=== PATIENT | male | born 1950 | race Caucasian/White ===

== ENCOUNTER 2023-11-15 07:22 | Outpatient (OUT) | payer MEDICARE, SELFPAY | END 2023-11-15 07:23 | disposition home or self-care (01) | LOC: PST 07:22 | PROVIDERS: Visit Provider Surgery | DX: Z01.818 Encounter for other preprocedural examination (principal) ==

== ENCOUNTER 2023-11-21 07:23 | Day surgery (SDC) | payer MEDICARE, OTHER, SELFPAY ==
--- OUTSIDE RECORDS SUMMARY | 2023-11-21 07:28 | XMS_ITS | CCD ---
Author Organization [facility] Care Team Providers Care Cured Meats Supervisor Name Role Phone Elmer Mendoza Primary Care Provider KJ BACA Referring Unavailable ELMER MENDOZA Primary Care Unavailable Zahra Whelan Unavailable Jair Willams Unavailable Nargis Church Unavailable Ector Berg Unavailable Minna Hand Unavailable JR Elmer Mendoza Primary Care Provider [phone] MD Ector Berg Attending Provider Riley, Awa Unavailable Riley, TECHNICAL FELLOW Awa Attending Provider Riley, TECHNICAL FELLOW Awa Referring Provider DR ELMER MENDOZA Primary Care Unavailable RILEY, AWA Admitting Unavailable RILEY, AWA Attending Unavailable OSVALDO, AWA Consulting Unavailable KELLY, DR FRANKLIN Primary Care Unavailable MISC, DR CALHOUN Admitting Unavailable MISC, DR CALHOUN Attending Unavailable MISC, DR CALHOUN Consulting Unavailable VALONE, DR FRANKLIN Primary Care Unavailable VALONE, DR FRANKLIN Attending Unavailable VALONE, DR FRANKLIN Admitting Unavailable VALONE, DR FRANKLIN Consulting Unavailable ESTRELLAONE, DR FRANKLIN Primary Care Unavailable ECTOR BERG Admitting Unavailable ECTOR BERG Attending Unavailable ECTOR BERG Consulting Unavailable KIRT, DR GIRALDO Admitting Unavailable KELLY, DR FRANKLIN Primary Care Unavailable KIRT, DR GIRALDO Attending Unavailable KIRT, DR GIRALDO Consulting Unavailable AUSTIN, DR NATHAN Santana Consulting Unavailable ESTRELLAONE, DR FRANKLIN Primary Care Unavailable ROM TOBIAS Admitting Unavailable ROM TOBIAS Attending Unavailable RYAN CH Consulting Unavailable PAY, DR TERESA Admitting Unavailable VALONE, DR FRANKLIN Primary Care Unavailable PAY, DR TERESA Attending Unavailable PAY, DR TERESA Consulting Unavailable VALONE, DR FRANKLIN Primary Care Unavailable ELASHI, DR MCARTHUR Admitting Unavailable ELASHI, DR MCARTHUR Attending Unavailable ELASHI, DR MCARTHUR Consulting Unavailable JR Elmer Mendoza Primary Care Provider MD Ector Berg Attending Provider Riley, TECHNICAL FELLOW Awa Attending Provider Riley, TECHNICAL FELLOW Awa Referring Provider JR Elmer Mendoza Attending Provider [phone] DO Conrad Garcia Emergency Provider [phone] JR Elmer Mendoza Primary Care Provider [phone] MD Ector Berg Attending Provider [phone] Estrellaone, Elmer L Admitting Unavailable Valone, Elmer L Attending Unavailable Valone, Elmer L Primary Care Unavailable Tanya, Ector Admitting Unavailable TanyaEctor Attending Unavailable Valone, Elmer L Primary Care Unavailable Valone, Elmer L Admitting Unavailable Valone, Elmer Devries Attending Unavailable Valone, Elmer L Primary Care Unavailable Valone, Elmer L Primary Care Unavailable Riley, Awa Referring Unavailable Riley, Awa Attending Unavailable Riley, Awa Admitting Unavailable Valone, Elmer L Primary Care Unavailable TanyaEctor Attending Unavailable Ector Berg Admitting Unavailable Jair Willams Attending Unavailable Estrellaone, Elmer L Primary Care Unavailable Jair Willams Admitting Unavailable Jair Willams Attending Unavailable Valone, Elmer L Primary Care Unavailable Jair Willams Admitting Unavailable Conrad Garcia Attending Unavailable Conrad Garcia Admitting Unavailable Valone, Elmer L Primary Care Unavailable Conrad Garcia M Attending Unavailable Conrad Garcia M Admitting Unavailable Valone, Elmer L Primary Care Unavailable BuehJair coburn Attending Unavailable Letyrer, Jair Admitting Unavailable Valone, Elmer L Primary Care Unavailable Naldo Castillo Unavailable Dr. Elmer Mendoza Jr Primary Care Enedina debilaadonay Winston, Ms. April Friend Referring Unava ilable Joce, Dr. Brady Duenas Attending Unavaila ble Kelly Chauhan., Elmer HARE Primary Care Provider FELIPE PACHECO Attending Unavailable RAJAB, AMER Referring Unavailable VALONE JR., ELMER Jaycob Primary Care Unavailabl e RAJAB, AMER Attending Unavailable RAJAB, AMER Referring Unavailable RAJAB, AMER Attending Unavailable VALONE JR., ELMER Devries Primary Care Unavailabl e VALONE JR., ELMER Jaycob Primary Care Unavailabl e SELF, SELF Referring Unavailable RAJAB, AMER Referring Unavailable RAJAB, AMER Attending Unavailable VALONE JR., ELMER Devries Primary Care Unavailabl e RAJAB, AMER Attending Unavailable VALONE JR., ELMER Devries Primary Care Unavailabl e RAJAB, AMER Referring Unavailable VALONE JR., ELMER Jaycob Primary Care Unavailabl e RAJAB, AMER Attending Unavailable RAJAB, AMER Referring Unavailable VALONE JR., ELMER Jaycob Primary Care Unavailabl e RAJAB, AMER Attending Unavailable RAJAB, AMER Referring Unavailable VALONE JR., ELMER Jaycob Primary Care Unavailabl e RAJAB, AMER Attending Unavailable SELF, SELF Referring Unavailable VALONE JR., ELMER Jaycob Primary Care Unavailabl e RAJAB, AMER Referring Unavailable RAJAB, AMER Attending Unavailable Allergies Allergy Classification Reported Allergen(s) Allergy Type Date of Onset Reaction(s) Facility (16 sources) Verapamil Drug Allergy 04-20-2020 [place], [place] (1 source) Verapamil Drug Allergy [facility] Repository (1 source) Verapamil Drug Allergy 06-11-2022 [facility] Repository Medications Current Medications Medication Drug Class(es) Dates Sig (Normalized) Sig (Original) [id number] 200 actuat albuterol 0.09 mg/actuat metered dose inhaler (8 sources) beta2-Adrenergic Agonist Start: 12-18-2021 take 2 puff(s) by inhalation every four hours as needed Albuterol Sulfate HFA 108 (90 Base) MCG/ACT 2 puffs as needed Inhalation every 4 hrs Dec, Active Start: 12-18-2021 take 2 puff(s) by in halation every four hours as needed Albuterol Sulfate HFA 108 (90 Base) MCG/ACT 2 puffs as needed Inhalation every 4 hrs Dec, Active Start: 04-30-2021 End: 05-31-2022 Albuterol Sulfate Discontinu ed 2 INH INHALATION Daily April 29, 2021 11:00pm May 31, 2022 3:45am allopurinol 100 mg oral tablet (20 sources) Xanthine Oxidase Inhibitor Start: 04-30-2021 take 200 mg by mouth three times daily Allopurinol Active 200 MG PO Three times daily April 29, 2021 11:00pm Start: 04-30-2021 End: 04-30-2021 Allopurinol Discontinued MG TABLET April 29, 2021 11:00pm April 30, 2021 2:21pm Start: 04-30-2021 take 200 mg by mouth once daily in the morning Allopurinol Active 200 MG PO Every morning April 29, 2021 11:00pm Allopurinol 100 MG tablet 1 (one) time each day at the same time. Active take 2 tablets by mo uth every twenty-four hours Allopurinol 100 MG 2 tablets Oral Once a day for 90 Not-Taking amoxicillin 500 mg / clavulanate 125 mg oral tablet (1 source) Penicillin-class Antibacterial Start: 04-08-2022 take 1 tablet by mouth every twenty-four hours Amoxicillin-Pot Clavulanate 500-125 MG 1 tablet Orally once a day for 7 day(s) Apr, Active B Complex-Vitamin C-Folic Acid (Renal Vitamin) 0.8 mg Tablet (3 sources) Start: 05-31-2022 take 1 tablet by mouth once daily B Complex-Vitamin C-Folic Acid (Renal Vitamin) 0.8 mg Tablet Active 1 TAB PO Daily May 31, 2022 12:00am calcitriol 0.42305 mg oral capsule (19 sources) Vitamin D3 Analog Calcitriol 0.2 5 MCG 1 capsule twice a day Orally bid for 90 day(s) Active calcium acetate 667 mg oral tablet (5 sources) Start: 05-31-2022 Calcium Acetate Active 1334 MG PO 2-3 TIMES DAILY May 31, 2022 12:00am take 2 tablets by mouth every ei ght hours Calcium Acetate 667 MG 2 tablets with meals Orally Three times a day Active carvedilol 6.25 mg oral tablet (20 sources) alpha-Adrenergic Alexis, beta-Adrenergic Alexis Start: 05-31-2022 take 6.25 mg by mouth once daily at mealtime Carvedilol Active 6.25 MG PO Daily May 31, 2022 12:00am must administer with a meal/food Start: 04-30-2021 End: 05-31-2022 take 12.5 mg by mouth twice daily Carvedilol Discontinued 12.5 MG PO Twice daily April 29, 2021 11:00pm May 31, 2022 3:46am take 1.5 tablets by mouth every twelve hours Carvedilol 12.5 MG 1.5 tablet with food Orally Twice a day Active cephalexin 500 mg oral capsule (7 sources) Cephalosporin Antibacterial Start: 06-11-2022 take 500 mg by mouth every six hours Cephalexin Active 500 MG PO Q6H 28 June 11, 2022 12:00am Start: 05-29-2021 End: 08-26-2021 take 500 mg by mouth twice daily Cephalexin Discontinued 500 MG PO Twice daily 14 May 29, 2021 12:00am August 26, 2021 11:12am dexamethasone 1 mg/ml / tobramycin 3 mg/ml ophthalmic suspension (2 sources) Aminoglycoside Antibacterial, Corticosteroid Start: 12-18-2021 take 1 drop(s) into the eye(s) three times daily Tobramycin-Dexamethasone 0.3-0.1 % 1 drop into affected eye Ophthalmic three times a day for 5 day(s) Dec, Active doxycycline monohydrate 100 mg oral capsule (1 source) Tetracycline-class Drug Start: 12-18-2021 take 1 capsule by mouth every twelve hours Doxycycline Monohydrate 100 MG 1 capsule Orally every 12 hrs for 10 days Dec, Active DULoxetine 60 mg delayed release oral capsule (20 sources) Serotonin and Norepinephrine Reuptake Inhibitor Start: 09-22-2022 DULox[address] Particles capsule DR 09/22/2022 Active Start: 04-30-2021 take 60 mg by mouth once daily at bedtime Duloxetine Active 60 MG PO Daily at bedtime April 29, 2021 11:00pm esomeprazole 20 mg delayed release oral capsule (3 sources) Proton Pump Inhibitor Start: 05-31-2022 take 20 mg by mouth once daily Esomeprazole Magnesium Active 20 MG PO Daily May 31, 2022 12:00am FLUoxetine 10 mg oral capsule (9 sources) Serotonin Reuptake Inhibitor Start: 02-14-2023 FLUoxetine 10 MG capsule 02/14/2023 Active levothyroxine sodium 0.2 mg oral tablet (20 sources) l-Thyroxine Start: 04-30-2021 take 200 ug by mouth once daily in the morning Levothyroxine Active 200 MCG PO Every morning April 29, 2021 11:00pm Levothyroxine So dium 200 MCG 1 tablet every morning on an empty stomach Orally Once a day for 90 days Active methylPREDNISolone 4 mg oral tablet (3 sources) Corticosteroid Start: 12-18-2021 methylPREDNISo lone 4 MG as directed Orally Once a day for 6 days Dec, Active Start: 05-04-2020 End: 05-04-2020 methylPREDNISolone acetate ( DEPO-MEDROL) injection 80 mg montelukast 10 mg oral tablet (17 sources) Leukotriene Receptor Antagonist Start: 01-30-2023 Montelukast 10 MG tablet 01/30/2023 Active Start: 04-30-2021 take 10 mg by mouth once daily in the morning Montelukast Active 10 MG PO Every morning April 29, 2021 11:00pm ofloxacin 3 mg/ml ophthalmic solution (1 source) Quinolone Antimicrobial Start: 08-17-2022 take 1 drop(s) into the eye(s) twice daily Ofloxacin 0.3 % 1 drop Ophthalmic twice a day for 7 day(s) Aug, Active phentermine hydrochloride 37.5 mg oral tablet (4 sources) Sympathomimetic Amine Anorectic take 1 tablet by mouth every twenty-four hours predniSONE 20 mg oral tablet (1 source) Start: 04-08-2022 take 1 tablet by mouth every eight hours predniSONE 20 MG 1 tablet Orally Three times a day for 5 days Apr, Active Renal Vitamin 0.8 MG (2 sources) take 1 tablet by mouth once daily Renal Vitamin 0.8 MG 1 tablet Orally Once a day Active rosuvastatin calcium 20 mg oral tablet (20 sources) HMG-CoA Reductase Inhibitor Start: 05-31-2022 take 20 mg by mouth once daily Rosuvastatin Active 20 MG PO Daily May 31, 2022 12:00am Start: 04-30-2021 End: 05-31-2022 take 40 mg by mouth once daily at bedtime Rosuvastatin Discontinued 40 MG PO Daily at bedtime April 29, 2021 11:00pm May 31, 2022 3:46am sevelamer carbonate 800 mg oral tablet (14 sources) Phosphate Binder Start: 05-31-2022 Sevelamer Car bonate Active 1600 MG PO 2-3 TIMES DAILY May 31, 2022 12:00am take 4 tablets by mo [facility] three times daily at mealtime sevelamer 800 MG tablet TAKE 4 TABLETS B Y MOUTH THREE TIMES DAILY WITH MEALS Active take 1 tablet by mouth every eig ht hours Sevelamer HCl 800 MG 1 tablet with meals Orally Three times a day Active sodium bicarbonate 650 mg or al tablet (13 sources) Start: 05-11-2021 Sodium Bicarbo prince 650 MG as directed Orally three times a day for 30 day(s) May, Active Completed/Discontinued Medications Medication Drug Class(es) Dates Sig (Normalized) Sig (Original) azithromycin 250 mg oral tablet (6 sources) Macrolide Antimicrobial Start: 05-29-2021 End: 08-26-2021 Azithromycin Discontinued 250 MG PO Daily 4 4 May 29, 2021 12:00am August 26, 2021 11:12am start on day 2 of therapy baclofen 10 mg oral tablet (6 sources) gamma-Aminobutyric Acid-ergic Agonist Start: 04-30-2021 End: 05-31-2022 take 10 mg by mouth once daily Baclofen Discontinued 10 MG PO Daily April 29, 2021 11:00pm May 31, 2022 3:45am 30 ml bupivacaine hydrochloride 5 mg/ml injection (1 source) Amide Local Anesthetic Start: 05-04-2020 End: 05-04-2020 bupivacaine (PF) (MARCAINE) 0.5 % injection 20 mg Start: 05-04-2020 End: 05-04-2020 bupivacaine (PF) (MARCAINE) 0.5 % injection 20 mg Cholecalciferol (19 sources) Vitamin D Start: 08-19-2020 take 1 tablet by mouth once daily Cholecalciferol 250 MCG (10525 UT) 1 tablet Orally Once a day Aug, Not-Taking Start: 08-19-2020 take 1 tablet by elidia once daily Cholecalciferol 250 MCG (40207 UT) 1 tablet Orally Once a day Aug, Active furosemide 40 mg oral tablet (20 sources) Loop Diuretic Start: 04-30-2021 End: 11-29-2022 take 40 mg by mouth once daily Furosemide Discontinued 40 MG PO Daily April 29, 2021 11:00pm May 31, 2022 3:46am rarely takes iohexol (OMNIPAQUE 240) injection 50 mL (1 source) Start: 05-04-2020 End: 05-04-2020 iohexol (OMNIPAQUE 240) injection 50 mL iohexol (OMNIPAQUE) 350 MG/ML injection 1-171 mL (1 source) Start: 09-19-2023 End: 09-19-2023 1-171 mL, Intravenous, ONCE, 1 dose, On Mon09/19/23 at 1345, Extravasation Risk, CT Procedure 10 ml lidocaine hydrochloride 10 mg/ml injection (1 source) Antiarrhythmic, Amide Local Anesthetic Start: 05-04-2020 End: 05-04-2020 lidocaine PF 1 % injection 4 mL Start: 05-04-2020 End: 05-04-2020 lidocaine PF 1 % injection 4 mL lisinopril 5 mg oral tablet (10 sources) Angiotensin Converting Enzyme Inhibitor Start: 04-30-2021 End: 05-31-2022 take 2.5 mg by mouth once daily in the morning Lisinopril Discontinued 2.5 MG PO Every morning April 29, 2021 11:00pm May 31, 2022 3:46am take 1 tablet by elidia th every twenty-four hours Lisinopril 2.5 MG 1 tablet Orally Once a day Active Perflutren Lipid Microsphere (DEFINITY) 1.5 mL in Normal saline flush 0.9% 8.5 mL (1 source) Start: 10-27-2023 End: 10-27-2023 10 mL, Intravenous, ONCE, 1 dose, On Mon10/27/23 at 1130, FOR ECHO PROCEDURE ONLY Dilute 1.5 mL of Definity with 8.5 mL of 0.9% sodium chloride and draw up in a 10 mL syringe. Administration during procedure as directed by physician. Recorded MAR dose is cumulative amount given during procedure., Echo Procedure regadenoson (LEXISCAN) injection 0.4 mg (1 source) Start: 10-27-2023 End: 10-27-2023 take 0.4 mg intravenously once 0.4 mg, Intravenous, ONCE, 1 dose, On Mon10/27/23 at 1245, Give rapid iv push over 10 seconds, NM Procedure 20 ml sodium chloride 9 mg/ml injection (2 sources) Start: 10-27-2023 End: 10-27-2023 10-50 mL, Intravenous, ONCE NEEDED, 1 dose, Starting on Mon10/27/23 at 1208, Until Mon10/27/23 at 1200, Flush, NM Procedure Start: 09-19-2023 End: 09-19-2023 1-100 mL, Intravenous, ONCE NEEDED, 1 dose, Starting on Mon09/19/23 at 1344, Until Mon09/19/23 at 1354, Flush, CT Procedure Technetium tc 99m sestamibi (SESTAMIBI) 7.2-38.5 millicurie (1 source) Start: 10-27-2023 End: 10-27-2023 7.2-38.5 millicurie, Intravenous, ONCE, 1 dose, On Mon10/27/23 at 1215 Technetium tc 99m sestamibi (SESTAMIBI) 7.2-49.5 millicurie (1 source) Start: 10-27-2023 End: 10-27-2023 7.2-49.5 millicurie, Intravenous, ONCE, 1 dose, On Mon10/27/23 at 1215 Problems Active Problems Problem Classification Problem Date Documented Date Episodic/Chronic Abdominal pain (4 sources) Abdominal pain; Translations: [Unspecified abdominal pain] Onset: 2 05-31-2022 Episodic Acute bronchitis (1 source) Acute bronchitis, unspecified Episodic Chronic kidney disease (20 sources) Chronic kidney disease stage 4; Translations: [Chronic kidney disease, stage 4 (severe)] Onset: 1 Resolved: 2 Chronic Congestive heart failure; nonhypertensive (1 source) Chronic diastolic (congestive) heart failure; Translations: [Chronic diastolic (congestive) heart failure] Onset: 2 Chronic Deficiency and other anemia (15 sources) Anemia in chronic kidney disease; Translations: [Anemia in chronic kidney disease] Chronic Deficiency and other anemia (1 source) Anemia in chronic kidney disease Onset: 1 Resolved: 1 Chronic Diabetes mellitus with complications (20 sources) Disorder of kidney due to diabetes mellitus; Translations: [Type 2 diabetes mellitus with diabetic chronic kidney disease] Onset: 1 Resolved: 1 Chronic Disorders of lipid metabolism (1 source) Hyperlipidemia, unspecified; Translations: [Hyperlipidemia, unspecified] Onset: 2 Chronic Essential hypertension (19 sources) Hypertensive disorder; Translations: [Hypertension, unspecified] Chronic Gout and other crystal arthropathies (4 sources) Gout, unspecified; Translations: [GOUT UNSPECIFIED] Onset: 2 Chronic Hypertension with complications and secondary hypertension (20 sources) Malignant hypertensive chronic kidney disease; Translations: [Hypertensive chronic kidney disease with stage 1 through stage 4 chronic kidney disease, or unspecified chronic kidney disease] Onset: 1 Resolved: 2 Chronic Immunizations and screening for infectious disease (8 sources) Patient encounter status; Translations: [Encounter for screening for infections with a predominantly sexual mode of transmission] Onset: 4 08-31-2023 Episodic Inflammation; infection of eye (except that caused by tuberculosis or sexually transmitteddisease) (2 sources) Unspecified acute conjunctivitis, bilateral Onset: 2 Resolved: 2 Episodic Nephritis; nephrosis; renal sclerosis (20 sources) Focal segmental glomerulosclerosis; 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] Onset: 1 Resolved: 1 Chronic Other aftercare (2 sources) Encounter for therapeutic drug level monitoring; Translations: [Encounter for therapeutic drug level monitoring] Onset: 4 Episodic Other aftercare (2 sources) Encounter for follow-up examination after completed treatment for conditions other than malignant neoplasm; Translations: [Encounter for follow-up examination after completed treatment for conditions other than malignant neoplasm] Onset: 4 Episodic Other diseases of kidney and ureters (19 sources) Hyperparathyroidism due to renal insufficiency; Translations: [Secondary hyperparathyroidism of renal origin] Chronic Other diseases of kidney and ureters (3 sources) Secondary hyperparathyroidism of renal origin Onset: 1 Resolved: 1 Chronic Other non-traumatic joint disorders (1 source) Pain in right hip joint; Translations: [Hip pain, right] Other nutritional; endocrine; and metabolic disorders (19 sources) Body mass index 40+ - severely obese; Translations: [Body mass index (BMI) 45.0-49.9, adult] Chronic Other nutritional; endocrine; and metabolic disorders (1 source) Body mass index (BMI) 45.0-49.9, adult Onset: 1 Resolved: 1 Chronic Other nutritional; endocrine; and metabolic disorders (1 source) Obesity, unspecified; Translations: [OBESITY UNSPECIFIED] Onset: 2 Chronic Other nutritional; endocrine; and metabolic disorders (1 source) Body mass index (BMI) 38.0-38.9, adult; Translations: [BODY MASS INDEX BMI 38.0-38.9 ADULT] Onset: 2 Chronic Other screening for suspected conditions (not mental disorders or infectious disease) (10 sources) Abnormal electrocardiogram [ECG] [EKG]; Translations: [Patient encounter status] Onset: 2 08-31-2023 Episodic Other upper respiratory infections (1 source) Chronic sinusitis, unspecified; Translations: [CHRONIC SINUSITIS UNSPECIFIED] Onset: 2 Chronic Other upper respiratory infections (7 sources) Upper respiratory infection; Translations: [Acute upper respiratory infection, unspecified] 05-29-2021 Episodic Spondylosis; intervertebral disc disorders; other back problems (6 sources) Pain in thoracic spine; Translations: [Dorsalgia, unspecified] Onset: 2 Episodic Thyroid disorders (20 sources) Hypothyroidism; Translations: [Hypothyroidism, unspecified] Onset: 1 Resolved: 1 Chronic Unclassified (1 source) Acute cough; Translations: [Acute cough] Onset: 2 Unclassified (1 source) Contact with and (suspected) exposure to COVID-19; Translations: [Contact with and (suspected) exposure to COVID-19] Onset: 2 Unclassified (1 source) Z49.01 - Encounter for fitting and adjustment of extracorporeal dialysis catheter; Translations: [Z49.01 - Encounter for fitting and adjustment of extracorporeal dialysis catheter] Onset: 2 Unclassified (1 source) T82.898A - Other specified complication of vascular prosthetic devices, implants and grafts, initial encounter; Translations: [T82.898A - Other specified complication of vascular prosthetic devices, implants and grafts, initial encounter] Onset: 2 Unclassified (1 source) Z01.812 - Encounter for preprocedural laboratory examination; Translations: [Z01.812 - Encounter for preprocedural laboratory examination] Onset: 2 Urinary tract infections (6 sources) Urinary tract infectious disease; Translations: [Urinary tract infection, site not specified] 05-29-2021 Episodic Urinary tract infections (1 source) Urinary tract infections; Translations: [Urinary tract infection, site not specified] Onset: 2 Past or Other Problems Problem Classification Problem Date Documented Da te Episodic/Chronic Cardiac dysrhythmias (4 sources) Tachycardia, unspecified; Translations: [Palpitations] Onset: 12-27-2021 Episodic Chronic obstructive pulmonary disease and bronchiectasis (1 source) Bronchitis, not specified as acute or chronic Onset: 12-18-2021 Resolved: 12-18-2021 Episodic Deficiency and other anemia (4 sources) Anemia, unspecified; Translations: [ANEMIA UNSPECIFIED] Onset: 09-10-2021 Episodic E Codes: Natural/environment (1 source) Other and unspecified overexertion or strenuous movements or postures, initial encounter; Translations: [OTH AND UNS OVREXRT/STRN MVMT/POS INT] Onset: 12-13-2021 Episodic Genitourinary symptoms and ill-defined conditions (1 source) Proteinuria, unspecified Onset: 05-11-2021 Resolved: 05-11-2021 Episodic Other aftercare (1 source) Other intermediate (current) drug therapy; Translations: [OTH SURFACE GRINDER TENDER CURRENT DRUG THERAPY] Onset: 12-29-2021 Episodic Other ear and sense organ disorders (1 source) Otalgia, unspecified ear; Translations: [OTALGIA UNSPECIFIED EAR] Onset: 12-29-2021 Episodic Otitis media and related conditions (1 source) Otitis media, unspecified, bilateral Onset: 12-18-2021 Resolved: 12-18-2021 Episodic Residual codes; unclassified (1 source) Edema, unspecified Onset: 05-11-2021 Resolved: 05-11-2021 Episodic Screening and history of mental health and substance abuse codes (1 source) Personal history of nicotine dependence; Translations: [Former smoker Z87.891] Onset: 04-26-2021 Resolved: 04-26-2021 Episodic Sprains and strains (1 source) Strain of muscle and tendon of back wall of thorax, initial encounter; Translations: [STRN MSC TENDON BACK WALL THOR INIT] Onset: 12-13-2021 Episodic Unclassified (1 source) Acute cough R05.1 Results Test Name Value Interpretation Reference Range Facility ARTERIAL BLOOD GASon 024 Base Excess 3.0 mmol/L Normal -3.0-3.0 [facility] [place] Comment on above: Performed By: #### I PB, BILTO, URICB, TP #### U [facility] (DEFAULT) [address] [place] [id number] HCO3 (Bld) [Moles/Vol] 27 mmol/L Normal 22-28 [facility] Comment on above: Performed By: #### I PB, BILTO, URICB, TP #### U [facility] (DEFAULT) [address] [place] [id number] Oxygen saturation in Blood 98 % Normal 94-98 [facility] [place] Comment on above: Performed By: #### I PB, BILTO, URICB, TP #### U [facility] (DEFAULT) [address] [place] [address] [id number] pCO2 40 mm Hg Normal 32-48 [facility] [place] Comment on above: Performed By: #### I PB, BILTO, URICB, TP #### U [facility] (DEFAULT) [address] [place], [place] [id number] pH, Arterial 7.44 Normal 7.35-7.45 [facility] [place] Comment on above: Performed By: #### I PB, BILTO, URICB, TP #### U [facility] (DEFAULT) [address] [place] [id number] pO2 96 mm Hg Normal 83-108 [facility] [place] Comment on above: Performed By: #### I PB, BILTO, URICB, TP #### U [facility] (DEFAULT) [address] [place] [id number] Specimen type Nom (Spec) Arterial Normal [facility] [place] Comment on above: Performed By: #### I PB, BILTO, URICB, TP #### U [facility] (DEFAULT) [address] [place] [address] Base excess Calc (Bld) [Moles/Vol] 3.0 mmol/L -3.0 - 3.0 mmol/L [facility] CO2 (Bld) [Partial pressure] 40 mm[Hg] [facility] HCO3 (Bld) [Moles/Vol] 27 mmol/L 22 - 28 mmol/L [facility] Oxygen (Bld) [Partial pressure] 96 mm[Hg] [facility] Oxygen saturation in Blood 98 % 94 - 98 % [facility] pH (Bld) 7.44 [pH] 7.35 - 7.45 [facility] Specimen source Nom (Unsp spec) [facility] Procedure Ordered By: Krunal Brown on 10-27-2023 Ao ASC index 1.40 cm/m2 [facility] Work Phone: Ao peak ruiz 1.63 m/s [facility] Work Phone: Ao SOV index 1.38 cm/m2 [facility] Work Phone: Ao STJ index 1.28 cm/m2 [facility] Work Phone: Ao VTI 31.[address] [facility] Work Phone: Ascending aorta 3.20 [facility]: AV LVOT peak gradient [address] [facility] Work Phone: AV mean gradient [facility] peak gradient 11 [facility]HG [facility]: AV valve area 2.20 cm2 [facility] Work Phone: AV Velocity Ratio 0.56 [facility] Work Phone: SIXTO (continuity Vmax) 2.[address] [facility] Work Phone: SIXTO (continuity VTI) 2.[address] [facility] Work Phone: SIXTO index (continuity Vmax) 0.94 m/s [facility] Work Phone: SIXTO index (continuity VTI) 0.96 cm2/m2 [facility] Work Phone: Avg e' pk ruiz 0.08 m/s [facility] Work Phone: Avg E/e' ratio 7.51 [facility] Work Phone: Body surface area Derived from formula 2.[address] [facility] Work Phone: BP EF 65 % [facility] Work Phone: DI (Vmax) 0.56 [facility] Work Phone: DI (VTI) 0.58 m/2 [facility] Work Phone: E wave decelartion time 222.[address] [facility] Work Phone: e' lateral pk ruiz 0.0860 m/s [facility] Work Phone: e' lateral pk ruiz 0.09 m/s [facility] Work Phone: e' septal pk ruiz 0.0700 m/s [facility] Work Phone: e' septal pk ruiz 0.07 [facility]: E/A ratio 0.73 [facility] Work Phone: E/e' lateral ratio 6.74 [facility] Work Phone: E/e' septal ratio 8.29 [facility] Work Phone: EF SP 2CH 65 [facility] Work Phone: EF SP 4CH 66 [facility] Work Phone: EST RAP 3.00 mmHg [facility] Work Phone: FS 34 % 28 - 44 % [facility] Work Phone: IVC ostium 1.62 cm [facility] Work Phone: IVS 1.16 cm [facility] Work Phone: LA AREA 2CH 25.[address] [facility] Work Phone: LA area 4CH 22.[address] [facility] Work Phone: LA ESV BP (MOD) 80 mL [facility] Work Phone: LA ESV BP (MOD) index 35 mL/m2 [facility] Work Phone: LA ESV SP 2CH (MOD) 78 mL [facility] Work Phone: LA ESV SP 4CH (MOD) 82 mL [facility] Work Phone: LV EDV BP 149 mL [facility] Work Phone: LV EDV SP 2CH 144 mL [facility] Work Phone: LV EDV SP 4CH 154 mL [facility] Work Phone: LV ESV BP 52 mL [facility] Work Phone: LV ESV SP 2CH [address] [facility] Work Phone: LV ESV SP 4CH [address] [facility] Work Phone: LV mass 168.[address] [facility] Work Phone: LV Mass Index 73.6 g/m2 [facility] Work Phone: LV RWT 0.47 [facility] Work Phone: LV stroke volume BP (ml) [address] [facility] Work Phone: LV stroke volume index BP 42.36 mL/m2 [facility] Work Phone: LVIDD 4.[address] [facility] Work Phone: LVIDS 2.[address] [facility] Work Phone: LVOT area 3.[address] [facility] Work Phone: LVOT diameter 2.[address] [facility] Work Phone: LVOT peak ruiz 0.92 m/s [facility] Work Phone: LVOT peak VTI 18.[address] [facility] Work Phone: LVOT stroke volume 70 cm3 [facility] Work Phone: LVOT stroke volume index 30.63 ml/m2 [facility] Work Phone: MV pk A ruiz 0.80 m/s [facility] Work Phone: MV pk E ruiz 0.58 m/s [facility] Work Phone: OSU AV VTI RATIO PRE STRESS 0.58 [facility] Work Phone: OSU ECHO LV BIPLANE SYSTOLIC VOLUME INDEX 22.71 mL/m2 [facility] Work Phone: OSU ECHO LV BP DIASTOLIC VOLUME INDEX 65.07 mL/m2 [facility] Work Phone: OSU RVOT VTI RATIO 0.92 [facility] Work Phone: PV mean gradient [address] [facility] Work Phone: PV peak gradient [address] [facility] Work Phone: PV PK RUIZ 1.09 m/s [facility] Work Phone: PV VTI 20.[address] [facility] Work Phone: PW 1.[address] [facility] Work Phone: RA vol index 4CH (MOD) 15.72 mL/m2 O [facility] Work Phone: Right atrium volume 4 chamber method of disks [address] [facility] Work Phone: RV S' 16.40 cm/s [facility] Work Phone: RVOT peak gradient 4 mmHg [facility] Work Phone: RVOT peak ruiz 0.94 m/s [facility] Work Phone: RVOT peak VTI 18.[address] [facility] Work Phone: Sinus 3.[address] [facility] Work Phone: STJ 2.[address] [facility] Work Phone: Stroke Volume 70 cm/mL [facility] Work Phone: Stroke volume index 31 [facility] Work [facility]: TAPSE 1.[address] [facility] Work Phone: [facility] Work Phone: Cardiac echo study Procedure on 10-27-2023 - Normal left ventri cular size and function. Ejection fraction 60-65%. - Normal right ventricular size and function. - Mildly dilated left atrium. - Aortic valve is sclerotic. - RVSP could not be estimated. Left Ventricle Chamber size is normal. Normal wall thickness. Normal global systolic function. Regional wall motion is normal. Ejection fraction is normal (60 - 65%). Diastolic function could not be determined. Right Ventricle Chamber size is normal. Systolic function is normal. Left Atrium Chamber size is mildly enlarged. Right Atrium Chamber size is normal. IVC/SVC The inferior vena cava structure has a diameter <21 mm and decreases >50% during inspiration. Mitral Valve Normal appearing leaflets. Leaflet mobility is normal. No regurgitation. No valve stenosis. Tricuspid Valve Normal leaflets. Leaflet mobility is normal. No regurgitation. No stenosis. Pulmonary artery systolic pressure (PASP) is unable to be estimated. Aortic Valve Trileaflet valve. Cusp sclerosis visualized. Leaflet mobility is normal. No regurgitation. No stenosis. Pulmonic Valve Pulmonic valve not well visualized. No regurgitation. No stenosis. Pericardium Appears normal. No pericardial effusion. Septum The atrial septum is normal. Aorta No dilation to extent seen. Study Details A complete echocardiography study (including microbubbles) was performed. Contrast indication: evaluation of left ventricle contiguous segments. Imaging system used: [employer]. Indications Indications for study: pre-op. [facility] Radiology Study observation (narrative) [facility] ECHOCARDIOGRAMon 10-27-2023 Echocardiography - Normal left ventri cular size and function. Ejection fraction 60-65%. - Normal right ventricular size and function. - Mildly dilated left atrium. - Aortic valve is sclerotic. - RVSP could not be estimated. Table formatting from the original result was not included. Images from the original result were not included. Patient Information Patient Name Vj Cárdenas Legal Sex Male Indication for Exam Priority: Routine Dx: Pre-transplant evaluation for kidney transplant [Z01.818 (ICD-10-CM)]; Chronic kidney disease, stage V [N18.5 (ICD-10-CM)] Comments: Pre kidney transplant evaluation Interpretation Summary - Normal left ventricular size and function. Ejection fraction 60-65%. - Normal right ventricular size and function. - Mildly dilated left atrium. - Aortic valve is sclerotic. - RVSP could not be estimated. Findings Left Ventricle Chamber size is normal. Normal wall thickness. Normal global systolic function. Regional wall motion is normal. Ejection fraction is normal (60 - 65%). Diastolic function could not be determined. Right Ventricle Chamber size is normal. Systolic function is normal. Left Atrium Chamber size is mildly enlarged. Right Atrium Chamber size is normal. Septum The atrial septum is normal. Mitral Valve Normal appearing leaflets. Leaflet mobility is normal. No regurgitation. No valve stenosis. Aortic Valve Trileaflet valve. Cusp sclerosis visualized. Leaflet mobility is normal. No regurgitation. No stenosis. Tricuspid Valve Normal leaflets. Leaflet mobility is normal. No regurgitation. No stenosis. Pulmonary artery systolic pressure (PASP) is unable to be estimated. Pulmonic Valve Pulmonic valve not well visualized. No regurgitation. No stenosis. Aorta No dilation to extent seen. Pericardium Appears normal. No pericardial effusion. IVC/SVC The inferior vena cava structure has a diameter <21 mm and decreases >50% during inspiration. Reading Providers Reading Role Read Date Krunal Brown MD Echo [place], Test Land Resource Specialist 10/27/2023 Left Heart Measurements LV - Systole LVIDD 4.41 cm IVS 1.16 cm LVIDS 2.92 cm PW 1.03 cm LV RWT 0.47 LV Mass Index 73.6 g/m2 LV EDV BP 149 mL LV ESV BP 52 mL BP EF 65 % LV stroke volume BP (ml) 97 mL LV stroke volume index BP 42.36 mL/m2 LV - Diastole MV pk E ruiz 0.58 m/s MV pk A ruiz 0.8 m/s E/A ratio 0.73 e' septal pk ruiz 0.07 m/s e' lateral pk ruiz 0.09 m/s Avg e' pk ruiz 0.08 m/s E/e' septal ratio 8.29 E/e' lateral ratio 6.74 Avg E/e' ratio 7.51 LV - HCM AV LVOT peak gradient 3 mmHg Left Atrium LA ESV SP 4CH (MOD) 82 mL LA ESV SP 2CH (MOD) 78 mL LA ESV BP (MOD) index 35 mL/m2 Right Heart Measurements RV - Doppler TAPSE 1.99 cm RV S' 16.4 cm/s Right Atrium RA vol index 4CH (MOD) 15.72 mL/m2 EST RAP 3 mmHg Great Vessels Aortic Root - End Diastolic Sinus 3.17 cm STJ 2.93 cm Ascending aorta 3.2 cm Inferior Vena Cava IVC ostium 1.62 cm Doppler Measurements - Aortic Valve Stenosis LVOT diameter 2.2 cm LVOT area 3.8 cm2 LVOT peak ruiz 0.92 m/s LVOT peak VTI 18.46 cm Stroke Volume 70 cm/mL Stroke volume index 31 Ao peak ruiz 1.63 m/s Ao VTI 31.85 cm AV peak gradient 11 mmHG AV mean gradient 6 mmHg DI (VTI) 0.58 m/2 DI (Vmax) 0.56 ISXTO (continuity Vmax) 2.14 cm2 SIXTO index (continuity Vmax) 0.94 m/s SIXTO (continuity VTI) 2.2 cm2 SIXTO index (continuity VTI) 0.96 cm2/m2 LVOT stroke volume 70 cm3 LVOT stroke volume index 30.63 ml/m2 Doppler Measurements - Mitral Valve Stenosis MV pk E ruiz 0.58 m/s MV pk A ruiz 0.8 m/s E/A ratio 0.73 PISA-MS MV pk E ruiz 0.58 m/s Doppler Measurements - Tricuspid Valve Stenosis IVC ostium 1.62 cm Regurgitation EST RAP 3 mmHg Doppler Measurements - Pulmonic Valve Stenosis PV PK RUIZ 1.09 m/s PV VTI 20.37 cm PV peak gradient 5 mmHg PV mean gradient 3 mmHg RVOT peak ruiz 0.94 m/s RVOT peak VTI 18.84 cm RVOT peak gradient 4 mmHg Vitals Height Weight BSA (Calculated - sq m) BP Pulse 1.727 m (5' 7.99 ) 118.4 kg (261 lb 0.4 oz) 2.29 m2 178/84 Performing Staff Susan Torrez Study Details A complete echocardiography study (including microbubbles) was performed. Contrast indication: evaluation of left ventricle contiguous segments. Imaging system used: [employer]. Indications Indications for study: pre-op. Exam Details Performed Procedure Technologist Supporting Staff Performing Physician ECHOCARDIOGRAM W/O 3D W/CONTRAST Susan Goode RN Appointment Date/Status Modality Department 10/27/2023 Arrived [facility] ECHO 4, [facility] ECHOCARDIOGRAPHY [facility] (more content not included)... Normal [facility] [place] NUC MYOCARD PERF STRESS MIBI PHARMon 10-27-2023 NUC MYOCARD PERF STRESS MIBI PHARM Impression: - Normal pharmacological SPECT stress test without evidence of ischemia. Stress ECG: - Baseline ECG sinus rhythm with T wave flattening. - No ischemic ECG changes with vasodilator stress. Stress Myocardial Perfusion Imaging: - There is no evidence of ischemia. - There is no evidence of infarction. Diaphragmatic artifact is present in the inferior wall that resolves with attenuation correction. - Normal left ventricular systolic function (LVEF >70%) with normal wall motion. Table formatting from the original result was not included. Images from the original result were not included. Patient Information Patient Name Vj Cárdenas Legal Sex Male Indication for Exam Priority: Routine pre kidney transplant eval Dx: Pre-transplant evaluation for kidney transplant [Z01.818 (ICD-10-CM)]; Chronic kidney disease, stage V [N18.5 (ICD-10-CM)]; Encounter for preprocedural cardiovascular examination [Z01.810 (ICD-10-CM)] Comments: Exercise SPECT stress test to rule out ischemia at adequate stress level and obtain LVEF at rest and stress and assess perfusion. MAY CONVERT TO CHEMICAL IF UNABLE TO ADEQUATELY STRESS. Interpretation Summary Impression: - Normal pharmacological SPECT stress test without evidence of ischemia. Stress ECG: - Baseline ECG sinus rhythm with T wave flattening. - No ischemic ECG changes with vasodilator stress. Stress Myocardial Perfusion Imaging: - There is no evidence of ischemia. - There is no evidence of infarction. Diaphragmatic artifact is present in the inferior wall that resolves with attenuation correction. - Normal left ventricular systolic function (LVEF >70%) with normal wall motion. Stress Findings ECG Baseline ECG is normal with normal sinus rhythm. Baseline ECG shows non-specific ST-T wave abnormalities consistent with T wave flattening. QRS duration is normal (80-100ms). Stress ECG is unchanged from baseline. There was no ST segment deviation noted during stress. There were no arrhythmias during stress. Recovery ECG returned to baseline. There were no arrhythmias during recovery. Negative pharm stress test. Stress Findings A pharmacological stress test was performed using regadenoson without low-level exercise. The patient reported no symptoms prior to the stress test. The patient reported shortness of breath during the stress test. The patient reached the end of the protocol. All symptoms resolved prior to end of stress test. Reading Providers Reading Role Read Date Krunal Brown MD ECG [place], SPECT [place], Test Land Resource Specialist 10/27/2023 Stress Measurements Baseline Vitals-Supine Baseline HR 93 bpm Baseline SBP 144 mmHg Baseline DBP 84 mmHg Baseline Vitals-Standing Baseline HR 91 bpm Baseline SBP 152 mmHg Baseline DBP 80 mmHg Peak Stress Vitals Peak HR 94 bpm Peak SBP 150 mmHg Peak DBP 80 mmHg Rate Pressure Product 14,100 Exercise Data APHRMAX 148 bpm % APHRMAX 64 % Exercise duration (min) 4 min Exercise duration (sec) 0 sec chronotropic augmentation 3 Nuclear Stress Findings Isotope Admin The isotope used for nuclear imaging was technetium sestamibi.No radiopharmaceutical dose was extravasated. Nuclear Study Quality Overall image quality is good. There are no artifacts present. Nuclear Stress Gating Stress perfusion cavity size was 53 mL. Resting perfusion cavity size was 51 mL. The stress/rest perfusion ratio is 1.04. Ejection fraction is 72.00%. End diastolic index is 31.00 mL/m2. End systolic index is 9.00 mL/m2. The lung to heart ratio is 0.24. Stage Data 1 2 3 4 5 Stage Rest Rest Stress Stress Stress Stage Details sitting standing 1 2 3 Time in stage (min:sec) 1:00 1:00 1:00 Heart Rate 93 91 90 92 91 Blood Pressure 144/84 152/80 134/80 150/80 O2 Sat % Metabolic Equivalents RPE Franks Dobutamine (mcg/kg/min) Atropine (mg) Grade % Speed Fredi Score Dyspnea Fredi Score Leg Fatigue Comments SOB 6 7 8 9 10 Stage Stress Recovery Recovery Recovery Recovery Stage Details 4 1 2 3 4 Time in stage (min:sec) 1:00 Heart Rate 88 86 87 86 83 Blood Pressure 148/90 142/90 O2 Sat % Metabolic Equivalents RPE Franks Dobutamine (mcg/kg/min) Atropine (mg) Grade % Speed Fredi Score Dyspnea Fredi Score Leg Fatigue Comments Resolved Nuclear Stress Measurements Nuc Stress EF 72 % Nuclear Perfusion Perfusion Scoring Stress Summed Score: 11 Percent Abnormal: 16.18% Severe count reduction in the following segments: basal inferior and basal inferolateral. Moderate count reduction in the following segments: basal inferoseptal. Mild count reduction in the following segments: mid inferoseptal, mid inferior and mid inferolateral. All other segments are normal. Resting Summed Score: 11 Percent Abnormal: 16.18% Severe count reduction in the following se (more content not included)... Normal [facility] [place] SPECT Heart perfusion at res t and W stress and W radionuclide IVOrdered By: Krunal Brown on 10-27-2023 % APHRMAX 64 % [facility] Work Phone: APHRMAX [address] [facility] Work Phone: Baseline DBP [address] [facility] Work Phone: Baseline DBP [address] [facility] Work Phone: Baseline HR [address] [facility] Work Phone: Baseline HR [address] [facility] Work Phone: Baseline SBP [address] [facility] Work Phone: Baseline SBP [address] [facility] Work Phone: Body surface area Derived from formula 2.29 m2 [facility] Work Phone: chronotropic augmentation [address] [facility] Work Phone: Exercise duration (min) [address] [facility] Work Phone: Exercise duration (sec) [address] [facility] Work Phone: NM ED vol idx 31.00 mL/m2 [facility] Work Phone: NM ES vol idx 9.00 mL/m2 [facility] Work Phone: Nuc Stress EF 72.00 % [facility] Work Phone: Peak DBP 80 mmHg [facility] Work Phone: Peak HR 94 bpm [facility] Work Phone: Peak SBP 150 mmHg [facility] Work Phone: Rate Pressure Product [id number] [facility] Work Phone: [facility] Work Phone: SPECT Heart perfusion at res t and W stress and W radionuclide Huong 10-27-2023 Impression: - Normal pharmacological SPECT stress test without evidence of ischemia. Stress ECG: - Baseline ECG sinus rhythm with T wave flattening. - No ischemic ECG changes with vasodilator stress. Stress Myocardial Perfusion Imaging: - There is no evidence of ischemia. - There is no evidence of infarction. Diaphragmatic artifact is present in the inferior wall that resolves with attenuation correction. - Normal left ventricular systolic function (LVEF >70%) with normal wall motion. Study Details Overall study quality was good. Pharmacological nuclear stress test performed using 1-day rest/stress protocol. Regadenoson infusion given over 10 seconds. Resting Single-Photon Emission Computed Tomography (SPECT) three axis myocardial perfusion images of the heart were acquired with an acquisition time of 11:39 EDT. Post-stress Single-Photon Emission Computed Tomography (SPECT) three axis myocardial perfusion images of the heart were acquired with an acquisition time of 13:21 EDT. Gated SPECT images obtained. Frame rate: 8 frames/sec. Stress SPECT CT images were obtained. Imaging system used: [facility]. Stress Findings A pharmacological stress test was performed using regadenoson without low-level exercise. The patient reported no symptoms prior to the stress test. The patient reported shortness of breath during the stress test. The patient reached the end of the protocol. All symptoms resolved prior to end of stress test. ECG Baseline ECG is normal with normal sinus rhythm. Baseline ECG shows non-specific ST-T wave abnormalities consistent with T wave flattening. QRS duration is normal (80-100ms). Stress ECG is unchanged from baseline. There was no ST segment deviation noted during stress. There were no arrhythmias during stress. Recovery ECG returned to baseline. There were no arrhythmias during recovery. Negative pharm stress test. Nuclear Study Quality Overall image quality is good. There are no artifacts present. Isotope Admin The isotope used for nuclear imaging was technetium sestamibi.No radiopharmaceutical dose was extravasated. Nuclear Stress Gating Stress perfusion cavity size was 53 mL. Resting perfusion cavity size was 51 mL. The stress/rest perfusion ratio is 1.04. Ejection fraction is 72.00%. End diastolic index is 31.00 mL/m2. End systolic index is 9.00 mL/m2. The lung to heart ratio is 0.24. Perfusion Scoring Stress Summed Score: 11 Percent Normal: 16.18% Severe count reduction in the following segments: basal inferior and basal inferolateral. Moderate count reduction in the following segments: basal inferoseptal. Mild count reduction in the following segments: mid inferoseptal, mid inferior and mid inferolateral. All other segments are normal. Perfusion Scoring Resting Summed Score: 11 Percent Normal: 16.18% Severe count reduction in the following segments: basal inferior and basal inferolateral. Moderate count reduction in the following segments: basal inferoseptal. Mild count reduction in the following segments: mid inferoseptal, mid inferior and mid inferolateral. All other segments are normal. Perfusion Scoring Attenuation Correction Summed Score: 1 Percent Normal: 1.47% Mild count reduction in the following segments: apex. All other segments are normal. [facility] Radiology Study observation (narrative) [facility] CT ANGIO ABDOMINAL AORTA WIT H RUNOFFon 09-19-2023 CT ANGIO ABDOMINAL AORTA WITH RUNOFF EXAM: CT ANGIO ABDOMINAL AORTA WITH RUNOFF, 09/19/2023 13:43 PM CLINICAL INDICATIONS: pre kidney transplant; , RELEVANT CLINICAL HISTORY: Z01.818:Pre-transplant evaluation for kidney transplant N18.5:Chronic kidney disease, stage V N18.6:ESRD (end stage renal disease) on dialysis Z99.2:ESRD (end stage renal disease) on dialysis Renal transplant protocol; COMPARISON: No prior studies available for comparison. TECHNIQUE: Arterial and venous phase computed tomography was performed from the lung bases to proximal thighs following the intravenous administration of Omnipaque. Multiplanar and three-dimensional, including Maximum Intensity Projection (MIP) reconstructions, were created by the technologist with concurrent physician supervision. Three-dimensional reconstructions were also created and reviewed by the radiologist on a separate workstation. Dose optimization was performed using a combination of automated exposure control, iterative reconstruction, and/or adjustment of KV or mA. CONTRAST: iohexol (OMNIPAQUE) 350 MG/ML injection 1-171 mL; Route of Administration: Intravenous; Dose: 80 mL. FINDINGS: VASCULATURE: Aorta: Scattered atherosclerotic disease throughout the visualized thoracic and abdominal aorta. No evidence of focal dissection or aneurysmal dilatation. Visceral arteries: The celiac trunk and its major branches are patent and normal in course and caliber. The SMA is patent. The CHADWICK is patent. Renal arteries: Single right renal artery. Accessory left renal artery. The renal arteries are patent. Iliac vessels: Scattered atherosclerotic disease throughout the iliac vessels results in multifocal areas of mild stenosis with no calcifications of bilateral external iliac arteries. Femoral vessels: The common, superficial, and profunda femoral arteries are patent and normal in course and caliber. Venous: The portal vein and hepatic veins are patent. The femoral and iliac venous vasculature is patent. LUNG BASES: Bilateral few tree-in-bud nodules and groundglass opacities. Multivessel coronary artery calcifications. Aortic valve leaflet calcifications. ABDOMEN Liver: Liver is smooth in contour and homogeneous in enhancement. Mild heterogeneity along the falciform is likely related to aberrant perfusion versus focal fat. Arterially enhancing ill defined subcentimeter focus at the hepatic dome is not clearly visualized on venous phase imaging, may be transient difference in perfusion. Few subcentimeter hypodensities in the liver are too small accurately characterize. Biliary/Gallbladder: Surgically absent gallbladder. The biliary tree is nondilated. Spleen: The spleen enhances homogeneously. No focal splenic lesion. Pancreas: There is some fatty replacement of the pancreatic head. There is no gross evidence of pancreatic mass or peripancreatic fluid. No ductal dilatation. Kidneys: The kidneys enhance symmetrically and are atrophic with mild perinephric fat stranding. Bilateral low density foci some of which are cysts and some of which are too small to characterize. Largest cyst in the right kidney is in the superior pole and measures up to 4.3 cm and largest cyst in the left kidney is in the inferior pole and measures up to 8.6 cm. No hydronephrosis. There is a subcentimeter exophytic nodule projecting off the superior pole of the left kidney that appears to have possible enhancement, 34 HU mean on arterial phase and 50 HU mean on venous phase (series 5, image 70 and series 10, image 142). Adrenals: The right adrenal gland is normal. Predominately fat-containing left adrenal nodule, consistent with myelolipoma measures 1.8 x 1.5 cm (series 10, image 117), a benign finding. Retroperitoneal: No retroperitoneal adenopathy is identified. Gastrointestinal: The stomach is decompressed, limiting its evaluation. The bowel loops are non-dilated. The appendix is not visualized. Diverticulosis without evidence of diverticulitis. Mesentery/Peritoneum: Mesentery is unremarkable. No peritoneal free air or free fluid. PELVIS Bladder: Mild circumferential urinary bladder wall thickening may in part be related to underdistention. Right posterior bladder diverticulum just lateral to the right ureterovesicular junction. Genital: The prostate and seminal vesicles are unremarkable. Solitary right testicle noted. Pelvic lymph nodes: No evidence of pelvic lymphadenopathy. Bony Structures: Multilevel degenerative changes of the spine. Other: Calcifications scattered throughout the subcutaneous tissue, including the right axillary region, left back, right gluteal region, left hip region, and anterior abdomen, likely from remote trauma. IMPRESSION: 1. Bilateral atrophic kidneys with mild perinephric fat stranding and multiple cysts as detailed above. There is a subcentimeter exophytic nodule projec (more content not included)... Normal [facility] [place] CTA Abdominal Aorta and Bila teral Runoff Vessels W contrast Huong 09-19-2023 IMPRESSION: 1. Bilateral atrophic kidneys with mild perinephric fat stranding and multiple cysts as detailed above. There is a subcentimeter exophytic nodule projecting off the superior pole of the left kidney that appears to have possible enhancement. Recommend further evaluation with MRI renal protocol if there is no prior imaging for comparison. 2. Scattered atherosclerotic disease with no calcifications of bilateral external iliac arteries. No proximal or distal flow limiting stenosis. 3. Mild bilateral tree-in-bud nodules and groundglass opacities within the lower lung bases may represent an infectious/inflammatory process. 4. Diverticulosis without evidence of acute diverticulitis. I personally viewed and interpreted these images and I have reviewed and approved this report. OLOGY EXAM: CT ANGIO ABDOM INAL AORTA WITH RUNOFF, 09/19/2023 13:43 PM CLINICAL INDICATIONS: pre kidney transplant; , RELEVANT CLINICAL HISTORY: Z01.818:Pre-transplant evaluation for kidney transplant N18.5:Chronic kidney disease, stage V N18.6:ESRD (end stage renal disease) on dialysis Z99.2:ESRD (end stage renal disease) on dialysis Renal transplant protocol; COMPARISON: No prior studies available for comparison. TECHNIQUE: Arterial and venous phase computed tomography was performed from the lung bases to proximal thighs following the intravenous administration of Omnipaque. Multiplanar and three-dimensional, including Maximum Intensity Projection (MIP) reconstructions, were created by the technologist with concurrent physician supervision. Three-dimensional reconstructions were also created and reviewed by the radiologist on a separate workstation. Dose optimization was performed using a combination of automated exposure control, iterative reconstruction, and/or adjustment of KV or mA. CONTRAST: iohexol (OMNIPAQUE) 350 MG/ML injection 1-171 mL; Route of Administration: Intravenous; Dose: 80 mL. FINDINGS: VASCULATURE: Aorta: Scattered atherosclerotic disease throughout the visualized thoracic and abdominal aorta. No evidence of focal dissection or aneurysmal dilatation. Visceral arteries: The celiac trunk and its major branches are patent and normal in course and caliber. The SMA is patent. The CHADWICK is patent. Renal arteries: Single right renal artery. Accessory left renal artery. The renal arteries are patent. Iliac vessels: Scattered atherosclerotic disease throughout the iliac vessels results in multifocal areas of mild stenosis with no calcifications of bilateral external iliac arteries. Femoral vessels: The common, superficial, and profunda femoral arteries are patent and normal in course and caliber. Venous: The portal vein and hepatic veins are patent. The femoral and iliac venous vasculature is patent. LUNG BASES: Bilateral few tree-in-bud nodules and groundglass opacities. Multivessel coronary artery calcifications. Aortic valve leaflet calcifications. ABDOMEN Liver: Liver is smooth in contour and homogeneous in enhancement. Mild heterogeneity along the falciform is likely related to aberrant perfusion versus focal fat. Arterially enhancing ill defined subcentimeter focus at the hepatic dome is not clearly visualized on venous phase imaging, may be transient difference in perfusion. Few subcentimeter hypodensities in the liver are too small accurately characterize. Biliary/Gallbladder: Surgically absent gallbladder. The biliary tree is nondilated. Spleen: The spleen enhances homogeneously. No focal splenic lesion. Pancreas: There is some fatty replacement of the pancreatic head. There is no gross evidence of pancreatic mass or peripancreatic fluid. No ductal dilatation. Kidneys: The kidneys enhance symmetrically and are atrophic with mild perinephric fat stranding. Bilateral low density foci some of which are cysts and some of which are too small to characterize. Largest cyst in the right kidney is in the superior pole and measures up to 4.3 cm and largest cyst in the left kidney is in the inferior pole and measures up to 8.6 cm. No hydronephrosis. There is a subcentimeter exophytic nodule projecting off the superior pole of the left kidney that appears to have possible enhancement, 34 HU mean on arterial phase and 50 HU mean on venous phase (series 5, image 70 and series 10, image 142). Adrenals: The right adrenal gland is normal. Predominately fat-containing left adrenal nodule, consistent with myelolipoma measures 1.8 x 1.5 cm (series 10, image 117), a benign finding. Retroperitoneal: No retroperitoneal adenopathy is identified. Gastrointestinal: The stomach is decompressed, limiting its evaluation. The bowel loops are non-dilated. The appendix is not visualized. Diverticulosis without evidence of diverticulitis. Mesentery/Peritoneum: Mesentery is unremarkable. No peritoneal free air or free fluid. PELVIS Bladder: Mild circumferential urinary bladder wall thickening may in part be related to underdistention. Right posterior bladder diverticulum just lateral to the right ureterovesicular junction. Genital: The prostate and seminal vesicles are unremarkable. Solitary right testicle noted. Pelvic lymph nodes: No evidence of pelvic lymphadenopathy. Bony Structures: Multilevel degenerative changes of the spine. Other: Calcifications scattered throughout the subcutaneous tissue, including the right axillary region, left back, right gluteal region, left hip region, and anterior abdomen, likely from remote trauma. RADIOLOGY Philipp Gresham MD - 09/19/2023 EXAM: CT ANGIO ABDOMINAL AORTA WITH RUNOFF, 09/19/2023 13:43 PM CLINICAL INDICATIONS: pre kidney transplant; , RELEVANT CLINICAL HISTORY: Z01.818:Pre-transplant evaluation for kidney transplant N18.5:Chronic kidney disease, stage V N18.6:ESRD (end stage renal disease) on dialysis Z99.2:ESRD (end stage renal disease) on dialysis Renal transplant protocol; COMPARISON: No prior studies available for comparison. TECHNIQUE: Arterial and venous phase computed tomography was performed from the lung bases to proximal thighs following the intravenous administration of Omnipaque. Multiplanar and three-dimensional, including Maximum Intensity Projection (MIP) reconstructions, were created by the technologist with concurrent physician supervision. Three-dimensional reconstructions were also created and reviewed by the radiologist on a separate workstation. Dose optimization was performed using a combination of automated exposure control, iterative reconstruction, and/or adjustment of KV or mA. CONTRAST: iohexol (OMNIPAQUE) 350 MG/ML injection 1-171 mL; Route of Administration: Intravenous; Dose: 80 mL. FINDINGS: VASCULATURE: Aorta: Scattered atherosclerotic disease throughout the visualized thoracic and abdominal aorta. No evidence of focal dissection or aneurysmal dilatation. Visceral arteries: The celiac trunk and its major branches are patent and normal in course and caliber. The SMA is patent. The CHADWICK is patent. Renal arteries: Single right renal artery. Accessory left renal artery. The renal arteries are patent. Iliac vessels: Scattered atherosclerotic disease throughout the iliac vessels results in multifocal areas of mild stenosis with no calcifications of bilateral external iliac arteries. Femoral vessels: The common, superficial, and profunda femoral arteries are patent and normal in course and caliber. Venous: The portal vein and hepatic veins are patent. The femoral and iliac venous vasculature is patent. LUNG BASES: Bilateral few tree-in-bud nodules and groundglass opacities. Multivessel coronary artery calcifications. Aortic valve leaflet calcifications. ABDOMEN Liver: Liver is smooth in contour and homogeneous in enhancement. Mild heterogeneity along the falciform is likely related to aberrant perfusion versus focal fat. Arterially enhancing ill defined subcentimeter focus at the hepatic dome is not clearly visualized on venous phase imaging, may be transient difference in perfusion. Few subcentimeter hypodensities in the liver are too small accurately characterize. Biliary/Gallbladder: Surgically absent gallbladder. The biliary tree is nondilated. Spleen: The spleen enhances homogeneously. No focal splenic lesion. Pancreas: There is some fatty replacement of the pancreatic head. There is no gross evidence of pancreatic mass or peripancreatic fluid. No ductal dilatation. Kidneys: The kidneys enhance symmetrically and are atrophic with mild perinephric fat stranding. Bilateral low density foci some of which are cysts and some of which are too small to characterize. Largest cyst in the right kidney is in the superior pole and measures up to 4.3 cm and largest cyst in the left kidney is in the inferior pole and measures up to 8.6 cm. No hydronephrosis. There is a subcentimeter exophytic nodule projecting off the superior pole of the left kidney that appears to have possible enhancement, 34 HU mean on arterial phase and 50 HU mean on venous phase (series 5, image 70 and series 10, image 142). Adrenals: The right adrenal gland is normal. Predominately fat-containing left adrenal nodule, consistent with myelolipoma measures 1.8 x 1.5 cm (series 10, image 117), a benign finding. Retroperitoneal: No retroperitoneal adenopathy is identified. Gastrointestinal: The stomach is decompressed, limiting its evaluation. The bowel loops are non-dilated. The appendix is not visualized. Diverticulosis without evidence of diverticulitis. Mesentery/Peritoneum: Mesentery is unremarkable. No peritoneal free air or free fluid. PELVIS Bladder: Mild circumferential urinary bladder wall thickening may in part be related to underdistention. Right posterior bladder diverticulum just lateral to the right ureterovesicular junction. Genital: The prostate and seminal vesicles are unremarkable. Solitary right testicle noted. Pelvic lymph nodes: No evidence of pelvic lymphadenopathy. Bony Structures: Multilevel degenerative changes of the spine. Other: Calcifications scattered throughout the subcutaneous tissue, including the right axillary region, left back, right gluteal region, left hip region, and anterior abdomen, likely from remote trauma. IMPRESSION IMPRESSION: 1. Bilateral atrophic kidney (more content not included)... [facility] Radiology Study observation (narrative) [facility] CTA Abdominal Aorta and Bila teral Runoff Vessels W contrast IVOrdered By: Philipp Gresham on 09-19-2023 [facility] Work Phone: ABO/RH(D) TYPINGon 4 ABO/RH(D) TYPE Positive Normal [facility] [place] Comment on above: Performed By: #### A BORJuan #### [facility] (DEFAULT) [address] [place] [address] 33432 ALBUMINon 08-31-2023 Albumin [Mass/Vol] 4.0 g/dL Normal 3.5-5.0 [facility] Comment on above: Performed By: #### I PB, BILTO, URICB, TP #### [facility] (DEFAULT) [address] [place] [address] 74440 Albumin [Mass/Vol] 4.0 g/dL 3.5 - 5.0 g/dL [facility] ALCOHOL (ETHANOL),BLOODon Ethanol Ql (Bld) mg/dL NINF - 10 mg/dL [facility] Interpretation and review of laboratory results Normal [facility] Alcohol, Serum <10 Normal <10 [facility] [place] Comment on above: Performed By: #### A LCOSU #### [facility] (DEFAULT) [address] [place] [address] 81050 ALP ALT Brian 08-31-2023 ALP [Catalytic activity/Vol] 67 U/L Normal 32-126 [facility] [place] Comment on above: Performed By: #### I PB, BILTO, URICB, TP #### [facility] (DEFAULT) [address] [place] [address] 30783 ALT [Catalytic activity/Vol] 19 U/L Normal 10-52 [facility] [place] Comment on above: Performed By: #### I PB, BILTO, URICB, TP #### U [facility] (DEFAULT) [address] [place] [address] 70366 AST [Catalytic activity/Vol] 18 U/L Normal 10-39 [facility] [place] Comment on above: Performed By: #### I PB, BILTO, URICB, TP #### U [facility] (DEFAULT) [address] [place] [address] 45160 ALP [Catalytic activity/Vol] 67 U/L 32 - 126 U/L [facility] ALT [Catalytic activity/Vol] 19 U/L 10 - 52 U/L [facility] AST [Catalytic activity/Vol] 18 U/L 10 - 39 U/L [facility] BILIRUBIN TOTALon 08-31-2023 Bilirubin [Mass/Vol] 0.5 mg/dL Normal <1.5 [facility] [place] Comment on above: Performed By: #### I PB, BILTO, URICB, TP #### [facility] (DEFAULT) [address] [place] [address] 23855 Bilirubin [Mass/Vol] 0.5 mg/dL NINF - 1.5 mg/dL [facility] CALCIUMon 08-31-2023 Calcium [Mass/Vol] 9.4 mg/dL Normal 8.6-10.5 [facility] Comment on above: Performed By: #### I PB, BILTO, URICB, TP #### [facility] (DEFAULT) [address] [place] [address] 30939 Calcium [Mass/Vol] 9.4 mg/dL 8.6 - 10. 5 mg/dL [facility] CBC AND ELECTRONIC DIFFon Basophils (Bld) [#/Vol] 0.05 10*3/uL Normal 0.00-0.09 [facility] [place] Comment on above: Performed By: #### I PB, BILTO, URICB, TP #### [facility] (DEFAULT) [address] [place] [address] 98349 Basophils/100 WBC (Bld) 0.7 % Normal [facility] [place] Comment on above: Performed By: #### I PB, BILTO, URICB, TP #### [facility] (DEFAULT) [address] [place] [address] 56115 DIFF STATUS Electronic Differential Normal [facility] [place] Comment on above: Performed By: #### I PB, BILTO, URICB, TP #### [facility] (DEFAULT) [address] [place] [address] 93671 Eosinophils (Bld) [#/Vol] 0.12 10*3/uL Normal 0.00-0.48 [facility] [place] Comment on above: Performed By: #### I PB, BILTO, URICB, TP #### [facility] (DEFAULT) [address] [place] [address] 35638 Eosinophils/100 WBC (Bld) 1.6 % Normal [facility] [place] Comment on above: Performed By: #### I PB, BILTO, URICB, TP #### [facility] (DEFAULT) [address] [place] [address] 48592 Hematocrit (Bld) [Volume fraction] 31.5 % Low 39.6-48.8 [facility] [place] Comment on above: Performed By: #### I PB, BILTO, URICB, TP #### [facility] (DEFAULT) [address] [place] [address] 38834 Hemoglobin (Bld) [Mass/Vol] 10.4 g/dL Low 13.4-16.8 [facility] [place] Comment on above: Performed By: #### I PB, BILTO, URICB, TP #### [facility] (DEFAULT) [address] [place] [address] 95068 Immature Grans % 0.5 % Normal [facility] Comment on above: Performed By: #### I PB, BILTO, URICB, TP #### U [facility] (DEFAULT) [address] [place] [address] 65954 Immature Grans Absolute 0.04 K/uL Normal <=0.07 [facility] [place] Comment on above: Performed By: #### I PB, BILTO, URICB, TP #### [facility] (DEFAULT) [address] [place] [address] 17003 Lymphocytes (Bld) [#/Vol] 0.52 10*3/uL Low 0.83-3.57 [facility] [place] Comment on above: Performed By: #### I PB, BILTO, URICB, TP #### U [facility] (DEFAULT) [address] [place] [address] 41522 Lymphocytes/100 WBC (Bld) 7.1 % Normal [facility] [place] Comment on above: Performed By: #### I PB, BILTO, URICB, TP #### [facility] (DEFAULT) [address] [place] [address] 86578 MCV (RBC) [Entitic vol] 97.8 fL High 79.0-94.5 [facility] [place] Comment on above: Performed By: #### I PB, BILTO, URICB, TP #### [facility] (DEFAULT) [address] [place] [address] 78931 Mean Cell Hgb 32.3 pg Normal 26.1-33.3 [facility] [place] Comment on above: Performed By: #### I PB, BILTO, URICB, TP #### [facility] (DEFAULT) [address] [place] [address] 96447 Mean Cell Hgb Conc 33.0 g/dL Normal 31.9-36.5 [facility] Comment on above: Performed By: #### I PB, BILTO, URICB, TP #### U [facility] (DEFAULT) [address] [place] [address] 65559 Mean Platelet Volume Normal [facility] [place] Comment on above: Result Comment: Not measured Performed By: #### I PB, BILTO, URICB, TP #### [facility] (DEFAULT) [address] [place] [address] 42639 Monocytes (Bld) [#/Vol] 0.71 10*3/uL Normal 0.24-0.93 [facility] [place] Comment on above: Performed By: #### I PB, BILTO, URICB, TP #### [facility] (DEFAULT) [address] [place] [address] 37719 Monocytes/100 WBC (Bld) 9.6 % Normal [facility] [place] Comment on above: Performed By: #### I PB, BILTO, URICB, TP #### [facility] (DEFAULT) [address] [place] [address] 92735 Nucleated RBC 0.0 /100 WBC Normal <=0.2 [facility] Comment on above: Performed By: #### I PB, BILTO, URICB, TP #### [facility] (DEFAULT) [address] [place] [address] 72733 Platelets (Bld) [#/Vol] 86 10*3/uL Low 146-337 [facility] [place] Comment on above: Result Comment: Plat elet clumps noted on smear. Reported instrument value is acceptable This is an appended report. These results have been appended to a previously preliminary verified report. Performed By: #### I PB, BILTO, URICB, TP #### [facility] (DEFAULT) [address] [place] [address] 82184 RBC (Bld) [#/Vol] 3.22 10*6/uL Low 4.38-5.83 [facility] [place] Comment on above: Performed By: #### I PB, BILTO, URICB, TP #### [facility] (DEFAULT) [address] [place] [address] 50968 RBC Distribution 14.4 % High 10.9-14.3 [facility] Comment on above: Performed By: #### I PB, BILTO, URICB, TP #### [facility] (DEFAULT) [address] [place] [address] 75832 Segs + Bands Auto 80.5 % Normal [facility] Comment on above: Performed By: #### I PB, BILTO, URICB, TP #### [facility] (DEFAULT) [address] [place] [address] Segs + Bands,Absolute Auto 5.93 K/uL Normal 1.57-6.19 [facility] [place] Comment on above: Performed By: #### I PB, BILTO, URICB, TP #### [facility] (DEFAULT) [address] [place] [address] WBC (Bld) [#/Vol] 7.37 10*3/uL Normal 3.73-10.10 [facility] [place] Comment on above: Performed By: #### I PB, BILTO, URICB, TP #### [facility] (DEFAULT) [address] [place] [address] Basophils (Bld) [#/Vol] 0.05 10*3/uL 0.00 - 0.09 K/uL [facility] Basophils/100 WBC (Bld) 0.7 % [facility] Differential cell count method Nom (Bld) Electronic Differential [facility] Eosinophils (Bld) [#/Vol] 0.12 10*3/uL 0.00 - 0.48 K/uL [facility] Eosinophils/100 WBC (Bld) 1.6 % [facility] Erythrocyte distribution width (RBC) [Ratio] 14.4 % High 10.9 - 14.3 % [facility] Hematocrit (Bld) [Volume fraction] 31.5 % Low 39.6 - 48.8 % [facility] Hemoglobin (Bld) [Mass/Vol] 10.4 g/dL Low 13.4 - 16.8 g/dL [facility] Immature granulocytes (Bld) [#/Vol] 0.04 10*3/uL NINF - 0.07 K/uL [facility] Immature granulocytes/100 WBC (Bld) 0.5 % [facility] Interpretation and review of laboratory results Abnormal [facility] Lymphocytes (Bld) [#/Vol] 0.52 10*3/uL Low 0.83 - 3.57 K/uL [facility] Lymphocytes/100 WBC (Bld) 7.1 % [facility] MCH (RBC) [Entitic mass] 32.3 pg 26.1 - 33.[address] [facility] MCHC (RBC) [Mass/Vol] 33.0 g/dL 31.9 - 36.5 g/dL [facility] MCV (RBC) [Entitic vol] 97.8 fL High 79.0 - 94.[address] [facility] Monocytes (Bld) [#/Vol] 0.71 10*3/uL 0.24 - 0.93 K/uL [facility] Monocytes/100 WBC (Bld) 9.6 % [facility] Neutrophils (Bld) [#/Vol] 5.93 10*3/uL 1.57 - 6.19 K/uL [facility] Nucleated RBC/100 WBC (Bld) [Ratio] 0.0 % [facility] Platelet mean volume (Bld) [Entitic vol] [facility] Comment on above: Not measured Platelets (Bld) [#/Vol] 86 10*3/uL Low 146 - 337 K/uL [facility] Comment on above: Platelet clumps note d on smear. Reported instrument value is acceptable This is an appended report. These results have been appended to a previously preliminary verified report. RBC (Bld) [#/Vol] 3.22 10*6/uL Low [facility] Segmented neutrophils/100 WBC (Bld) 80.5 % [facility] WBC (Bld) [#/Vol] 7.37 10*3/uL 3.73 - 10.10 K/uL [facility] CHEM 7 (LYTES,BUN,CREA,GLUC) on 08-31-2023 Anion gap [Moles/Vol] 17 mmol/L Normal 7-17 [facility] Comment on above: Performed By: #### I PB, BILTO, URICB, TP #### [facility] (DEFAULT) [address] [place] [address] Chloride [Moles/Vol] 97 mmol/L Low 98-108 [facility] [place] Comment on above: Performed By: #### I PB BILTO, URICB, TP #### [facility] (DEFAULT) [address] [place] [address] 35651 CO2 [Moles/Vol] 30 mmol/L Normal 21-31 [facility] Comment on above: Performed By: #### I PB, BILTO, URICB, TP #### [facility] (DEFAULT) [address] [place] [address] 7[address]36 Creatinine [Mass/Vol] 6.89 mg/dL High 0.70-1.30 [facility] Comment on above: Performed By: #### I PB, BILTO, URICB, TP #### [facility] (DEFAULT) [address] [place] [address] 28320 GFR/1.73 sq M.predicted among non-blacks MDRD (S/P/Bld) [Vol rate/Area] 8 mL/min/{1.73_m2} Low >=60 [facility] Comment on above: Result Comment: Repo rted eGFR is based on the CKD-EPI 2020 equation using creatinine, age, and sex. Performed By: #### I PB, BILTO, URICB, TP #### [facility] (DEFAULT) [address] [place] [address] 47547 Glucose [Mass/Vol] 101 mg/dL High 70-99 [facility] Comment on above: Performed By: #### I PB, BILTO, URICB, TP #### [facility] (DEFAULT) [address] [place] [address] 15191 Osmolality [Osmolality] 299 mosm/kg Normal 278-305 [facility] [place] Comment on above: Performed By: #### I PB, BILTO, URICB, TP #### [facility] (DEFAULT) [address] [place] [address] 63049 Potassium [Moles/Vol] 4.1 mmol/L Normal 3.5-5.0 [facility] Comment on above: Performed By: #### I PB, BILTO, URICB, TP #### [facility] (DEFAULT) [address] [place] [address] Sodium [Moles/Vol] 140 mmol/L Normal 135-145 [facility] Comment on above: Performed By: #### I PB, BILTO, URICB, TP #### [facility] (DEFAULT) [address] [place] [address] 30298 Urea nitrogen [Mass/Vol] 29 mg/dL High 7-25 [facility] [place] Comment on above: Performed By: #### I PB, BILTO, URICB, TP #### [facility] (DEFAULT) [address] [place] [address] 32418 Urea nitrogen/Creatinine [Mass ratio] 4 mg/mg Normal [facility] Comment on above: Performed By: #### I PB, BILTO, URICB, TP #### [facility] (DEFAULT) [address] [place] [address] 67354 Anion gap [Moles/Vol] 17 mmol/L 7 - 17 mmol/L [facility] Chloride [Moles/Vol] 97 mmol/L Low 98 - 10 8 mmol/L [facility] CO2 [Moles/Vol] 30 mmol/L 21 - 31 mmol/L [facility] Creatinine [Mass/Vol] 6.89 mg/dL High 0.70 - 1.30 mg/dL [facility] eGFR, CKD-EPI, Male 8 Low - PINF [facility] Comment on above: Reported eGFR is bas ed on the CKD-EPI 2020 equation using creatinine, age, and sex. Glucose [Mass/Vol] 101 mg/dL High 70 - 99 mg/dL [facility] Interpretation and review of laboratory results Abnormal [facility] Osmolality Calc [Osmolality] 299 [facility] Potassium [Moles/Vol] 4.1 mmol/L 3.5 - 5.0 mmol/L [facility] Sodium [Moles/Vol] 140 mmol/L 135 - 145 mmol/L [facility] Urea nitrogen [Mass/Vol] 29 mg/dL High 7 - 25 mg/dL [facility] Urea nitrogen/Creatinine [Mass ratio] 4 mg/mg [facility] CMV IGG ABon 08-31-2023 CMV IgG Antibody Positive Abnormal Negative [facility] Comment on above: Performed By: #### I PB, BILTO, URICB, TP #### [facility] (DEFAULT) [address] [place] [address] 11404 EBV VCA IGG [facility] 08-31-2023 EBV capsid IgG Ql (S) Positive Abnormal Negative [facility] Interpretation and review of laboratory results Abnormal [facility] EBV VCA IgG Antibody Positive Abnormal Negative [facility] [place] Comment on above: Performed By: #### I PB, BILTO, URICB, TP #### [facility] (DEFAULT) [address] [place] [address] 57066 ETHANOL (ALCOHOL), URINEon 0 08-31-2023 Ethanol Ql (U) mg/dL NINF - 10 mg/dL [facility] Ethanol Ql (U) Not detected [facility] Alcohol Not detected Normal [facility] Comment on above: Performed By: #### I PB, BILTO, URICB, TP #### [facility] (DEFAULT) [address] [place] [address] 88425 Alcohol, Urine <10 Normal <10 [facility] [place] Comment on above: Performed By: #### I PB, BILTO, URICB, TP #### [facility] (DEFAULT) [address] [place] [address] 15026 GGTon 08-31-2023 Gamma glutamyl transferase [Catalytic activity/Vol] 12 U/L Normal 8-64 [facility] [place] Comment on above: Performed By: #### I PB, BILTO, URICB, TP #### [facility] (DEFAULT) [address] [place] [address] 27677 Gamma glutamyl transferase [Catalytic activity/Vol] 12 U/L 8 - 64 U/L [facility] HEMOGLOBIN A1Con 08-31-2023 Average glucose Estimated from glycated hemoglobin (Bld) [Mass/Vol] 103 mg/dL [facility] HbA1c (Bld) [Mass fraction] 5.2 % 4.7 - 5.6 % [facility] Glucose [Mass/Vol] 103 mg/dL Normal [facility] Comment on above: Performed By: #### I PB, BILTO URICB, TP #### [facility] (DEFAULT) [address] [place] [address] 03415 Hemoglobin A1C HPLC 5.2 % Normal 4.7-5.6 [facility] [place] Comment on above: Performed By: #### I PB, BILTO URICB, TP #### [facility] (DEFAULT) [address] [place] [address] 87000 HEP B CORE AB,TOTAL(IGG+IGM) on 08-31-2023 HBV core IgG+IgM Ql (S) Negative Negative [facility] Hep B Core Ab,Total (IgG+IgM) Negative Normal Negative [facility] Comment on above: Performed By: #### I PB, BILTO URICB, TP #### [facility] (DEFAULT) [address] [place] [address] 28265 HEPATITIS A IGM ABon 024 HAV IgM IA Ql Negative Negative [facility] Hepatitis A IgM Ab Negative Normal Negative [facility] Comment on above: Performed By: #### I PB, BILTO, URICB, TP #### [facility] (DEFAULT) [address] [place] [address] 84394 HEPATITIS B SURFACE ANTIBODY on 08-31-2023 HBV surface Ab IA Ql (S) Negative Negative [facility] Interpretation and review of laboratory results Normal [facility] Hep B Surface Ab Negative Normal Negative [facility] Comment on above: Performed By: #### H BSAB, HSVM, HBSAG #### [facility] (DEFAULT) [address] [place] [address] 39607 HEPATITIS B SURFACE ANTIGENo n 08-31-2023 HBV surface Ag Ql (S) Negative Negative [facility] Hepatitis B Surface Ag Negative Normal Negative [facility] Comment on above: Performed By: #### H BSAB, HSVM, HBSAG #### [facility] (DEFAULT) [address] [place] [address] 20664 HEPATITIS C ANTIBODYon HCV Ab Ql (S) Negative Negative [facility] Interpretation and review of laboratory results Normal [facility] Hepatitis C Antibody Negative Normal Negative [facility] Comment on above: Performed By: #### I PB, BILTO, URICB, TP #### [facility] (DEFAULT) [address] [place] [address] 08520 HIV 1 AND 2 ANTIBODIES/P24 A NTIGENon 08-31-2023 HIV 1+2 Ab+HIV1 p24 Ag IA Ql Non-Reactive Non Reactive [facility] Interpretation and review of laboratory results Normal [facility] HIV-1/HIV-2 Ab With p24 Antigen Non-Reactive Normal Non Reactive [facility] Comment on above: Performed By: #### L [id number] #### [facility] (DEFAULT) [address] [place] [address] 93494 HLA TYPING (SOLID ORGAN)on 0 08-31-2023 A 1,- Normal [facility] Comment on above: Performed By: #### I PB, BILTO, URICB, TP #### [facility] (DEFAULT) [address] [place] [address] 59578 B 8,-- Normal [facility] Comment on above: Performed By: #### I PB, BILTO, URICB, TP #### [facility] (DEFAULT) [address] [place] [address] 10565 BW 6, Normal [facility] Comment on above: Performed By: #### I PB, BILTO, URICB, TP #### [facility] (DEFAULT) [address] [place] [address] 72139 C 7,- Normal [facility] Comment on above: Performed By: #### I PB, BILTO, URICB, TP #### [facility] (DEFAULT) [address] [place] [address] 79432 DPA1* 01:03 [facility] Comment on above: Performed By: #### I PB, BILTO, URICB, TP #### [facility] (DEFAULT) [address] [place] [address] 72203 DPA11 - Normal [facility] Comment on above: Performed By: #### I PB, BILTO, URICB, TP #### [facility] (DEFAULT) [address] [place] [address] 67436 DPB1* DPB11 - [facility] Comment on above: Performed By: #### I PB, BILTO, URICB, TP #### [facility] (DEFAULT) [address] [place] [address] 44586 DPB1*DPB1A 04:01 [facility] Comment on above: Performed By: #### I PB, BILTO, URICB, TP #### [facility] (DEFAULT) [address] [place] [address] 29665 DQA1* 05:01 [facility] Comment on above: Performed By: #### I PB, BILTO, URICB, TP #### [facility] (DEFAULT) [address] [place] [address] 22894 DQA1*DQA11 - [facility] Comment on above: Performed By: #### I PB, BILTO, URICB, TP #### [facility] (DEFAULT) [address] [place] [address] 12054 DQB1 2,- Normal [facility] Comment on above: Performed By: #### I PB, BILTO, URICB, TP #### [facility] (DEFAULT) [address] [place] [address] 85307 DQB1* 02:01 [facility] Comment on above: Performed By: #### I PB, BILTO, URICB, TP #### [facility] (DEFAULT) [address] [place] [address] 22368 DQB1* - DQB11 - [facility] Comment on above: Performed By: #### I PB, BILTO, URICB, TP #### [facility] (DEFAULT) [address] [place] [address],- [facility] Comment on above: Performed By: #### I PB, BILTO, URICB, TP #### [facility] (DEFAULT) [address] [place] [address] 89688 DR51,52,53 52 [facility] Comment on above: Performed By: #### I PB, BILTO, URICB, TP #### [facility] (DEFAULT) [address] [place] [address] 32029 DRB1* 03:01 [facility] Comment on above: Performed By: #### I PB, BILTO, URICB, TP #### [facility] (DEFAULT) [address] [place] [address] 81337 DRB1* - DRB11 - [facility] Comment on above: Performed By: #### I PB, BILTO, URICB, TP #### [facility] (DEFAULT) [address] [place] [address] 01130 DRB3* 01:01 [facility] Comment on above: Performed By: #### I PB, BILTO, URICB, TP #### [facility] (DEFAULT) [address] [place] [address] 90799 HLA A* 01:01 [facility] Comment on above: Performed By: #### I PB, BILTO, URICB, TP #### [facility] (DEFAULT) [address] [address] HLA A* - HLAAA - Normal [facility] Comment on above: Performed By: #### I PB, BILTO, URICB, TP #### [facility] (DEFAULT) [address] [address] HLA B* 08:01 Normal [facility] Comment on above: Performed By: #### I PB, BILTO, URICB, TP #### [facility] (DEFAULT) [address] [address] HLA B* - HLABBB - Normal [facility] Comment on above: Performed By: #### I PB, BILTO, URICB, TP #### [facility] (DEFAULT) [address] [address] HLA C* 07:01 Normal [facility] Comment on above: Performed By: #### I PB, BILTO, URICB, TP #### [facility] (DEFAULT) [address] [address] HLA C* - HLACC - Normal [facility] Comment on above: Performed By: #### I PB, BILTO, URICB, TP #### [facility] (DEFAULT) [address] [address] HLA INTERPRETATION Normal [facility] Comment on above: Result Comment: LIST ED AMBIGUITIES ARE NOT EXCLUDED: DPB1*1321:07/1321:07/1435:07/1443:01Q Testing performed by NGS (next-generation sequencing) and/or SSOP (sequence-specific oligonucleotide probe methodology). Additional testing may be performed by real-time PCR (qPCR).Some of the reagents used for testing in the Clinical Histocompatibility Laboratory have yet to be approved by the FDA. Our certification by CLIA to perform high complexity tests allows us to use these reagents in the context of a stringent QC program, and obviates the need for FDA approval.Testing performed by the [facility] Clinical Histocompatibility Laboratory. [facility] number: [id number]. CLIA number: [id number], Director: Aki Roberson, PhD, F([facility]). Performed By: #### I PB BILTO URICB, TP #### [facility] (DEFAULT) [address] [place] [address] 92454 HSV 1 AND 2 IGG ANTIBODYon 0 08-31-2023 HSV 1 IgG IA Qn (S) Positive Abnormal Negative [facility] HSV 2 IgG IA Qn (S) Negative Negative [facility] Interpretation and review of laboratory results Abnormal [facility] HSV 1 IgG Antibody Positive Abnormal Negative [facility] Comment on above: Performed By: #### I PB BILTO URICB, TP #### [facility] (DEFAULT) [address] [place] [address] 08396 HSV 2 IgG Antibody Negative Normal Negative [facility] Comment on above: Performed By: #### I PB BILTO URICB, TP #### [facility] (DEFAULT) [address] [place] [address] 22055 HSV IGM ANTIBODYon HSV I/II IgM Antibody Negative Normal Negative [facility] Comment on above: Performed By: #### H BSAB, HSVM, HBSAG #### [facility] (DEFAULT) [address] [place] [address] 56918 MAGNESIUMon 08-31-2023 Magnesium [Mass/Vol] 2.0 mg/dL Normal 1.6-2.6 [facility] Comment on above: Performed By: #### I PB, BILTO, URICB, TP #### [facility] (DEFAULT) [address] [place] [address] 49415 Magnesium [Mass/Vol] 2.0 mg/dL 1.6 - 2 .6 mg/dL [facility] No Panel Informationon Interpretation and review of laboratory results Normal [facility] ABO/RH(D) TYPE Positive [facility] Interpretation and review of laboratory results Abnormal [facility] Interpretation and review of laboratory results Normal [facility] Interpretation and review of laboratory results Normal [facility] No Panel InformationOrdered By: Lidia Mckenzie on 08-31-2023 Interpretation and review of laboratory results Normal [facility] OPIOIDS, URINE, CONFIRMATION on 08-31-2023 6-Monoacetylmorphine Confirmation < Normal <5.0 [facility] Comment on above: Order Comment: This Liquid Chromatography/Mass Spectrometry (LC/MS/MS) test was developed and its performance characteristics determined by the Toxicology Laboratory at [facility]. It has not been cleared or approved by the FDA. The laboratory is regulated under CLIA as qualified to perform high complexity testing. This test is used for clinical purposes and should not be regarded as investigational or for research. Performed By: #### I KYREE ALAMO URICB, TP #### [facility] (DEFAULT) [address] [address] Codeine Confirmation 578 ng/mL High <25 [facility] Comment on above: Order Comment: This Liquid Chromatography/Mass Spectrometry (LC/MS/MS) test was developed and its performance characteristics determined by the Toxicology Laboratory at [facility] [place]. It has not been cleared or approved by the FDA. The laboratory is regulated under CLIA as qualified to perform high complexity testing. This test is used for clinical purposes and should not be regarded as investigational or for research. Performed By: #### I KYREE ALAMO URICB, TP #### [facility] (DEFAULT) [address] [address] Hydrocodone Confirmation < Normal <25 [facility] Comment on above: Order Comment: This Liquid Chromatography/Mass Spectrometry (LC/MS/MS) test was developed and its performance characteristics determined by the Toxicology Laboratory at [facility] [place]. It has not been cleared or approved by the FDA. The laboratory is regulated under CLIA as qualified to perform high complexity testing. This test is used for clinical purposes and should not be regarded as investigational or for research. Performed By: #### I PB, BILTO, URICB, TP #### [facility] (DEFAULT) [address] [place] [address] 97976 Hydromorphone Confirmation < Normal <25 [facility] Comment on above: Order Comment: This Liquid Chromatography/Mass Spectrometry (LC/MS/MS) test was developed and its performance characteristics determined by the Toxicology Laboratory at [facility] [place]. It has not been cleared or approved by the FDA. The laboratory is regulated under CLIA as qualified to perform high complexity testing. This test is used for clinical purposes and should not be regarded as investigational or for research. Performed By: #### I PB BILFRANCISCO JAVIER URICB, TP #### [facility] (DEFAULT) [address] [place] [address] 58556 Morphine Confirmation 49 ng/mL High <25 [facility] Comment on above: Order Comment: This Liquid Chromatography/Mass Spectrometry (LC/MS/MS) test was developed and its performance characteristics determined by the Toxicology Laboratory at [facility] [place]. It has not been cleared or approved by the FDA. The laboratory is regulated under CLIA as qualified to perform high complexity testing. This test is used for clinical purposes and should not be regarded as investigational or for research. Performed By: #### I PB, BILTO, URICB, TP #### [facility] (DEFAULT) [address] [place] [address] 32594 Opioids Interpretation Positive Abnormal None Detected [facility] Comment on above: Order Comment: This Liquid Chromatography/Mass Spectrometry (LC/MS/MS) test was developed and its performance characteristics determined by the Toxicology Laboratory at [facility] [place]. It has not been cleared or approved by the FDA. The laboratory is regulated under CLIA as qualified to perform high complexity testing. This test is used for clinical purposes and should not be regarded as investigational or for research. Performed By: #### I PB, BILTO, URICB, TP #### [facility] (DEFAULT) [address] [place] [address] 03508 OSMOLALITYon 08-31-2023 Osmolality, Serum 287 mOsm/kg Normal 278-305 [facility] Comment on above: Performed By: #### A LCOSU #### [facility] (DEFAULT) [address] [place] [address] 56672 Interpretation and review of laboratory results Normal [facility] Osmolality [Osmolality] 287 mosm/kg [facility] PHOSPHATE, INORGANICon Phosphorous 3.4 mg/dL Normal 2.2-4.6 [facility] Comment on above: Performed By: #### I PB, BILTO, URICB, TP #### [facility] (DEFAULT) [address] [place] [address] 80651 Phosphate [Mass/Vol] 3.4 mg/dL 2.2 - 4 .6 mg/dL [facility] PRA CLASS (PRE-TRANSPLANT)on 08-31-2023 AB SPECIFICITY CLASS COMMENT Antibody Specificity testing performed by [employer]. cPRA calculation based on identification of HLA antibody specificities at MFI >2000 and/or presence of CREG antibodies. Normal [facility] [place] Comment on above: Result Comment: Some of the reagents used for testing in the Clinical Histocompatibility Laboratory have yet to be approved by the FDA. Our certification by CLIA to perform high complexity tests allows us to use these reagents in the context of a stringent QC program, and obviates the need for FDA approval.Testing performed by the [facility] Clinical Histocompatibility Laboratory. [facility] number: [id number]. CLIA number: [id number], Director: Aki Roberson, PhD, F([facility]). Performed By: #### I PB, BILTO, URICB, TP #### [facility] (DEFAULT) [address] [place] [address] [id number] ANTIBODY SPECIFICITY INTERPRETATION DQ6/DQA1*01:03 Normal [facility] [place] Comment on above: Performed By: #### I PB, BILTO, URICB, TP #### [facility] (DEFAULT) [address] [place] [address] [id number] CLASS I SPECIFICITIES Not detected Normal [facility] Comment on above: Performed By: #### I PB, BILTO, URICB, TP #### [facility] (DEFAULT) [address] [place] [address] 95675 CLASS II SPECIFICITIES DQ:06:03 Normal [facility] Comment on above: Performed By: #### I PB, BILTO, URICB, TP #### [facility] (DEFAULT) [address] [place] [address] 92323 cPRA 10 % High 0 [facility] [place] Comment on above: Performed By: #### I PB, BILTO, URICB, TP #### [facility] (DEFAULT) [address] [place] [address] 04867 PROTEIN TOTALon 08-31-2023 Protein [Mass/Vol] 6.0 g/dL Low 6.4-8.3 [facility] Comment on above: Performed By: #### I PB, BILTO, URICB, TP #### [facility] (DEFAULT) [address] [place] [address] [phone] Protein [Mass/Vol] 6.0 g/dL Low 6.4 - 8.3 g/dL [facility] PSA, SCREENINGon 08-31-2023 Interpretation and review of laboratory results Normal [facility] Prostate specific Ag [Mass/Vol] 0.98 ng/mL NINF - 4.00 ng/mL [facility] Comment on above: This test was perfor med on the [employer] Immunoassay platform which is a 2-step sandwich chemiluminescent immunoassay. It is important to note that assays using different manufacturers and/or methods may not be comparable. [facility] PT,INR,PTTon 08-31-2023 aPTT Coag (Bld) [Time] 36.1 s High 24.0-34.3 [facility] Comment on above: Performed By: #### I PB, BILTO, URICB, TP #### [facility] (DEFAULT) [address] [place] [address] [phone] INR Coag (PPP) [Relative time] 1.0 {INR} Normal 0.9-1.1 [facility] [place] Comment on above: Performed By: #### I KYREE ALAMO URICB, TP #### [facility] (DEFAULT) [address] [place] [address] [phone] PT Coag (PPP) [Time] 13.1 s Normal 11.9-14.2 [facility] [place] Comment on above: Performed By: #### I KYREE ALAMO URICB, TP #### [facility] (DEFAULT) [address] [place] [address] [phone] aPTT Coag (PPP) [Time] 36.1 s High [facility] INR Coag (Bld) [Relative time] 1.0 {INR} 0.9 - 1.1 [facility] Interpretation and review of laboratory results Abnormal [facility] PT Coag (PPP) [Time] 13.1 s [facility] PTH INTACTon 08-31-2023 Interpretation and review of laboratory results Abnormal [facility] Parathyrin.intact [Mass/Vol] 273.9 pg/mL High 14.0 - 72.0 pg/mL [facility] Intact PTH 273.9 pg/mL High 14.0-72.0 [facility] [place] Comment on above: Performed By: #### I KYREE ALAMO URICB, TP #### [facility] (DEFAULT) [address] [place] [address] 08735 SYPHILIS AB W/REFLEX RPRon 0 08-31-2023 Syphilis IgG/IGM Total Non-Reactive Normal Non Reactive [facility] [place] Comment on above: Performed By: #### I KYREE ALAMO URICB, TP #### [facility] (DEFAULT) [address] [place] [address] 46119 T. pallidum Ab Ql (S)Ordered By: Lidia Mckenzie on 08-31-2023 T. pallidum IgG Ql (S) Non-Reactive Non Reactive [facility] TT SAMPLEon 08-31-2023 TISSUE TYPING SAMPLE Specimen Received [facility] TYPE AND SCREENon 08-31-2023 ABO/RH(D) TYPE Positive Normal [facility] [place] Comment on above: Performed By: #### I PB, BILTO, URICB, TP #### [facility] (DEFAULT) [address] [place] [address] 46465 URIC ACIDon 08-31-2023 Urate [Mass/Vol] 3.2 mg/dL Low 3.5-7.0 [facility] Comment on above: Performed By: #### I PB, BILTO, URICB, TP #### [facility] (DEFAULT) [address] [place] [address] 52652 Urate [Mass/Vol] 3.2 mg/dL Low 3.5 - 7.0 mg/dL [facility] URINE DRUG SCREEN 10 WITH CO NFIRMATIONon 08-31-2023 Amphetamine+Methamphet amine Screen (U) [Mass/Vol] Not detected Cutoff: 500 ng/mL [facility] Barbiturates Ql (U) Not detected Cutoff: 200 ng/mL [facility] Benzodiazepines Ql (U) Not detected Cutof f: 200 ng/mL [facility] Buprenorphine Ql (U) Not detected Cutoff: 5 ng/mL [facility] Cannabinoids Screen Ql (U) Not detected Cutoff: 50 ng/mL [facility] Cocaine Ql (U) Not detected Cutoff: 150 ng/mL [facility] Creatinine (U) [Mass/Vol] 119.3 mg/dL 20.0 - PINF mg/dL [facility] fentaNYL Ql (U) Not detected Cutoff: 1 ng/mL [facility] Interpretation and review of laboratory results Abnormal [facility] Methadone Ql (U) Not detected Cutoff: 300 ng/mL [facility] Opiates Ql (U) Positive Abnormal Cutoff: 300 ng/mL [facility] oxyCODONE Ql (U) Not detected Cutoff: 100 ng/mL [facility] Amphetamine/Methamphet amine Not detected Normal Cutoff: 500 ng/mL [facility] [place] Comment on above: Performed By: #### I PB, BILTO, URICB, TP #### [facility] (DEFAULT) [address] [place] [address] 51340 Barbiturates Not detected Normal Cutoff: 200 ng/mL [facility] [place] Comment on above: Performed By: #### I PB, BILTO, URICB, TP #### [facility] (DEFAULT) [address] [place] [address] 89073 Benzodiazepines Not detected Normal Cutoff: 200 ng/mL [facility] [place] Comment on above: Performed By: #### I PB, BILTO, URICB, TP #### [facility] (DEFAULT) [address] [place] [address] 83766 Buprenorphine Not detected Normal Cutoff: 5 ng/mL [facility] [place] Comment on above: Performed By: #### I PB, BILTO, URICB, TP #### [facility] (DEFAULT) [address] [place] [address] 11784 Cannabinoids Screen Ql (U) Not detected Normal Cutoff: 50 ng/mL [facility] [place] Comment on above: Performed By: #### I PB, BILTO, URICB, TP #### [facility] (DEFAULT) [address] [place] [address] 65635 Cocaine Not detected Normal Cutoff: 150 ng/mL [facility] [place] Comment on above: Performed By: #### I PB, BILTO, URICB, TP #### [facility] (DEFAULT) [address] [place] [address] 65921 Creatinine,Urine 119.3 mg/dL Normal >=20.0 [facility] Comment on above: Performed By: #### I PB, BILTO, URICB, TP #### [facility] (DEFAULT) [address] [place] [address] 15484 Fentanyl Not detected Normal Cutoff: 1 ng/mL [facility] [place] Comment on above: Performed By: #### I PB, BILTO, URICB, TP #### [facility] (DEFAULT) [address] [place] [address] 81368 Methadone Not detected Normal Cutoff: 300 ng/mL [facility] [place] Comment on above: Performed By: #### I PB, BILTO, URICB, TP #### [facility] (DEFAULT) [address] [place] [address] 85094 Opiates Positive Abnormal Cutoff: 300 ng/mL [facility] [place] Comment on above: Performed By: #### I PB, BILTO, URICB, TP #### [facility] (DEFAULT) [address] [place] [address] 90168 Oxycodone Not detected Normal Cutoff: 100 ng/mL [facility] [place] Comment on above: Performed By: #### I PB, BILTO, URICB, TP #### [facility] (DEFAULT) [address] [place] [address] 48543 VARICELLA IGG AB (IMM STATUS )on 08-31-2023 VZV IgG Ql (S) Positive Positive [facility] Comment on above: Prior exposure to th e varicella zoster virus may cause measurable varicella zoster IgG antibody. A positive result indicates immunity through past immunization or prior infection. VZV IgG Qn (S) 5.9 [facility] Comment on above: THIS IS A QUALITATIV E ASSAY. The numeric value is not necessarily indicative of the amount of anti-Measles, Mumps, Rubella, or VZV IgG antibody present. Results should be interpreted in conjunction with clinical and epidemological data. [facility] Varicella Immune Status IgG Antibody Positive Normal Positive [facility] [place] Comment on above: Result Comment: Prio r exposure to the varicella zoster virus may cause measurable varicella zoster IgG antibody. A positive result indicates immunity through past immunization or prior infection. Performed By: #### I PB, BILTO, URICB, TP #### [facility] (DEFAULT) [address] [place] [address] 69337 Varicella Immune Status IgG Index 5.9 Normal [facility] [place] Comment on above: Result Comment: THIS IS A QUALITATIVE ASSAY. The numeric value is not necessarily indicative of the amount of anti-Measles, Mumps, Rubella, or VZV IgG antibody present. Results should be interpreted in conjunction with clinical and epidemological data. Performed By: #### I KYREE ALAMO URICB, TP #### [facility] (DEFAULT) [address] [place] [address] XR CHEST PA AND LATERAL 2 EWSon 08-31-2023 XR CHEST PA AND LATERAL 2 VIEWS EXAM: XR CHEST PA AND LATERAL 2 VIEWS, 08/31/2023 10:22 AM COMPARISON: No prior studies available for comparison. CLINICAL INDICATIONS: pre transplant evaluation RELEVANT CLINICAL HISTORY: Z01.818:Pre-transplant evaluation for kidney transplant FINDINGS: (Adequate technique) Implanted Devices: None Lungs: Clear, without mass, interstitial disease, or consolidation. Pleural Spaces: No pleural effusion. No pneumothorax. Mediastinum and Queenie: Normal Cardiac silhouette and great vessels: Normal heart size. Unremarkable aorta. Chest Wall: Normal IMPRESSION: No acute cardiopulmonary disease Normal [facility] [place] XR Chest PA and Lateralon IMPRESSION: No acute cardiopulmonary disease OLOGY EXAM: XR CHEST PA AN D LATERAL 2 VIEWS, 08/31/2023 10:22 AM COMPARISON: No prior studies available for comparison. CLINICAL INDICATIONS: pre transplant evaluation RELEVANT CLINICAL HISTORY: Z01.818:Pre-transplant evaluation for kidney transplant FINDINGS: (Adequate technique) Implanted Devices: None Lungs: Clear, without mass, interstitial disease, or consolidation. Pleural Spaces: No pleural effusion. No pneumothorax. Mediastinum and Queenie: Normal Cardiac silhouette and great vessels: Normal heart size. Unremarkable aorta. Chest Wall: Normal RADIOLOGY Jeff Gonzalez MD - 08/31/2023 EXAM: XR CHEST PA AND LATERAL 2 VIEWS, 08/31/2023 10:22 AM COMPARISON: No prior studies available for comparison. CLINICAL INDICATIONS: pre transplant evaluation RELEVANT CLINICAL HISTORY: Z01.818:Pre-transplant evaluation for kidney transplant FINDINGS: (Adequate technique) Implanted Devices: None Lungs: Clear, without mass, interstitial disease, or consolidation. Pleural Spaces: No pleural effusion. No pneumothorax. Mediastinum and Queenie: Normal Cardiac silhouette and great vessels: Normal heart size. Unremarkable aorta. Chest Wall: Normal IMPRESSION IMPRESSION: No acute cardiopulmonary disease [facility] Radiology Study observation (narrative) [facility] XR Chest PA and LateralOrder ed By: Jeff Gonzalez on 08-31-2023 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 It appears he may be having some mild eustachian tube dysfunction so we will start him on Flonase nasal spray?2 puffs each nostril daily for the next 6 weeks. 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 We will follow this closely and I would like to see him back in the office over the next 6 months and we will repeat an audiogram. This electronic medical record note was created with the use of voice recognition software. Despite proofreading, typographical or grammatical errors may be present that could affect meaning of content Chief Complaint Patient here for hearing loss. History of Present IllnessThis is a pleasant 72-year-old male who presents to the office today complaining of hearing loss, worse in the left ear. He states that over the last several weeks he has noticed that the left ear has changed. He denies any sudden loss or any vertigo or any other neurologic complaints. He does have a history of a sensorineural loss in both ears and he used to wear hearing aids however he is not wearing them now. Now he feels like he has some pressure in that left ear. I did review his most recent audiogram. Review of Systems A detailed 12 system review of systems is noted on the intake form has been reviewed with the patient with details noted in the HPI and scanned into the patient's medical record Allergies No Known Drug Allergies Recorded By: Lizzeth Bertrand; 03/01/2023 11:49:04 AM Current Meds Medication NameInstruction Allopurinol 100 MG Oral Tablet Calcium Acetate 667 MG Oral Tablet Carvedilol 6.25 MG Oral Tablet DULoxetine HCl - 60 MG Oral Capsule Delayed Release Particles Famotidine 20 MG Oral Tablet FLUoxetine HCl - 10 MG Oral Capsule Levothyroxine Sodium 200 MCG Oral Capsule Montelukast Sodium 10 MG Oral Tablet Rosuvastatin Calcium 20 MG Oral Tablet Sevelamer Carbonate 800 MG Oral Tablet Vitals Vital Signs Recorded: [id number] 11:43AM Wiatcdegllr03.6 F [id number] Tynesgpov40 Height5 ft 9 in Kvoime508 lb 6 oz BMI Qdyudjjpvj96.08 kg/m2 BSA Calculated2.35 Tobacco Useb) No Falls Screening (Age 18+)b) One or more falls in the last year Pain Scale0 Physical Exam Right ear?external canal is patent. TM intact with good mobility. No effusion. Mastoid nontender. 512 Hz tuning fork shows air conduction greater than bone conduction Left ear?external canal is patent. TM intact with mild retraction. It has fair mobility with my pneumatic otoscope. No effusion. Mastoid nontender. 512 Hz tuning fork shows air conduction is only slightly greater than bone conduction. He could have a early otosclerosis on this left side. Nose?clear no rhinorrhea, mucosa somewhat dry. No pus polyps or lesions. Oral cavity?clear, no lesions, no postnasal drip. Results/Data I reviewed his recent audiogram and the patient does have a bilateral high-frequency sensorineural loss and on top of that he has a conductive loss in that left ear. Right TM has good mobility on tympanometry and the left 1 was decreased. Word recognition scores 92% in each ear and his speech etl lead threshold is 60 dB in the right ear and 80 dB in the left ear. 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 Hobson. * Retest as medically indicated, or sooner if a change in hearing sensitivity or tinnitus is noticed. * Wear hearing protection while in the presence of loud sounds. * Use tinnitus coping strategies as needed, such as sound apps on a smart phone, utilizing calming noise in the room, running a fan at night, etc. * Use effective communication strategies such as asking the speaker to gain attention prior to speaking, speaking in the same room, repeating words that were heard, etc. * Consider returning to current hearing aid provider for hearing aid adjustments. Chief Complaint Hearing loss Adult Risk ScreeningThere are no spiritual/cultural practices/values/needs that are important to know Initial Fall Risk Screening: VJ has fallen in the last 6 months. He has fallen due to accident tripped. His fall did not result in injury. VJ does not have a fear of falling. He does not need assistance with sitting, standing or walking. Does not need assistance walking in his home. He does not need assistance in an unfamiliar setting. The patient is not using an assistive device. Fall Risk Screening: patient is not considered a fall risk. Care Plan: Low Risk: Environmental for all patients and low risk patients: Offer assistance as needed or requested, keep environment free of obstacles, keep floor clean and dry, keep room lighting, wheelchair brakes on, bed/ stretcher locked and in low position if applicable, non-slip footwear if applicable, walker/cane available if needed, side rails up if applicable and pre-emptive toileting. Moderate: fall in last 6 months or fear of falling. Pain Scale: On a scale of 0 to 10, the patient rates the pain at 0. Domestic Violence Screen: Does not feel threatened or abused physically, emotionally or sexually. Do you feel UNSAFE? The patient feels safe in the home. Depression/Suicide Screening: During the past 2 weeks, the patient has not felt down, depressed or hopeless. During the past 2 weeks, the patient has not felt little interest or pleasure in doing things. He does not have a risk of suicide. He has not had thoughts of harming others. Reference Documentation See scanned note Procedure Note: Audiogram. History of Present Illness Mr. VJ CÁRDENAS, was seen for an audiologic evaluation as part of his visit with Dr. Hobson. The patient reported a history of hearing loss and currently wears hearing aids purchased from [employer] in [place]. Mentioned he has noticed a decrease in hearing in the left ear that began approximately one month ago. Feels the left ear has an earache sensation, ear pressure, and he has noticed some crackling sensations inside the left ear. He has a history of imbalance problems, however, denied any true dizziness or vertigo. Reported he has been on dialysis and that also appears to effect his balance and create dizziness. He has a long standing history of bilateral tinnitus, which may also be pulsatile at times. Significant history of noise exposure for the past forty years. Denied any current otalgia, ear drainage, or sudden hearing loss. Patient's preferred language: Italian Preferred language of the parent, legal guardian or surrogate decision-maker of this minor or incapacitated patient: Italian No overt signs of domestic violence/neglect/abuse. Pain not interfering with optimal level of function or ability to assess and/or treat. Pain Scale rank: 0/10 Pain Scale used: Numeric No referral made to primary care provider (PCP). Factors/Barriers influencing patient's ability to complete assessment or learn: none. Person taught: patient. Readiness to learn: no barriers. Results of Teaching/Counseling: verbalize recall / understanding and teaching complete. Current Meds Medication NameInstruction Allopurinol 100 MG Oral Tablet Calcium Acetate 667 MG Oral Tablet Carvedilol 6.25 MG Oral Tablet DULoxetine HCl - 60 MG Oral Capsule Delayed Release Particles Famotidine 20 MG Oral Tablet FLUoxetine HCl - 10 MG Oral Capsule Fluticasone Propionate 50 MCG/ACT Nasal SuspensionPlace 2 puffs in each nostril daily Levothyroxine Sodium 200 MCG Oral Capsule Montelukast Sodium 10 MG Oral Tablet Rosuvastatin Calcium 20 MG Oral Tablet Sevelamer Carbonate 800 MG Oral Tablet Procedure Procedure: Audiological Assessment. Indication: hearing loss, chronic ear infection, tinnitus and ears feel full. History: exposure to a high level of environmental noise. Otoscopy: Right: clear and Left: clear. Tympanometry: Right: normal and Left: flat. Volume: Right Volume: normal. Left Volume: normal. Acoustic Reflex: Right: equivocal, Left: absent and Left: equivocal. Otoacoustic Em (more content not included)... Normal [facility] Automated erythrocytes count in urine sediment (number/area)Ordered By: Elmer Mendoza on 06-30-2022 RBC Auto (Urine sed) [#/Area] 3-4 [HPF] 0-4 [facility] Automated leukocytes count i n urine sediment (number/area)Ordered By: Elmer Mendoza on 06-30-2022 WBC Auto (Urine sed) [#/Area] Innumerable [HPF] 0-4 [facility] Bilirubin Test strip Ql (U)O rdered By: Elmer Mendoza on 06-30-2022 Bilirubin Ql (U) Negative Negative [facility] Color Auto (U)Ordered By: Juan Alberto Mendoza on 06-30-2022 Color (U) Yellow Yellow [facility] Dipstick and Microscopicon 1 Appearance (U) Turbid Critically abnormal Clear [facility] Comment on above: Order Comment: Name Collection Type:: Clean-Voided Midstream Performed By: #### C UU, ADDONUAPLUS ####[place] [id number] [address] Bacteria,Urine None Seen Normal None Seen [facility] Comment on above: Order Comment: Name Collection Type:: Clean-Voided Midstream Performed By: #### C UU, ADDONUAPLUS ####[place] [address] [place] [id number] [facility] Bilirubin,Urine Negative Normal Negative [facility] Comment on above: Order Comment: Name Collection Type:: Clean-Voided Midstream Performed By: #### C UU, ADDONUAPLUS ####[address] Color (U) Yellow Normal Yellow [facility] Comment on above: Order Comment: Name Collection Type:: Clean-Voided Midstream Performed By: #### C UU, ADDONUAPLUS ####[facility] [address] [address] [facility] Glucose Ql (U) 100 mg/dL High Normal [facility] Comment on above: Order Comment: Name Collection Type:: Clean-Voided Midstream Performed By: #### C UU, ADDONUAPLUS ####[address] [address] [facility] Hyaline Casts,Urine 0-8 Normal 0-8 [facility] Comment on above: Order Comment: Name Collection Type:: Clean-Voided Midstream Performed By: #### C UU, ADDONUAPLUS ####[address] [address] [facility] Ketones Ql (U) Negative Normal Negative [facility] Comment on above: Order Comment: Name Collection Type:: Clean-Voided Midstream Performed By: #### C UU, ADDONUAPLUS ####[place] [id number] [facility] Leukocyte esterase Test strip Ql (U) 4+ High Negative [facility] Comment on above: Order Comment: Name Collection Type:: Clean-Voided Midstream Performed By: #### C UU, ADDONUAPLUS ####[place] [id number] [facility] Nitrite,Urine Negative Normal Negative [facility] Comment on above: Order Comment: Name Collection Type:: Clean-Voided Midstream Performed By: #### C UU, ADDONUAPLUS ####[place] [id number] [facility] Occult Blood,Urine 1+ High Negative [facility] Comment on above: Order Comment: Name Collection Type:: Clean-Voided Midstream Result Comment: PERF ORMED BY: [facility] [address] [place] [address] PATHOLOGIST SPEECH LANGUAGE PATHOLOGY ASSISTANT EARNEST SCHUSTER M.D. Performed By: #### C UU, ADDONUAPLUS ####[place] [id number] [facility] pH (U) 7.5 [pH] Normal 5.0-9.0 [facility] Comment on above: Order Comment: Name Collection Type:: Clean-Voided Midstream Performed By: #### C UU, ADDONUAPLUS ####[address] [address] [facility] Protein (U) [Mass/Vol] 300 mg/dL High Negative [facility] Comment on above: Order Comment: Name Collection Type:: Clean-Voided Midstream Performed By: #### C UU, ADDONUAPLUS ####[place] [id number] [facility] RBC,Urine 3-4 Normal 0-4 [facility] Comment on above: Order Comment: Name Collection Type:: Clean-Voided Midstream Performed By: #### C UU, ADDONUAPLUS ####[address] Specificy [place],Urine 1.014 Normal 1.001-1.03 0 [facility] Comment on above: Order Comment: Name Collection Type:: Clean-Voided Midstream Performed By: #### C UU, ADDONUAPLUS ####[place] [id number] [facility] Squamous Epithelial Cell,Urine 1-2 Normal 0-2 [facility] Comment on above: Order Comment: Name Collection Type:: Clean-Voided Midstream Performed By: #### C UU, ADDONUAPLUS ####[place] [id number] [facility] Urobilinogen,Urine Normal Normal Normal [facility] Comment on above: Order Comment: Name Collection Type:: Clean-Voided Midstream Performed By: #### C UU, ADDONUAPLUS ####[address] [address] [facility] WBC,Urine Innumerable High 0-4 [facility] Comment on above: Order Comment: Name Collection Type:: Clean-Voided Midstream Performed By: #### C UU, ADDONUAPLUS ####[place] [id number] [facility] Yeast,Urine None Seen Normal None Seen [facility] Comment on above: Order Comment: Name Collection Type:: Clean-Voided Midstream Result Comment: PERF ORMED BY: [facility] [address] [place] [address] PATHOLOGIST SPEECH LANGUAGE PATHOLOGY ASSISTANT EARNEST SCHUSTER M.D. Performed By: #### C UU, ADDONUAPLUS ####[facility] [place] [address] [facility] Ketones Auto test strip (U) [Mass/Vol]Ordered By: Elmer Mendoza on 06-30-2022 Ketones (U) [Mass/Vol] Negative Negative [facility] Laboratory - UrinalysisOrder ed By: Elmer Mendoza on 06-30-2022 Hyaline casts LM Ql (Urine sed) 0-8 [LPF] 0-8 [facility] Nitrite Test strip Ql (U)Ord ered By: Elmer Mendoza on 06-30-2022 Nitrite Ql (U) Negative Negative [facility] Protein Auto test strip (U) [Mass/Vol]Ordered By: Elmer Mendoza on 06-30-2022 Protein (U) [Mass/Vol] 300 mg/dL Negative [facility] Specific gravity Auto test s trip (U) [Rel density]Ordered By: Elmer Mendoza on 06-30-2022 Specific gravity (U) [Rel density] 1.014 1.001-1.03 0 [facility] Squamous epithelial cells de tection in urine sediment by light microscopyOrdered By: Elmer Mendoza on 06-30-2022 Epithelial cells.squamous LM Ql (Urine sed) 1-2 [HPF] 0-2 [facility] Urine Cultureon 06-30-2022 Bacteria identified Cx Nom (U) 75,000 colonies/ml mixed bacterial skin contaminants 2 Days PERFORMED BY: [facility] [address] [place] [address] PATHOLOGIST SPEECH LANGUAGE PATHOLOGY ASSISTANT EARNEST SCHUSTER M.D. Normal [facility] Comment on above: Performed By: #### C UU, ADDONUAPLUS ####[place] [address] [place] [address] [facility] Urine bacteria detection by automated methodOrdered By: Elmer Mendoza on 06-30-2022 Bacteria Auto Ql (U) None seen None Seen [facility] Urine clarity by refractomet ry automatedOrdered By: Elmer Mendoza on 06-30-2022 Clarity Refractometry automated (U) Turbid Clear [facility] Urine glucose measurement by automated test strip (mass/volume)Ordered By: Elmer Mendoza on 06-30-2022 Glucose Auto test strip (U) [Mass/Vol] 100 mg/dL Normal [facility] Urine hemoglobin detection b y automated test stripOrdered By: Elmer Mendoza on 06-30-2022 Hemoglobin Auto test strip Ql (U) 1+ Negative [facility] Urine leukocyte esterase det ection by automated test stripOrdered By: Elmer Mendoza on 06-30-2022 Leukocyte esterase Auto test strip Ql (U) 4+ Negative [facility] Urobilinogen Auto test strip (U) [Mass/Vol]Ordered By: Elmer Mendoza on 06-30-2022 Urobilinogen (U) [Mass/Vol] Normal mg/dL Normal [facility] Yeast detection in urine sed iment by light microscopyOrdered By: Elmer Mendoza on 06-30-2022 Yeast LM Ql (Urine sed) None seen [HPF] None Seen [facility] pH Auto test strip (U)Ordere d By: Elmer Mendoza on 06-30-2022 pH (U) 7.5 [pH] 5.0-9.0 [facility] Activated partial thrombopla stin time (aPTT) in platelet poor plasma by coagulation aOrdered By: Conrad Garcia on 06-11-2022 aPTT Coag (PPP) [Time] 29.9 s 25.1-36.5 [facility] B-Type Natriuretic Peptideon 06-11-2022 Natriuretic peptide B (Bld) [Mass/Vol] 36.0 pg/mL Normal 5-100 [facility] Comment on above: Result Comment: PERF ORMED BY: [place] [address] PATHOLOGIST SPEECH LANGUAGE PATHOLOGY ASSISTANT EARNEST SCHUSTER M.D. Performed By: #### C OVID 19 [facility] #### [address] Bacterial blood cultureOrder ed By: Conrad Garcia on 06-11-2022 Bacteria identified Cx Nom (Bld) NO GROWTH 5 DAYS [facility] Basophils Auto (Bld) [#/Vol] Ordered By: Conrad Garcia on 06-11-2022 Basophils (Bld) [#/Vol] 0.1 10*3/uL 0.0-0.2 [facility] Basophils/100 WBC Auto (Bld) Ordered By: Conrad Garcia on 06-11-2022 Basophils/100 WBC (Bld) 0.9 % . [facility] BioFire Not Detectedon 06-11 BioFire Not Detected Not detected Normal Not Detecte [facility] Comment on above: Result Comment: This is a duplicate RP2.1 COVID (PCR) result to be used for statistical tracking purpose only. PERFORMED BY: [place] [address] PATHOLOGIST SPEECH LANGUAGE PATHOLOGY ASSISTANT EARNEST SCHUSTER M.D. Performed By: #### C OVID 19 [facility] #### [facility] [address] [place] [address] Blood Cultureon 06-11-2022 Bacteria identified Cx Nom (Bld) NO GROWTH 5 DAYS PERFORMED BY: [place] [address] PATHOLOGIST SPEECH LANGUAGE PATHOLOGY ASSISTANT EARNEST SCHUSTER M.D. Normal [facility] Comment on above: Performed By: #### C OVID 19 [facility] #### [facility] [address] [place] [address] Body fluid albumin measureme nt (mass/volume)Ordered By: Conrad Garcia on 06-11-2022 Albumin (Body fld) [Mass/Vol] 3.8 g/dL 3.2-5.5 [facility] COVID-19 Detected/Not Detect edOrdered By: Conrad Garcia on 06-11-2022 SARS-CoV-2 (COVID-19) RNA MARK+non-probe Ql (Nph) Not detected Not Detecte [facility] Comment on above: This is a duplicate RP2.1 COVID (PCR) result to be used for statistical tracking purpose only. CT cervical spine wo conon 1 08-12-2021 CT cervical spine wo con [facility] [place] [address] [place] [address] CT Scan Report Signed Patient: Vj Cárdenas MR#: [id number] : 1950 Acct:[id number] Age/Sex: 71 / M ADM Date: 06/11/22 Loc: ER Room: Type: [facility] ER Attending Dr: Copies to: Conrad Garcia DO Ordering Provider: Conrad Garcia DO Date of Service: 06/11/22 CT/CT head/brain wo con: headache ([id number]) CT/CT cervical spine wo con: neck pain CT BRAIN WITHOUT CONTRAST: CLINICAL HISTORY: Headache, neck pain. COMPARISON: None TECHNIQUE: Contiguous axial unenhanced images were obtained through the brain. This CT exam was performed using one or more following dose reduction techniques: Automated exposure control, adjustment of the mA and/or kV according to patient size, or use of iterative reconstruction technique. FINDINGS: There is no evidence of midline shift, intra or extra-axial fluid collection, hemorrhage or CT evidence of stroke. Posterior fossa appears unremarkable. Visualized intraorbital contents appear unremarkable. Visualized paranasal sinuses are clear. The surrounding soft tissues are normal. CT/CT head/brain wo con IMPRESSION: NO ACUTE INTRACRANIAL ABNORMALITY. CT CERVICAL SPINE WITHOUT CONTRAST WITH 3D RECONSTRUCTIONS: CLINICAL HISTORY: Neck pain status post dialysis. COMPARISON: None TECHNIQUE: Spiral axial unenhanced images were obtained through the cervical spine. Sagittal, coronal and 3D volume-rendered reconstructions were also reviewed. This CT exam was performed using one or more following dose reduction techniques: Automated exposure control, adjustment of the mA and/or kV according to patient size, or use of iterative reconstruction technique. FINDINGS: No acute bony process. Vertebral body heights appear maintained. Mild disc space narrowing C4-5. Minimal facet joint degenerative change. No prevertebral soft tissue swelling. Visualized lung apices demonstrate no acute findings. IMPRESSION: NO CERVICAL SPINE FRACTURE Impression dictated by: Kane Pendleton Jr., D.OCelestino06/11/2022 4:53 PM Dictation Location: [place] [address] Transcribed By: [facility] 06/11/22 1652 Dictated By: Kane Pendleton Jr, DO 06/11/221650 Signed By: 06/11/221652 Normal [facility] Complete Blood Count Auto Di ffon 06-11-2022 Basophils (Bld) [#/Vol] 0.1 10*3/uL Normal 0.0-0.2 [facility] Comment on above: Result Comment: PERF ORMED BY: [facility] [address] [place] [address] PATHOLOGIST SPEECH LANGUAGE PATHOLOGY ASSISTANT EARNEST SCHUSTER M.D. Performed By: #### C BC, PT, PTT, HS TROP, BNP, CMP, CUBLD ####[address] Basophils/100 WBC (Bld) 0.9 % Normal . [facility] Comment on above: Performed By: #### C BC, PT, PTT, HS TROP, BNP, CMP, CUBLD ####[address] Eosinophils (Bld) [#/Vol] 0.1 10*3/uL Normal 0.0-0.45 [facility] Comment on above: Performed By: #### C BC, PT, PTT, HS TROP, BNP, CMP, CUBLD ####[address] Eosinophils/100 WBC (Bld) 1.0 % Normal . [facility] Comment on above: Performed By: #### C BC, PT, PTT, HS TROP, BNP, CMP, CUBLD ####[place] [id number] [facility] Erythrocyte distribution width (RBC) [Ratio] 14.8 % Normal 12.0-14.8 [facility] Comment on above: Performed By: #### C BC, PT, PTT, HS TROP, BNP, CMP, CUBLD ####[place] [id number] [facility] Hematocrit (Bld) [Volume fraction] 34.5 % Low 38.8-50.0 [facility] Comment on above: Performed By: #### C BC, PT, PTT, HS TROP, BNP, CMP, CUBLD ####[address] Hemoglobin (Bld) [Mass/Vol] 11.7 g/dL Low 13.0-17.0 [facility] Comment on above: Performed By: #### C BC, PT, PTT, HS TROP, BNP, CMP, CUBLD ####[address] Lymphocytes (Bld) [#/Vol] 0.6 10*3/uL Low 1.00-4.8 [facility] Comment on above: Performed By: #### C BC, PT, PTT, HS TROP, BNP, CMP, CUBLD ####[address] Lymphocytes/100 WBC (Bld) 5.9 % Normal . [facility] Comment on above: Performed By: #### C BC, PT, PTT, HS TROP, BNP, CMP, CUBLD ####[address] MCH (RBC) [Entitic mass] 33.0 pg Normal 27.5-35.2 [facility] Comment on above: Performed By: #### C BC, PT, PTT, HS TROP, BNP, CMP, CUBLD ####[address] MCV (RBC) [Entitic vol] 97.5 fL Normal 83.5-101 [facility] Comment on above: Performed By: #### C BC, PT, PTT, HS TROP, BNP, CMP, CUBLD ####[address] Mean Corpuscular HGB Conc 33.8 g/dL Normal 32.5-35.6 [facility] Comment on above: Performed By: #### C BC, PT, PTT, HS TROP, BNP, CMP, CUBLD ####[address] Monocytes (Bld) [#/Vol] 0.7 10*3/uL Normal 0.0-0.8 [facility] Comment on above: Performed By: #### C BC, PT, PTT, HS TROP, BNP, CMP, CUBLD ####[address] Monocytes/100 WBC (Bld) 20.89 % High 0.00-20.00 [facility] Comment on above: Result Comment: For adults in ED, MDW > 20.0 may be associated with a higher risk of sepsis during the first 12 hrs of hospital admission Performed By: #### C BC, PT, PTT, HS TROP, BNP, CMP, CUBLD ####[address] Monocytes/100 WBC (Bld) 6.9 % Normal . [facility] Comment on above: Performed By: #### C BC, PT, PTT, HS TROP, BNP, CMP, CUBLD ####[address] Neutrophils (Bld) [#/Vol] 9.0 10*3/uL High 1.8-7.7 [facility] Comment on above: Performed By: #### C BC, PT, PTT, HS TROP, BNP, CMP, CUBLD ####[address] Neutrophils/100 WBC (Bld) 85.3 % Normal . [facility] Comment on above: Performed By: #### C BC, PT, PTT, HS TROP, BNP, CMP, CUBLD ####[address] NRBC% 0.0 /100{WBC} Normal 0-0.5 [facility] Comment on above: Performed By: #### C BC, PT, PTT, HS TROP, BNP, CMP, CUBLD ####[address] Platelet mean volume (Bld) [Entitic vol] 10.1 fL Normal 6.6-10.1 [facility] Comment on above: Performed By: #### C BC, PT, PTT, HS TROP, BNP, CMP, CUBLD ####[facility] [place] [address] [facility] Platelets (Bld) [#/Vol] 138 10*3/uL Low 150-450 [facility] Comment on above: Performed By: #### C BC, PT, PTT, HS TROP, BNP, CMP, CUBLD ####[facility] [place] [id number] [facility] RBC (Bld) [#/Vol] 3.54 10*6/uL Low 3.90-5.60 [facility] Comment on above: Performed By: #### C BC, PT, PTT, HS TROP, BNP, CMP, CUBLD ####[facility] [place] [id number] [facility] WBC (Bld) [#/Vol] 10.5 10*3/uL Normal 4.1-10.5 [facility] Comment on above: Performed By: #### C BC, PT, PTT, HS TROP, BNP, CMP, CUBLD ####[facility] [place] [id number] [facility] Comprehensive Metabolic Pane piotr 06-11-2022 Albumin [Mass/Vol] 3.8 g/dL Normal 3.2-5.5 [facility] Comment on above: Performed By: #### C OVID 19 [facility] #### [facility] [address] Albumin/Globulin [Mass ratio] 1.4 {ratio} Normal [facility] Comment on above: Performed By: #### C OVID 19 [facility] #### [facility] [address] [place] [id number] [place] ALP [Catalytic activity/Vol] 66 U/L Normal 32-92 [facility] Comment on above: Performed By: #### C OVID 19 [facility] #### [facility] [address] [place] [id number] [facility] ALT [Catalytic activity/Vol] 20 U/L Normal 10-60 [facility] Comment on above: Performed By: #### C OVID 19 [facility] #### [facility] [address] [place] [id number] [place] Anion gap [Moles/Vol] 16.9 mmol/L High 6.0-15.0 [facility] Comment on above: Performed By: #### C [address] #### [facility] [address] [place] [phone] [facility] AST [Catalytic activity/Vol] 21 U/L Normal 10-42 [facility] Comment on above: Performed By: #### C [address] #### [facility] [address] [place] [phone] [place] Bilirubin [Mass/Vol] 0.6 mg/dL Normal 0.3-1.2 [facility] Comment on above: Performed By: #### C [address] #### [facility] [address] Calcium [Mass/Vol] 9.7 mg/dL Normal 8.2-10.2 [facility] Comment on above: Performed By: #### C [address] #### [facility] [address] [place] [address] [place] Chloride [Moles/Vol] 91 mmol/L Low 95-114 [facility] Comment on above: Performed By: #### C [address] #### [facility] [address] [place] [phone] [place] CO2 [Moles/Vol] 30.0 mmol/L Normal 22.0-30.0 [facility] Comment on above: Performed By: #### C [address] #### [facility] [address] [place] [phone] [place] Creatinine [Mass/Vol] 5.10 mg/dL High 0.64-1.27 [facility] Comment on above: Performed By: #### C [address] #### [facility] [address] [place] [phone] [place] Creatinine Clr Calc Pharmacy 17.65 Normal [facility] Comment on above: Result Comment: PERF ORMED BY: [facility] [address] [place] [address] PATHOLOGIST SPEECH LANGUAGE PATHOLOGY ASSISTANT EARNEST SCHUSTER M.D. Performed By: #### C [address] 19 [facility] #### [facility] [address] Estimated GFR ( Jenny 14 [facility] Comment on above: Result Comment: GFR estimated reference range: According to KDOQI guidelines, <60 ml/min/1.73m2 is sufficient to diagnose a patient with chronic kidney disease. Performed By: #### C [address] 19 [facility] #### [facility] [address] Estimated GFR (Non- Am 11 [facility] Comment on above: Performed By: #### C [address] 19 [facility] #### [facility] [address] Globulin (S) [Mass/Vol] 2.7 g/dL [facility] Comment on above: Performed By: #### C [address] 19 [facility] #### [address] Glucose [Mass/Vol] 111 mg/dL High 70-100 [facility] Comment on above: Result Comment: [place] Glucose Reference Range is dependent on time and content of last meal. Glucose of more than 200 mg/dL in a nonstressed, ambulatory subject supports the diagnosis of Diabetes Mellitus. ADA recommended reference range Performed By: #### C BAL[place] 19 [facility] #### [address] Potassium [Moles/Vol] 3.9 mmol/L Normal 3.5-5.1 [facility] Comment on above: Performed By: #### C OVID 19 [facility] #### [address] Protein [Mass/Vol] 6.5 g/dL Normal 6.1-7.9 [facility] Comment on above: Performed By: #### C [address] 19 [facility] #### [address] Sodium [Moles/Vol] 134 mmol/L Low 136-146 [facility] Comment on above: Performed By: #### C [place] 19 [facility] #### [facility] [address] [place] [address] [place] Urea nitrogen [Mass/Vol] 14 mg/dL Normal 03-25 [facility] Comment on above: Performed By: #### C OVID 19 [facility] #### [facility] [address] [place] [address] [place] Creatinine and Glomerular fi ltration rate.predicted panel (S/P/Bld)Ordered By: Conrad Garcia on 06-11-2022 Creatinine [Mass/Vol] 5.10 mg/dL 0.64-1.27 [facility] ECG 12 lead ECGon 06-11-2022 ECG 12 lead ECG [facility] [place] [address] [place] [address] Electrocardiograph Report Signed Patient: Vj Cárdenas MR#: [id number] : 1950 Acct:[id number] Age/Sex: 71 / M ADM Date: 06/11/22 Loc: ER Room: Type: [facility] ER Attending Dr: Ordering Provider: Conrad Garcia DO Date of Service: 06/11/2204/23/1405 ECG/ECG 12 lead ECG: Neck Pain/Injury Copies to: Test Reason : Blood Pressure : 117/064 mmHG Vent. Rate : 084 BPM Atrial Rate : 084 BPM P-R Int : 160 ms QRS Dur : 090 ms QT Int : 384 ms P-R-T Axes : 070 020 134 degrees QTc Int : 453 ms Normal sinus rhythm Low voltage QRS T wave abnormality, consider anterolateral ischemia Abnormal ECG When compared with ECG of 29-MAY-2021 19:19, premature supraventricular complexes are no longer present T wave inversion more evident in Anterolateral leads Confirmed by Conrad Garcia DO ([id number]) on 06/11/2022 6:35:34 PM Referred By: Electronically Signed By:Conrad Garcia DO Transcribed By: MUS Signed By Conrad Garcia DO 2 1835 Normal [facility] Eosinophils Auto (Bld) [#/Vo l]Ordered By: Conrad Garcia on 06-11-2022 Eosinophils (Bld) [#/Vol] 0.1 10*3/uL 0.0-0.45 [facility] Eosinophils/100 WBC Auto (Bl d)Ordered By: Conrad Garcia on 06-11-2022 Eosinophils/100 WBC (Bld) 1.0 % . [facility] Erythrocyte distribution wid th Auto (RBC) [Ratio]Ordered By: Conrad Garcia on 06-11-2022 Erythrocyte distribution width (RBC) [Ratio] 14.8 % 12.0-14.8 [facility] Estimated glomerular filtrat ion rate (GFR) non- AmericanOrdered By: Conrad Garcia on 06-11-2022 GFR/1.73 sq M.predicted among non-blacks MDRD (S/P/Bld) [Vol rate/Area] 11 mL/Min [facility] Globulin Calc (S) [Mass/Vol] Ordered By: Conrad Garcia on 06-11-2022 Globulin (S) [Mass/Vol] 2.7 g/dL [facility] Hematocrit Auto (Bld) [Volum e fraction]Ordered By: Conrad Garcia on 06-11-2022 Hematocrit (Bld) [Volume fraction] 34.5 % 38.8-50.0 [facility] Hemoglobin [Mass/volume] in BloodOrdered By: Conrad Garcia on 06-11-2022 Hemoglobin (Bld) [Mass/Vol] 11.7 g/dL 13.0-17.0 [facility] Laboratory - Chemistry and C hemistry - challengeOrdered By: Conrad Garcia on 06-11-2022 Natriuretic peptide B (Bld) [Mass/Vol] 36.0 pg/mL 5-100 [facility] Laboratory - CoagulationOrde red By: Conrad Garcia on 06-11-2022 PT Coag (PPP) [Time] 13.0 s 9.0-12.9 [facility] Leukocytes [#/volume] correc maria teresa for nucleated erythrocytes in Blood by Automated counOrdered By: Conrad Garcia on 06-11-2022 WBC corrected for nucl RBC Auto (Bld) [#/Vol] 10.5 10*3/uL 4.1-10.5 [facility] Lymphocytes Auto (Bld) [#/Vo l]Ordered By: Conrad Garcia on 06-11-2022 Lymphocytes (Bld) [#/Vol] 0.6 10*3/uL 1.00-4.8 [facility] Lymphocytes/100 WBC Auto (Bl d)Ordered By: Conrad Garcia on 06-11-2022 Lymphocytes/100 WBC (Bld) 5.9 % . [facility] MCH Auto (RBC) [Entitic mass ]Ordered By: Conrad Garcia on 06-11-2022 MCH (RBC) [Entitic mass] 33.0 pg 27.5-35.2 [facility] MCHC Auto (RBC) [Mass/Vol]Or dered By: Conrad Garcia on 06-11-2022 MCHC (RBC) [Mass/Vol] 33.8 g/dL 32.5-35.6 [facility] MCV Auto (RBC) [Entitic vol] Ordered By: Conrad Garcia on 06-11-2022 MCV (RBC) [Entitic vol] 97.5 fL 83.5-101 [facility] Monocyte distribution width [Entitic volume] in Blood by AutomatedOrdered By: Conrad Garcia on 06-11-2022 Monocyte distribution width Auto (Bld) [Entitic vol] 20.89 % 0.00-20.00 [facility] Comment on above: For adults in ED, MD W > 20.0 may be associated with a higher risk of sepsis during the first 12 hrs of hospital admission Monocytes Auto (Bld) [#/Vol] Ordered By: Conrad Garcia on 06-11-2022 Monocytes (Bld) [#/Vol] 0.7 10*3/uL 0.0-0.8 [facility] Monocytes/100 WBC Auto (Bld) Ordered By: Conrad Garcia on 06-11-2022 Monocytes/100 WBC (Bld) 6.9 % . [facility] Neutrophils Auto (Bld) [#/Vo l]Ordered By: Conrad Garcia on 06-11-2022 Neutrophils (Bld) [#/Vol] 9.0 10*3/uL 1.8-7.7 [facility] Neutrophils/100 WBC Auto (Bl d)Ordered By: Conrad Garcia on 06-11-2022 Neutrophils/100 WBC (Bld) 85.3 % . [facility] No Panel InformationOrdered By: Conrad Garcia on 06-11-2022 Estimated GFR () 14 mL/Min [facility] Comment on above: GFR estimated refere nce range: According to KDOQI guidelines, <60 ml/min/1.73m2 is sufficient to diagnose a patient with chronic kidney disease. Pharmacy Creatinine Clearance (Chem 17.65 [facility] Nucleated erythrocytes [Pres ence] in Blood by Automated countOrdered By: Conrad Garcia on 06-11-2022 Nucleated RBC Auto Ql (Bld) 0.0 /100{WBC} 0-0.5 [facility] Partial Thromboplastin Timeo n 06-11-2022 aPTT Coag (Bld) [Time] 29.9 s Normal 25.1-36.5 [facility] Comment on above: Result Comment: PERF ORMED BY: [place] [address] PATHOLOGIST SPEECH LANGUAGE PATHOLOGY ASSISTANT EARNEST SCHUSTER M.D. Performed By: #### C OVID 19 [facility] #### [address] Platelet mean volume Auto (B ld) [Entitic vol]Ordered By: Conrad Garcia on 06-11-2022 Platelet mean volume (Bld) [Entitic vol] 10.1 fL 6.6-10.1 [facility] Platelet poor plasma interna tional normalized ratio (INR) by coagulation assay (relatOrdered By: Conrad Garcia on 06-11-2022 INR Coag (PPP) [Relative time] 1.2 {INR} [facility] Comment on above: INR Therapeutic Rang e A) Pre- and Peroperative OAT started two weeks before surgery. NOT HIP SURGERY: 1.5 - 2.5 HIP SURGERY: 2 - 3B) Primary and secondary prevention of venous THROMBOSIS: 2 - 3C) Active venous thrombosis, pulmonary embolismand prevention of recurrent venous thrombosis: 2 - 3D) Prevention of arterial thromboembolismincluding patients with mechanical heart valves: 3 - 4.5 Platelets Auto (Bld) [#/Vol] Ordered By: Conrad Garcia on 06-11-2022 Platelets (Bld) [#/Vol] 138 10*3/uL 150-450 [facility] Protein [Mass/volume] in Ser um or PlasmaOrdered By: Conrad Garcia on 06-11-2022 Protein [Mass/Vol] 6.5 g/dL 6.1-7.9 [facility] Prothrombin Time INRon 06-11 INR Coag (PPP) [Relative time] 1.2 {INR} Normal [facility] Comment on above: Result Comment: INR Therapeutic Range A) Pre- and Peroperative OAT started two weeks before surgery. NOT HIP SURGERY: 1.5 - 2.5 HIP SURGERY: 2 - 3 B) Primary and secondary prevention of venous THROMBOSIS: 2 - 3 C) Active venous thrombosis, pulmonary embolism and prevention of recurrent venous thrombosis: 2 - 3 D) Prevention of arterial thromboembolism including patients with mechanical heart valves: 3 - 4.5 Performed By: #### C BC, PT, PTT, HS TROP, BNP, CMP, CUBLD ####[facility] [id number] PT Coag (PPP) [Time] 13.0 s High 9.0-12.9 [facility] Comment on above: Performed By: #### C BC, PT, PTT, HS TROP, BNP, CMP, CUBLD ####[facility] [id number] RBC Auto (Bld) [#/Vol]Ordere d By: Conrad Garcia on 06-11-2022 RBC (Bld) [#/Vol] 3.54 10*6/uL 3.90-5.60 [facility] Respiratory (Upper) Panel, P CRon 06-11-2022 Respiratory (Upper) Panel, PCR Adenovirus Not detected Bordetella parapertussis Not detected Chlamydia pneumoniae Not detected Coronavirus 229E Not detected Coronavirus HKU1 Not detected Coronavirus NL63 Not detected Coronavirus OC43 Not detected Influenza A Not detected Influenza B Not detected Human Metapneumovirus Not detected Mycoplasma pneumoniae Not detected Parainfluenza Virus 1 Not detected Parainfluenza Virus 2 Not detected Parainfluenza Virus 3 Not detected Parainfluenza Virus 4 Not detected Bordetella pertussis-ptxP Not detected Human Rhino/Enterovirus Not detected Resp. Syncytial Virus Not detected COVID-19 Detected/Not Detected Not detected PERFORMED BY: [facility] [address] [place] [address] PATHOLOGIST SPEECH LANGUAGE PATHOLOGY ASSISTANT EARNEST SCHUSTER M.D. Normal [facility] Comment on above: Performed By: #### C OVID 19 [facility] #### [facility] [address] Respiratory pathogens DNA an d RNA panel - Nasopharynx by MARK with non-probe detectionOrdered By: Conrad Garcia on 06-11-2022 Respiratory pathogens DNA and RNA panel MRAK+non-probe (Nph) [facility] Serum or plasma alanine waldrop otransferase measurement without P-5'-P (enzymatic activiOrdered By: Conrad Garcia on 06-11-2022 ALT No additional P-5'-P [Catalytic activity/Vol] 20 U/L 10-60 [facility] Serum or plasma albumin/glob ulin mass ratioOrdered By: Conrad Garcia on 06-11-2022 Albumin/Globulin [Mass ratio] 1.4 {ratio} [facility] Serum or plasma alkaline elizabeth sphatase measurement (enzymatic activity/volume)Ordered By: Conrad Garcia on 06-11-2022 ALP [Catalytic activity/Vol] 66 U/L 32-92 [facility] Serum or plasma anion gap de terminationOrdered By: Conrad Garcia on 06-11-2022 Anion gap [Moles/Vol] 16.9 mmol/L 6.0-15.0 [facility] Serum or plasma aspartate am inotransferase measurement (enzymatic activity/volume)Ordered By: Conrad Garcia on 06-11-2022 AST [Catalytic activity/Vol] 21 U/L 10-42 [facility] Serum or plasma calcium tato urement (mass/volume)Ordered By: Conrad Garcia on 06-11-2022 Calcium [Mass/Vol] 9.7 mg/dL 8.2-10.2 [facility] Serum or plasma chloride michael surement (moles/volume)Ordered By: Conrad Garcia on 06-11-2022 Chloride [Moles/Vol] 91 mmol/L 95-114 [facility] Serum or plasma glucose tato urement (mass/volume)Ordered By: Conrad Garcia on 06-11-2022 Glucose [Mass/Vol] 111 mg/dL 70-100 [facility] Comment on above: ADA recommended refe rence rangeRandom Glucose Reference Range is dependent on time and content of last meal. Glucose of more than 200 mg/dL in a nonstressed, ambulatory subject supports the diagnosis of Diabetes Mellitus. Serum or plasma potassium me asurement (moles/volume)Ordered By: Conrad Garcia on 06-11-2022 Potassium [Moles/Vol] 3.9 mmol/L 3.5-5.1 [facility] Serum or plasma sodium measu rement (moles/volume)Ordered By: Conrad Garcia on 06-11-2022 Sodium [Moles/Vol] 134 mmol/L 136-146 [facility] Serum or plasma total biliru bin measurement (mass/volume)Ordered By: Conrad Garcia on 06-11-2022 Bilirubin [Mass/Vol] 0.6 mg/dL 0.3-1.2 [facility] Serum or plasma total carbon dioxide measurement (moles/volume)Ordered By: Conrad Garcia on 06-11-2022 CO2 [Moles/Vol] 30.0 mmol/L 22.0-30.0 [facility] Serum or plasma urea nitroge n measurement (mass/volume)Ordered By: Conrad Garcia on 06-11-2022 Urea nitrogen [Mass/Vol] 14 mg/dL 9-23 [facility] Troponin I High Sensitivityo n 06-11-2022 Troponin I High Sensitivity 8 pg/mL Normal 0-20 [facility] Comment on above: Result Comment: PERF ORMED BY: [place] [address] PATHOLOGIST SPEECH LANGUAGE PATHOLOGY ASSISTANT EARNEST SCHUSTER M.D. Performed By: #### C OVID 19 [facility] #### [address] Troponin I.cardiac [Mass/vol ume] in Serum or Plasma by High sensitivity methodOrdered By: Conrad Garcia on 06-11-2022 Troponin I.cardiac High sensitivity method [Mass/Vol] 8 pg/mL 0-20 [facility] WBC Auto (Bld) [#/Vol]Ordere d By: Conrad Garcia on 06-11-2022 WBC (Bld) [#/Vol] 10.5 10*3/uL 4.1-10.5 [facility] XR chest 1V portableon 06-11 XR chest 1V portable [facility] [place] [address] XRay Report Signed Patient: Vj Cárdenas MR#: [id number] : 1950 Acct:[id number] Age/Sex: 71 / M ADM Date: 06/11/22 Loc: ER Room: Type: [facility] ER Attending Dr: Copies to: Conrad Garcia DO Ordering Provider: Conrad Garcia DO Date of Service: 06/11/22 XR/XR chest 1V portable: Neck Pain/Injury SINGLE VIEW CHEST CLINICAL HISTORY: Neck pain and right ear pain for one hour. COMPARISON: Chest 04/08/2022 FINDINGS: Heart appears normal in size. Lungs are clear. No free air. XR/XR chest 1V portable IMPRESSION: NO ACUTE FINDINGS Impression dictated by: Kane Pendleton Jr., D.OCelestino06/11/2022 2:54 PM Dictation Location: [place] [address] Transcribed By: [facility] 06/11/22 1454 Dictated By: Kane Pendleton Jr, DO 06/11/22 1454 Signed By: 06/11/22 1454 Normal [facility] Automated erythrocytes count in urine sediment (number/area)Ordered By: Ector Berg on 06-09-2022 RBC Auto (Urine sed) [#/Area] 10-19 [HPF] 0-4 [facility] Automated leukocytes count i n urine sediment (number/area)Ordered By: Ector Berg on 06-09-2022 WBC Auto (Urine sed) [#/Area] Innumerable [HPF] 0-4 [facility] Automated urine hyaline cast s count (number/volume)Ordered By: Ector Berg on 06-09-2022 Hyaline casts Auto (U) [#/Vol] None seen [LPF] 0-1 [facility] Bilirubin Test strip Ql (U)O rdered By: Ector Berg on 06-09-2022 Bilirubin Ql (U) Negative Negative [facility] Casts typing in urine sedime nt by light microscopyOrdered By: Ector Berg on 06-09-2022 Casts LM Nom (Urine sed) None seen [LPF] None Seen [facility] Color Auto (U)Ordered By: Ab germaine Berg on 06-09-2022 Color (U) [place] Yellow [facility] Dipstick and Microscopicon 1 08-10-2021 Appearance (U) Turbid Critically abnormal Clear [facility] Comment on above: Order Comment: Name Collection Type:: Clean-Voided Midstream Performed By: #### A DDONUAPLUS, CUU #### [facility] [address] [place] [address] [place] Bacteria,Urine 3+ High None Seen [facility] Comment on above: Order Comment: Name Collection Type:: Clean-Voided Midstream Performed By: #### A DDONUAPLUS, CUU #### [facility] [address] [place] [id number] [place] Bilirubin,Urine Negative Normal Negative [facility] Comment on above: Order Comment: Name Collection Type:: Clean-Voided Midstream Performed By: #### A DDONUAPLUS, CUU #### [facility] [address] [place] [address] [place] Color (U) [place] Critically abnormal Yellow [facility] Comment on above: Order Comment: Name Collection Type:: Clean-Voided Midstream Performed By: #### A DDONUAPLUS, CUU #### [facility] [address] [place] [id number] [place] Glucose Ql (U) Normal Normal Normal [facility] Comment on above: Order Comment: Name Collection Type:: Clean-Voided Midstream Performed By: #### A DDONUAPLUS, CUU #### [facility] [address] [place] [id number] [place] Hyaline Casts,Urine None Seen Normal 0-1 [facility] Comment on above: Order Comment: Name Collection Type:: Clean-Voided Midstream Performed By: #### A DDONUAPLUS, CUU #### [facility] [address] [place] [address] [place] Ketones Ql (U) Trace High Negative [facility] Comment on above: Order Comment: Name Collection Type:: Clean-Voided Midstream Performed By: #### A DDONUAPLUS, CUU #### [place] [address] [place] Leukocyte esterase Test strip Ql (U) 4+ High Negative [facility] Comment on above: Order Comment: Name Collection Type:: Clean-Voided Midstream Performed By: #### A DDONUAPLUS, CUU #### [place] [address] [place] Nitrite,Urine Negative Normal Negative [facility] Comment on above: Order Comment: Name Collection Type:: Clean-Voided Midstream Performed By: #### A DDONUAPLUS, CUU #### [place] [address] [place] Occult Blood,Urine 3+ High Negative [facility] Comment on above: Order Comment: Name Collection Type:: Clean-Voided Midstream Result Comment: PERF ORMED BY: [place] [address] PATHOLOGIST SPEECH LANGUAGE PATHOLOGY ASSISTANT EARNEST SCHUSTER M.D. Performed By: #### A DDONUAPLUS, CUU #### [place] [address] [place] Other Casts,Urine None Seen Normal None Seen [facility] Comment on above: Order Comment: Name Collection Type:: Clean-Voided Midstream Performed By: #### A DDONUAPLUS, CUU #### [place] [address] [place] pH (U) 7.5 [pH] Normal 5.0-9.0 [facility] Comment on above: Order Comment: Name Collection Type:: Clean-Voided Midstream Performed By: #### A DDONUAPLUS, CUU #### [place] [address] [place] Protein,Urine >=1000 High Negative [facility] Comment on above: Order Comment: Name Collection Type:: Clean-Voided Midstream Performed By: #### A DDONUAPLUS, CUU #### [address] RBC,Urine 10-19 High 0-4 [facility] Comment on above: Order Comment: Name Collection Type:: Clean-Voided Midstream Performed By: #### A DDONUAPLUS, CUU #### [address] Specificy [place],Urine 1.015 Normal 1.001-1.03 0 [facility] Comment on above: Order Comment: Name Collection Type:: Clean-Voided Midstream Performed By: #### A DDONUAPLUS, CUU #### [address] Squamous Epithelial Cell,Urine 1-2 Normal 0-2 [facility] Comment on above: Order Comment: Name Collection Type:: Clean-Voided Midstream Performed By: #### A DDONUAPLUS, CUU #### [address] Urobilinogen,Urine Normal Normal Normal [facility] Comment on above: Order Comment: Name Collection Type:: Clean-Voided Midstream Performed By: #### A DDONUAPLUS, CUU #### [address] WBC,Urine Innumerable High 0-4 [facility] Comment on above: Order Comment: Name Collection Type:: Clean-Voided Midstream Performed By: #### A DDONUAPLUS, CUU #### [address] Yeast,Urine None Seen Normal None Seen [facility] Comment on above: Order Comment: Name Collection Type:: Clean-Voided Midstream Result Comment: PERF ORMED BY: [place] [address] PATHOLOGIST SPEECH LANGUAGE PATHOLOGY ASSISTANT EARNEST SCHUSTER M.D. Performed By: #### A AMARILIS PECK #### [facility] [address] [place] [address] Ketones Auto test strip (U) [Mass/Vol]Ordered By: Ector Tanya on 06-09-2022 Ketones (U) [Mass/Vol] Trace Negative [facility] Nitrite Test strip Ql (U)Ord ered By: Ector Tanya on 06-09-2022 Nitrite Ql (U) Negative Negative [facility] Protein Auto test strip (U) [Mass/Vol]Ordered By: Ector Tanya on 06-09-2022 Protein (U) [Mass/Vol] mg/dL Negative [facility] Specific gravity Auto test s trip (U) [Rel density]Ordered By: Ector Tanya on 06-09-2022 Specific gravity (U) [Rel density] 1.015 1.001-1.03 0 [facility] Squamous epithelial cells de tection in urine sediment by light microscopyOrdered By: Ector Berg on 06-09-2022 Epithelial cells.squamous LM Ql (Urine sed) 1-2 [HPF] 0-2 [facility] Urine Cultureon 06-09-2022 Bacteria identified Cx Nom (U) 50,000 colonies/ml mixed bacterial skin contaminants 2 Days PERFORMED BY: [place] [address] PATHOLOGIST SPEECH LANGUAGE PATHOLOGY ASSISTANT EARNEST SCHUSTER M.D. Normal [facility] Comment on above: Performed By: #### A AMARILIS PECK #### [facility] [address] [place] [address] Urine bacteria detection by automated methodOrdered By: Ector Berg on 06-09-2022 Bacteria Auto Ql (U) 3+ None Seen [facility] Urine clarity by refractomet ry automatedOrdered By: Ector Berg on 06-09-2022 Clarity Refractometry automated (U) Turbid Clear [facility] Urine culture routineOrdered By: Ector Berg on 06-09-2022 Bacteria identified Cx Nom (U) 2 Days [facility] Urine glucose measurement by automated test strip (mass/volume)Ordered By: Ector Berg on 06-09-2022 Glucose Auto test strip (U) [Mass/Vol] Normal mg/dL Normal [facility] Urine hemoglobin detection b y automated test stripOrdered By: Ector Berg on 06-09-2022 Hemoglobin Auto test strip Ql (U) 3+ Negative [facility] Urine leukocyte esterase det ection by automated test stripOrdered By: Ector Berg on 06-09-2022 Leukocyte esterase Auto test strip Ql (U) 4+ Negative [facility] Urobilinogen Auto test strip (U) [Mass/Vol]Ordered By: Ector Berg on 06-09-2022 Urobilinogen (U) [Mass/Vol] Normal mg/dL Normal [facility] Yeast detection in urine sed iment by light microscopyOrdered By: Ector Berg on 06-09-2022 Yeast LM Ql (Urine sed) None seen [HPF] None Seen [facility] pH Auto test strip (U)Ordere d By: Ector Berg on 06-09-2022 pH (U) 7.5 [pH] 5.0-9.0 [facility] Basophils Auto (Bld) [#/Vol] Ordered By: Conrad Garcia on 05-31-2022 Basophils (Bld) [#/Vol] 0.1 10*3/uL 0.0-0.2 [facility] Basophils/100 WBC Auto (Bld) Ordered By: Conrad Garcia on 05-31-2022 Basophils/100 WBC (Bld) 1.1 % . [facility] Body fluid albumin measureme nt (mass/volume)Ordered By: Conrad Garcia on 05-31-2022 Albumin (Body fld) [Mass/Vol] 3.6 g/dL 3.2-5.5 [facility] [address] abdomen pelvis wo conon 1 07-31-2021 CT abdomen pelvis wo con [facility] Main [address] [address] [address] Scan Report Signed Patient: Vj Cárdenas MR#: [id number] : 1950 Acct:[id number] Age/Sex: 71 / M ADM Date: 05/31/22 Loc: ER Room: Type: [facility] ER Attending Dr: Copies to: Conrad Garcia DO Ordering Provider: Conrad Garcia DO Date of Service: 05/31/22 CT/CT abdomen pelvis wo con: abd cramping CT ABDOMEN AND PELVIS WITHOUT INTRAVENOUS CONTRAST: CLINICAL HISTORY: Right-sided abdominal pain and cramping. COMPARISON: CT abdomen and pelvis 10/27/2017 TECHNIQUE: Spiral images were obtained through the abdomen and pelvis without intravenous contrast. This CT exam was performed using one or more following dose reduction techniques: Automated exposure control, adjustment of the mA and/or kV according to patient size, or use of iterative reconstruction technique. FINDINGS: Lung Bases: [Minimal atelectasis.] Organs:Suboptimal evaluation due to lack of IV contrast. Gallbladder appears to been removed. 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 No stone or hydronephrosis. Mild fat stranding is seen along the right renal pelvis and proximal right ureter. Abdominal aorta appears normal in caliber. GI: Stomach is grossly unremarkable. Small bowel appears nondilated. Colonic diverticulosis.[ Pelvis:[Urinary bladder diverticulum. Prostate gland is normal in size.] Peritoneum/Retroperitoneu m:No free air, free fluid or lymphadenopathy.[ Abd wall/Bones:Abdominal wall demonstrates no acute findings. Osseous structures demonstrate degenerative change.[ CT/CT abdomen pelvis wo con IMPRESSION: Mild fat stranding is seen involving the right pelvis and right proximal ureter without obstructing stone or mass. Finding likely relates to a recently passed stone. Impression dictated by: Kane Pendleton Jr., D.O.05/31/2022 9:40 AM Dictation Location: [place] [address] Transcribed By: [facility] 05/31/22939 Dictated By: Kane Pendleton Jr, DO 05/31/2235 Signed By: 05/31/22939 [facility] Complete Blood Count Auto Di ffon 05-31-2022 Basophils (Bld) [#/Vol] 0.1 10*3/uL Normal 0.0-0.2 [facility] Comment on above: Result Comment: PERF ORMED BY: [facility] [address] [place] [address] PATHOLOGIST SPEECH LANGUAGE PATHOLOGY ASSISTANT EARNEST SCHUSTER M.D. Performed By: #### C BC, CMP, LIPASE ####[place] [address] [address] Basophils/100 WBC (Bld) 1.1 % Normal . [facility] Comment on above: Performed By: #### C BC, CMP, LIPASE ####[address] Eosinophils (Bld) [#/Vol] 0.3 10*3/uL Normal 0.0-0.45 [facility] Comment on above: Performed By: #### C BC, CMP, LIPASE ####[address] Eosinophils/100 WBC (Bld) 3.5 % Normal . [facility] Comment on above: Performed By: #### C BC, CMP, LIPASE ####[address] Erythrocyte distribution width (RBC) [Ratio] 15.7 % High 12.0-14.8 [facility] Comment on above: Performed By: #### C BC, CMP, LIPASE ####[address] Hematocrit (Bld) [Volume fraction] 33.4 % Low 38.8-50.0 [facility] Comment on above: Performed By: #### C BC, CMP, LIPASE ####[address] Hemoglobin (Bld) [Mass/Vol] 11.3 g/dL Low 13.0-17.0 [facility] Comment on above: Performed By: #### C BC, CMP, LIPASE ####[address] Lymphocytes (Bld) [#/Vol] 0.8 10*3/uL Low 1.00-4.8 [facility] Comment on above: Performed By: #### C BC, CMP, LIPASE ####[address] Lymphocytes/100 WBC (Bld) 9.8 % Normal . [facility] Comment on above: Performed By: #### C BC, CMP, LIPASE ####[address] MCH (RBC) [Entitic mass] 33.3 pg Normal 27.5-35.2 [facility] Comment on above: Performed By: #### C BC, CMP, LIPASE ####[address] MCV (RBC) [Entitic vol] 98.8 fL Normal 83.5-101 [facility] Comment on above: Performed By: #### C BC, CMP, LIPASE ####[address] Mean Corpuscular HGB Conc 33.8 g/dL Normal 32.5-35.6 [facility] Comment on above: Performed By: #### C BC, CMP, LIPASE ####[address] Monocytes (Bld) [#/Vol] 0.6 10*3/uL Normal 0.0-0.8 [facility] Comment on above: Performed By: #### C BC, CMP, LIPASE ####[address] Monocytes/100 WBC (Bld) 7.3 % Normal . [facility] Comment on above: Performed By: #### C BC, CMP, LIPASE ####[address] Neutrophils (Bld) [#/Vol] 6.7 10*3/uL Normal 1.8-7.7 [facility] Comment on above: Performed By: #### C BC, CMP, LIPASE ####[place] [id number] [place] Neutrophils/100 WBC (Bld) 78.3 % Normal . [facility] Comment on above: Performed By: #### C BC, CMP, LIPASE ####[place] [id number] [facility] Nucleated RBC/100 WBC (Bld) [Ratio] 0.1 % Normal 0-0.5 [facility] Comment on above: Performed By: #### C BC, CMP, LIPASE ####[place] [id number] [facility] Platelet mean volume (Bld) [Entitic vol] 9.9 fL Normal 6.6-10.1 [facility] Comment on above: Performed By: #### C BC, CMP, LIPASE ####[place] [id number] [facility] Platelets (Bld) [#/Vol] 138 10*3/uL Low 150-450 [facility] Comment on above: Performed By: #### C BC, CMP, LIPASE ####[address] RBC (Bld) [#/Vol] 3.38 10*6/uL Low 3.90-5.60 [facility] Comment on above: Performed By: #### C BC, CMP, LIPASE ####[place] [id number] [facility] WBC (Bld) [#/Vol] 8.5 10*3/uL Normal 4.5-11.0 [facility] Comment on above: Performed By: #### C BC, CMP, LIPASE ####[place] [id number] [facility] Comprehensive Metabolic Pane piotr 05-31-2022 Albumin [Mass/Vol] 3.6 g/dL Normal 3.2-5.5 [facility] [facility] Comment on above: Performed By: #### C BC, CMP, LIPASE ####[place] [id number] [facility] Albumin/Globulin [Mass ratio] 1.7 {ratio} Normal [facility] Comment on above: Performed By: #### C BC, CMP, LIPASE ####[facility] [place] [address] [facility] ALP [Catalytic activity/Vol] 50 U/L Normal 32-92 [facility] Comment on above: Performed By: #### C BC, CMP, LIPASE ####[facility] [place] [address] [facility] ALT [Catalytic activity/Vol] 17 U/L Normal 10-60 [facility] Comment on above: Performed By: #### C BC, CMP, LIPASE ####[place] [address] [place] [address] [facility] Anion gap [Moles/Vol] 22.2 mmol/L High 6.0-15.0 [facility] Comment on above: Performed By: #### C BC, CMP, LIPASE ####[place] [address] [place] [address] [facility] AST [Catalytic activity/Vol] 14 U/L Normal 10-42 [facility] Comment on above: Performed By: #### C BC, CMP, LIPASE ####[place] [address] [place] [address] [facility] Bilirubin [Mass/Vol] 0.6 mg/dL Normal 0.3-1.2 [facility] Comment on above: Performed By: #### C BC, CMP, LIPASE ####[place] [address] [place] [address] [facility] Calcium [Mass/Vol] 9.4 mg/dL Normal 8.2-10.2 [facility] Comment on above: Performed By: #### C BC, CMP, LIPASE ####[place] [address] [place] [address] [facility] Chloride [Moles/Vol] 94 mmol/L Low 95-114 [facility] Comment on above: Performed By: #### C BC, CMP, LIPASE ####[facility] [place] [address] [facility] CO2 [Moles/Vol] 27.9 mmol/L Normal 22.0-30.0 [facility] Comment on above: Performed By: #### C BC, CMP, LIPASE ####[place] [address] Creatinine [Mass/Vol] 12.43 mg/dL High 0.64-1.27 [facility] Comment on above: Performed By: #### C BC, CMP, LIPASE ####[place] [id number] [facility] Creatinine Clr Calc Pharmacy 7.34 [facility] Comment on above: Performed By: #### C BC, CMP, LIPASE ####[place] [address] Estimated GFR ( Jenny 5 [facility] Comment on above: Result Comment: GFR estimated reference range: According to KDOQI guidelines, <60 ml/min/1.73m2 is sufficient to diagnose a patient with chronic kidney disease. Performed By: #### C BC, CMP, LIPASE ####[address] Estimated GFR (Non- Am 4 [facility] Comment on above: Performed By: #### C BC, CMP, LIPASE ####[address] Globulin (S) [Mass/Vol] 2.1 g/dL [facility] Comment on above: Performed By: #### C BC, CMP, LIPASE ####[address] Glucose [Mass/Vol] 132 mg/dL High 70-100 [facility] Comment on above: Result Comment: [place] om Glucose Reference Range is dependent on time and content of last meal. Glucose of more than 200 mg/dL in a nonstressed, ambulatory subject supports the diagnosis of Diabetes Mellitus. ADA recommended reference range Performed By: #### C BC, CMP, LIPASE ####[place] [id number] [facility] Potassium [Moles/Vol] 4.1 mmol/L Normal 3.5-5.1 [facility] Comment on above: Performed By: #### C BC, CMP, LIPASE ####[facility] [id number] [place] [address] [place] Protein [Mass/Vol] 5.7 g/dL Low 6.1-7.9 [facility] Comment on above: Performed By: #### C BC, CMP, LIPASE ####[facility] [id number] [place] [address] [facility] Sodium [Moles/Vol] 140 mmol/L Normal 136-146 [facility] Comment on above: Performed By: #### C BC, CMP, LIPASE ####[facility] [id number] [place] [address] [facility] Urea nitrogen [Mass/Vol] 78 mg/dL High 9-23 [facility] Comment on above: Performed By: #### C BC, CMP, LIPASE ####[facility] [id number] [place] [address] [facility] Creatinine and Glomerular fi ltration rate.predicted panel (S/P/Bld)Ordered By: Conrad Garcia on 05-31-2022 Creatinine [Mass/Vol] 12.43 mg/dL 0.64-1.27 [facility] Eosinophils Auto (Bld) [#/Vo l]Ordered By: Conrad Garcia on 05-31-2022 Eosinophils (Bld) [#/Vol] 0.3 10*3/uL 0.0-0.45 [facility] Eosinophils/100 WBC Auto (Bl d)Ordered By: Conrad Garcia on 05-31-2022 Eosinophils/100 WBC (Bld) 3.5 % . [facility] Erythrocyte distribution wid th Auto (RBC) [Ratio]Ordered By: Conrad Garcia on 05-31-2022 Erythrocyte distribution width (RBC) [Ratio] 15.7 % 12.0-14.8 [facility] Estimated glomerular filtrat ion rate (GFR) non- AmericanOrdered By: Conrad Garcia on 05-31-2022 GFR/1.73 sq M.predicted among non-blacks MDRD (S/P/Bld) [Vol rate/Area] 4 mL/Min [facility] Globulin Calc (S) [Mass/Vol] Ordered By: Conrad Garcia on 05-31-2022 Globulin (S) [Mass/Vol] 2.1 g/dL [facility] Hematocrit Auto (Bld) [Volum e fraction]Ordered By: Conrad Garcia on 05-31-2022 Hematocrit (Bld) [Volume fraction] 33.4 % 38.8-50.0 [facility] Hemoglobin [Mass/volume] in BloodOrdered By: Conrad Garcai on 05-31-2022 Hemoglobin (Bld) [Mass/Vol] 11.3 g/dL 13.0-17.0 [facility] Laboratory - Chemistry and C hemistry - challengeOrdered By: Conrad Garcia on 05-31-2022 Lipase [Catalytic activity/Vol] 44.0 U/L [facility] Laboratory - Hematology and Cell countsOrdered By: Conrad Garcia on 05-31-2022 Nucleated RBC/100 WBC (Bld) [Ratio] 0.1 % 0-0.5 [facility] Leukocytes [#/volume] in Blo od by Automated countOrdered By: Conrad Garcia on 05-31-2022 WBC (Bld) [#/Vol] 8.5 10*3/uL 4.5-11.0 [facility] Lipaseon 05-31-2022 Lipase [Catalytic activity/Vol] 44.0 U/L Normal [facility] Comment on above: Result Comment: PERF ORMED BY: [facility] [address] [place] [id number] PATHOLOGIST SPEECH LANGUAGE PATHOLOGY ASSISTANT EARNEST SCHUSTER M.D. Performed By: #### C BC, CMP, LIPASE ####[facility] [id number] [place] [id number] [facility] Lymphocytes Auto (Bld) [#/Vo l]Ordered By: Conrad Garcia on 05-31-2022 Lymphocytes (Bld) [#/Vol] 0.8 10*3/uL 1.00-4.8 [facility] Lymphocytes/100 WBC Auto (Bl d)Ordered By: Conrad Garcia on 05-31-2022 Lymphocytes/100 WBC (Bld) 9.8 % . [facility] MCH Auto (RBC) [Entitic mass ]Ordered By: Conrad Garcia on 05-31-2022 MCH (RBC) [Entitic mass] 33.3 pg 27.5-35.2 [facility] MCHC Auto (RBC) [Mass/Vol]Or dered By: Conrad Garcia on 05-31-2022 MCHC (RBC) [Mass/Vol] 33.8 g/dL 32.5-35.6 [facility] MCV Auto (RBC) [Entitic vol] Ordered By: Conrad Garcia on 05-31-2022 MCV (RBC) [Entitic vol] 98.8 fL 83.5-101 [facility] Monocytes Auto (Bld) [#/Vol] Ordered By: Conrad Garcia on 05-31-2022 Monocytes (Bld) [#/Vol] 0.6 10*3/uL 0.0-0.8 [facility] Monocytes/100 WBC Auto (Bld) Ordered By: Conrad Garcia on 05-31-2022 Monocytes/100 WBC (Bld) 7.3 % . [facility] Neutrophils Auto (Bld) [#/Vo l]Ordered By: Conrad Garcia on 05-31-2022 Neutrophils (Bld) [#/Vol] 6.7 10*3/uL 1.8-7.7 [facility] Neutrophils/100 WBC Auto (Bl d)Ordered By: Conrad Garcia on 05-31-2022 Neutrophils/100 WBC (Bld) 78.3 % . [facility] No Panel InformationOrdered By: Conrad Garcia on 05-31-2022 Estimated GFR () 5 mL/Min [facility] Comment on above: GFR estimated refere nce range: According to KDOQI guidelines, <60 ml/min/1.73m2 is sufficient to diagnose a patient with chronic kidney disease. Pharmacy Creatinine Clearance (Chem 7.34 [facility] Platelet mean volume Auto (B ld) [Entitic vol]Ordered By: Conrad Garcia on 05-31-2022 Platelet mean volume (Bld) [Entitic vol] 9.9 fL 6.6-10.1 [facility] Platelets Auto (Bld) [#/Vol] Ordered By: Conrad Garcia on 05-31-2022 Platelets (Bld) [#/Vol] 138 10*3/uL 150-450 [facility] Protein [Mass/volume] in Ser um or PlasmaOrdered By: Conrad Garcia on 05-31-2022 Protein [Mass/Vol] 5.7 g/dL 6.1-7.9 [facility] RBC Auto (Bld) [#/Vol]Ordere d By: Conrad Garcia on 05-31-2022 RBC (Bld) [#/Vol] 3.38 10*6/uL 3.90-5.60 [facility] Serum or plasma alanine waldrop otransferase measurement without P-5'-P (enzymatic activiOrdered By: Conrad Garcia on 05-31-2022 ALT No additional P-5'-P [Catalytic activity/Vol] 17 U/L 1060 [facility] Serum or plasma albumin/glob ulin mass ratioOrdered By: Conrad Garcia on 05-31-2022 Albumin/Globulin [Mass ratio] 1.7 {ratio} [facility] Serum or plasma alkaline elizabeth sphatase measurement (enzymatic activity/volume)Ordered By: Conrad Garcia on 05-31-2022 ALP [Catalytic activity/Vol] 50 U/L 32-92 [facility] Serum or plasma anion gap de terminationOrdered By: Conrad Garcia on 05-31-2022 Anion gap [Moles/Vol] 22.2 mmol/L 6.0-15.0 [facility] Serum or plasma aspartate am inotransferase measurement (enzymatic activity/volume)Ordered By: Conrad Garcia on 05-31-2022 AST [Catalytic activity/Vol] 14 U/L 10-42 [facility] Serum or plasma calcium tato urement (mass/volume)Ordered By: Conrad Garcia on 05-31-2022 Calcium [Mass/Vol] 9.4 mg/dL 8.2-10.2 [facility] Serum or plasma chloride michael surement (moles/volume)Ordered By: Conrad Garcia on 05-31-2022 Chloride [Moles/Vol] 94 mmol/L 95-114 [facility] Serum or plasma glucose tato urement (mass/volume)Ordered By: Conrad Garcia on 05-31-2022 Glucose [Mass/Vol] 132 mg/dL 70-100 [facility] Comment on above: ADA recommended refe rence rangeRandom Glucose Reference Range is dependent on time and content of last meal. Glucose of more than 200 mg/dL in a nonstressed, ambulatory subject supports the diagnosis of Diabetes Mellitus. Serum or plasma potassium me asurement (moles/volume)Ordered By: Conrad Garcia on 05-31-2022 Potassium [Moles/Vol] 4.1 mmol/L 3.5-5.1 [facility] Serum or plasma sodium measu rement (moles/volume)Ordered By: Conrad Garcia on 05-31-2022 Sodium [Moles/Vol] 140 mmol/L 136-146 [facility] Serum or plasma total biliru bin measurement (mass/volume)Ordered By: Conrad Garcia on 05-31-2022 Bilirubin [Mass/Vol] 0.6 mg/dL 0.3-1.2 [facility] Serum or plasma total carbon dioxide measurement (moles/volume)Ordered By: Conrad Garcia on 05-31-2022 CO2 [Moles/Vol] 27.9 mmol/L 22.0-30.0 [facility] Serum or plasma urea nitroge n measurement (mass/volume)Ordered By: Conrad Garcia on 05-31-2022 Urea nitrogen [Mass/Vol] 78 mg/dL - [facility] A1C with Estimated Average G luon 05-14-2022 Glucose [Mass/Vol] 108 mg/dL Normal [facility] Comment on above: Order Comment: FASTI NG Result Comment: PERF ORMED BY: [place] [address] PATHOLOGIST SPEECH LANGUAGE PATHOLOGY ASSISTANT EARNEST SCHUSTER M.D. Performed By: #### T SH3, A1C WTH eA, BNP, LIPID #### [address] HbA1c (Bld) [Mass fraction] 5.4 % Normal 4.3-5.6 [facility] Comment on above: Order Comment: FASTI NG Result Comment: Incr eased risk for diabetes: 5.7 - 6.4 diabetes: >6.4 glycemic control for adults with diabetes: <7.0 Performed By: #### T SH3, A1C WTH eA, BNP, LIPID #### [facility] [address] [place] [id number] [facility] B-Type Natriuretic Peptideon 05-14-2022 Natriuretic peptide B (Bld) [Mass/Vol] 33.0 pg/mL Normal 5-100 [facility] Comment on above: Order Comment: FASTI NG Result Comment: PERF ORMED BY: [facility] [address] [place] [address] PATHOLOGIST SPEECH LANGUAGE PATHOLOGY ASSISTANT EARNEST SCHUSTER M.D. Performed By: #### T SH3, A1C WTH eA, BNP, LIPID #### [facility] [address] [place] [id number] [facility] Cholesterol [Mass/volume] in Serum or PlasmaOrdered By: Elmer Mendoza on 05-14-2022 Cholesterol [Mass/Vol] 164 mg/dL 140-200 [facility] Comment on above: Chol less than 200 m g/dl low riskChol 201-239 mg/dl borderline riskChol 240 mg/dl and greater high risk Cholesterol in LDL Calc [Mas s/Vol]Ordered By: Elmer Mendoza on 05-14-2022 Cholesterol in LDL [Mass/Vol] 68 mg/dL 0-100 [facility] Comment on above: LDL ATP III CLASSIFI CATIONLDL less than 100 mg/dL OptimalLDL 100-129 mg/dL Near or above optimalLDL 130-159 mg/dL Borderline highLDL 160-189 mg/dL HighLDL greater than 189 mg/dL Very high Cholesterol in VLDL Calc [Ma ss/Vol]Ordered By: Elmer Mendoza on 05-14-2022 Cholesterol in VLDL [Mass/Vol] 61 mg/dL [facility] Glucose mean value [Mass/vol ume] in Blood Estimated from glycated hemoglobinOrdered By: Elmer Mendoza on 05-14-2022 Average glucose Estimated from glycated hemoglobin (Bld) [Mass/Vol] 108 mg/dL [facility] Hemoglobin A1c percentageOrd ered By: Elmer Mendoza on 05-14-2022 HbA1c (Bld) [Mass fraction] 5.4 % 4.3-5.6 [facility] Comment on above: Increased risk for d iabetes: 5.7 - 6.4diabetes: >6.4glycemic control for adults with diabetes: <7.0 Laboratory - Chemistry and C hemistry - challengeOrdered By: Elmer Mendoza on 05-14-2022 Natriuretic peptide B (Bld) [Mass/Vol] 33.0 pg/mL 5-100 [facility] Lipid Panelon 05-14-2022 Cholesterol [Mass/Vol] 164 mg/dL Normal 140-200 [facility] Comment on above: Order Comment: FASTI NG Result Comment: Chol less than 200 mg/dl low risk Chol 201-239 mg/dl borderline risk Chol 240 mg/dl and greater high risk Performed By: #### T SH3, A1C WTH eA, BNP, LIPID #### [facility] [address] Cholesterol in HDL [Mass/Vol] 35 mg/dL Normal 29-71 [facility] Comment on above: Order Comment: FASTI NG Result Comment: HDL CHOL ATP-III CLASSIFICATION Cardiovascular Risk HDL > or equal to 60 mg/dL LOW HDL < 40 mg/dL HIGH Performed By: #### T SH3, A1C WTH eA, BNP, LIPID #### [facility] [address] [place] [phone] [place] Cholesterol.total/Chol esterol in HDL [Mass ratio] 4.7 {ratio} Normal <5.0 [facility] Comment on above: Order Comment: FASTI NG Performed By: #### T SH3, A1C WTH eA, BNP, LIPID #### [facility] [address] [place] [address] [place] LDL Cholesterol,Calculated 68 mg/dL Normal 0-100 [facility] Comment on above: Order Comment: FASTI NG Result Comment: LDL ATP III CLASSIFICATION LDL less than 100 mg/dL Optimal LDL 100-129 mg/dL Near or above optimal LDL 130-159 mg/dL Borderline high LDL 160-189 mg/dL High LDL greater than 189 mg/dL Very high Performed By: #### T SH3, A1C WTH eA, BNP, LIPID #### [facility] [address] [place] [id number] [facility] Triglyceride w/Reflex 306 mg/dL High 35-149 [facility] Comment on above: Order Comment: FASTI NG Result Comment: TRIG ATP III CLASSIFICATION TRIG less than 150 mg/dL Normal TRIG 150-199 mg/dL Borderline high TRIG 200-500 mg/dL High TRIG greater than 500 mg/dL Very high Standard traceable to the Center for Disease Conrtrol and Prevention (CDC) test method. Performed By: #### T SH3, A1C WTH eA, BNP, LIPID #### [facility] [address] VLDL CHOLESTEROL 61 mg/dL Normal [facility] Comment on above: Order Comment: FASTI NG Performed By: #### T SH3, A1C WTH eA, BNP, LIPID #### [facility] [address] Serum or plasma high density lipoprotein (HDL) cholesterol measurementOrdered By: Elmer Mendoza on 05-14-2022 Cholesterol in HDL [Mass/Vol] 35 mg/dL 29-71 [facility] Comment on above: HDL CHOL ATP-III CLA SSIFICATION Cardiovascular RiskHDL > or equal to 60 mg/dL LOWHDL < 40 mg/dL HIGH Serum or plasma total choles terol/high density lipoprotein (HDL) cholesterol mass ratOrdered By: Elmer Mendoza on 05-14-2022 Cholesterol.total/Chol esterol in HDL [Mass ratio] 4.7 {ratio} <5.0 [facility] TSH DL <= 0.005 mIU/L QnOrde red By: Elmer Mendoza on 05-14-2022 TSH Qn 152.95 m[IU]/L 0.45-5.33 [facility] Thyroid Stimulating Hormoneo n 05-14-2022 TSH Qn 152.95 m[IU]/L High 0.45-5.33 [facility] Comment on above: Order Comment: FASTI NG Result Comment: PERF ORMED BY: [place] [address] PATHOLOGIST SPEECH LANGUAGE PATHOLOGY ASSISTANT EARNEST SCHUSTER M.D. Performed By: #### T SH3, A1C WTH eA, BNP, LIPID #### [facility] [address] [place] [address] [facility] Triglyceride [Mass/volume] i n Serum or PlasmaOrdered By: Elmer Mendoza on 05-14-2022 Triglyceride [Mass/Vol] 306 mg/dL 35-149 [facility] Comment on above: TRIG ATP III CLASSIF ICATIONTRIG less than 150 mg/dL NormalTRIG 150-199 mg/dL Borderline highTRIG 200-500 mg/dL High TRIG greater than 500 mg/dL Very highStandard traceable to the Center for Disease Conrtrol and Prevention (CDC) test method. XR chest 2V*on 04-08-2022 XR chest 2V* [place] [id number] XRay Report Signed Patient: Vj Cárdenas MR#: [id number] : 1950 Acct:[id number] Age/Sex: 71 / M ADM Date: 04/08/22 Loc: [id number] Room: Type: [facility] Attending Dr: Awa Riley TECHNICAL FELLOW Copies to: Awa Riley NP Ordering Provider: Awa Riley NP Date of Service: 04/08/22 XR/XR chest 2V*: Acute cough XR chest 2V* 04/08/2022 2:26 PM SIGNS AND SYMPTOMS: Shortness of breath, productive cough PROTOCOL: Frontal and lateral radiographs of the chest COMPARISON: 06/18/2021 FINDINGS: The trachea is midline. Atherosclerotic changes are noted in the thoracic aorta. The heart and mediastinal structures are within normal limits. The lung parenchyma is clear. The bony thorax is intact. Degenerative changes are noted in the thoracic spine. XR/XR chest 2V* IMPRESSION: No acute cardiopulmonary pathology. Impression dictated by: Jeff Rivera M.D.04/08/2022 2:43 PM Dictation Location: [place] [address] Transcribed By: [facility] 04/08/221442 Dictated By: Jeff Rivera II, MD 04/08/221440 Signed By: 04/08/221442 Normal [facility] XR chest 2V* [facility] [employer] Other XR chest 2V* [facility] [employer] Other XR chest 2V* [address] [facility] [employer] Other XR chest 2V* [place] [address] [place] [employer] Other XR chest 2V* XRay Report [employer] Other XR chest 2V* Signed [employer] Other XR chest 2V* Patient: Gisela Cárdenas MR#: [id number] [employer] Other XR chest 2V* 3061 [employer] Other XR chest 2V* : 1950 Acct:[id number] [employer] Other XR chest 2V* Age/Sex: 71 / M ADM Date: 04/08/22 [employer] Other XR chest 2V* Loc: [id number] Room: pe: [facility] [employer] Other XR chest 2V* Attending Dr: Awa Riley NP [employer] Other XR chest 2V* Copies to: Awa Riley NP [employer] Other XR chest 2V* Ordering Provider: Awa Bloom NP [employer] Other XR chest 2V* Date of Service: 04/08/22 [employer] Other XR chest 2V* XR/XR chest 2V*: Acute cough [employer] Other XR chest 2V* XR chest 2V* 04/08/20 22 2:26 PM [employer] Other XR chest 2V* SIGNS AND SYMPTOMS: Shortness of breath, productive cough [employer] Other XR chest 2V* PROTOCOL: Frontal an d lateral radiographs of the chest [employer] Other XR chest 2V* COMPARISON: 06/18/2021 [employer] Other XR chest 2V* FINDINGS: [employer] Other XR chest 2V* The trachea is midli ne. Atherosclerotic changes are noted in the thoracic aorta. The heart and [employer] Other XR chest 2V* mediastinal structur es are within normal limits. The lung parenchyma is clear. The bony thorax is [employer] Other XR chest 2V* intact. Degenerative changes are noted in the thoracic spine. [employer] Other XR chest 2V* X R/XR chest 2V* [employer] Other XR chest 2V* IMPRESSION: [employer] Other XR chest 2V* No acute cardiopulmo nary pathology. [employer] Other XR chest 2V* Impression dictated by: Jeff Rivera M.D.04/08/2022 2:43 PM [employer] Other XR chest 2V* Dictation Location: [place] [address] [employer] Other XR chest 2V* Transcribed By: WILL 04/08/22 [facility] [employer] Other XR chest 2V* Dictated By: Jeff Rivera II, MD 04/08/22 [facility] [employer] Other XR chest 2V* Signed By: [employer] Other XR chest 2V* 04/08/22 [facility] [email or web address] [facility] [employer] Other [facility]19 [facility] SARS-CoV-2 (COVID-19) RNA MARK+probe Ql (Unsp spec) Negative Normal Negative [facility] Comment on above: Order Comment: Healt hcare Worker?: N Result Comment: Testing for SARS-CoV-2 by RT-PCR This test was developed and its performance characteristics determined by [employer] (BD) and validated at the [facility]. This test has not been FDA cleared or approved. This test has been authorized by FDA under an Emergency Use Authorization (EUA). This test has been validated in accordance with the FDA's Guidance Document (Policy for Diagnostics Testing in Laboratories Certified to Perform High Complexity Testing under CLIA prior to Emergency Use Authorization for Coronavirus Disease-2019 during the Public Health Emergency) issued on October 03, 2019. This test is only authorized for the duration of time the declaration that circumstances exist justifying the authorization of the emergency use of in vitro diagnostic tests for detection of SARS-CoV-2 virus and/or diagnosis of COVID-19 infection under section 564(b)(1) of the Act, 21 U.S.C. 360bbb-3(b)(1), unless the authorization is terminated or revoked sooner. PERFORMED BY: [place] [address] PATHOLOGIST SPEECH LANGUAGE PATHOLOGY ASSISTANT EARNEST SCHUSTER M.D. Performed By: #### C OVID 19 [facility] #### [address] COVID-19 Positive/NegativeOr dered By: Ector Berg on 04-02-2022 SARS-CoV-2 (COVID-19) N gene MARK+probe Ql (Resp) Negative Negative [facility] Comment on above: Testing for SARS-CoV -2 by RT-PCRThis test was developed and its performance characteristics determined by [employer] (BD) and validated at the [facility]. This test has not been FDA cleared or approved. This test has been authorized by FDA under an Emergency Use Authorization (EUA). This test has been validated in accordance with the FDA's Guidance Document (Policy for Diagnostics Testing in Laboratories Certified to Perform High Complexity Testing under CLIA prior to Emergency Use Authorization for Coronavirus Disease-2019 during the Public Health Emergency) issued on October 03, 2019. This test is only authorized for the duration of time the declaration that circumstances exist justifying the authorization of the emergency use of in vitro diagnostic tests for detection of SARS-CoV-2 virus and/or diagnosis of COVID-19 infection under section 564(b)(1) of the Act, 21 U.S.C. 360bbb-3(b)(1), unless the authorization is terminated or revoked sooner. XR RIBS RT PA [place] 2 XR RIBS RT PA CH EXAMINATION: XR RIBS RT PA CH HISTORY: Thoracic back pain COMPARISON: 04/09/2021 FINDINGS: LUNGS: No significant pulmonary parenchymal abnormalities. PLEURA: No pneumothorax, effusion, or pleural thickening. MEDIASTINUM: No visible mass or adenopathy. CARDIAC: No cardiomegaly or cardiac silhouette abnormality. RIBS: No acute rib fracture OTHER: moderate degenerative changes of the spine. IMPRESSION: No acute rib fracture Electronically authenticated by: NATHAN AVILA Date: 2021-12-10 14:33 Normal [facility] HEMOGLOBINon 09-10-2021 Hemoglobin (Bld) [Mass/Vol] 11.1 g/dL Critically low 14.0-18.0 [facility] Comment on above: Performed By: #### H GB #### [facility] [address] [address] [address] Amanda Patrick Basic Metabolic Panelon 08-04 Calcium [Mass/Vol] 9.3 mg/dL Normal 8.2-10.2 [facility] Comment on above: Performed By: #### C BC, BMP ####[facility] [place] [address] [facility] Chloride [Moles/Vol] 96 mmol/L Normal 95-114 [facility] Comment on above: Performed By: #### C BC, BMP ####[facility] [place] [address] [facility] CO2 [Moles/Vol] 23.6 mmol/L Normal 22.0-30.0 [facility] Comment on above: Performed By: #### C BC, BMP ####[facility] [place] [address] [facility] Creatinine [Mass/Vol] 5.69 mg/dL High 0.64-1.27 [facility] Comment on above: Performed By: #### C BC, BMP ####[address] [place] [address] [facility] Creatinine Clr Calc Pharmacy 15.69 [facility] Comment on above: Result Comment: PERF ORMED BY: [facility] [address] [place] [id number] PATHOLOGIST SPEECH LANGUAGE PATHOLOGY ASSISTANT EARNEST SCHUSTER M.D. Performed By: #### C BC, BMP ####[address] [place] [address] [facility] Estimated GFR ( Jenny 12 [facility] Comment on above: Result Comment: GFR estimated reference range: According to KDOQI guidelines, <60 ml/min/1.73m2 is sufficient to diagnose a patient with chronic kidney disease. Performed By: #### C BC, BMP ####[address] [address] [facility] Estimated GFR (Non- Am 10 [facility] Comment on above: Performed By: #### C BC, BMP ####[address] [address] [facility] Glucose [Mass/Vol] 95 mg/dL Normal 70-100 [facility] Comment on above: Result Comment: [place] Glucose Reference Range is dependent on time and content of last meal. Glucose of more than 200 mg/dL in a nonstressed, ambulatory subject supports the diagnosis of Diabetes Mellitus. ADA recommended reference range Performed By: #### C BC, BMP ####[id number] [facility] Potassium Normal 3.5-5.1 [facility] Comment on above: Result Comment: Spec imen hemolyzed, redraw requested Performed By: #### C BC, BMP ####[address] [place] [address] [facility] Sodium [Moles/Vol] 133 mmol/L Low 136-146 [facility] Comment on above: Performed By: #### C BC, BMP ####[address] [place] [address] [place] Urea nitrogen [Mass/Vol] 37 mg/dL High 9- [facility] Comment on above: Performed By: #### C JUDITH, BMP ####[address] Complete Blood Count Auto Di ffon 08-26-2021 Basophils (Bld) [#/Vol] 0.1 10*3/uL Normal 0.0-0.2 [facility] Comment on above: Result Comment: PERF ORMED BY: [facility] [address] [place] [address] PATHOLOGIST SPEECH LANGUAGE PATHOLOGY ASSISTANT EARNEST SCHUSTER M.D. Performed By: #### C JUDITH, BMP ####[address] Basophils/100 WBC (Bld) 0.9 % Normal . [facility] Comment on above: Performed By: #### C JUDITH, BMP ####[address] Eosinophils (Bld) [#/Vol] 0.1 10*3/uL Normal 0.0-0.45 [facility] Comment on above: Performed By: #### C JUDITH, BMP ####[address] Eosinophils/100 WBC (Bld) 1.5 % Normal . [facility] Comment on above: Performed By: #### C JUDITH, BMP ####[address] Erythrocyte distribution width (RBC) [Ratio] 15.8 % High 12.0-14.8 [facility] Comment on above: Performed By: #### C JUDITH, BMP ####[address] Hematocrit (Bld) [Volume fraction] 37.9 % Low 38.8-50.0 [facility] Comment on above: Performed By: #### C JUDITH, BMP ####[address] Hemoglobin (Bld) [Mass/Vol] 12.6 g/dL Low 13.0-17.0 [facility] Comment on above: Performed By: #### C JUDITH, BMP ####[address] Lymphocytes (Bld) [#/Vol] 0.7 10*3/uL Low 1.00-4.8 [facility] Comment on above: Performed By: #### C JUDITH, BMP ####[address] Lymphocytes/100 WBC (Bld) 11.5 % Normal . [facility] Comment on above: Performed By: #### C JUDITH, BMP ####[address] MCH (RBC) [Entitic mass] 30.5 pg Normal 27.5-35.2 [facility] Comment on above: Performed By: #### Lesly WONG, BMP ####[address] MCV (RBC) [Entitic vol] 91.7 fL Normal 83.5-101 [facility] Comment on above: Performed By: #### C JDUITH, BMP ####[address] Mean Corpuscular HGB Conc 33.2 g/dL Normal 32.5-35.6 [facility] Comment on above: Performed By: #### C JUDITH, BMP ####[address] Monocytes (Bld) [#/Vol] 0.5 10*3/uL Normal 0.0-0.8 [facility] Comment on above: Performed By: #### C JUDITH, BMP ####[address] Monocytes/100 WBC (Bld) 7.7 % Normal . [facility] Comment on above: Performed By: #### C JUDITH, BMP ####[address] Neutrophils (Bld) [#/Vol] 4.6 10*3/uL Normal 1.8-7.7 [facility] Comment on above: Performed By: #### C JUDITH, BMP ####[address] Neutrophils/100 WBC (Bld) 78.4 % Normal . [facility] Comment on above: Performed By: #### C JUDITH, BMP ####[address] Nucleated RBC/100 WBC (Bld) [Ratio] 0.1 % Normal 0-0.5 [facility] Comment on above: Performed By: #### C JUDITH, BMP ####[address] Platelet mean volume (Bld) [Entitic vol] 10.6 fL High 6.6-10.1 [facility] Comment on above: Performed By: #### C JUDITH, BMP ####[address] Platelets (Bld) [#/Vol] 106 10*3/uL Low 150-450 [facility] Comment on above: Performed By: #### C JUDITH, BMP ####[address] RBC (Bld) [#/Vol] 4.14 10*6/uL Normal 3.90-5.60 [facility] Comment on above: Performed By: #### C JUDITH, BMP ####[address] WBC (Bld) [#/Vol] 5.9 10*3/uL Normal 4.5-11.0 [facility] Comment on above: Performed By: #### Lesly WONG, BMP ####[address] Redraw Potassiumon 2 Potassium [Moles/Vol] 4.5 mmol/L Normal 3.5-5.1 [facility] Comment on above: Order Comment: SPECI MEN HEMOLYZED, PLEASE RECOLLECT Result Comment: PERF ORMED BY: [facility] [address] [id number] PATHOLOGIST SPEECH LANGUAGE PATHOLOGY ASSISTANT EARNEST CSHUSTER M.D. Performed By: #### R ADEEL K #### [facility] [address] [place] [address] [facility] COVID-19 FRMCon 08-24-2021 SARS-CoV-2 (COVID-19) RNA MARK+probe Ql (Unsp spec) Negative Normal Negative [facility] Comment on above: Order Comment: Healt hcare Worker?: N Result Comment: Testing for SARS-CoV-2 by RT-PCR This test was developed and its performance characteristics determined by [employer] ([employer]) and validated at the [facility]. This test has not been FDA cleared or approved. This test has been authorized by FDA under an Emergency Use Authorization (EUA). This test has been validated in accordance with the FDA's Guidance Document (Policy for Diagnostics Testing in Laboratories Certified to Perform High Complexity Testing under CLIA prior to Emergency Use Authorization for Coronavirus Disease-2019 during the Public Health Emergency) issued on October 03, 2019. This test is only authorized for the duration of time the declaration that circumstances exist justifying the authorization of the emergency use of in vitro diagnostic tests for detection of SARS-CoV-2 virus and/or diagnosis of COVID-19 infection under section 564(b)(1) of the Act, 21 U.S.C. 360bbb-3(b)(1), unless the authorization is terminated or revoked sooner. PERFORMED BY: [facility] [address] [id number] PATHOLOGIST SPEECH LANGUAGE PATHOLOGY ASSISTANT EARNEST SCHUSTER M.D. Performed By: #### C OVID 19 [facility] ####[facility] [id number] [place] [address] [facility] URIC ACID SERUMon 08-20-2021 Urate [Mass/Vol] 4.3 mg/dL Normal 3.5-8.5 [facility] Comment on above: Performed By: #### U ANIKET #### [facility] [address] [place] [address] Dr. Amanda Patrick Reminderson 08-12-2021 Reminders - From: Mya Lao To: EU - Recalls Rice; Sent: 01/21/2021 15:16:32 EDT Show up: 07/03/2021 15:16:00 EST Subject: 6m cysto/ud Reminder/Recall Test: cysto/ud Diagnosis: micro hematuria, urethral stricture Due: 6 months see message Normal [facility] OCC BLD IMMUNO SCREENon 07-03 OCCULT BLOOD Negative Normal NEGATIVE [facility] Comment on above: Performed By: #### O BSCRN #### [facility] [address] [place] [address] Dr. Amanda Patrick HEMOGLOBINon 07-01-2021 Hemoglobin (Bld) [Mass/Vol] 8.2 g/dL Critically low 14.0-18.0 [facility] Comment on above: Performed By: #### H GB #### [facility] [address] [place] [address] Dr. Amanda Patrick PTH INTACTon 06-17-2021 PTH, Intact 332 pg/mL Critically high 15-65 [facility] Comment on above: Performed By: #### P THINT #### [facility] [address] [place] [address] Dr. Amanda Patrick HEMOGRAM AND PLATELon 2020 Hematocrit (Bld) [Volume fraction] 24.5 % Critically low 42.0-54.0 [facility] Comment on above: Performed By: #### H H #### [facility] [address] [place] [address] Dr. Amanda Patrick Hemoglobin (Bld) [Mass/Vol] 7.7 g/dL Critically low 14.0-18.0 [facility] Comment on above: Performed By: #### H H #### [facility] [address] [place] [address] Dr. Amanda Patrick MCH (RBC) [Entitic mass] 29.3 pg Normal 25.9-34.0 [facility] Comment on above: Performed By: #### H H #### [facility] [address] [address] [address] Amanda Patrick MCHC (RBC) [Mass/Vol] 31.4 g/dL Normal 29.9-35.2 [facility] Comment on above: Performed By: #### H H #### [facility] [address] [address] [address] Amanda Patrick MCV (RBC) [Entitic vol] 93.2 fL Normal 80.0-94.0 [facility] Comment on above: Performed By: #### H H #### [facility] [address] [address] [address] Amanda Patrick PLT 113 103/ul Critically low 150-450 [facility] Comment on above: Performed By: #### H H #### [facility] [address] [place] [address] Dr. Amanda Patrick RBC 2.63 106/ul Critically low 4.70-6.10 [facility] Comment on above: Performed By: #### H H #### [facility] [address] [place] [address] Dr. Amanda Patrick WBC 7.7 103/ul Normal 4.0-11.0 [facility] Comment on above: Performed By: #### H H #### [facility] [address] [place] [address] Dr. Amanda Patrick PHOSPHORUSon 06-16-2021 Phosphate [Mass/Vol] 9.8 mg/dL Critically high 2.5-4.5 [facility] Comment on above: Result Comment: TEST REPEATED CRITICAL VALUE VERIFIED Performed By: #### P HOS, CMP #### [facility] [address] [address] [address] Amanda Patrick PROF 14(COMP METB)on 021 Albumin [Mass/Vol] 2.6 g/dL Critically low 3.5-5.0 [facility] Comment on above: Performed By: #### P HOS, CMP #### [facility] [address] [place] [address] Dr. Amanda Patrick Albumin/Globulin [Mass ratio] 0.9 {ratio} Normal [facility] Comment on above: Performed By: #### P HOS, CMP #### [facility] [address] [place] [address] Dr. Amanda Patrick ALP [Catalytic activity/Vol] 64 U/L Normal 38-126 [facility] Comment on above: Performed By: #### P HOS, CMP #### [facility] [address] [address] [address] Amanda Patrick ALT [Catalytic activity/Vol] 17 U/L Critically low 21-72 [facility] Comment on above: Performed By: #### P HOS, CMP #### [facility] [address] [place] [address] Dr. Amanda Patrick Anion gap [Moles/Vol] 17.6 mmol/L Normal [facility] Comment on above: Performed By: #### P HOS, CMP #### [facility] [address] [place] [address] Dr. Amanda Patrick AST [Catalytic activity/Vol] 10 U/L Critically low 17-59 [facility] Comment on above: Performed By: #### P HOS, CMP #### [facility] [address] [place] [address] Dr. Amanda Patrick Bilirubin [Mass/Vol] 0.5 mg/dL Normal 0.2-1.3 [facility] Comment on above: Performed By: #### P HOS, CMP #### [facility] [address] [place] [address] Dr. Amanda Patrick Calcium [Mass/Vol] 8.6 mg/dL Normal 8.4-10.[address] [facility] Comment on above: Performed By: #### P HOS, CMP #### [facility] [address] [place] [address] Dr. Amanda Patrick Chloride [Moles/Vol] 109 mmol/L Critically high 98-107 [facility] Comment on above: Performed By: #### P HOS, CMP #### [facility] [address] [place] [address] Dr. Amanda Patrick CO2 [Moles/Vol] 23.8 mmol/L Normal 22.0-30.0 [facility] Comment on above: Performed By: #### P HOS, CMP #### [facility] [address] [place] [address] Dr. Amanda Patrick Creatinine [Mass/Vol] 8.22 mg/dL Critically high 0.66-1.25 [facility] Comment on above: Result Comment: TEST REPEATED CRITICAL VALUE REPEATED Performed By: #### P HOS, CMP #### [facility] [address] [place] [address] Dr. Amanda Patrick EGFR-AF J[place] 8 mL/min/1.73m2 Critically low >=60 [facility] Comment on above: Performed By: #### P HOS, CMP #### [facility] [address] [place] [address] Dr. Amanda Patrick EGFR-NON AF [place] 7 mL/min/1.73m2 Critically low >=60 [facility] Comment on above: Performed By: #### P HOS, CMP #### [facility] [address] [place] [address] Dr. Amanda Patrick Globulin (S) [Mass/Vol] 2.9 g/dL Normal [facility] Comment on above: Performed By: #### P HOS, CMP #### [facility] [address] [place] [address] Dr. Amanda Patrick Glucose [Mass/Vol] 99 mg/dL Normal 74-[address] [facility] Comment on above: Performed By: #### P HOS, CMP #### [facility] [address] [place] [address] Dr. Amanda Patrick Potassium [Moles/Vol] 4.4 mmol/L Normal 3.4-5.0 [facility] Comment on above: Performed By: #### P HOS, CMP #### [facility] [address] [place] [address] Dr. Amanda Patrick Protein [Mass/Vol] 5.5 g/dL Critically low 6.1-8.2 [facility] Comment on above: Performed By: #### P HOS, CMP #### [facility] [address] [address] [address] Amanda Patrick Sodium [Moles/Vol] 146 mmol/L Critically high 137-145 [facility] Comment on above: Performed By: #### P HOS, CMP #### [facility] [address] [address] [address] Amanda Patrick Urea nitrogen [Mass/Vol] 96.0 mg/dL Critically high 9.0-20.0 [facility] Comment on above: Result Comment: TEST REPEATED CRITICAL VALUE REPEATED Performed By: #### P HOS, CMP #### [facility] [address] [address] [address] Amanda Patrick Urea nitrogen/Creatinine [Mass ratio] 11.7 mg/mg Normal [facility] Comment on above: Performed By: #### P HOS, CMP #### [facility] [address] [address] [address] Amanda Patrick Consent for Procedure/Surger yon 01-22-2021 Consent for Procedure/Surgery [id number] Normal [facility] Ambulatory Clinical Summaryo n 01-21-2021 Ambulatory Clinical Summary {[id number] Normal [facility] Patient Educationon 01-22-20 21 Patient Education Nutrition Calorie Counting for Weight Loss Calories are units of energy. Your body needs a certain amount of calories from food to keep you going throughout the day. When you eat more calories than your body needs, your body stores the extra calories as fat. When you eat fewer calories than your body needs, your body mitchell fat to get the energy it needs. Calorie counting means keeping track of how many calories you eat and drink each day. Calorie counting can be helpful if you need to lose weight. If you make sure to eat fewer calories than your body needs, you should lose weight. Ask your health care provider what a healthy weight is for you. For calorie counting to work, you will need to eat the right number of calories in a day in order to lose a healthy amount of weight per week. A dietitian can help you determine how many calories you need in a day and will give you suggestions on how to reach your calorie goal. ? A healthy amount of weight to lose per week is usually 1?2 lb (0.5?0.9 kg). This usually means that your daily calorie intake should be reduced by 500?750 calories. ? Eating 1,200 ? 1,500 calories per day can help most women lose weight. ? Eating 1,500 ? 1,800 calories per day can help most men lose weight. What is my plan? My goal is to have calories per day. If I have this many calories per day, I should lose around pounds per week. What do I need to know about calorie counting? In order to meet your daily calorie goal, you will need to: ? Find out how many calories are in each food you would like to eat. Try to do this before you eat. ? Decide how much of the food you plan to eat. ? Write down what you ate and how many calories it had. Doing this is called keeping a food log. To successfully lose weight, it is important to balance calorie counting with a healthy lifestyle that includes regular activity. Aim for 150 minutes of moderate exercise (such as walking) or 75 minutes of vigorous exercise (such as running) each week. Where do I find calorie information? The number of calories in a food can be found on a Nutrition Facts label. If a food does not have a Nutrition Facts label, try to look up the calories online or ask your dietitian for help. Remember that calories are listed per serving. If you choose to have more than one serving of a food, you will have to multiply the calories per serving by the amount of servings you plan to eat. For example, the label on a package of bread might say that a serving size is 1 slice and that there are 90 calories in a serving. If you eat 1 slice, you will have eaten 90 calories. If you eat 2 slices, you will have eaten 180 calories. How do I keep a food log? Immediately after each meal, record the following information in your food log: ? What you ate. Don't forget to include toppings, sauces, and other extras on the food. ? How much you ate. This can be measured in cups, ounces, or number of items. ? How many calories each food and drink had. ? The total number of calories in the meal. Keep your food log near you, such as in a small notebook in your pocket, or use a mobile veelio or website. Some programs will calculate calories for you and show you how many calories you have left for the day to meet your goal. What are some calorie counting tips? ? Use your calories on foods and drinks that will fill you up and not leave you hungry: ? Some examples of foods that fill you up are nuts and nut butters, vegetables, lean proteins, and high-fiber foods like whole grains. High-fiber foods are foods with more than 5 g fiber per serving. ? Drinks such as sodas, specialty coffee drinks, alcohol, and juices have a lot of calories, yet do not fill you up. ? Eat nutritious foods and avoid empty calories. Empty calories are calories you get from foods or beverages that do not have many vitamins or protein, such as candy, sweets, and soda. It is better to have a nutritious high-calorie food (such as an avocado) than a food with few nutrients (such as a bag of chips). ? Know how many calories are in the foods you eat most often. This will help you calculate calorie counts faster. ? Pay attention to calories in drinks. Low-calorie drinks include water and unsweetened drinks. ? Pay attention to nutrition labels for low fat or fat free foods. These foods sometimes have the same amount of calories or more calories than the full fat versions. They also often have added sugar, starch, or salt, to make up for flavor that was removed with the fat. ? Find a way of tracking calories that works for you. Get creative. Try different apps or programs if writing down calories does not work for you. What are some portion control tips? ? Know how many calories are in a serving. This will help you know how many servings of a certain food you can have. ? Use a measuring cup to measure serving sizes. You could (more content not included)... Normal [facility] Urology Office/Clinic Noteon 01-21-2021 Urology Office/Clinic Note HPI Staff Cystoscopy w/ UD Scope #5 ABX taken History of Present Illness I have reviewed the previous health record information and history for this patient from Dr. Guadalupe I have reviewed and verified the staff HPI to be accurate for this encounter. There have been no associated fever, chills, flank pain, or blood in the urine. Denies any urinary infections since last encounter. Review of Systems ROS - Provider Constitutional: denies weight loss, denies hot flashes. Eyes: denies eye problems. Gastrointestinal: denies nausea, denies vomiting. Cardiovascular: denies chest pain or angina. Integumentary: no dryness Musculoskeletal: denies musculoskeletal symptoms. ENMT: denies otolaryngeal symptoms. Respiratory: no shortness of breath. Heme/Lymph: denies easy bleeding tendency, denies easy bruising tendency. Psychiatric: no confusion, no anxiety. Genitourinary: denies dysuria, denies hematuria, denies discharge, denies urinary frequency, denies urinary hesitancy, denies nocturia, denies incontinence, denies genital sores, denies decreased libido, and denies erectile dysfunction. Physical Exam Vitals & Measurements BP: 136/84 HT: 174 cm HT: 174.0 cm WT: 178 kg WT: 178.0 kg BMI: 58.79 Procedure Operative Information Anesthesia Type: Local Procedure: Local Cystoscopy with Urethral Dilation Complications: None Surgical risks, benefits, details of the procedure have been explained to the patient. Full informed consent has been obtained. Intraoperative Information Prepped: Patient is brought back to the endoscopy suite. Patient is placed in supine position. Patient prepped in the usual fashion with Betadine solution. 2% Xylocaine Jelly is placed per Urethra. After waiting several minutes, the Cystoscope is introduced. The Urethra is: Tight The Prostatic Urethra is: Unobstructed The Bladder: no tumors,no stones Trabeculated: Mild (1) The Ureteral orifices: Show efflux of clear urine The Urethra was dilated to: 26_ Brazilian with sounds. Specimens Removed: None Removal: Cystoscope is removed. The patient tolerated it well. Postoperative Information Patient is discharged home with antibiotic coverage. Follow up arranged. Assessment/Plan 1. Unspecified anterior urethral stricture, male (N35.914: Unspecified anterior urethral stricture, male) 2. Asymptomatic microscopic hematuria (R31.21: Asymptomatic microscopic hematuria) Fish/cytology from Jul. 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 Small membranous urethral stricture. So I laid the patient in the supine position prepped with a Betadine soap draped appropriately. 5 cc lidocaine gel per urethra. After waiting a few minutes a flexible scope introduced the membranous urethral stricture was not that significant I passed it with a 20 scope. Prostate of a previously resected bladder neck was somewhat contracted as well. No residual urine. Bladder filled well and easily orifices x2 normal position clear flux in both 30 and 70 degree lens issues with the flexible scope unremarkable no tumors no calculi grade 1 trabeculations only. Patient apparently going to get dialysis so I am ensuring that he does have all the outflow that he can get he is not obstructed. So I did the cystoscopy I did the dilatation from 16 Mcmullen to 26 Brazilian. I will repeat the process in 6 months or as needed we will see how the dialysis proceeds Follow-up With When Contact Information ANAYELI GALLO, DIPTI Stevens In 6 months 07/24/2021 [place] [id number]- [phone] Additional Instructions: cysto/UD Patient Education Calorie Counting for Weight Loss Urethral Stricture Mya Hardy personally scribed for Dr. Guadalupe on 01/21/2021 14:03:25. . Documentation recorded by the scribeMya, accurately reflects the services(s) I performed and decisions made by me. Authenticated by Dr. Guadalupe on 01/21/2021 14:06:08. Problem List/Past Medical History Ongoing Arthritis Asthma Asymptomatic microscopic hematuria BMI 50.0-59.9, adult BPH with urinary obstruction Chronic kidney disease stage 4 Chronic kidney disease, stage 3 Depression Dysuria Frequent urination Gout Headache Heart attack Heart disease Hyperlipidemia Hypertension Hypothyroid Impotence Morbid obesity Morbid obesity with body mass index (BMI) of 45.0 to 49.9 in adult Nocturia Prostatitis Proteinuria Recurrent UTI Type 2 diabetes mellitus Unspecified anterior urethral stricture, male Urge incontinence Urgency of urination Urinary urgency Weak urinary stream Historical No qualifying data Procedure/Surgical History Cystoscopy (01/21/2021), Cystourethroscopy with dilation of urethral stricture (07/30/2020), Colonoscopy (01/17/2020), Cystourethroscopy (11/07/2019), Cystoscopy (more content not included)... Normal [facility] Comment on above: Result Comment: Elec tronically Signed By: Cipriano GUADALUPE MD\.br\Date and Time Signed: 01/21/21 14:06 EDT\.br\Electronically Co-Signed By: Mya Garcia MA\.br\Date and Time Co-Signed: 01/21/21 14:03 EDT IR ARTHR/ASP/INJ MAJOR JT/BU RSA RIGHT WO USon 05-04-2020 IR ARTHR/ASP/INJ MAJOR JT/BURSA RIGHT WO US EXAMINATION: FLUOROSCOPIC GUIDED INJECTION OF THE right hip 05/04/2020 1:06 pm HISTORY: ORDERING SYSTEM PROVIDED HISTORY: Hip pain, right Osteoarthritis of the right hip. FLUOROSCOPY DOSE AND TYPE OR TIME AND EXPOSURES: Fluoro time: 54 seconds DAP: 130 cGycm2 Dose: 17 mGy PROCEDURE: HEAD CORRECTION OFFICER: Krunla Douglass Informed consent was obtained and universal protocol was observed. A time-out was performed to confirm the correct patient and procedure. The patient was prepped and draped in usual sterile fashion. 1% lidocaine was used for local anesthesia. A skin entry site was selected with fluoroscopy. A 20 gauge spinal needle was inserted into the right hip joint under fluoroscopic guidance. Approximately 1-2 ml of iodinated contrast was injected into the joint to confirm location. Subsequently, 9 ml of a mixture of 80 mg of Kenalog, 4 mL 1% xylocaine and 4 mL 0.5% Marcaine was injected into the joint. The needle was removed and a sterile bandage was placed. Patient tolerated the procedure well. No immediate complication. Estimated blood loss: Less than 1 mL IMPRESSION: Successful fluoroscopic-guided right hip steroid injection. Interpreted by: Krunal Douglass Signed by: Krunal Douglass 05/04/20 Final result Normal [facility] Successful fluoroscopic-guided right hip steroid injection. [facility], [place] EXAMINATION: FLUOROS COPIC GUIDED INJECTION OF THE right hip 05/04/2020 1:06 pm HISTORY: ORDERING SYSTEM PROVIDED HISTORY: Hip pain, right Osteoarthritis of the right hip. FLUOROSCOPY DOSE AND TYPE OR TIME AND EXPOSURES: Fluoro time: 54 seconds DAP: 130 cGycm2 Dose: 17 mGy PROCEDURE: HEAD CORRECTION OFFICER: Krunal Douglass Informed consent was obtained and universal protocol was observed. A time-out was performed to confirm the correct patient and procedure. The patient was prepped and draped in usual sterile fashion. 1% lidocaine was used for local anesthesia. A skin entry site was selected with fluoroscopy. A 20 gauge spinal needle was inserted into the right hip joint under fluoroscopic guidance. Approximately 1-2 ml of iodinated contrast was injected into the joint to confirm location. Subsequently, 9 ml of a mixture of 80 mg of Kenalog, 4 mL 1% xylocaine and 4 mL 0.5% Marcaine was injected into the joint. The needle was removed and a sterile bandage was placed. Patient tolerated the procedure well. No immediate complication. Estimated blood loss: Less than 1 mL [place], [place] Rajinder, [employer] Incoming Radiant Results From [employer] - 05/04/2020 1:56 PM EST EXAMINATION: FLUOROSCOPIC GUIDED INJECTION OF THE right hip 05/04/2020 1:06 pm HISTORY: ORDERING SYSTEM PROVIDED HISTORY: Hip pain, right Osteoarthritis of the right hip. FLUOROSCOPY DOSE AND TYPE OR TIME AND EXPOSURES: Fluoro time: 54 seconds DAP: 130 cGycm2 Dose: 17 mGy PROCEDURE: HEAD CORRECTION OFFICER: Krunal Douglass Informed consent was obtained and universal protocol was observed. A time-out was performed to confirm the correct patient and procedure. The patient was prepped and draped in usual sterile fashion. 1% lidocaine was used for local anesthesia. A skin entry site was selected with fluoroscopy. A 20 gauge spinal needle was inserted into the right hip joint under fluoroscopic guidance. Approximately 1-2 ml of iodinated contrast was injected into the joint to confirm location. Subsequently, 9 ml of a mixture of 80 mg of Kenalog, 4 mL 1% xylocaine and 4 mL 0.5% Marcaine was injected into the joint. The needle was removed and a sterile bandage was placed. Patient tolerated the procedure well. No immediate complication. Estimated blood loss: Less than 1 mL IMPRESSION: Successful fluoroscopic-guided right hip steroid injection. [facility] [place] Vital Signs Date Time Vital Sign Value Performing Clinician Facility 10-27-2023 10:58-0400 Body height 172.7 cm Belen Mackey MD, PhD Work Phone: [facility] 10-27-2023 10:58-0400 Body mass index (BMI) [Ratio] 39.7 kg/m2 Belen Mackey MD, PhD Work Phone: [facility] 10-27-2023 10:58-0400 Body weight 118.4 kg Belen Mackey MD, PhD Work Phone: 5(435)214-858432 [place] [address] 10-27-2023 10:58-0400 Diastolic blood pressure 84 mm[Hg] Belen Mackey MD, PhD Work Phone: 5(580)103-982132 [place] [address] 10-27-2023 10:58-0400 Systolic blood pressure 178 mm[Hg] Belen Mackey MD, PhD Work Phone: 5(831)718-913432 [place] [address] 10-27-2023 10:21-0400 Body height 172.7 cm Belen Mackey MD, PhD Work Phone: 6(886)116-470332 [place] [address] 10-27-2023 10:21-0400 Body mass index (BMI) [Ratio] 39.68 kg/m2 Belen Mackey MD, PhD Work Phone: 3(475)662-500032 [place] [address] 10-27-2023 10:21-0400 Body weight 118.39 kg Belen Mackey MD, PhD Work Phone: 2(237)272-063032 [place] [address] 10-27-2023 10:21-0400 Diastolic blood pressure 84 mm[Hg] Belen Mackey MD, PhD Work Phone: 2(961)005-499932 [place] [address] 10-27-2023 10:21-0400 Heart rate 93 /min Belen Mackey MD, PhD Work Phone: 4(482)501-341232 [place] [address] 10-27-2023 10:21-0400 Systolic blood pressure 144 mm[Hg] Belen Mackey MD, PhD Work Phone: 2(131)425-055532 [place] [address] 09-19-2023 13:22-0400 Body height 172.7 cm Belen Mackey MD, PhD Work Phone: 5(131)737-650732 [place] [address] 09-19-2023 13:22-0400 Body mass index (BMI) [Ratio] 39.68 kg/m2 Belen Mackey MD, PhD Work Phone: 0(927)979-493632 [place] [address] 09-19-2023 13:22-0400 Body weight 118.39 kg Belen Mackey MD, PhD Work Phone: 6(853)587-282932 [place] [address] 09-19-2023 13:22-0400 Diastolic blood pressure 84 mm[Hg] Belen Mackey MD, PhD Work Phone: 8(431)220-660932 [place] [address] 09-19-2023 13:22-0400 Systolic blood pressure 178 mm[Hg] Belen Mackey MD, PhD Work Phone: 0(037)808-371232 [place] [address] 08-31-2023 08:43-0500 Body height 172.7 cm Belen Mackey MD, PhD Work Phone: 6(961)358-223732 [place] [address] 08-31-2023 08:43-0500 Body mass index (BMI) [Ratio] 39.76 kg/m2 Belen Mackey MD, PhD Work Phone: 0(139)582-416932 [place] [address] 08-31-2023 08:43-0500 Body temperature 97.59 [degF] Belen Mackey MD, PhD Work Phone: 2(005)166-815132 [place] [address] 08-31-2023 08:43-0500 Body weight 118.62 kg Belen Mackey MD, PhD Work Phone: 6(169)473-516532 [place] [address] 08-31-2023 08:43-0500 Diastolic blood pressure 72 mm[Hg] Belen Mackey MD, PhD Work Phone: 0(040)957-452432 [place] [address] 08-31-2023 08:43-0500 Heart rate 100 /min Belen Mackey MD, PhD Work Phone: 7(522)029-880732 [place] [address] 08-31-2023 08:43-0500 Systolic blood pressure 128 mm[Hg] Belen Mackey MD, PhD Work Phone: [facility] 08-17-2022 12:40-0500 Body height 172.72 cm Naldo Castillo Other [employer] Other 08-17-2022 12:40-0500 Body mass index (BMI) [Ratio] 41.81 kg/m2 Naldo Castillo Other [employer] Other 08-17-2022 12:40-0500 Body temperature 97.6 [degF] Naldo Castillo Other [employer] Other 08-17-2022 12:40-0500 Body weight 124.74 kg Naldo Castillo Other [employer] Other 08-17-2022 12:40-0500 Diastolic blood pressure 83 mm[Hg] Naldo Castillo Other [employer] Other 08-17-2022 12:40-0500 SaO2% (BldA) [Mass fraction] 97 % Naldo Castillo Other [employer] Other 08-17-2022 12:40-0500 Systolic blood pressure 131 mm[Hg] Naldo Castillo Other [employer] Other 06-11-2022 18:00-0500 Diastolic blood pressure 60 mm[Hg] JR Elmer Mendoza Work Phone: [facility] 06-11-2022 18:00-0500 Heart rate 82 /min JR Elmer Mendoza Work Phone: [facility] 06-11-2022 18:00-0500 Respiratory rate 18 /min JR Elmer Mendoza Work Phone: [facility] 06-11-2022 18:00-0500 SaO2% (BldA) [Mass fraction] 95 % JR Elmer Valone Work Phone: [facility] 06-11-2022 18:00-0500 Systolic blood pressure 122 mm[Hg] JR Elmer Valone Work Phone: [facility] 06-11-2022 13:26-0500 Body height 172.72 cm JR Elmer Valone Work Phone: [facility] 06-11-2022 13:26-0500 Body weight 128.9 kg JR Elmer Valone Work Phone: [facility] 06-11-2022 13:25-0500 Body temperature 98 [degF] JR Elmer Valone Work Phone: [facility] 05-31-2022 04:30-0500 Diastolic blood pressure 78 mm[Hg] JR Elmer Valone Work Phone: [facility] 05-31-2022 04:30-0500 Heart rate 83 /min JR Elmer Valone Work Phone: [facility] 05-31-2022 04:30-0500 Respiratory rate 20 /min JR Elmer Valone Work Phone: [facility] 05-31-2022 04:30-0500 SaO2% (BldA) [Mass fraction] 95 % JR Elmer Valone Work Phone: [facility] 05-31-2022 04:30-0500 Systolic blood pressure 152 mm[Hg] JR Elmer Valone Work Phone: [facility] 05-31-2022 03:03-0500 Body height 172.72 cm JR Elmer Valone Work Phone: [facility] 05-31-2022 03:03-0500 Body temperature 98.4 [degF] JR Elmer Valone Work Phone: [facility] 05-31-2022 03:03-0500 Body weight 132 kg JR Elmer Valone Work Phone: [facility] 04-08-2022 13:30-0400 Body height 172.72 cm Awa Riley Other [employer] Other 04-08-2022 13:30-0400 Body mass index (BMI) [Ratio] 42.57 kg/m2 Awa Riley Other [employer] Other 04-08-2022 13:30-0400 Body temperature 98.4 [degF] Awa Riley Other [employer] Other 04-08-2022 13:30-0400 Body weight 127.01 kg Awa Riley Other [employer] Other 04-08-2022 13:30-0400 Diastolic blood pressure 75 mm[Hg] Awa Riley Other [employer] Other 04-08-2022 13:30-0400 SaO2% (BldA) [Mass fraction] 97 % Awa Riley Other [employer] Other 04-08-2022 13:30-0400 Systolic blood pressure 111 mm[Hg] Awa Riley Other [employer] Other 12-18-2021 13:00-0400 Body height 172.72 cm Zahra Cleopatra Other [employer] Other 12-18-2021 13:00-0400 Body mass index (BMI) [Ratio] 42.57 kg/m2 Zahra Whelan Other [employer] Other 12-18-2021 13:00-0400 Body temperature 98.1 [degF] Zahra Whelan Other [employer] Other 12-18-2021 13:00-0400 Body weight 127.01 kg Zahra Whelan Other [employer] Other 12-18-2021 13:00-0400 SaO2% (BldA) [Mass fraction] 99 % Zahra Whelan Other [employer] Other 10-26-2021 13:30-0400 Body height 172.72 cm Jair Willams Other [employer] Other 10-26-2021 13:30-0400 Body mass index (BMI) [Ratio] 42.57 kg/m2 Jair Davidsonreleilani Other [employer] Other 10-26-2021 13:30-0400 Body weight 127.01 kg Jair Willams Other [employer] Other 10-26-2021 13:30-0400 Diastolic blood pressure 64 mm[Hg] Jair Davidsonrer Other [employer] Other 10-26-2021 13:30-0400 SaO2% (BldA) [Mass fraction] 99 % Jair Davidsonreleilani Other [employer] Other 10-26-2021 13:30-0400 Systolic blood pressure 112 mm[Hg] Jair Davidsonrer Other [employer] Other 10-12-2021 13:45-0400 Body height 172.72 cm Jair Davidsonreleilani Other [employer] Other 10-12-2021 13:45-0400 Body mass index (BMI) [Ratio] 42.57 kg/m2 Jair Davidsonrer Other [employer] Other 10-12-2021 13:45-0400 Body temperature 97.1 [degF] Jair Davidsonrer Other [employer] Other 10-12-2021 13:45-0400 Body weight 127.01 kg Jair Davidsonrer Other [employer] Other 10-12-2021 13:45-0400 Diastolic blood pressure 58 mm[Hg] Jair Davidsonrer Other [employer] Other 10-12-2021 13:45-0400 Systolic blood pressure 94 mm[Hg] Jair Davidsonrer Other [employer] Other 09-21-2021 11:30-0400 Body height 172.72 cm Minna Kraftivano Other [employer] Other 09-21-2021 11:30-0400 Body mass index (BMI) [Ratio] 42.57 kg/m2 Minna Kraftivano Other [employer] Other 09-21-2021 11:30-0400 Body temperature 96.3 [degF] Minna Krafttino Other [employer] Other 09-21-2021 11:30-0400 Body weight 127.01 kg Minna Krafttino Other [employer] Other 09-21-2021 11:30-0400 Diastolic blood pressure 60 mm[Hg] Minna Krafttino Other [employer] Other 09-21-2021 11:30-0400 SaO2% (BldA) [Mass fraction] 99 % Minna Hand Other [employer] Other 09-21-2021 11:30-0400 Systolic blood pressure 94 mm[Hg] Minna Hand Other [employer] Other 08-02-2021 11:30-0500 Body height 172.72 cm Jair Willams Other [employer] Other 08-02-2021 11:30-0500 Body mass index (BMI) [Ratio] 42.57 kg/m2 Jair Davidsonreleilani Other [employer] Other 08-02-2021 11:30-0500 Body temperature 97.5 [degF] Jair Willams Other [employer] Other 08-02-2021 11:30-0500 Body weight 127.01 kg Jair Willams Other [employer] Other 08-02-2021 11:30-0500 Diastolic blood pressure 80 mm[Hg] Jair Davidsonreleilani Other [employer] Other 08-02-2021 11:30-0500 SaO2% (BldA) [Mass fraction] 92 % Jair Davidsonrer Other [employer] Other 08-02-2021 11:30-0500 Systolic blood pressure 102 mm[Hg] Jair Buehrer Other [employer] Other 07-12-2021 11:45-0500 Body height 172.72 cm Jair Buehrer Other [employer] Other 07-12-2021 11:45-0500 Body mass index (BMI) [Ratio] 45.61 kg/m2 Jair Buehrer Other [employer] Other 07-12-2021 11:45-0500 Body temperature 96.3 [degF] Jair Buehrer Other [employer] Other 07-12-2021 11:45-0500 Body weight 136.08 kg Jair Buehrer Other [employer] Other 07-12-2021 11:45-0500 Diastolic blood pressure 60 mm[Hg] Jair Buehrer Other [employer] Other 07-12-2021 11:45-0500 Systolic blood pressure 110 mm[Hg] Jair Buehrer Other [employer] Other 05-18-2021 13:45-0500 Body height 172.72 cm Jair Buehrer Other [employer] Other 05-18-2021 13:45-0500 Body mass index (BMI) [Ratio] 45.61 kg/m2 Jair Buehrer Other [employer] Other 05-18-2021 13:45-0500 Body temperature 97.4 [degF] Jair Buehrer Other [employer] Other 05-18-2021 13:45-0500 Body weight 136.08 kg Jair Buehrer Other [employer] Other 05-18-2021 13:45-0500 Diastolic blood pressure 78 mm[Hg] Jair Willams Other [employer] Other 05-18-2021 13:45-0500 SaO2% (BldA) [Mass fraction] 98 % Jair Willams Other [employer] Other 05-18-2021 13:45-0500 Systolic blood pressure 130 mm[Hg] Jair Willams Other [employer] Other 05-11-2021 14:00-0500 Body height 172.72 cm Tonidixon Thomasvance Other [employer] Other 05-11-2021 14:00-0500 Body mass index (BMI) [Ratio] 45.93 kg/m2 Nargis Church Other [employer] Other 05-11-2021 14:00-0500 Body temperature 96.8 [degF] Tonidixon Lynnette Other [employer] Other 05-11-2021 14:00-0500 Body weight 137.03 kg Nargis Church Other [employer] Other 05-11-2021 14:00-0500 Diastolic blood pressure 70 mm[Hg] Nargis Church Other [employer] Other 05-11-2021 14:00-0500 Respiratory rate 18 /min Nargis Church Other [employer] Other 05-11-2021 14:00-0500 SaO2% (BldA) [Mass fraction] 98 % Nargis Church Other [employer] Other 05-11-2021 14:00-0500 Systolic blood pressure 124 mm[Hg] Nargis Church Other [employer] Other 04-26-2021 12:30-0400 Body height 172.72 cm Jair Davidsonrer Other [employer] Other 04-26-2021 12:30-0400 Body mass index (BMI) [Ratio] 46.22 kg/m2 Jair Buehrer Other [employer] Other 04-26-2021 12:30-0400 Body temperature 98 [degF] Jair Davidsonrer Other [employer] Other 04-26-2021 12:30-0400 Body weight 137.89 kg Jair Daivdsonrer Other [employer] Other 04-26-2021 12:30-0400 Diastolic blood pressure 82 mm[Hg] Jair Davidsonrer Other [employer] Other 04-26-2021 12:30-0400 SaO2% (BldA) [Mass fraction] 96 % Jair Chapmanehrer Other [employer] Other 04-26-2021 12:30-0400 Systolic blood pressure 120 mm[Hg] Jair Buehrer Other [employer] Other Encounters Encounter Date Encounter Type Care Provider Facility Start: 11-08-2023 End: 11-08-2023 ambulatory FELIPE PACHECO Not Available Start: 10-27-2023 Encounter for other preprocedural examination AMKIRA MACKEY Facility:[facility] Start: 10-27-2023 Anes nerve muscle td n fascia&bursa forearm wrist BELEN MACKEY Facility:[facility] Start: 10-27-2023 Encounter for preprocedural cardiovascular examination BELEN MACKEY [facility] [place] Start: 10-27-2023 ambulatory ELMER PAUL JR. Facility:[facility] Start: 10-27-2023 End: 10-27-2023 Patient encounter status Belen Mackey MD, PhD Work Phone: [facility] Work Phone: Start: 10-27-2023 End: 10-27-2023 Subsequent hospital visit by physician Belen Mackey MD, PhD Work Phone: [facility] [place] Comment on above: Arrived Start: 10-26-2023 ambulatory ELMER PAUL JR. Facility:[facility] Start: 10-26-2023 End: 10-26-2023 Clinical Support Encounter [facility] Pre-Transplant Social Work [facility] Comment on above: Pre-transplant evalu ation for kidney transplant (Primary Dx) Start: 10-26-2023 End: 10-26-2023 Patient encounter status [facility] Pre-Transplant [facility] Work [facility] Start: 09-19-2023 ambulatory BELEN MACKEY Facility:[facility] Start: 09-19-2023 End: 09-19-2023 Patient encounter status Belen Mackey MD, PhD Work Phone: [facility] Work Phone: Start: 09-19-2023 End: 09-19-2023 Subsequent hospital visit by physician Belen Mackey MD, PhD Work Phone: [facility] [place] Comment on above: Arrived Start: 08-31-2023 ambulatory ELMER PAUL JR. Facility:[facility] Start: 08-31-2023 ambulatory ELMER PAUL JR. Facility:[facility] Start: 08-31-2023 End: 08-31-2023 Office outpatient new 60 minutes Belen Mackey MD, PhD Work Phone: [facility] Comment on above: Chronic kidney disea se, stage V (Primary Dx); Pre-transplant evaluation for kidney transplant; Encounter for screening for malignant neoplasm of prostate; Encounter for therapeutic drug level monitoring; Abnormal finding of blood chemistry, unspecified; Encounter for screening for infections with a predominantly sexual mode of transmission; Abnormal coagulation profile; Encounter for screening for other viral diseases; Encounter for follow-up examination after completed treatment for conditions other than malignant neoplasm; ESRD (end stage renal disease) on dialysis Start: 08-31-2023 End: 08-31-2023 Patient encounter status Belen Mackey MD, PhD Work Phone: [facility] Start: 08-31-2023 End: 08-31-2023 Subsequent hospital visit by physician Belen Mackey MD, PhD Work Phone: [facility] [place] Comment on above: Arrived Start: 03-01-[address] Elmer Urbina Jr Facility:[id number] Start: 08-17-2022 End: 08-17-2022 ambulatory Naldo Castillo Other [employer] Other Start: 08-17-2022 Office outpatient vi sit 15 minutes Naldo Castillo [facility] Start: 06-30-2022 End: 06-30-2022 ambulatory Elmer Mendoza Facility:[facility] Start: 06-30-2022 End: 06-30-2022 ambulatory JR Elmer Mendoza Work Phone: [facility] Work Phone: Start: 06-30-2022 End: 06-30-2022 Patient encounter procedure JR Elmer Mendoza Work Phone: [facility] [place] Work Phone: Start: 06-11-2022 End: 06-11-2022 Emergency department patient visit Conrad Garcia Facility:[facility] Start: 06-11-2022 End: 06-11-2022 Emergency department patient visit JR Elmer Mendoza Work Phone: [facility] Work Phone: Start: 06-09-2022 End: 06-09-2022 ambulatory Ector Berg Facility:[facility] Start: 06-09-2022 End: 06-09-2022 ambulatory JR Elmer Mendoza Work Phone: [facility] Work Phone: Start: 06-09-2022 End: 06-09-2022 Patient encounter procedure JR Elmer Mendoza Work Phone: [facility] [place] Start: 05-31-2022 End: 05-31-2022 Emergency department patient visit Conrad Alvino Garcia Facility:[facility] Start: 05-31-2022 End: 05-31-2022 Emergency department patient visit JR Elmer Mendoza Work Phone: [facility] Start: 05-14-2022 End: 05-14-2022 ambulatory Elmer Mendoza Facility:[facility] Start: 05-14-2022 End: 05-14-2022 ambulatory JR Elmer Mendoza Work Phone: [facility] Work Phone: Start: 05-14-2022 End: 05-14-2022 Patient encounter procedure JR Elmer Mendoza Work Phone: [facility] [place] Start: 05-11-2022 End: 05-12-[address] KRISTAL MORALEZ Facility: Start: 04-08-2022 Office outpatient vi sit 25 minutes Awa Riley [facility] Start: 04-08-2022 End: 04-08-2022 ambulatory JR Elemr Mendoza Work Phone: [employer] Other Start: 04-08-2022 End: 04-08-2022 Patient encounter procedure JR Elmer Mendoza Work Phone: [facility] [address] Start: 04-02-2022 End: 04-02-2022 ambulatory Elmer Mendoza Facility:[facility] Start: 04-02-2022 End: 04-02-2022 ambulatory JR Elmer Mendoza Work Phone: [facility] Work Phone: Start: 04-02-2022 End: 04-02-2022 Patient encounter procedure JR Elmer Mendoza Work Phone: [facility] Start: 12-27-2021 End: 12-27-[address] JAIR HUFF Facility:[facility] Start: 12-18-2021 End: 12-18-2021 ambulatory Zahra Whelan Other [employer] Other Start: 12-18-2021 Office outpatient vi sit 15 minutes Zahra Whelan [facility] Start: 12-10-2021 End: 12-10-[address] NATHAN AVILA Facility:[facility] Start: 11-04-2021 End: 11-04-2021 ambulatory Jair Willams Facility:[facility] Start: 10-26-2021 End: 10-26-2021 ambulatory Jair Willams Other [employer] Other Start: 10-26-2021 Office outpatient vi sit 15 minutes Jair Willams [facility] Start: 10-12-2021 End: 10-12-2021 ambulatory Jair Willams Other [facility] Other Start: 10-12-2021 Postop follow up vis it related to original px Jair Willams [facility] Start: 09-21-2021 End: 09-21-2021 ambulatory Minna Hand Other [employer] Other Start: 09-21-2021 Office outpatient vi sit 15 minutes Minna Hand [facility] Start: 09-10-2021 End: 09-10-[address] ELMER MENDOZA Facility: Start: 08-26-2021 End: 08-26-2021 ambulatory Jair Willams Facility:[facility] Start: 08-24-2021 End: 08-24-2021 ambulatory Jair Willams Facility:[facility] Start: 08-20-2021 End: 08-21-[address] ELMER MENDOZA Facility:[facility] Start: 08-04-2021 End: 08-04-2021 ambulatory Jair Willams Other [facility] Other Start: 08-04-2021 Telephone encounter Jair Willams [facility] Start: 08-02-2021 End: 08-02-2021 ambulatory Jair Willams Other [employer] Other Start: 08-02-2021 Office outpatient vi sit 25 minutes Jair Willams [facility] Start: 07-12-2021 End: 07-12-[address] ELMER MENDOZA [facility] Other Start: 07-12-2021 Office outpatient vi sit 15 minutes Jair Willams [facility] Start: 07-01-2021 End: 07-01-[address] ELEMR MENDOZA Facility:[facility] Start: 06-17-2021 End: 06-17-2021 ambulatory Nargis Lynnette Other [employer] Other Start: 06-17-2021 Telephone encounter Tonidixon Lynnette [facility] Start: 06-16-2021 Telephone encounter Nargis Church [facility] Start: 06-16-2021 End: 06-17-[address] ELMER MENDOZA [facility] Other Start: 05-18-2021 End: 05-18-2021 ambulatory Ector Berg Other [employer] Other Start: 05-18-2021 Postop follow up vis it related to original px Jair Willams [facility] Start: 05-18-2021 Telephone encounter Ector Berg [facility] Start: 05-13-2021 End: 05-13-2021 ambulatory Nargis Church Other [facility] Other Start: 05-13-2021 Telephone encounter Nargis Church [facility] Start: 05-11-2021 End: 05-11-2021 ambulatory Nargis Church Other [facility] Other Start: 05-11-2021 Office outpatient vi sit 25 minutes Nargis Church [facility] [place] Start: 05-04-2021 End: 05-04-2021 ambulatory Zahra Mortensenault Other [employer] Other Start: 05-04-2021 Telephone encounter Zahra helm [facility] Vascular Surgery Start: 05-03-2021 End: 05-03-2021 ambulatory Jair Willams Other [employer] Other Start: 05-03-2021 Telephone encounter Jair Willams [facility] Activities Specialist Start: 04-29-2021 Telephone encounter Zahra helm [facility] Vascular Surgery Start: 04-26-2021 [facility] visit new patient Jair Chapmanmorena er [facility] Vascular Surgery Start: 05-04-2020 End: 05-07-2020 Patient encounter procedure KJ BACA [facility] Start: 05-04-2020 End: 05-06-2020 Subsequent hospital visit by physician [facility] Ir Nurse 1 [facility] Special Procedures Comment on above: Hip pain, right Procedures Date Procedure Procedure Detail Performing Clinician Start: 10-27-2023 Myocardial spect mul tiple studies Belen Mackey MD, PhD Work Phone: Start: 10-27-2023 Echo tthrc r-t 2d w/ wom-mode compl spec&colr d Belen Mackey MD, PhD Work Phone: Start: 10-27-2023 Blood gases any comb ination ph pco2 po2 co2 hco3 Belen Mackey MD, PhD Work Phone: Start: 10-27-2023 Arterial puncture wi thdrawal blood dx Belen Mackey MD, PhD Work Phone: Start: 10-27-2023 End: 10-27-2023 Spmtry w/vc expiratory jay w/wo mxml vol vntj Belen Mackey MD, PhD Work Phone: Start: 09-19-2023 Cta abdl aorta&bi il iofem w/contrast&postp Belen Mackey MD, PhD Work Phone: Start: 08-31-2023 End: 08-31-2023 Antibody screen Belen Mackey MD, PhD Work Phone: Comment on above: Performed By: #### I KYREE ALAMO URICB, TP #### [facility] (DEFAULT) [address] [place] [address] Start: 08-31-2023 PSA screening BELEN Kelly Comment on above: Result Comment: This test was performed on the Social Median IM Immunoassay platform which is a 2-step sandwich chemiluminescent immunoassay. It is important to note that assays using different manufacturers and/or methods may not be comparable. Performed By: #### I KYREE ALAMO URICB, TP #### [facility] (DEFAULT) [address] [place] [address] Start: 08-31-2023 Radiologic exam ches t 2 views Belen Mackey MD, PhD Work Phone: Start: 08-31-2023 Albumin serum plasma /whole blood Belen Mackey MD, PhD Work Phone: Start: 08-31-2023 Assay of ethanol Belen myrick MD, PhD Work Phone: Start: 08-31-2023 CBC AND ELECTRONIC DIFF Belen Mackey MD, PhD Work Phone: Start: 08-31-2023 Complete blood count with white cell differential, automated Belen Mackey MD, PhD Work Phone: Start: 08-31-2023 End: 08-31-2023 Hepatitis b surf antibody hbsab Belen Mackey MD, PhD Work Phone: Start: 08-31-2023 Iaad ia hepatitis b surface antigen Belen Mackey MD, PhD Work Phone: Start: 08-31-2023 TT SAMPLE Other [facility] Start: 06-11-2022 CT cervical spine wi thout contrast JR Elmer Mendoza Work Phone: Start: 06-11-2022 CT of head without contrast JR Elmer Mendoza Work Phone: Start: 06-11-2022 Plain chest X-ray JR Juna Alberto Mendoza Work Phone: Start: 06-11-2022 Blood culture for ba cteria, including anaerobic screen JR Elmer Mendoza Work Phone: Start: 06-11-2022 Respiratory Panel (PCR) JR Elmer Mendoza Work Phone: Start: 06-09-2022 Urine culture JR Richard Mendoza Work Phone: Start: 05-31-2022 CT of abdomen and pe lvis without contrast JR Elmer Mendoza Work Phone: Start: 04-08-2022 Plain chest X-ray JR Juan Alberto Mendoza Work Phone: Start: 05-04-2020 DISCHARGE PATIENT CIARA MAKAYLA BACA Start: 05-04-2020 Arthrocentesis aspir &/inj major jt/bursa w/o us KJ BACA Start: 05-04-2020 Arthrocentesis aspir &/inj major jt/bursa w/o us Kj Baca Work Phone: Urine culture JR Elmer dupree Work Phone: Plan of Treatment Date Care Activity Detail Author Start: 08-30-2024 Prostate specific antigen measurement PROSTATE CANCER SCREENING DISCUSSION [facility] Start: 03-03-2024 Influenza vaccination INFLUENZ A VACCINE (Season Ended) [facility] Start: 08-31-2023 End: 08-30-2024 CTA Abdominal Aorta and Bilateral Runoff Vessels W contrast IV CT ANGIO ABDOMINAL AORTA WITH RUNOFF Imaging Routine Pre-transplant evaluation for kidney transplant Chronic kidney disease, stage V ESRD (end stage renal disease) on dialysis Expected: 08/31/2023, Expires: 08/30/2024 [facility] Comment on above: Expected: 08/31/2023 , Expires: 08/30/2024 Start: 03-03-2023 COVID-19 VACCINE ( season) COVID-19 VACCINE ( season) [facility] Start: 03-03-2023 Influenza vaccination INFLUENZA VACC INE (#1) [facility] Start: 06-30-2022 Bacteria identified in Urine by Culture Urine Culture [facility] Start: 05-31-2022 CT of abdomen and pelvis without contrast CT abdomen pelvis wo con [facility] Start: 05-14-2022 [facility] Start: 09-13-2020 Pneumococcal vaccination PNEUMOCOCCAL VACCINE SERIES (3 of 3 - PPSV23 or PCV20) [facility] Start: 07-22-2020 End: 07-22-2020 Office Visit 07/22/2020 Office Visit Orthopedic Surgery Kj Baca MD [address] [facility] [address] [facility] [address] [place] [address] [phone] [facility] Start: 04-03-2020 Annual Wellness Visi t (AWV) Annual Wellness Visit (AWV) [place], [place] Start: 03-03-2020 Influenza vaccination Flu vaccine (# 1) [place], [place] Start: 2016 Abdominal aortic aneurysm screening ABDOMINAL AORTIC ANEURYSM HIGH RISK SCREEN [facility] Start: 2016 Pneumococcal 65+ yea rs Vaccine (1 of 1 - PPSV23) Pneumococcal 65+ years Vaccine (1 of 1 - PPSV23) [place], [place] Start: 12-13-2013 Zoster vaccine hzv l zaheer for subcutaneous use ZOSTER (SHINGLES) VACCINE (2 of 3) [facility] Start: 2001 Screening for malign ant neoplasm of colon Colon cancer screen colonoscopy [place], [place] Start: 2001 Shingles Vaccine (1 of 2) Shingles Vaccine (1 of 2) [place] Start: 1996 Screening for malign ant neoplasm of colon COLORECTAL CANCER SCREENING DISCUSSION [facility] Start: [address] [facility] Start: 1970 DTaP/Tdap/Td vaccine (1 - Tdap) DTaP/Tdap/Td vaccine (1 - Tdap) [place], [place] Start: 1970 Third diphtheria, tetanus and acellular pertussis (DTaP) vaccination TDAP (ADULT) [facility] Start: 1950 Hepatitis C screening Hepatitis C sc reen [place], [place] Start: [address] [facility] Start: 1951 Thyroid stimulating hormone measurement TSH [facility] 6-minute walk test EXERCISE-6 [place] N. WALK PFT Routine Pre-transplant evaluation for kidney transplant Chronic kidney disease, stage V 10/27/2023 9:[address] [facility] Work Phone: ARTERIAL BLOOD GAS, PULMONARY LAB OBTAINED ARTERIAL BLOOD GAS, PULMONARY LAB OBTAINED PFT Routine Pre-transplant evaluation for kidney transplant Chronic kidney disease, stage V 10/27/2023 9:[address] [facility] Work Phone: Bacteria identified in Urine by Culture [facility] Work Phone: CMV IGG AB CMV IGG AB Lab R outine Pre-transplant evaluation for kidney transplant 08/31/2023 10:[address] [facility] Glucose measurement estimated from glycated hemoglobin [facility] Work Phone: Hemoglobin A1c/Hemoglobin.total in Blood [facility] Work Phone: HLA TYPING (SOLID ORGAN) HLA TYPING (SOLID ORGAN) Lab Routine Pre-transplant evaluation for kidney transplant 08/31/2023 10:04 AM [facility] HSV IGM ANTIBODY HSV IGM ANTIBOD Y Lab Routine Pre-transplant evaluation for kidney transplant 08/31/2023 10:04 AM [facility] Measurement of respiratory function PFT STANDARD PFT Routine Pre-transplant evaluation for kidney transplant Chronic kidney disease, stage V 10/27/2023 9:[address] [facility] Work Phone: OPIOIDS, URINE, CONFIRMATION OPIOIDS, URINE, CONFIRMATION Lab Routine Pre-transplant evaluation for kidney transplant Encounter for therapeutic drug level monitoring 08/31/2023 10:04 AM [facility] Patient Education [facility] Work Phone: Patient referral [facility] Work Phone: PRA CLASS (PRE-TRANSPLANT) PRA CLASS (PRE-TRANSPLANT) Lab Routine Pre-transplant evaluation for kidney transplant 08/31/2023 10:04 AM [facility] Immunizations Immunization Date Immunization Notes Care Provider Fa ting 09-25-2020 COVID-19 mRNA, Comirnaty (Pfizer) JR Elmer Mendoza Work Phone: [facility] 09-04-2020 COVID-19 mRNA, Comirnaty (Pfizer) JR Elmer Mendoza Work Phone: [facility] 04-22-2019 influenza virus vaccine, unspecified formulation Belen Mackey MD, PhD Work Phone: [facility] 10-18-2013 zoster vaccine, unspecified formulation Belen Mackey MD, PhD Work Phone: [facility] Payers Date Payer Category Payer Medicare MEDICARE MEDICAR E A AND B [id number] 2023-Present [address] [place] [address] [id number] 2023 Unknown [id number]. 1.13.172.2.7.3. [id number] 2023 Unknown [id number] 1959 Medicare [id number] [id number].3. [id number] 1959 Self-pay [id number] 1959 Unknown [id number] 1.2.840.541125.1.13.239.2.7.3. [id number] 1951 Unknown [id number] 2.16.840.1.888229.3.579.2.176 1951 Unknown [id number] 2.16.840.1.728357.3.579.2.593 1951 Unknown [id number] 2.16.840.1.961062.3.579.2.593 1951 Unknown [id number] 2.16.840.1.398487.3.579.2.593 1951 Unknown [id number] 2.16.840.1.704764.3.579.2.593 1951 Unknown [id number] 2.16.840.1.846062.3.579.2.593 1951 Unknown [id number] 2.16.840.1.595025.3.579.2.593 1951 Unknown [id number] 2.16.840.1.393003.3.579.2.593 1951 Unknown [id number] 2.16.840.1.905517.3.579.2.356 1951 Unknown [id number] 2.16.840.1.761321.3.579.2.1259 1951 Unknown [id number] 2.16.840.1.204791.3.579.2.594 1951 Unknown [id number] 2.16.840.1.961696.3.579.2.594 1951 Unknown [id number] 2.16.840.1.095822.3.579.2.594 1951 Unknown [id number] 2.840.1.736323.3.579.2.594 1951 Unknown [id number] 2.840.1.623583.3.579.2.594 1951 Unknown [id number] 2.840.1.170537.3.579.2.594 1951 Unknown [id number] 2.840.1.775346.3.579.2.594 1951 Unknown [id number] .840.1.687585.3.579.2.594 1951 Unknown [id number] .0.1.231185.3.579.2.594 Medicare Medicare Nonpatient [id number] Unknown Regular Insurance [id number] Unknown [employer] [id number] Unknown [id number] .840.1.918289.3.579.2.593 Unknown [id number] 840.1.752683.3.579.2.531 Unknown [id number] 840.1.108746.3.579.2.531 Unknown [id number] 840.1.313200.3.579.2.531 Unknown [id number] .840.1.151871.3.579.2.531 Unknown [id number] .840.1.888692.3.579.2.531 Unknown [id number] .840.1.440147.3.579.2.531 Unknown [id number] 840.1.650864.3.579.2.531 Unknown [id number] 2.16.840.1.601491.3.579.2.531 Unknown [id number] 2.16.840.1.950417.3.579.2.531 Unknown [id number] 2.16.840.1.490637.3.579.2.531 Social History Date Type Detail Facility Tobacco smoking stat us [facility] [place] [place] Start: 1950 Sex Assigned At Not on file [place], [place] Exposure to SARS-CoV -2 (event) Not sure [place] Start: 08-31-2023 End: 10-27-2023 Sex Assigned At [facility] Other Start: 11-04-2021 End: 06-11-2022 Tobacco smoking status NHIS Ex-smoker (finding) [facility] Start: 1950 Sex Assigned At Male [facility] Start: 05-31-2022 End: 08-31-2023 Tobacco smoking status ARIS Never smoked tobacco (finding) [facility] Start: 08-31-2023 Tobacco use and exposure Smokeless tobacco non-user [facility] Start: 08-31-2023 End: 10-27-2023 Alcoholic beverage intake Current drinker of alcohol (finding) [facility] Start: 08-31-2023 End: 10-27-[address] [facility] Start: 07-25-2023 Gender identity Identifies as male gender (finding) [facility] Start: 07-25-2023 Sexual orientation Heterosexual (finding) [facility] Medical Equipment Procedure Code Equipment Code Equipment Origin al Text Equipment Identifier Dates Fluoroscopic guidance for insertion of tunnelled dialysis catheter Double-lumen haemodialysis catheter, implantable [id number] [facility] Start: 06-18-2021 Clinical Notes 04-26-2021 to 10-27-2023 Jeff Goode RN - 10/27/2023 1:00 PM Erlin Kelley RN - 10/27/2023 12:30 PM EDTPatient InstructionsKALIN Vance - 10/26/2023 3:00 PM Ba Mackey MD, PhD - 08/31/2023 8:45 AM EST Note Date & Type Note Facility 10-27-2023 History of Presen t illness Narrative Explained Definity use to patient including potential side effects with emphasis on patient informing the RN/technologist if they develop any symptoms after administration. status: no Medication list reviewed. The patient does NOT have an allergy to Definity or known sensitivity to Perflutren or Polyethylene Glycol (PEG-containing products such as bowel preparations or laxatives): no Definity dose: 1.5 ml diluted with 8.5 ml saline (start with 1-2 ml, additional doses as needed) Total dose given: 2ml After administration of Definity contrast, the patient experienced no side effects and was without complaints. PIV remained intact for further testing. documented in this encounter [facility] 10-27-2023 History of Presen t illness Narrative Caffeine free for 24 hours. status no status no Pharmacologic nuclear stress procedure explained to patient. Risk/benefits of the procedure were reviewed and patient verbalized understanding. Medical transfer engineer offered to patient prior to sensitive procedure and patient declined. Patient was administered a Lexiscan injection during the procedure, per the Physician's order. Patient was instructed prior to the test of the possible side effects of the medication. After the injection was administered, the patient did experience shortness of breath. In recovery the patient's symptoms subsided and vital signs returned to baseline. Patient tolerated procedure well. Patient was instructed to call 911 if they experience any chest pain, shortness of breath or other anginal equivalent more intense and/or frequent than before today's testing. Patient was ambulatory upon discharge from the clinic. documented in this encounter [facility] 10-27-2023 Hospital Discharg e instructions Jose Raul Kelley RN - 10/27/2023 12:30 PM EDT After the completion of your nuclear test at the [facility], you should be aware of the following information: Other than mild fatigue and muscle soreness, there are no residual symptoms or physiological effects associated with this nuclear study. If you should feel different than normal after the test, please contact the physician who scheduled the exam. If you think this is an emergency, either dial 911 or go to the nearest emergency room. Your testing was supervised by Dr. Kevin tan. A qualified and licensed [facility] engine lathe tender will interpret your study and a final report of the results will be forwarded to your physician within 24 hours. You will get the results of your test directly from the ordering physician or a physician on your care team. The technologist performing your exam will not give you final results. You have been administered a low dose of radioactive material that will be in your system for about three days.? This amount is approximately 5% of the limit that would require modification to your daily activities.? Because of this minimal activity, there are no restrictions with regards to exposure to other individuals, traveling, personal hygiene, or any other routine activity. If you are or , however, there are restrictions.? Please notify the technologist if this is the case. (Reference: [id number], Volume 9, Revision 2, Appendix U). If you have any questions or concerns regarding your exam, please call the [place] office at [phone], Monday through Monday, between the hours of 8:00 AM and 5:00 PM. For medical emergencies, please call 911 or go to your nearest emergency room. ? To Whom It May Concern: Our patient, Vj Cárdenas, was seen at The [facility] on 10/27/23 for a nuclear test of the heart. During the course of this myocardial perfusion imaging study, our patient received a radioactive isotope, technetium (Tc-99m). Tc-99m emits gamma radiation with an energy of 140 Jemal and has a six hour half life. For this study, our patient received approximately 40 mCi of Tc-99m Cardiolite. The administered radioactivity will be below background levels within three days from the conclusion of the test. In the meantime, our patient may be detected as radioactive due to this study. If you have any further questions please contact our staff at [phone] Monday through Monday, between the hours of 8:00 AM and 5:00 PM. Trace Cabrera, [facility] Machine Helper and RSO [facility] @ Outpatient Care [place] [id number] documented in this encounter [facility] 10-26-2023 History of Presen t illness Narrative Transplant Recipient Psychosocial Evaluation Demographics: Patient is a 73 y.o., , , male, who presented for a kidney transplant evaluation. Patient was AOx4. Transplant Security Guard Supervisor role/function was explained and reviewed. The patient was informed that the results of this assessment will be shared with the referring provider and the transplant team. The patient verbalized understanding of this information. The [facility] psychosocial assessment consent form has been explained to patient and has been signed. Patient is completing this evaluation with spouse (Ronna) in the Outpatient setting. Security Guard Supervisor educated patient on the benefits of completing/filing advanced directives and resources were offered and questions regarding same were answered by this health care social worker. Patient identifies with JEWISH yarsanism. Patient confirms being a [place] Citizen. Patient's primary language is Italian. Patient denies potential donors. Donor cards and resources provided to include discussion regarding living donation, checklist to prepare for transplant and financial assistance available. Education: Patient s highest level of education is some college. He denies a history of developmental delay or learning disabilities. Patient is literate. Patient confirms the ability to read, write, and understand verbal instructions. Patient demonstrates moderate health literacy. Functional Status: Patient denies having a home health provider. Patient uses cane (only sometimes) as DME. Patient reports using no oxygen. Patient was encouraged to prepare to utilize vitals equipment post-transplant. Patient reports that he has has own vehicle, has valid license, independent/drives. He reports availability of his spouse for additional assistance with driving. He reports vision, hearing (has hearing aides but doesn't wear them). Patient reports current or history of no conditions which may impact his cognitive state. Patient denies recent changes to memory, concentration, or attention. Understanding of Illness and Transplant Process: Patient reports that his organ failure is related to high blood pressure. Patient is on hemodialysis (critical access hospital). Patient was diagnosed with organ related disease more than ten years. Patient reports learning that he may need a transplant in the last couple of years. His transplant history includes referred. Patient completed transplant education through the provided educational video prior to this assessment. Patient and their support demonstrated good understanding of transplant. He identified Benefits/Risks of transplant, Length/course of hospitalization, Immunosuppression therapy, Rehab/recovery, Selection process, Rejection, Vitals, Waitlist status, Post-transplant follow up, Expectation of Labs related to transplant. Patient and support demonstrated good understanding of patient s current medical regimen and health history. Patient and social work discussed the importance of patient follow up at the transplant center for ongoing care and discussed benefits of having access to resources available including medication assistance and financial counseling. Patient and support received transplant education material. Social work encouraged patient to review all medical information and medical questions with transplant nurse coordinator or physician throughout the process. Willingness/Desire for Transplantation: Patient reports that Dialysis Center suggested transplant to patient. Patient reports that his reaction after transplant suggestion included I want to do it. He appears motivated towards transplant. Patient reports that he is motivated for transplant because to be able to travel, be free from dialysis. Care Home plans were to get a camper. Patient concerns regarding transplant. Medical Adherence: Patient denies having difficulty following medical recommendations. There is no evidence of patient having difficulty following medical recommendations per chart review. He denies missing/stopping dialysis early or arriving late. Patient organizes his medical appointments with the assistance of calendar, a family member, telephone reminders. Patient educated on benefits of utilizing [facility] and given information on how to obtain an access code and how to operate the program to assist in managing their care. Patient organizes his medications by using a pillbox, a family member organizing. Patient is aware of medication regimen. Patient confirms (some trouble swallowing phos binders) past or current difficulties with taking medications. Patient s care is assisted some by others. Patient educated on the importance of demonstrating ongoing adherence and ability to continue follow treatment recommendations. Support/Caregiver: Patient lives with with spouse (two cats) in a condo (own it) they rent/pay mortgage on/own. Patient reports that he has 2 children. Patient plans on discharging to home for post-transplant care. Patient s primary support team will include his spouse, Ronna. Ronna was an RN for 40 years. Patient's support confirms that they will be available to take the necessary time off from their lives and/or employment in order to fulfill the commitment of providing support. She denies the presence of any medical and/or mental health issues which might interfere with their ability to assist the recipient during the transplant process. Patient's spouse appears motivated in making the commitment to provide help. Additional support includes the patient's daughter (Ayana (45) lives nearby, pharmacist, has pto daycare and nanny). He confirms being comfortable asking for help. 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 Patient s support appears actively engaged, to attend appointments with recipient, understanding of the caregiver role, to be strong/stable support, to have history of long-term relationship, to be able to provide transportation. There will be to relocate post-transplant. Patient was encouraged to discuss needs with family and friends to ensure that he has appropriate care post-surgery. Patient educated on the importance of having support person available for emotional and physical care needs. Financial: Patient is Retired. He has access to [employer] pension, SSI payment in regards to financial means pre/post-transplant. Patient confirms being able to meet daily needs. He reports access to Medicare. Patient denies history service. Social work encouraged patient to identify a post-transplant financial plan and encouraged patient to keep in contact with transplant team of any financial changes or benefit needs. Patient was given educational packet with additional resources for fund raising, lodging, and benefit information. Mental Health: Patient confirms being previously diagnosed with a mental health diagnosis, Unspecified Depressive Disorder. Patient denies current symptoms and/or daily functioning concerns, including None. Patient denies current or history of outpatient mental health counseling. Patient confirms current or history of psychotropic medication use. He denies a history of psychiatric hospitalizations. Patient denies current SI, plan and intent along with HI, plan and intent. Patient denies a history of suicide attempts or self-injurious behaviors. Patient denies a history of abuse. Patient confirms feeling safe in his current environment and relationships. Patient reports watching television, using a smartphone, watching movies as ways to cope with the stressors related to transplantation and relax during surgery recovery period. Patient and patient's support were educated about the mental health symptoms that some patients have reported experiencing post-transplant including depression and anxiety. Patient was informed of the availability of mental health resources and access to the Transplant Clinical Health Psychologist. Mental Status Exam: Patient's mood was noted as euthymic Patient's appearance was noted as appropriately dressed and groomed Patient affect was noted as appropriately groomed with normal affect His behavior was noted as calm, cooperative and appropriate Eye contact was maintained and appropriate Insight was good Memory was noted as intact, no impairments noted Patient's attention was sustained. Patient's judgment was noted to be good Patient's speech was of adequate volume and rate Patient's thought content was noted as logical and coherent Psychomotor functioning was within normal limits Visual/auditory/olfactory hallucinations were not noted. Delusions were not noted as present Alcohol and Substance Use: Tobacco: confirms sporadic historical use Date of Last Use: 22 years old Frequency: weekly (if the other guys were doing it i would do it) Alcohol: confirms Frequency: (1 beer once a week (splits it with spouse) Amount: (casual/social drinking) Patient denies history of problematic alcohol consumption Patient denies all other substance use and support person(s) present, outside documentation, and patient's medical records appear to confirm same. Based on evaluation, patient meets criteria for No Alcohol or Substance Use Disorder diagnosis, Psychosocial impression: Given the above information, patient has a SIPAT score of 16 with 1 point(s) due to tobacco use. The current identified psychosocial risk factors include none. [facility] signed the [facility] expectation list and [facility] recommendation list. Patient s spouse has signed the support person agreement. Based on patient s presentation, it appears that patient has been forthcoming with evaluation information. Psychosocial evaluation information shared with the multidisciplinary team for continuity of care. Remediation: Given the information obtained and risk factors identified, the following remediation plan was developed and discussed with the patient: none at this time KELLI Vance, JAMES Outpatient Transplant Security Guard Supervisor [facility] [place] [address] [place] [address] [email or web address] The above assessment was conducted by means of corroborating information from patient's chart review, support person(s) report, multiple evidence based clinical tools and a modified version of the [facility] Integrated Psychosocial Assessment for Transplant (SIPAT) and the SIPAT-General TXP Long Form Bee, 2008; Bee, Psychosomatics 2012. documented in this encounter [facility] 08-31-2023 History of Presen t illness Narrative Pre-Tx Evaluation Kidney 08/31/2023 Vj Cárdenas [id number] Chief Complaint: Chief Complaint Patient presents with Kidney Recipient Evaluation HPI: I saw Vj Cárdenas in our transplant office for a pre-kidney transplant visit. He has ESRD secondary to HTN and been on dialysis for approximately 4 years. He is weak limited activity. He had [place] 1981. He is morbidly obese BMI 40 Past Medical History: Diagnosis Date Anemia Depression ESRD on dialysis HTN (hypertension) Past Surgical History: Procedure Laterality Date ANKLE SURGERY Left APPENDECTOMY N/A CHOLECYSTECTOMY N/A HERNIA REPAIR Bilateral MASTECTOMY Bilateral SMALL BOWEL RESECTION N/A Social History Social History Socioeconomic History Marital status: Spouse name: Not on file Number of children: Not on file Years of education: Not on file Highest education level: Not on file Occupational History Not on file Tobacco Use Smoking status: Never Smokeless tobacco: Never Substance and Sexual Activity Alcohol use: Yes Alcohol/week: 1.0 standard drink of alcohol Types: 1 Cans of beer per week Drug use: Never Sexual activity: Not on file Other Topics Concern Not on file Social History Narrative Not on file Social Determinants of Health Financial Resource Strain: Not on file Food Insecurity: Not on file Transportation Needs: Not on file Physical Activity: Not on file Stress: Not on file Social Connections: Not on file Intimate Partner Violence: Unknown (08/24/2023) [facility] from [facility] Safety & Environment Fear of Current or Ex-Partner: Not on file Emotionally Abused: Not on file Physically Abused: Not on file Sexually Abused: Not on file Physically or Sexually Abused: Not on file Housing Stability: Not on file Family History Problem Relation Age of Onset Heart Disease - Other Mother Breast Cancer Father Diabetes Father Neurologic Disease Sister Breast Cancer Sister Medications: Current Outpatient Medications Medication Sig Dispense Refill DULoxetine [address] Particles capsule DR FLUoxetine 10 MG capsule Montelukast 10 MG tablet Allopurinol 100 MG tablet 1 (one) time each day at the same time. carveDILOL 6.25 MG tablet Levothyroxine 200 MCG tablet Take 1 tablet by mouth daily. sevelamer 800 MG tablet TAKE 4 TABLETS BY MOUTH THREE TIMES DAILY WITH MEALS No current facility-administered medications for this visit. Allergies: Verapamil Review of Systems: No notes on file Physical Exam Vital Signs: BP 128/72 (BP Location: Left arm, BP Position: Sitting) Pulse 100 Temp 97.6 F (36.4 C) (Temporal) Ht 1.727 m (5' 8 ) Wt 118.6 kg (261 lb 8 oz) BMI 39.76 kg/m Smoking Status Never Body mass index is 39.76 kg/m . General: Well-developed, well-nourished. No acute distress HEENT: Atraumatic, normocephalic, extra ocular muscles intact. No scleral icterus. Oropharynx is clear without mucosal lesions (ulcers), No scalp or ear lesions. Neck: without masses Heart: regular rate and rhythm Lungs: Clear Abdomen: Soft, non-tender, non-distended, positive bowel sounds. No pain Genitalia: Deferred Skin: no lesions Lymph: no adenopathy Neuro: Alert and oriented to person, place and time; Motor and sensory grossly intact, Ambulation normal Extremities: Femoral pulses are doppler only. Caortid ulses left stronger than right. Upper and Lower extremities non-tender, no peripheral edema Assessment Vj Cárdenas is a 73 y.o. male who presents to the [facility] pre[facility]transplant [facility] for evaluation. He has: 1) ESRD secondary to HTN 2) very low activity 3) Morbid obesity 4) HD for 4 years 5) PVD I believe he is very high risk for transplantation. I conveyed my message to him and his . He would like to proceed with work up. I will start with CT angiogram to evaluate his PVD and if ok we can proceed with Stress test, cardiac echo and PFT Plan: Problem list: I have spent over 60 minutes including at least 30 minutes face to face with patient and family, I reviewed and/or edited the documented review of systems, past medical history, family and social histories, medications, & allergies taken by our offensive coordinator noted for today s visit and had a detailed discussion with the patient. All questions were answered. Pre Transplant Clinic Appointment Patient arrived to clinic with spouse and was evaluated by Dr. Mackey and this coordinator. Watch education video? yes Demographics: Highest level of education: high school Working for income? no [place] citizen? yes Listed else where? no Donors no History: Review past medical history? yes Heart attack? Yes 40 years ago Stroke? no Blood clots? no Cancer (including skin) no Seizures? no Diabetes? no Accept Blood Products yes Review past surgical history? no Review of Systems Pulmonary: Shortness of Breath, coughing, wheezing: positive Cardiac: Chest pain, Tightness, Palpitations: positive Neuro: Numbness, Tingling, dizziness, lightheadedness: negative HENT: Congestion, sinus pain/pressure, sore throat, trouble swallowing, dental problems: negative GI: Nausea, vomiting, unintended weight loss/gain, abdominal pain/ distension, diarrhea, blood in stool: negative : Hesitancy, pain, pressure, hematuria, frequency: negative Skin: Active wounds, bruising: negative Muscular: Pain/cramps in legs, weakness, any assistive devices?: negative Psychosocial: Behavior problems, sleep problems, suicidal ideation: negative Colonoscopy up to date? no Consents completed? yes Hepatitis B vaccine eligibility reviewed with regard to most recent labwork. No results found for: HEPATITISB , HEPBSURABQ , HEPBCRABIGGM No results found for: HEPBSURFAB Patient has / has not received the Hep B vaccine series because patient does not recall being offered this vaccine in the past, but plans to follow up with provider. Pulled in outside vaccine records. Patient and support person provided with link to review education video prior to evaluation appointment. Patient and support person both asked to review the harding points of the education video and given the opportunity to ask questions. No barriers to learning for patient or support person. Patient asked to fill out all electronic and paper forms to completion. Educational video covering: *Indications and contraindications for kidney transplant *Alternative treatments *Risks and benefits of transplant *Kidney allocation system *What to do while on the waitlist *Being called in for transplant *Surgical process and post-transplant follow up *Facts about living donation and donor exchange *Immunosuppression and post clinic and lab schedule *One year survival data from Scientific Registry for Transplant Specific *Donor disease transmission risk factors *Living donor risks and complications Patient verbalized understanding of transplant process. Patient stated understanding that all testing is needed as part of transplant evaluation and may be discussed with the transplant team. documented in this encounter [facility] 08-31-2023 Instructions Donald Porras RN - 08/31/2023 8:45 AM EST Items Required for Completion Prior to Patient Selection Committee: TODAY Lab Work: In-clinic labs before you leave today. Chest x-ray: Please take the elevator to the second floor, turn right down the hallway, and go through the double doors. Radiology will be on the left side. Once that is complete today's appointment is finished. AFTER CLINIC VISIT Transplant Social Work: Opt 1 Your support person will need to be present for this appointment. Before you leave the clinic, please stop at the front desk coordinator, and schedule this appointment. The following orders have been placed. To schedule, please call [phone]. Ct angio Please work with your Primary Care Provider (PCP) or casket upholsterer to schedule these tests when appropriate and contact your Powder Operator upon completion. Cancer Screenings: Colonoscopy (Age 50>) Financial Assessment: If you have not completed a financial assessment, one will be sent to you in [employer] or emailed to you. Please call your financial sales advisor to complete your financial assessment or with any questions. Ute Pinzon [phone] (I, J, K, L, W, X, Y, Z). Today in clinic you were seen by Dr. Belen Mackey MD, PhD and your Pre Powder Operator Donald Porras. It is the expectation of the [facility] that you will complete the following items: Schedule all of your tests, including your health and wellness visits and financial assessment within 14 business days from this visit; and Complete your scheduled tests within 90 days from this visit. It is your responsibility to provide us with your testing schedule and location if you chose to have procedures done outside of [facility]. Failure to complete required scheduling and testing in a timely manner will result in early closure of your candidacy. If your evaluation is closed due to these requirements not being met, you will be unable to be referred again for 6 months. Once you have completed all your required diagnostic testing, please let me know so I can present your case to our Patient Selection Committee. A final determination of candidacy will be made by the committee, and you will be notified of the decision on that date. Please note, you are NOT on the transplant list until you are notified by a member of the transplant team after the patient selection committee decision. Please consider obtaining the Hepatitis B vaccine series if you have not already received it. We offer the vaccine at the [facility] on the ground floor, or you can contact a local health department. You may also speak to your Primary Care Provider (PCP) or Drop Machine Operator to get vaccinated. documented in this encounter [facility] 08-31-2023 Miscellaneous Notes Addended by: DONALD PORRAS on: 08/31/2023 11:36 AM Modules accepted: Orders documented in this encounter [facility] 08-31-2023 Note Addended by: DONALD QUIÑONES on: 08/31/2023 11:36 AM Modules accepted: Orders [facility] 08-17-2022 Evaluation note Encounter Date Diagnosis Assessment Notes Aug, Acute bacterial conjunctivitis of both eyes (ICD-10 - H10.33) Conjunctivitis home care material was printed No evidence of periorbital cellulitis, globe perforation, orbital cellulitis, dacryocystiti s, or retrobulbar abscess as there has been no recent trauma or recent abrasions/scr atches around the eye. I also considered glaucoma, corneal abrasion, optic neuritis, however, given that the fluorescein stain exam is unremarkable, that there is no induration or TTP of the eyes when closed, and that the patient is sitting comfortably in the exam room, these other pathologies are unlikely as well. Exam consistent with bilateral bacterial conjunctiviti s. Will treat with ofloxacin. Pt given strict return precautions. Advised to follow up with eye doctor in 48 hours if symptoms worsen or do not improve. [facility] Other 10-07-2022 Evaluation note* Encounter Date Diagnosis Assessment Notes Treatment Notes Treatment Clinical Notes Apr, Acute cough (ICD-10 - R05.1) Apr, Acute pansinusitis, recurrence not specified (ICD-10 - J01.40) atb dose adjustment d/t HD 3x/weekly. continue symptomatic tx c otc meds prn. recommended hot steam baths and/or cool mist humidifier. push rest/fluids. reinforced universal infection control protocols and good hand hygiene for infection control. immediate eval if warning s/s of intractable fevers, respir distress unrelieved by rescued inhaler or other emergent symptoms. otherwise f/u with PCP if febrile or new/worsening s/s despite treatment. Apr, Acute bronchitis, unspecified organism (ICD-10 - J20.9) reviewed cxr with pt while in clinic, no cardiopulmonary abnormalities. steroid rx sent, take as directed. continue supportive treatment as needed for comfort. push rest/fluids. encouraged DB and pulmonary hygiene techniques. reinforced good hand and cough hygiene for infection control. immediate eval if warning s/s of intractable fevers or respir distress unrelieved by rescue inhaler. otherwise f/u with PCP if new onset fever, difficulty breathing, symptoms last > 3-4 weeks, or bloody sputum. [facility] Other 06-18-2022 Evaluation note* Encounter Date Diagnosis Assessment Notes Treatment Notes Treatment Clinical Notes Dec, Acute bacterial conjunctivitis of both eyes (ICD-10 - H10.33) Use medication as directed. Recommend discarding makeup if applicable. Need to wash linens on bed. Dec, Bilateral acute otitis media (ICD-10 - H66.93) Ear infections are often a secondary infection caused from an URI, the flu or allergies. Take medication as directed. Complete all doses, even if you feel better. Tylenol or ibuprofen can help with pain. Warm pack to area for comfort helps as well. Follow up with primary care provider if no improvement of symptoms. Dec, Bronchitis (ICD-10 - J40) Take medications as directed. Rest and increase fluid intake. Take meds with food to prevent stomach upset. Use inhaler as needed for coughing spells and SOB. It is better to use inhaler a few times a day over the next 2-3 days. Follow up with primary care provider if symptoms do not improve with treatment plan, although it may take a few weeks for the cough to go away Dec, Hypertensive chronic kidney disease w stg 1-4/unsp chr kdny (ICD-10 - I12.9) Treatment guidelines and medications chosen based on patient history of renal insuffiency [facility] Other 04-26-2022 Evaluation note* Encounter Date Diagnosis Assessment Notes Treatment Notes Treatment Clinical Notes Oct, End stage renal disease (ICD-10 - N18.6) Oct, Dependence on renal dialysis (ICD-10 - Z99.2) Oct, Other End-stage renal disease This patient's catheter can be removed since his fistula is now successfully matured. This will be done in the operating room due to the location of the cuff of the catheter. He understands and agrees with that plan. [facility] Other 04-12-2022 Evaluation note* Encounter Date Diagnosis Assessment Notes Treatment Notes Treatment Clinical Notes Oct, End stage renal disease (ICD-10 - N18.6) Oct, Dependence on renal dialysis (ICD-10 - Z99.2) Oct, Other End-stage renal disease Given that the AV fistula has only been used 3 times and there has been 1 infiltration I will hold off on catheter removal today. I will see him back in 2 weeks at which time if it is going well we will remove his catheter. He understands and agrees with that plan. [facility] Other 03-22-2022 Evaluation note* Encounter Date Diagnosis Assessment Notes Treatment Notes Treatment Clinical Notes Aug, End stage renal disease (ICD-10 - N18.6) This patient's newly transposed right arm AV fistula is developing nicely. He is currently receiving hemodialysis through right tunneled IJ catheter which is functioning well for him. Dr. Willams in room to further assess fistula. We will continue to use his catheter and begin using the AV fistula on 10/04. Note sent to outpatient dialysis. We will see him a few weeks after that for removal of the tunneled IJ catheter. He verbalizes understanding, agrees with this plan, denies any questions. Aug, Dependence on renal dialysis (ICD-10 - Z99.2) [facility] Other 02-02-2022 Evaluation note* Encounter Date Diagnosis Assessment Notes Treatment Notes Treatment Clinical Notes Aug, Hypertensive chronic kidney disease w stg 1-4/unsp chr kdny (ICD-10 - I12.9) [facility] Other 01-31-2022 Evaluation note* Encounter Date Diagnosis Assessment Notes Treatment Notes Treatment Clinical Notes Jul, End stage renal disease (ICD-10 - N18.6) Jul, Dependence on renal dialysis (ICD-10 - Z99.2) Jul, Other End-stage renal disease Given the difficulty with his access I will put him on the schedule for transposition of his right forearm cephalic vein. Given that the schedule is several weeks out he will get at least 1 more week of attempts at accessing his fistula. If it goes well he knows he can call and cancel his intervention. If there is continued difficulty I had like him to rest the fistula for a week before his surgical transposition. He and his family understand and agree with that plan. [facility] Other 01-10-2022 Evaluation note* Encounter Date Diagnosis Assessment Notes Treatment Notes Treatment Clinical Notes Jul, End stage renal disease (ICD-10 - N18.6) Jul, Dependence on renal dialysis (ICD-10 - Z99.2) Jul, Other End-stage renal disease We will begin to mature the Odette fistula and I will see him back in 3 weeks to assess his progress. Hopefully we can remove his catheter at that time. [facility] Other 12-16-2021 Evaluation note* Encounter Date Diagnosis Assessment Notes Treatment Notes Treatment Clinical Notes Jun, CKD (chronic kidney disease) stage 4, GFR 15-29 ml/min (ICD-10 - N18.4) [facility] Other 11-16-2021 Evaluation note* Encounter Date Diagnosis Assessment Notes Treatment Notes Treatment Clinical Notes May, Hyperparathyroidism , secondary renal (ICD-10 - N25.81) [facility] Other 11-16-2021 Evaluation note* Encounter Date Diagnosis Assessment Notes Treatment Notes Treatment Clinical Notes May, CKD (chronic kidney disease) stage 4, GFR 15-29 ml/min (ICD-10 - N18.4) May, Other End-stage renal disease status post creation of right Odette fistula I am very pleased with the thrill in this fistula at this time. I do not believe he needs antibiotics and his wound should go on to heal primarily. His fistula is somewhat deep and may require transposition. I will plan to see him back in a month's time and will ultrasound him to confirm that finding as well as the size and total flow in the fistula. If he needs dialysis prior to its maturation he will undergo placement of a tunneled catheter. He and his are aware of this plan and agree to proceed. [facility] Other 11-11-2021 Evaluation note* Encounter Date Diagnosis Assessment Notes Treatment Notes Treatment Clinical Notes May, Hyperparathyroidism , secondary renal (ICD-10 - N25.81) [facility] Other 11-09-2021 Evaluation note* Encounter Date Diagnosis Assessment Notes Treatment Notes Treatment Clinical Notes May, CKD (chronic kidney disease) stage 4, GFR 15-29 ml/min (ICD-10 - N18.4) He has currently stage IV a progressive declineIn renal function approaching ESRD requiring dialysis. Patient has significant proteinuria possibly related to FSGS. Serum protein electrophoresis and immunofixation showed no M band.Patient was referred to vascular surgery for AV fistula that was done last Monday and still maturing.Considering the advanced CKD, will stop lisinopril hoping that we are able to wait 4 to 6 weeks before need for dialysis till AV fistula matured.We will add sodium bicarbonate 650 mg 3 times daily for acidosis.We will repeat renal panel in 4 weeks. Patient was informed that should dialysis needed, hemodialysis catheter will be inserted. May, Anemia in chronic kidney disease (ICD-10 - D63.1) He has anemia in the setting of advanced CKD, hemoglobin more than 9 g/dL with no erythropoietin. We will check iron stores and replete them and start erythropoietin if indicated once he start on dialysis. Erythropoietin is less likely to work with such advanced CKD. 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 Work-up for proteinuria was negative. Continue Lisinopril 2.5 mg daily that was decreased because of drop of blood pressure. He was advised to lose weight as it is the major factor contributing to progression of CKD May, Edema (ICD-10 - R60.9) Patient has minimal edema that seems to be stable on Lasix 40 mg daily. He takes metolazone as needed only and he stated that he did not take him for the last few months. May, Type 2 diabetes mellitus with diabetic chronic kidney disease (ICD-10 - E11.22) Diabetes is well controlled on diet only. May, Proteinuria (ICD-10 - R80.9) He has significant proteinuria 3 to 4 g/g of creatinine that recently cannot be calculated. Kidney biopsy showed evidence of focal segmental glomerulosclerosis most likely related to overweight. Serum immunofixation showed M band however K/L was normal. Continue lisinopril. Of note, patient has normal hemoglobin and calcium. May, Hypertensive chronic kidney disease w stg 1-4/unsp chr kdny (ICD-10 - I12.9) Well controlled on current medications. May, Hyperparathyroidism, secondary renal (ICD-10 - N25.81) Intact PTH is elevated In the setting of advanced chronic kidney disease. Continue calcitriol for now and the patient will start on IV paricalcitol once he start dialysis in 4 to 6 weeks. May, BMI 45.0-49.9, adult (ICD-10 - Z68.42) Importance of weight loss has been addressed. He is not able to lose weight. May, Hypothyroidism, unspecified (ICD-10 - E03.9) Synthroid is being adjusted by Dr. Mendoza. [facility] Other 10-28-2021 Evaluation note* Encounter Date Diagnosis Assessment Notes Treatment Notes Treatment Clinical Notes Apr, CKD (chronic kidney disease) stage 4, GFR 15-29 ml/min (ICD-10 - N18.4) [employer] Other 10-25-2021 Evaluation note* Encounter Date Diagnosis Assessment Notes Treatment Notes Treatment Clinical Notes Apr, Hypertensive chronic kidney disease w stg 1-4/unsp chr kdny (ICD-10 - I12.9) Apr, CKD (chronic kidney disease) stage 4, GFR 15-29 ml/min (ICD-10 - N18.4) Mr. Cárdenas has imminent need for hemodialysis. Based on his ultrasound and physical examination, he does not have good forearm vein for creation of access. Given this and the good quality of his antecubital level of vein bilaterally, we will go ahead with a forearm graft for him. This allows him earlier dialysis access with hopefully a minimal number of interventions. Because of the axillary node dissection we will place it on the right side even though he is right-handed. He and I had a long discussion about this and I showed him a dialysis catheter, dialysis graft, and talked about fistula construction. They understand the nature of all of these procedures and agree to proceed Apr, Former smoker (ICD-10 - Z87.891) [facility] Other Evaluation noteNo InformationNort [employer] Other Evaluation noteNo assessment information available [facility] Work Phone: Evaluation note* Diagnosis Chronic kidney disease, stage V- Primary Chronic kidney disease, Stage V Pre-transplant evaluation for kidney transplant Encounter for screening for malignant neoplasm of prostate Special screening for malignant neoplasm of prostate Encounter for therapeutic drug level monitoring Encounter for therapeutic drug monitoring Abnormal finding of blood chemistry, unspecified Encounter for screening for infections with a predominantly sexual mode of transmission Abnormal coagulation profile Encounter for screening for other viral diseases Encounter for follow-up examination after completed treatment for conditions other than malignant neoplasm ESRD (end stage renal disease) on dialysis End stage renal disease [facility]plant evaluation for kidney [facility] Diagnosis Pre-transplant evaluation for kidney transplant Chronic kidney disease, stage V Chronic kidney disease, Stage V ESRD (end stage renal disease) on dialysis End stage renal disease [facility] Diagnosis Pre-transplant evaluation for kidney transplant Chronic kidney disease, stage V Chronic kidney disease, Stage V [facility] Diagnosis Pre-transplant evaluation for kidney transplant Chronic kidney disease, stage V Chronic kidney disease, Stage V [facility] Diagnosis Pre-transplant evaluation for kidney transplant Chronic kidney disease, stage V Chronic kidney disease, Stage V Encounter for preprocedural cardiovascular examination Pre-operative cardiovascular examination [facility] Diagnosis Pre-transplant evaluation for kidney transplant- Primary [facility] - Reported* Type Description Date Medical History hypercholesterolemia Medical History hypertension Medical History morbid obesity Medical History Hypothyroidism Medical History MRSA Medical History sciatica Medical History renal failure stage 3 Surgical History appendectomy Surgical History cholecystectomy Surgical History bilateral mastectomy Surgical History bowel surgery Surgical History hernia repair Surgical History testicle removal Surgical History prostate scope 02/05/19 Surgical History colonoscopy 01/17/2020 Surgical History INJECTION IN THE RIGHT HIP 07/04 021 Hospitalization History See above [facility] Other Hisbsqb general Narrative - Reported* Type Description Date Medical History hypercholesterolemia Medical History hypertension Medical History morbid obesity Medical History Hypothyroidism Medical History MRSA Medical History sciatica Medical History renal failure stage 3 Medical History RENAL STAGE 5 Surgical History appendectomy Surgical History cholecystectomy Surgical History bilateral mastectomy Surgical History bowel surgery Surgical History hernia repair Surgical History testicle removal Surgical History prostate scope 02/05/19 Surgical History colonoscopy 01/17/2020 Surgical History INJECTION IN THE RIGHT HIP 07/04 021 Surgical History LEFT FISTULA PLACEMENT 1 Hospitalization History See above [facility] Other [employer] general Narrative - Reported* Type Description Date Medical History hypercholesterolemia Medical History hypertension Medical History morbid obesity Medical History Hypothyroidism Medical History MRSA Medical History sciatica Medical History renal failure stage 3 Medical History RENAL STAGE 5 Surgical History appendectomy Surgical History cholecystectomy Surgical History bilateral mastectomy Surgical History bowel surgery Surgical History hernia repair Surgical History testicle removal Surgical History prostate scope 02/05/19 Surgical History colonoscopy 01/17/2020 Surgical History INJECTION IN THE RIGHT HIP 07/04 021 Surgical History LEFT FISTULA PLACEMENT 1 Surgical History RIGHT FOREARM AVG 05/06/2021 Hospitalization History See above [facility] Other Hisvodj general Narrative - Reported* Type Description Date Medical History hypercholesterolemia Medical History hypertension Medical History morbid obesity Medical History Hypothyroidism Medical History MRSA Medical History sciatica Medical History renal failure stage 3 Medical History RENAL STAGE 5 Surgical History appendectomy Surgical History cholecystectomy Surgical History bilateral mastectomy Surgical History bowel surgery Surgical History hernia repair Surgical History testicle removal Surgical History prostate scope 02/05/19 Surgical History colonoscopy 01/17/2020 Surgical History INJECTION IN THE RIGHT HIP 07/04 021 Surgical History LEFT FISTULA PLACEMENT 1 Surgical History RIGHT FOREARM AVG 05/06/2021 Surgical History HD CATHETER INSERT 06/18/2021 Hospitalization History See above [facility] Other Hisclby general Narrative - Reported* Type Description Date Medical History hypercholesterolemia Medical History hypertension Medical History morbid obesity Medical History Hypothyroidism Medical History MRSA Medical History sciatica Medical History renal failure stage 3 Medical History RENAL STAGE 5 Surgical History appendectomy Surgical History cholecystectomy Surgical History bilateral mastectomy Surgical History bowel surgery Surgical History hernia repair Surgical History testicle removal Surgical History prostate scope 02/05/19 Surgical History colonoscopy 01/17/2020 Surgical History INJECTION IN THE RIGHT HIP 07/04 021 Surgical History LEFT FISTULA PLACEMENT 1 Surgical History RIGHT FOREARM AVG 05/06/2021 Surgical History HD CATHETER INSERT 06/18/2021 Surgical History AVG RIGHT FORARM REVISION 08/22 21 Hospitalization History See above [facility] Other Hospital Discharge instructions Additional Instructions Follow-up with your primary care doctor Return to the ED if develop worsening symptoms or concerns Make sure to go to your [facility] Work Phone: Reason for Referral Status Reason Specialty Diagnoses / Procedures Referre d By Contact Referred To Contact Closed Radiology Diagnoses Hip pain, right Procedures IR ARTHR/ASP/INJ MAJOR JT/BURSA RIGHT WO US Kj Baca MD [address] [facility] [address] [place] [address] Specialty Diagnoses / Procedures Referred By Contac t Referred To Contact Diagnoses Pre-transplant evaluation for kidney transplant Chronic kidney disease, stage V ESRD (end stage renal disease) on dialysis Procedures CT ANGIO ABDOMINAL AORTA WITH RUNOFF OK CT ANGIO AORTOBIFEMORAL, COMBO Belen Mackey MD, PhD [address] [place] [phone] Referral ID Status Reason Start Date Expiration Date V isits Requested Visits Authorized [id number] New Request 08/31/2023 09/24/2024 1 1 Specialty Diagnoses / Procedures Referred By Contac t Referred To Contact Diagnoses Pre-transplant evaluation for kidney transplant Chronic kidney disease, stage V Procedures ECHOCARDIOGRAM OK ECHO HEART XTHORACIC,COMPLETE W DOPPLER Belen Mackey MD, PhD [address] [place] [phone] Referral ID Status Reason Start Date Expiration Date V isits Requested Visits Authorized [id number] New Request 09/22/2023 10/16/2024 1 1 Specialty Diagnoses / Procedures Referred By Contac t Referred To Contact Diagnoses Pre-transplant evaluation for kidney transplant Chronic kidney disease, stage V Procedures PFT STANDARD Belen Mackey MD, PhD [address] [place] [phone] Referral ID Status Reason Start Date Expiration Date V isits Requested Visits Authorized [id number] New Request 09/22/2023 10/16/2024 1 1 Specialty Diagnoses / Procedures Referred By Contac t Referred To Contact Diagnoses Pre-transplant evaluation for kidney transplant Chronic kidney disease, stage V Procedures EXERCISE-6 MIN. WALK Belen Mackey MD, PhD [address] [place] [phone] Referral ID Status Reason Start Date Expiration Date V isits Requested Visits Authorized [id number] New Request 09/22/2023 10/16/2024 1 1 Specialty Diagnoses / Procedures Referred By Contac t Referred To Contact Diagnoses Pre-transplant evaluation for kidney transplant Chronic kidney disease, stage V Procedures ARTERIAL BLOOD GAS, PULMONARY LAB OBTAINED Belen Mackey MD, PhD [address] [place] [address] Referral ID Status Reason Start Date Expiration Date V isits Requested Visits Authorized [id number] New Request 09/22/2023 10/16/2024 1 1 Discharge Instructions * Instructions* Dasha Kelley RN - 05/04/2020 After your JOINT INJECTION: You should be able to return to a normal routine the next day. Please refrain from strenuous athletic activity for 24-48 hours. Most of the contrast medium will be absorbed by the first 24 hours and any gas should be absorbed by 48 hours. Slight swelling and discomfort may occur after the exam which can be relieved with ice compresses. If you develop signs of infection (redness, swelling, drainage, fever > 101 degrees) call your physician immediately. If the joint becomes red, hot and painfully swollen or itchy, please contact your physician immediately. Please call your physician's office for follow-up treatment. If you have questions, you can contact our department at [phone] for further information IF YOU CANNOT REACH THE DOCTOR, GO TO THE NEAREST EMERGENCY FACILITY. documented in this encounter History of Present Illness * Dasha Kelley RN - 05/04/2020 1:43 PM EST THERAPEUTIC RIGHT HIP INJECTION COMPLETE. SITE CLEANSED OFF AND BAND AID APPLIED. PT TOLERATED PROCEDURE WELL AND DISCHARGED AMBULATORY. documented in this encounter Assessments Diagnosis Hip pain, right Pain in joint, pelvic region and thigh Summary Purpose Family History No Family History Records Found Relationship Condition Age at Onset Recorded Date/T naty Not Specified Myocardial infarction Unknown father Myocardial infarction Unknown Malignant neoplasm of breast Unknown Renal failure Unknown Congestive heart failure Unknown sister Malignant neoplasm of breast Unknown Advance Directives No Advanced Directives Records Found Advance Directive Response Recorded Date/ Time Advance Directives No October 25 11:18am Advance Directive Response Recorded Date/ Time Advance Directives No October 25 10:18am Chief Complaint and Reason for Visit Chief Complaint U07.1 Cough Chief Complaint U07.1 R05.9 E11.22;I50.32;E78.5 Chief Complaint U07.1 R05.9 E11.22;I50.32;E78.5 R side pain Chief Complaint U07.1 R05.9 E11.22;I50.32;E78.5 R side pain N39.0 Chief Complaint R05.9 E11.22;I50.32;E78.5 R side pain N39.0 ill N39.0 Additional Source Comments Reason for Visit (unrecogniz ed section and content) Status Reason Specialty Diagnoses / Procedures Referre d By Contact Referred To Contact Closed Radiology Diagnoses Hip pain, right Procedures IR ARTHR/ASP/INJ MAJOR JT/BURSA RIGHT WO US Kj Baca MD [address] [facility] [address] [place] [address] Reason Comments Kidney Recipient Evaluation Specialty Diagnoses / Procedures Referred By Jolie helm Referred To Contact Transplant / Transplant Surgery Procedures PRE NEW PATIENT Self, Self Belen Mackey MD, PhD [address], [place] [address] Referral ID Status Reason Start Date Expiration Date V isits Requested Visits Authorized [id number] New Request 08/31/2023 09/24/2024 1 1 Specialty Diagnoses / Procedures Referred By Jolie helm Referred To Contact Diagnoses Pre-transplant evaluation for kidney transplant Chronic kidney disease, stage V ESRD (end stage renal disease) on dialysis Procedures CT ANGIO ABDOMINAL AORTA WITH RUNOFF OK CT ANGIO AORTOBIFEMORAL, COMBO Belen Mackey MD, PhD [address], [place] [address] Referral ID Status Reason Start Date Expiration Date V isits Requested Visits Authorized [id number] New Request 08/31/2023 09/24/2024 1 1 Specialty Diagnoses / Procedures Referred By Jolie helm Referred To Contact Diagnoses Pre-transplant evaluation for kidney transplant Chronic kidney disease, stage V Procedures ECHOCARDIOGRAM OK ECHO HEART XTHORACIC,COMPLETE W DOPPLER Belen Mackey MD, PhD [address] [place] [address] Referral ID Status Reason Start Date Expiration Date V isits Requested Visits Authorized [id number] New Request 09/22/2023 10/16/2024 1 1 Specialty Diagnoses / Procedures Referred By Contac t Referred To Contact Diagnoses Pre-transplant evaluation for kidney transplant Chronic kidney disease, stage V Procedures PFT STANDARD Belen Mackey MD, PhD [address] [place] [phone] Referral ID Status Reason Start Date Expiration Date V isits Requested Visits Authorized [id number] New Request 09/22/2023 10/16/2024 1 1 Specialty Diagnoses / Procedures Referred By Contac t Referred To Contact Diagnoses Pre-transplant evaluation for kidney transplant Chronic kidney disease, stage V Procedures EXERCISE-6 MIN. WALK Belen Mackey MD, PhD [address] [place] [phone] Referral ID Status Reason Start Date Expiration Date V isits Requested Visits Authorized [id number] New Request 09/22/2023 10/16/2024 1 1 Specialty Diagnoses / Procedures Referred By Contac t Referred To Contact Diagnoses Pre-transplant evaluation for kidney transplant Chronic kidney disease, stage V Procedures ARTERIAL BLOOD GAS, PULMONARY LAB OBTAINED Belen Mackey MD, PhD [address] [place] [phone] Referral ID Status Reason Start Date Expiration Date V isits Requested Visits Authorized [id number] New Request 09/22/2023 10/16/2024 1 1 Specialty Diagnoses / Procedures Referred By Contac t Referred To Contact Diagnoses Pre-transplant evaluation for kidney transplant Chronic kidney disease, stage V Encounter for preprocedural cardiovascular examination Procedures NUC MYOCARD PERF STRESS MIBI PHARM NUC MYOCARD PERF STRESS MIBI EXERCISE OK CHG MYOCARDIAL SPECT MULTIPLE STUDIES OK CARDIAC STRESS TST,TRACING ONLY CHG MYOCARDIAL SPECT MULTIPLE STUDIES-T OK CARDIAC STRESS TST,INTERP/REPT ONLY OK CV STRS TST XERS&/OR RX CONT ECG W/O I&R Belen Mackey MD, PhD [address] [place] [phone] Referral ID Status Reason Start Date Expiration Date V isits Requested Visits Authorized [id number] New Request 09/22/2023 10/16/2024 1 1 Reason Comments Social Work Consult (unrecognized sect ion and content) No Status Records FoundNo Status Records FoundNo Status Records FoundNo Status Records FoundNo Status Records FoundNo Status Records FoundNo Status Records Found INFORMATION SOURCE (unrecogn ized section and content) DATE CREATED AUTHOR 05/07/2020 [facility] DATE CREATED AUTHOR AUTHOR'S ORGANIZ ATION 08/13/2021 Leo Shahzad [facility] DATE CREATED AUTHOR AUTHOR'S ORGANIZ ATION 05/12/2022 [facility] DATE CREATED AUTHOR AUTHOR'S ORGANIZ ATION 08/06/2022 [facility] DATE CREATED AUTHOR AUTHOR'S ORGANIZ ATION 03/02/2023 [facility] DATE CREATED AUTHOR AUTHOR'S ORGANIZ ATION 03/02/2023 [employer] DATE CREATED AUTHOR AUTHOR'S ORGANIZ ATION 11/10/[address] [facility] EPIC DATE CREATED AUTHOR AUTHOR'S ORGANIZ ATION 11/18/2023 [facility] Care Teams (unrecognized sec tion and content) Team Status: Inactive Member Role Status Dates Elmer Mendoza JR DO Primary Care Provider Active Ector Berg MD Attending Provider Active Team Status: Active Member Role Status Dates Elmer Mendoza JR DO Primary Care Provider Active Team Status: Inactive Member Role Status Dates Elmer Mendoza JR DO Primary Care Provider Active Awa Riley NP Attending Provider, Referring Provider Active Team Status: Inactive Member Role Status Dates Elmer Mendoza JR DO Primary Care Provider, Attend ing Provider Active Team Status: Inactive Member Role Status Dates Elmer Mendoza JR DO Primary Care Provider Active Conrad Garcia DO Emergency Provider Active [employer] Supervisor Relationship Specialty Start Date End Date Elmer Mendoza Jr., DO [address] [place] [address] PCP - General Internal Medicine 08/31/23 [employer] Supervisor Relationship Specialty Start Date End Date Elmer Mendoza Jr., DO [address] [place] [phone] PCP - General Internal Medicine 08/31/23 [employer] Supervisor Relationship Specialty Start Date End Date EstrellaElmer dupree Jr., DO [address] [place] [phone] PCP - General Internal Medicine 08/31/23 [employer] Supervisor Relationship Specialty Start Date End Date Elmer Mendoza Jr., DO [address] [place] [address], [place] [address] PCP - General Internal Medicine 08/31/23 [employer] Supervisor Relationship Specialty Start Date End Date Elmer Mendoza Jr., DO [address] [place] [phone] PCP - General Internal Medicine 08/31/23 [employer] Supervisor Relationship Specialty Start Date End Date Elmer Mendoza Jr., DO [address] [place] [phone] PCP - General Internal Medicine 08/31/23 [employer] Supervisor Relationship Specialty Start Date End Date Elmer Mendoza Jr., DO [address] [place] [phone] PCP - General Internal Medicine 08/31/23 Goals (unrecognized section and content) Goals may be documented in a n alternate section FOR RECORDS PERTAINING TO PATIENTS WHO ARE OR HAVE BEEN ENROLLED IN A CHEMICAL DEPENDENCY/SUBSTANCEABUSE PROGRAM, SOME INFORMATION MAY BE OMITTED. This clinical summary was aggregated from multiple sources. Caution should be exercised in using it in the provision of clinical care. This summary normalizes information from multiple sources, and as a consequence, information in this document may materially change the coding, format and clinical context of patient data. In addition, data may be omitted in some cases. CLINICAL DECISIONS SHOULD BE BASED ON THE PRIMARY CLINICAL RECORDS. [employer] provides no warranty or guarantee of the accuracy or completeness of information in this document.
[2023-11-21 07:50] VITALS: BP 199/92; PULSE 101; TEMP 36.6; O2SAT 99; BMI 40.2
[2023-11-21 08:00] LABS: Anion Gap 15.7; BUN Creatinine Ratio 6.1; Calcium 9.9 mg/dL (8.5-10.1); Carbon Dioxide 28.4 mmol/L (21.0-32.0); Chloride 93 mmol/L (98-107); Estimated GFR (African America 10 (>=60); Estimated GFR (Non-African Ame 8 (>=60); Glucose 105 mg/dL (74-106); Potassium 4.1 mmol/L (3.5-5.1); Sodium 133 mmol/L (136-145)
[2023-11-21] MEDS: 0.9 % SODIUM CHLORIDE 1,000 ML 50 ML IV (08:00)
--- NOTE | 2023-11-21 08:04 | W.PM.PROCNOT ---
Date of procedure: 11/21/23 Pre-op diagnosis: screening colonoscopy Post-op diagnosis: other (diverticulosis ) Procedure: Previous colonoscopy: 2019 procedure: screening colonoscopy, pre-renal transplant scope The patient was given IV conscious sedation.? The patient's SPO2 remained above 90% throughout the procedure. The colonoscope was inserted per rectum and advanced under direct vision to the cecum with some difficulty.? The prep was poor.? Findings: Cecum/Ascending colon: normal Transverse colon: diverticulosis Descending/Sigmoid colon: diverticulosis Rectum/Anus: examined in normal and retroflexed positions and was normal Withdrawal Time was (minutes): 10 The colon was decompressed and the scope was removed.? The patient tolerated the procedure well. Recommendations/Plan: 1.? Lifestyle and dietary modifications as discussed 2.? F/U in 5 years for repeat c-scope 3.? Discussed with the family Anesthesia: MAC Surgeon: Alexis Sexton Estimated blood loss (mL): 0 Pathology: none sent Condition: stable Disposition: PACU
[2023-11-21 08:56] VITALS: BP 138/65; PULSE 85; TEMP 36.2; O2SAT 97
[2023-11-21 09:26] VITALS: BP 158/95; PULSE 87; O2SAT 100
== END 2023-11-21 09:26 | disposition home or self-care (01) ==
PROVIDERS: Anesthesiology; PCP Internal Medicine; Visit Provider Surgery
PROC: (CPT G0121; principal; 2023-11-21 08:30)
DX: Z12.11 Encounter for screening for malignant neoplasm of colon (principal); K57.30 Diverticulosis of large intestine without perforation or abscess without bleeding; Z90.49 Acquired absence of other specified parts of digestive tract
CPT/HCPCS: G0121; 36415; 80048; J2704

== ENCOUNTER 2025-02-17 15:42 | Emergency (ER) | payer MEDICARE, OTHER, SELFPAY ==
[2025-02-17 16:21] VITALS: BP 164/86; PULSE 99; TEMP 36.5; O2SAT 97; BMI 39.5
--- NOTE | 2025-02-17 16:34 | ED_ITS ---
<Statement entered by Charisse Gonzalez DO - 02/17/25 19:28> I personally performed a bedside emergency department ultrasound on this patient. I use a linear probe for small parts. And then I looked at the tissue in his right cheek area. There was no evidence of abscess formation. Therefore there is no indication to cut this gentlemen's face at all. His redness and swelling are all due to cellulitis which we could see as cobblestoning on this ultrasound. I did ask the physician pediatric physician assistant to please contact the patient's daughter who is a pharmacist who wanted to be intimately involved in his antibiotic selection secondary to his renal failure. I suggested clindamycin. This documentation has been reviewed and approved. 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 He states that he noted a pimple on his right cheek that slowly started to develop redness, induration, and pain progressively after he picked at it. He states that it is not from shaving. He is not diabetic. He denies any fever at home. He denies any pain with eating. He denies any visual changes. He did present to urgent care and was told to report to the ER after evaluated for IV antibiotics and possible I&D. They had gone to [facility] in [place] but the wait was too long. Related Data Home Medications ?Medication ?Instructions ?Recorded ?Confirmed allopurinol 100 mg tablet 100 mg PO DAILY 11/14/23 calcium acetate 667 mg tablet 667 mg PO TID 11/14/23 0 11/21/23 carvedilol 6.25 mg tablet 6.25 mg PO QPM 11/14/2311/01 duloxetine 60 mg capsule,delayed 60 mg PO QPM 11/14/23 11/21/23 release (Cymbalta) famotidine 20 mg tablet 20 mg PO DAILY 11/14/2311/01 fluoxetine 10 mg capsule 10 mg PO QPM 11/14/23 levothyroxine 200 mcg tablet 200 mcg PO DAILY 11/14/23 11/21/23 (Synthroid) montelukast 10 mg tablet 10 mg PO DAILY 11/14/23 05/07/26 (Singulair) rosuvastatin 20 mg sprinkle capsule 20 mg PO DAILY 11/21/23 Previous Rx's ?Medication ?Instructions ?Recorded clindamycin HCl 300 mg capsule 300 mg PO Q8H 10 days # 30 caps 02/17/25 Allergies Allergy/AdvReac Type Severity Reaction Status Date / Time verapamil Allergy Rash Verified 02/17/25 16:20 Opioid HPI Opioid Management Most Recent Opioid Data: Last Pain Scale 3 Today, 16:21 Review of Systems ROS Status of ROS 10 or more systems reviewed and unremark able except as noted in history and below [facility] Medical History (Updated 02/17/25 @ 17:52 by RYAN Jean) 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D64.9 - Anemia, unspecified (ICD-10) Panic attacks ?F41.0 - Panic disorder [episodic paroxysmal anxiety] (ICD-10) Depression ?F32.A - Depression, unspecified (ICD-10) Anxiety ?F41.9 - Anxiety disorder, unspecified (ICD-10) Sleep apnea ?G47.30 - Sleep apnea, unspecified (ICD-10) Migraine ?G43.909 - Migraine, unspecified, not intractable, without status migrainosus (ICD-10) Chronic renal failure ?N18.9 - Chronic kidney disease, unspecified (ICD-10) ESRD (end stage renal disease) ?N18.6 - End stage renal disease (ICD-10) Chronic kidney disease ?N18.9 - Chronic kidney disease, unspecified (ICD-10) Chronic kidney disease ?N18.9 - Chronic kidney disease, unspecified (ICD-10) Heartburn ?R12 - Heartburn (ICD-10) GERD (gastroesophageal reflux disease) ?K21.9 - Gastro-esophageal reflux disease without esophagitis (ICD-10) High cholesterol ?E78.00 - Pure hypercholesterolemia, unspecified (ICD-10) Hypertension ?I10 - Essential (primary) hypertension (ICD-10) Hypothyroidism ?E03.9 - Hypothyroidism, unspecified (ICD-10) Surgical History (Updated 11/14/23 @ 15:03 by Ciarra Diallo NP) H/O colonoscopy ?Z98.890 - Other specified postprocedural states (ICD-10) History of prostate surgery ?Z98.890 - Other specified postprocedural states (ICD-10) History of intestinal surgery ?Z98.890 - Other specified postprocedural states (ICD-10) H/O knee surgery ?Z98.890 - Other specified postprocedural states (ICD-10) H/O unilateral orchiectomy ?Z90.79 - Acquired absence of other genital organ(s) (ICD-10) H/O bilateral mastectomy ?Z90.13 - Acquired absence of bilateral breasts and nipples (ICD-10) History of hernia repair ?Z98.890 - Other specified postprocedural states (ICD-10) ?Z87.19 - Personal history of other diseases of the digestive system (ICD-10) History of cholecystectomy ?Z90.49 - Acquired absence of other specified parts of digestive tract (ICD- 10) History of appendectomy ?Z90.49 - Acquired absence of other specified parts of digestive tract (ICD- 10) Status post ORIF of fracture of ankle ?Z98.890 - Other specified postprocedural states (ICD-10) ?Z87.81 - Personal history of (healed) traumatic fracture (ICD-10) Family History (Updated 11/14/23 @ 14:45 by Ciarra Diallo NP) Other Family history of breast cancer Family history of diabetes mellitus Family history of heart disease Family history of hypertension Family history of myocardial infarction Family history of pulmonary embolism Social History (Updated 11/14/23 @ 14:36 by iCarra Diallo NP) Within the past year, how often did you have a drink containing alcohol: 2-3 times a week Smoking status: Never smoker Non-prescribed substance use: denies use Highest level of school completed/degree received: high school graduate Little interest or pleasure in doing things: not at all Feeling down, depressed, or hopeless: not at all Exam Narrative Exam Narrative: General: No distress, age-appropriate Skin: Warm, dry, no pallor. No rash. Right cheek 5 x 5 cm indurated area with surrounding erythema, tenderness with palpation of the superior portion close to the periorbital rim Head: Normocephalic, atraumatic. Neck: Supple, non-tender. Eye: Pupils are equal, round and EOMI. No scleral icterus. Ears, Nose, Mouth, and Throat: No nasal mucosal hypertrophy. Oral mucosa is moist, no posterior oropharynx erythema, uvula is mid-line Cardiovascular: Regular Rate and Rhythm without murmur, gallop or rub. Respiratory: No accessory muscle use or respiratory distress. Lungs are clear to auscultation, no wheezing, rales or rhonchi Chest Wall: no tenderness Back: No midline thoracic or lumbar vertebral tenderness. Musculoskeletal: Full ROM of all extremities, no calf or popliteal tenderness GI: Abdomen is soft, non-distended, non tender to palpation. No masses appreciated. No rebound, guarding, or rigidity noted. Neurological: A&O x4. No cranial nerve dysfunction observed. No truncal ataxia. Moves all extremities. Sensation intact. Psychiatric: Cooperative and interactive. Normal mood and affect. Constitutional Vital Signs, click to edit/add: Last Vital Signs Temp 97.7 F 02/17/25 16:21 Pulse 78 02/17/25 18:11 Resp 18 02/17/25 18:11 BP 159/88 H 02/17/25 18:11 Pulse Ox 97 02/17/25 18:11 O2 Del Method Room Air 02/17/25 18:11 Course Vital Signs Vital signs: Vital Signs Temperature 97.7 F 02/17/25 16:21 Pulse Rate 99 H 02/17/25 16:21 Respiratory Rate 18 02/17/25 16:21 Blood Pressure 164/86 H 02/17/25 16:21 Pulse Oximetry 97 02/17/25 16:21 Oxygen Delivery Method Room Air 02/17/25 16:21 Temperature 97.7 F 02/17/25 16:21 Pulse Rate 78 02/17/25 18:11 Respiratory Rate 18 02/17/25 18:11 Blood Pressure 159/88 H 02/17/25 18:11 Pulse Oximetry 97 02/17/25 18:11 Oxygen Delivery Method Room Air 02/17/25 18:11 Medical Decision Making [facility] Narrative Medical decision making narrative: 74-year-old male presents to the emergency department with complaints of 4 days of right cheek pain and increasing redness and swelling. Patient afebrile on arrival and in no distress. Vitals are stable. Patient denies any systemic symptoms. On exam the area is not fluctuant and he would not benefit from I&D. 1 dose of clindamycin 600 mg given in the emergency department. I am going to prescribe patient clindamycin 300 mg 3 times daily and discharge him to home. Patient will follow up with his PCP or back here in 3-5 days for recheck, sooner if he experiences new or worsening symptoms. Patient agrees with plan and was discharged from the ED in good condition. Differential Diagnosis Differential Diagnosis: Abscess, cellulitis Discharge Plan Discharge Chief Complaint: Skin/Abscess/Foreign Body Clinical Impression: Cellulitis Patient Disposition: Home, Self-Care Time of Disposition Decision: 17:52 Condition: Good Mode of Transportation: Private Vehicle Prescriptions / Home Meds: New clindamycin HCl 300 mg capsule 300 mg PO Q8H 10 Days Qty: 30 0RF No Action allopurinol 100 mg tablet 100 mg PO DAILY duloxetine [Cymbalta] 60 mg capsule,delayed release(DR/EC) 60 mg PO QPM fluoxetine 10 mg capsule 10 mg PO QPM levothyroxine [Synthroid] 200 mcg tablet 200 mcg PO DAILY montelukast [Singulair] 10 mg tablet 10 mg PO DAILY calcium acetate 667 mg tablet 667 mg PO TID famotidine 20 mg tablet 20 mg PO DAILY rosuvastatin 20 mg capsule, sprinkle 20 mg PO DAILY carvedilol 6.25 mg tablet 6.25 mg PO QPM Rx Instructions: must administer with a meal/food Print Language: Hebrew Instructions: Cellulitis (ED), Warm Compress or Soak (ED) Additional Instructions: Take the antibiotics prescribed to completion even if redness, swelling, and pain improve or resolved. Follow-up with your primary care provider. Return to the emergency department for any new or worsening symptoms. Referrals: NOEMI MENDOZA DO [Primary Care Provider, [facility]] - 1 week Discharge Date/Time: 02/17/25 18:12
[2025-02-17] MEDS: CLINDAMYCIN PHOSPHATE/D5W 600 MG/50 ML PREMIX 100 MG IV (17:24)
--- OUTSIDE RECORDS SUMMARY | 2025-02-17 17:38 | XMS_ITS | CCD ---
Author Organization [facility] [place] [facility] Care Team Providers Care Correctional Case Records Supervisor Name Role Phone Elmer Mendoza Primary Care Provider [phone] KJ BACA Referring Unavailable ELMER MENDOZA Primary Care Unavailable Zahra Whelan Unavailable Jair Willams Unavailable Nargis Church Unavailable Ector Berg Unavailable Minna Hand Unavailable JR Elmer Mendoza Primary Care Provider MD Ector Berg Attending Provider Riley, Awa Unavailable Nikita, SELMA Awa Attending Provider [phone] Nikita APPRAISER TIMBER Awa Referring Provider [phone] ELMER MENDOZA Primary Care Unavailable RILEY, AWA Admitting Unavailable RILEY, AWA Attending Unavailable RILEY, AWA Consulting Unavailable KELLY, DR PAYNE Primary Care Unavailable MISC, DR CALHOUN Admitting Unavailable MISC, DR CALHOUN Attending Unavailable MISC, DR CALHOUN Consulting Unavailable ESTRELLAONE, DR PAYNE Primary Care Unavailable VALONE, DR PAYNE Attending Unavailable VALONE, DR PAYNE Admitting Unavailable VALONE, DR PAYNE Consulting Unavailable ESTRELLAONE, DR PAYNE Primary Care Unavailable ECTOR BERG Admitting Unavailable ECTOR BERG Attending Unavailable ECTOR BERG Consulting Unavailable KIRT, DR GIRALDO Admitting Unavailable KELLY, DR PAYNE Primary Care Unavailable KIRT, DR GIRALDO Attending Unavailable KIRT, DR GIRALDO Consulting Unavailable AUSTIN, DR NATHAN Santana Consulting Unavailable KELLY, DR PAYNE Primary Care Unavailable ROM TOBIAS Admitting Unavailable ROM TOBIAS Attending Unavailable RYAN CH Consulting Unavailable PAY, DR TERESA Admitting Unavailable VALONE, DR PAYNE Primary Care Unavailable PAY, DR TERESA Attending Unavailable PAY, DR TERESA Consulting Unavailable VALONE, DR PAYNE Primary Care Unavailable ELASHI, DR MCARTHUR Admitting Unavailable ELASHI, DR MCARTHUR Attending Unavailable ELASHI, DR MCARTHUR Consulting Unavailable JR Elmer Mendoza Primary Care Provider MD Ector Berg Attending Provider [phone] Riley, APPRAISER TIMBER Awa Attending Provider Riley, APPRAISER TIMBER Awa Referring Provider JR Elmer Mendoza Attending Provider DO Conrad Garcia Emergency Provider [phone] JR Elmer Mendoza Primary Care Provider [phone] MD Ector Berg Attending Provider Naldo Castillo Unavailable Dr. Elmer Mendoza Jr Primary Care Enedina vailable Catrachito, Ms. April Friend Referring Unava ilable Joce, Dr. Brady Duenas Attending Unavaila ble Kelly Gibson DO, Charles L Primary Care Provider JR Elmer Mendoza Primary Care Provider MD Ector Berg Attending Provider FELIPE PACHECO Attending Unavailable NARESH PETERS Attending Unavailable Elmer Mendoza MD Primary Care Provider [phone] Elmer Mendoza JR Primary Care Provider [phone] Diane Murry DO Emergency Provider [place], Ehab A Attending Provider [phone] Diane Murry Admitting Unavailable Diane Murry Attending Unavailable Elmer Mendoza Primary Care Unavailable [place], Ehab A Admitting Unavailable [place], Ehab A Attending Unavailable Elmer Mendoza Primary Care Unavailable Ector Berg Admitting Unavailable Ector Berg Attending Unavailable Elmer Mendoza Primary Care Unavailable Tupa, Diane M Attending Unavailable Tupa, Diane M Admitting Unavailable Valone, Elmer Devries Primary Care Unavailable ELTAHAWY, EHAB Admitting Unavailable ELTAHAWY, EHAB Attending Unavailable ELTAHAWY, EHAB Referring Unavailable ELTAHAWY, EHAB Referring Unavailable ELTAHAWY, EHAB Attending Unavailable ELTAHAWY, EHAB Attending Unavailable YEARTY, MIRANDA Referring Unavailable YEARTY, MIRANDA Referring Unavailable RAJAB, AMER Attending Unavailable VALONE JR., ELMER Devries Primary Care Unavailabl e RAJAB, AMER Referring Unavailable VALONE JR., ELMER Primary Care Unavailabl e RAJAB, AMER Referring Unavailable VALONE JR., ELMER Devries Primary Care Unavailabl e RAJAB, AMER Referring Unavailable VALONE JR., ELMER Devries Primary Care Unavailabl e RAJAB, AMER Referring Unavailable RAJAB, AMER Attending Unavailable VALONE JR., ELMER Devries Primary Care Unavailabl e RAJAB, AMER Referring Unavailable RAJAB, AMER Attending Unavailable VALONE JR., ELMER Devries Primary Care Unavailabl e RAJAB, AMER Referring Unavailable RAJAB, AMER Attending Unavailable RAJAB, AMER Referring Unavailable VALONE JR., ELMER Primary Care Unavailabl e RAJAB, AMER Attending Unavailable VALONE JR., ELMER Devries Primary Care Unavailabl e RAJAB, AMER Referring Unavailable RAJAB, AMER Attending Unavailable VALONE JR., ELMER Primary Care Unavailabl e CLARA GEORGE M Attending Unavailable SELF, SELF Referring Unavailable VALONE JR., ELMER Devries Primary Care Unavailabl e GEORGEEDUINSA M Attending Unavailable SELF, SELF Referring Unavailable RAJAB, AMER Attending Unavailable VALONE JR., ELMER Devries Primary Care Unavailabl e RAJAB, AMER Referring Unavailable RAJAB, AMER Attending Unavailable VALONE JR., ELMER Primary Care Unavailabl e RAJAB, AMER Referring Unavailable RAJAB, AMER Attending Unavailable VALONE JR., ELMER Primary Care Unavailabl e RAJAB, AMER Referring Unavailable Allergies Allergy Classification Reported Allergen(s) Allergy Type Date of Onset Reaction(s) Facility (20 sources) Verapamil; Translations: [VERAPAMIL] Drug Allergy 04-20-2020 [facility] [place] (1 source) Verapamil Drug Allergy [facility] Repository (1 source) Verapamil Drug Allergy 10-23-2024 [facility] Repository Medications Current Medications Medication Drug Class(es) Dates Sig (Normalized) Sig (Original) [id number] 200 actuat albuterol 0.09 mg/actuat metered dose inhaler (12 sources) beta2-Adrenergic Agonist Start: 12-18-2021 take 2 [...] Active Start: 04-30-2021 End: 05-31-2022 Albuterol Sulfate 90 mcg/act uation HFA aerosol inhaler Discontinued 2 INH INHALATION Daily as needed for sob April 30, 2021 12:00am May 31, 2022 4:45am allopurinol 100 mg oral tablet (20 sources) Xanthine Oxidase Inhibitor Start: 04-30-2021 take 2 tablets by mouth three times daily Allopurinol 100 mg tablet Active 200 MG PO Three times daily April 30, 2021 12:00am Start: 04-30-2021 End: 04-30-2021 Allopurinol 100 mg tablet Discontinued MG TABLET April 30, 2021 12:00am April 30, 2021 3:21pm Start: 04-30-2021 take 200 mg by mouth three times daily Allopurinol Active 200 MG PO Three times daily April 30, 2021 12:00am Start: 04-30-2021 End: 04-30-2021 Allopurinol Discontinued MG TABLET April 30, 2021 12:00am April 30, 2021 3:21pm Start: 04-30-2021 take 200 mg by mouth once daily in the morning Allopurinol Active 200 MG PO Every morning April 29, 2021 11:00pm allopurinol (Zyl oprim) 100 MG tablet 1 (one) time each day at the same time. Active take 2 tablets by mo [facility] every twenty-four hours Allopurinol 100 MG 2 tablets Oral Once a day for 90 Not-Taking amLODIPine 2.5 mg oral tablet (3 sources) Dihydropyridine Calcium Channel Alexis take 1 tablet by mouth once daily amLODIPine (Norvasc) 2.5 MG tablet take 1 tablet by oral route every day Oral Active amoxicillin 500 mg / clavulanate 125 mg oral tablet (1 source) Penicillin-class Antibacterial Start: 04-08-20 22 take 1 tablet by mouth every twenty-four hours Amoxicillin-Pot Clavulanate 500-125 MG 1 tablet Orally once a day for 7 day(s) Apr, Active ascorbic acid 60 mg / calcium pantothenate 10 mg / d-biotin 0.3 mg / folic acid 0.8 mg / niacinamide 20 mg / pyridoxine 10 mg / riboflavin 1.7 mg / thiamine 1.5 mg / vitamin b12 0.006 mg oral tablet (2 sources) Vitamin B12, Vitamin C take 1 tablet by mouth once daily B Hjfigjb-Z-Grfjr Acid (Renal Vitamin) 0.8 MG tablet Take 1 tablet by mouth daily. Active aspirin 81 mg oral tablet (1 source) Platelet Aggregation Inhibitor, Nonsteroidal Anti-inflammatory Drug Start: 10-24-19 25 take 1 capsule by mouth once daily Aspirin 81 mg capsule Active 81 MG PO Daily October 23, 2024 12:00am azelastine hydrochloride 0.137 mg/actuat metered dose nasal spray (3 sources) Histamine-1 Receptor Antagonist Start: 09-05-19 24 take 2 spray(s) nasal route twice daily azelastine (Astelin) 0.1 % nasal spray instill 2 (TWO) sprays nasally TWICE DAILY DIRECTED 09/05/2023 Active B Cduptqb-U-Aqowj Acid (Renal Vitamin) 0.8 MG tablet (3 sources) Start: 08-06-19 24 take 1 tablet by mouth once daily B Uucpauc-W-Lmcne Acid (Renal Vitamin) 0.8 MG tablet Take 1 tablet by mouth Daily 08/06/2023 Active B Complex-Vitamin C-Folic Acid (Renal Vitamin) 0.8 mg Tablet (7 sources) Start: 05-31-20 22 take 1 tablet by mouth once daily B Complex-Vitamin C-Folic Acid (Renal Vitamin) 0.8 mg Tablet Active 1 TAB PO Daily May 31, 2022 1:00am Start: 05-31-2022 take 1 tablet by elidia th once daily B Complex-Vitamin C-Folic Acid (Renal Vitamin) 0.8 mg Tablet Active 1 TAB PO Daily May 31, 2022 12:00am calcitriol 0.50446 mg oral capsule (20 sources) Vitamin D3 Analog take 1 capsule by mouth once daily calcitriol (Rocaltrol) 0.25 MCG capsule take 1 capsule by oral route every day Oral Active Calcitriol 0.25 MCG 1 capsule twice a day Orally bid for 90 day(s) Active calcium acetate 667 mg oral capsule (14 sources) Start: 08-06-2023 take 2 capsules by mouth three times daily at mealtime calcium acetate - Phos Binder 667 MG capsule Take 2 capsules by mouth 3 times daily with meals. 08/06/2023 Active Start: 05-31-2022 End: 10-23-2024 Calcium Acetate 667 mg Table t Discontinued 1334 MG PO 2-3 TIMES DAILY May 31, 2022 1:00am October 23, 2024 12:45pm Start: 05-31-2022 Calcium Acetat e Active 1334 MG PO 2-3 TIMES DAILY May 31, 2022 1:00am Calcium Acetate 667 MG tablet Active take 2 tablets by mo uth every eight hours Calcium Acetate 667 MG 2 tablets with meals Orally Three times a day Active clopidogrel 75 mg oral tablet (1 source) [id number] Platelet Inhibitor Start: 10-23-2024 take 1 tablet by mouth once daily Clopidogrel 75 mg tablet Active 75 MG PO Daily October 23, 2024 12:00am dexamethasone 1 mg/ml / tobramycin 3 mg/ml ophthalmic suspension (2 sources) Aminoglycoside Antibacterial, Corticosteroid Start: 12-18-2021 take 1 drop(s) into the eye(s) three times daily Tobramycin-Dexame thasone 0.3-0.1 % 1 drop into affected eye Ophthalmic three times a day for 5 day(s) Dec, Active doxepin hydrochloride 10 mg/ml oral solution (3 sources) Tricyclic Antidepressant Start: 10-23-2024 take 30 mg by mouth twice daily Doxepin 10 mg/mL concentrate Active 30 MG PO Twice daily October 23, 2024 12:00am Start: 02-26-2024 take 3 mL by mouth at bedtime doxepin 10 MG/ML Conc Take 3 mL by mouth at bedtime. 02/26/2024 Active doxycycline monohydrate 100 mg oral capsule (1 source) Tetracycline-class Drug Start: 12-18-2021 take 1 capsule by mouth every twelve hours Doxycycline Monohydrate 100 MG 1 capsule Orally every 12 hrs for 10 days Dec, Active DULoxetine 60 mg delayed release oral capsule (20 sources) Serotonin and Norepinephrine Reuptake Inhibitor Start: 04-30-2021 take 1 capsule by mouth once daily at bedtime Duloxetine 60 mg capsule,delayed release(DR/EC) Active 60 MG PO Daily at bedtime April 30, 2021 12:00am famotidine 20 mg oral tablet (2 sources) Histamine-2 Receptor Antagonist take 1 tablet by mouth twice daily faMOTIdine 20 MG tablet Take 1 tablet by mouth 2 times daily. Active FLUoxetine 10 mg oral capsule (15 sources) Serotonin Reuptake Inhibitor Start: 10-23-2024 take 2 capsules by mouth once daily Fluoxetine 10 mg capsule Active 20 MG PO Daily October 23, 2024 12:00am Start: 02-14-2023 take 1 capsule by mo ut once daily FLUoxetine 10 MG capsule Take 1 capsule by mouth daily. 02/14/2023 Active fluticasone propionate 0.05 mg/actuat metered dose nasal spray (3 sources) Corticosteroid Start: 03-01-2023 take 2 puff(s) nasal route once daily fluticasone (Flonase) 50 MCG/ACT nasal spray INSTILL TWO PUFFS IN EACH NOSTRIL NASALLY EVERY DAY 03/01/2023 Active levothyroxine sodium 0.2 mg oral tablet (20 sources) l-Thyroxine Start: 04-30-2021 take 1 tablet by mouth once daily in the morning Levothyroxine 200 mcg tablet Active 200 MCG PO Every morning April 30, 2021 12:00am Levothyroxine So dium 200 MCG 1 tablet every morning on an empty stomach Orally Once a day for 90 days Active methylPREDNISolone 4 mg oral tablet (3 sources) Corticosteroid Start: 12-18-2021 methylPREDNISo lone 4 MG as directed Orally Once a day for 6 days Dec, Active Start: 05-04-2020 End: 05-04-2020 methylPREDNISolone acetate ( DEPO-MEDROL) injection 80 mg montelukast 10 mg oral tablet (20 sources) Leukotriene Receptor Antagonist Start: 04-30-2021 take 1 tablet by mouth once daily in the morning Montelukast 10 mg tablet Active 10 MG PO Every morning April 30, 2021 12:00am ofloxacin 3 mg/ml ophthalmic solution (4 sources) Quinolone Antimicrobial Start: 08-17-2022 take 1 drop(s) into the eye(s) twice daily ofloxacin (Ocuflox) 0.3 % ophthalmic solution use 1 (ONE) DROP ophthalmic TWICE DAILY FOR 7 DAYS 08/17/2022 Active Start: 08-17-2022 take 1 drop(s) into the eye(s) twice daily Ofloxacin 0.3 % 1 drop Ophthalmic twice a day for 7 day(s) Aug, Active phentermine hydrochloride 37.5 mg oral tablet (4 sources) Sympathomimetic Amine Anorectic take 1 tablet by mouth every twenty-four hours predniSONE 20 mg oral tablet (1 source) Start: take 1 tablet by mouth every eight hours predniSONE 20 MG 1 tablet Orally Three times a day for 5 days Apr, Active Renal Vitamin 0.8 MG (2 sources) take 1 tablet by mouth once daily Renal Vitamin 0.8 MG 1 tablet Orally Once a day Active rosuvastatin calcium 20 mg oral tablet (20 sources) HMG-CoA Reductase Inhibitor Start: take 2 tablets by mouth once daily Rosuvastatin 20 mg Tablet Active 40 MG PO Daily May 31, 2022 1:00am Start: 05-31-2022 [facility] Rosuvastatin 20 mg Tablet Active 20 MG PO Daily May 31, 2022 1:00am Start: 04-30-2021 End: 05-31-2022 take 1 tablet by mouth once daily at bedtime Rosuvastatin 40 mg tablet Discontinued 40 MG PO Daily at bedtime April 30, 2021 12:00am May 31, 2022 4:46am take 1 capsule by mo [facility] once daily Rosuvastatin Calcium 20 MG Cap Sprinkle Take 1 capsule by mouth daily. Active sevelamer carbonate 800 mg oral tablet (20 sources) Phosphate Binder Start: 02-29-2024 take 4 tablets by mouth three times daily at mealtime Sevelamer Carbonate 800 mg tablet Active 0 .ROUTE .COMPLEX 1080 February 29, 2024 5:56pm TAKE 4 TABLETS BY MOUTH THREE TIMES DAILY WITH MEALS Start: 12-21-2022 take 3 tablets by mo [facility] three times daily at mealtime sevelamer carbonate (Renvela) 800 MG tablet TAKE 3 TABLETS BY MOUTH THREE TIMES DAILY WITH MEALS 12/21/2022 Active Start: 05-31-2022 End: 02-29-2024 Sevelamer Carbonate 800 mg t ablet Discontinued 1600 MG PO 2-3 TIMES DAILY May 31, 2022 1:00am February 29, 2024 5:56pm Start: 05-31-2022 Sevelamer Carb kirk Active 1600 MG PO 2-3 TIMES DAILY May 31, 2022 1:00am take 2 tablets by mo ut three times daily at mealtime sevelamer 800 MG tablet Indications: Hyperphosphatemia Take 2 tablets by mouth 3 times daily with meals. Active take 4 tablets by mo ut three times daily at mealtime sevelamer 800 MG tablet TAKE 4 TABLETS BY MOUTH THREE TIMES DAILY WITH MEALS Active take [facility] Sevelamer HCl 800 MG 1 tablet with meals Orally Three times a day Active sodium bicarbonate 650 mg oral tablet (13 sources) Start: 05-11-2021 Sodium Bicarbo prince 650 MG as directed Orally three times a day for 30 day(s) May, Active triamcinolone acetonide 1 mg/ml topical cream (5 sources) Corticosteroid Start: 02-27-2024 triamcinolone (Kenalog) 0.1 % cream Indications: Atopic dermatitis, unspecified type Apply topically 2 (two) times a day as needed for rash 240 g 02/27/2024 Active Start: 02-27-2024 triamcinolone (Kenalog) 0.1 % cream Indications: Atopic dermatitis, unspecified type Apply topically 2 (two) times a day as needed for rash 240 g 02/27/2024 Active triamcinolone (K enalog) 0.1 % cream every 12 (twelve) hours. Active Completed/Discontinued Medications Medication Drug Class(es) Dates Sig (Normalized) Sig (Original) azithromycin 250 mg oral tablet (10 sources) Macrolide Antimicrobial Start: 05-29-2021 End: 08-26-2021 take 2 tablets by mouth once daily Azithromycin 250 mg tablet Discontinued 250 MG PO Daily 4 4 May 29, 2021 1:00am August 26, 2021 12:12pm start on day 2 of therapy baclofen 10 mg oral tablet (10 sources) gamma-Aminobutyric Acid-ergic Agonist Start: 04-30-2021 End: 11-29-2022 take 1 tablet by mouth once daily as needed for pain Baclofen 10 mg tablet Discontinued 10 MG PO Daily as needed for Pain April 30, 2021 12:00am May 31, 2022 4:45am 30 ml bupivacaine hydrochloride 5 mg/ml injection (1 source) Amide Local Anesthetic Start: 05-04-2020 End: 05-04-2020 bupivacaine (PF) (MARCAINE) 0.5 % injection 20 mg Start: 05-04-2020 End: 05-04-2020 bupivacaine (PF) (MARCAINE) 0.5 % injection 20 mg carvedilol 6.25 mg oral tablet (20 sources) alpha-Adrenergic Alexis, beta-Adrenergic Alexis Start: 05-31-2022 End: 10-23-2024 take 1 tablet by mouth once daily at mealtime Carvedilol 6.25 mg Tablet Discontinued 6.25 MG PO Daily May 31, 2022 1:00am October 23, 2024 2:51pm must administer with a meal/food Start: 04-30-2021 End: 05-31-2022 take 1 tablet by mouth twice daily Carvedilol 12.5 mg tablet Discontinued 12.5 MG PO Twice daily April 30, 2021 12:00am May 31, 2022 4:46am take 1.5 tablets by mouth every twelve hours Carvedilol 12.5 MG 1.5 tablet with food Orally Twice a day Active cephalexin 500 mg oral capsule (15 sources) Cephalosporin Antibacterial Start: 06-11-2022 End: 10-23-2024 take 1 capsule by mouth every six hours Cephalexin 500 mg capsule Discontinued 500 MG PO Q6H 28 June 11, 2022 1:00am October 23, 2024 12:45pm Start: 05-29-2021 End: 08-26-2021 take 1 capsule by mouth twice daily Cephalexin 500 mg capsule Discontinued 500 MG PO Twice daily 14 May 29, 2021 1:00am August 26, 2021 12:12pm Cholecalciferol (19 sources) Vitamin D Start: 08-19-2020 take 1 tablet by mouth once daily Cholecalciferol 250 MCG (19952 UT) 1 tablet Orally Once a day Aug, Not-Taking Start: 08-19-2020 take 1 tablet by [facility] once daily Cholecalciferol 250 MCG (63118 UT) 1 tablet Orally Once a day Aug, Active esomeprazole 20 mg delayed release oral capsule (7 sources) Proton Pump Inhibitor Start: 05-31-2022 End: 10-23-2024 take 1 capsule by mouth once daily Esomeprazole Magnesium 20 mg Capsule,Delayed Release(Dr/Ec) Discontinued 20 MG PO Daily May 31, 2022 1:00am October 23, 2024 2:52pm furosemide 40 mg oral tablet (20 sources) Loop Diuretic Start: 04-30-2021 End: 05-31-2022 take 1 tablet by mouth once daily as needed for edema Furosemide 40 mg Tablet Discontinued 40 MG PO Daily as needed for Edema April 30, 2021 12:00am May 31, 2022 4:46am rarely takes guaiFENesin 200 mg oral tablet (3 sources) Start: 09-11-2024 End: 10-23-2024 take 1 tablet by mouth four times daily as needed for cough Guaifenesin 200 mg tablet Discontinued 200 MG PO Four times daily as needed for cough September 11, 2024 12:00am October 23, 2024 12:45pm iohexol (OMNIPAQUE 240) injection 50 mL (1 [...] 4 mL lisinopril 5 mg oral tablet (17 sources) Angiotensin Converting Enzyme Inhibitor Start: 04-30-2021 End: 05-31-2022 take 2.5 mg by mouth once daily in the morning Lisinopril 5 mg tablet Discontinued 2.5 MG PO Every morning April 30, 2021 12:00am May 31, 2022 4:46am Start: 04-30-2021 End: 05-31-2022 take 2.5 mg by mouth once daily in the morning Lisinopril Discontinued 2.5 MG PO Every morning April 30, 2021 12:00am May 31, 2022 4:46am lisinopril 5 MG tablet 1 (one) time each day at the same time. Active take 1 tablet by elidia th every [...] 7.2-49.5 millicurie, Intravenous, ONCE, 1 dose, On 10/27/23 at 1215 Problems Active Problems Problem Classification Problem Date Documented Date Episodic/Chronic Abdominal pain (7 sources) Abdominal pain; Translations: [Unspecified abdominal pain] 05-31-2022 Episodic Acute bronchitis (1 source) Acute bronchitis, unspecified Episodic Allergic reactions (2 sources) Atopic dermatitis; Translations: [Atopic dermatitis, unspecified] 02-27-2024 Chronic Chronic kidney disease (20 sources) Chronic kidney disease stage 4; Translations: [Chronic kidney disease, stage 4 (severe)] Onset: 1 Resolved: 2 Chronic Conditions associated with dizziness or vertigo (1 source) Dizziness and giddiness; Translations: [Dizziness and giddiness] Onset: 5 Episodic Conduction disorders (2 sources) Pre-excitation syndrome; 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 Coronary atherosclerosis and other heart disease (9 sources) Coronary atherosclerosis; Translations: [Atherosclerotic heart disease of [place] coronary artery without angina pectoris] Onset: 4 02-29-2024 Chronic Coronary atherosclerosis and other heart disease (2 sources) Presence of coronary angioplasty implant and graft; Translations: [Presence of coronary angioplasty implant and graft] Onset: 5 Episodic Deficiency and other anemia (15 sources) Anemia [...] Resolved: 1 Chronic Disorders of lipid metabolism (2 sources) Mixed hyperlipidemia; Translations: [Mixed hyperlipidemia] Onset: 5 Chronic Essential hypertension (19 sources) Hypertensive disorder; [...] Chronic Immunizations and screening for infectious disease (4 sources) Patient encounter status; Translations: [Encounter for screening for infections with a predominantly sexual mode of transmission] 08-31-2023 Episodic Inflammation; infection of eye (except that caused by tuberculosis or sexually transmitteddisease) (2 sources) Unspecified acute conjunctivitis, bilateral Onset: 2 Resolved: 2 Episodic Nephritis; nephrosis; renal sclerosis (20 sources) Focal segmental glomerulosclerosis; 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] Onset: 1 Resolved: 1 Chronic Other and ill-defined heart disease (2 sources) Other ill-defined heart diseases; Translations: [Other ill-defined heart diseases] Onset: 5 Chronic Other circulatory disease (1 source) Low blood pressure; Translations: [Hypotension, unspecified] 10-23-2024 Episodic Other diseases of kidney and ureters (19 sources) Hyperparathyroidism due to renal insufficiency; Translations: [Secondary hyperparathyroidism of renal origin] Chronic Other diseases of kidney and ureters (3 sources) Secondary hyperparathyroidism of renal origin Onset: 1 Resolved: 1 Chronic Other lower respiratory disease (3 sources) Shortness of breath; Translations: [Shortness of breath] Onset: 5 Episodic Other non-traumatic joint disorders (1 source) Pain [...] BMI 38.0-38.9 ADULT] Onset: 2 Chronic Other nutritional; endocrine; and metabolic disorders (1 source) Obese class II; Translations: [Obesity, Class II, BMI 35-39.9] Onset: 5 09-19-2024 Chronic Other screening for suspected conditions (not mental disorders or infectious disease) (6 sources) Abnormal electrocardiogram [ECG] [EKG]; Translations: [Patient encounter status] Onset: 2 08-31-2023 Episodic Other upper respiratory infections (1 source) Chronic sinusitis, unspecified; Translations: [CHRONIC SINUSITIS UNSPECIFIED] Onset: 2 Chronic Other upper respiratory infections (11 sources) Upper respiratory infection; Translations: [Acute upper respiratory infection, unspecified] 05-29-2021 Episodic Peripheral and visceral atherosclerosis (3 sources) Arteriosclerotic vascular disease; Translations: [Unspecified atherosclerosis of [place] arteries of extremities, unspecified extremity] Onset: 4 02-29-2024 Chronic Residual codes; unclassified (4 sources) Awaiting organ transplant status; Translations: [Other specified conditions influencing health status] Onset: 5 02-29-2024 Chronic Spondylosis; intervertebral disc disorders; other back problems (9 sources) Pain in thoracic spine; Translations: [Dorsalgia, unspecified] Onset: 2 Episodic Thyroid disorders (20 sources) Hypothyroidism; Translations: [Hypothyroidism, unspecified] Onset: 1 Resolved: 1 Chronic Unclassified (1 source) Cough, unspecified; Translations: [Cough, unspecified] Onset: 5 Past or Other Problems Problem Classification Problem [...] 05-11-2021 Episodic Other aftercare (1 source) Other long-term (current) drug therapy; Translations: [OTH CORRECTION OFFICER PENITENTIARY CURRENT DRUG THERAPY] Onset: 12-29-2021 Episodic Other and unspecified benign neoplasm (2 sources) Skin lesion; Translations: [Hemangioma of skin and subcutaneous tissue] 02-27-2024 Episodic Other ear and sense organ disorders (1 source) Otalgia, unspecified ear; Translations: [OTALGIA UNSPECIFIED EAR] Onset: 12-29-2021 Episodic Other nervous system disorders (2 sources) Notalgia paresthetica; Translations: [Paresthesia of skin] 02-27-2024 Episodic Other skin disorders (2 sources) Seborrheic keratosis; Translations: [Other seborrheic keratosis] 02-27-2024 Episodic Other skin disorders (2 sources) Inflamed seborrheic keratosis; Translations: [Inflamed seborrheic keratosis] 02-27-2024 Episodic Otitis media and related conditions (1 [...] Episodic Unclassified (1 source) Acute cough R05.1 Unclassified (1 source) Onset: 09-19-2024 09-19-2024 Urinary tract infections (11 sources) Urinary tract infectious disease; Translations: [Urinary tract infection, site not specified] Onset: 12-08-2023 05-29-2021 Episodic Results Test Name Value Interpretation Reference Range Facility Outside Recordson 12-13-2024 Outside Records [id number] TIFF [facility] Telephoneon 12-03-2024 Telephone [id number] Gisela Cárdenas L 1950 M Date Provider Department Center 12/03/2024 [place]-DEISI CHRISTIE None Family History Problem Relation Age of Onset Coronary artery disease Mother Heart attack Father Family Status - Relation Status Age at Mother Father Normal [facility] Office Visiton 11-05-2024 Follow-up visit [id number] Gisela Cárdenas L 1950 M Date Provider Department Center 11/05/2024 271-DEXTER BOWERS [facility] Family History Problem Relation Age of Onset Coronary artery disease Mother Heart attack Father Family Status - Relation Status Age at Mother Father Level of Service:34591 [place] OFFICE/OUTPATIENT ESTABLISHED MOD MDM 30 MIN Normal [facility] Alanine aminotransferase [En zymatic activity/volume] in Serum or PlasmaOrdered By: Diane Murry on 10-23-2024 ALT [Catalytic activity/Vol] Alanine aminotransferase [Enzymatic activity/volume] in Serum or Plasma 7-52 [facility] Albumin [Mass/volume] in Ser um or Plasma by Bromocresol green (BCG) dye binding methoOrdered By: Diane Murry on 10-23-2024 Albumin BCG dye [Mass/Vol] Albumin [Mass/volume] in Serum or Plasma by Bromocresol green (BCG) dye binding metho 3.5-5.7 [facility] Alkaline phosphatase [Enzyma tic activity/volume] in Serum or PlasmaOrdered By: Diane Murry on 10-23-2024 ALP [Catalytic activity/Vol] Alkaline phosphatase [Enzymatic activity/volume] in Serum or Plasma 34-104 [facility] Aspartate aminotransferase [ Enzymatic activity/volume] in Serum or PlasmaOrdered By: Diane Murry on 10-23-2024 AST [Catalytic activity/Vol] Aspartate aminotransferase [Enzymatic activity/volume] in Serum or Plasma 13-39 [facility] Basic Metabolic Panelon 10-02 Anion gap [Moles/Vol] 18.6 mmol/L High 6.0-15.0 [facility] Comment on above: Performed By: #### C BC, BMP, LIPASE, HEPATIC ####[address] Calcium [Mass/Vol] 9.7 mg/dL Normal 8.6-10.3 [facility] Comment on above: Performed By: #### C BC, BMP, LIPASE, HEPATIC ####[address] Chloride [Moles/Vol] 92 mmol/L Low 98-107 [facility] Comment on above: Performed By: #### C BC, BMP, LIPASE, HEPATIC ####[address] CO2 [Moles/Vol] 26.9 mmol/L Normal 21.0-31.0 [facility] Comment on above: Performed By: #### C BC, BMP, LIPASE, HEPATIC ####[address] Creatinine [Mass/Vol] 5.06 mg/dL High 0.70-1.30 [facility] Comment on above: Performed By: #### C BC, BMP, LIPASE, HEPATIC ####[address] Creatinine Clr Calc Pharmacy 16.39 Normal [facility] Comment on above: Performed By: #### C BC, BMP, LIPASE, HEPATIC ####[place] [id number] [facility] Estimated GFR 11.356 mL/Min Normal [facility] Comment on above: Performed By: #### C BC, BMP, LIPASE, HEPATIC ####[address] Glucose [Mass/Vol] 207 mg/dL High 70-100 [facility] Comment on above: Result Comment: [place] Glucose Reference Range is dependent on time and content of last meal. Glucose of more than 200 mg/dL in a nonstressed, ambulatory subject supports the diagnosis of Diabetes Mellitus. ADA recommended reference range Performed By: #### C BC, BMP, LIPASE, HEPATIC ####[facility] Potassium [Moles/Vol] 3.5 mmol/L Normal 3.5-5.1 [facility] Comment on above: Performed By: #### C BC, BMP, LIPASE, HEPATIC ####[place] [address] [address] Sodium [Moles/Vol] 134 mmol/L Low 136-145 [facility] Comment on above: Performed By: #### C BC, BMP, LIPASE, HEPATIC ####[place] [address] [address] Urea nitrogen [Mass/Vol] 17 mg/dL Normal 7-25 [facility] Comment on above: Performed By: #### C BC, BMP, LIPASE, HEPATIC ####[place] [address] [address] Basophils Auto (Bld) [#/Vol] Ordered By: Diane Murry on 10-23-2024 Basophils (Bld) [#/Vol] Automated basophil count 0.0-0.2 [facility] Basophils/100 WBC Auto (Bld) Ordered By: Diane Murry on 10-23-2024 Basophils/100 WBC (Bld) Automated basophil % . [facility] Bilirubin.direct [Mass/volum e] in Serum or PlasmaOrdered By: Diane Murry on 10-23-2024 Bilirubin.direct [Mass/Vol] Bilirubin.direct [Mass/volume] in Serum or Plasma 0.03-0.18 [facility] Bilirubin.total [Mass/volume ] in Serum or PlasmaOrdered By: Diane Murry on 10-23-2024 Bilirubin [Mass/Vol] Bilirubin.total [Mass/volume] in Serum or Plasma 0.3-1.0 [facility] Blood Cultureon 10-23-2024 Bacteria identified Cx Nom (Bld) NO GROWTH 5 DAYS PERFORMED BY: [place] [address] PATHOLOGIST CEO [place] JAN ROGERS M.D. Normal [facility] Comment on above: Performed By: #### C BC, CUBLD #### [address] Bacteria identified Cx Nom (Bld) NO GROWTH 5 DAYS PERFORMED BY: [place] [address] PATHOLOGIST CEO [place] JAN ROGERS M.D. Normal [facility] Comment on above: Performed By: #### C BC, CUBLD #### [address] angio chest PE protocolon 10-23-2024 CT angio chest PE protocol [facility] Main [place] [address] [place] [address] CT Scan Report Signed Patient: Vj Cárdenas MR#: [id number] : 1950 Acct:[id number] Age/Sex: 74 / M ADM Date: 10/23/24 Loc: ER Room: Type: [facility] ER Attending Dr: Copies to: Diane Murry DO Ordering Provider: Diane Murry DO Date of Service: 10/23/24 CT/CT angio chest PE protocol: neck pain, hypotensive, dialysis CT ANGIOGRAM OF THE CHEST, PULMONARY EMBOLISM PROTOCOL: CLINICAL INFORMATION: Weakness, fall, rule out pulmonary embolism TECHNIQUE: Following intravenous injection of contrast CT scans of the chest were obtained using pulmonary embolism protocol. Coronal and sagittal reconstructed images, as well as volume rendered CT pulmonary angiographic images were also submitted.The CT exam was performed using one or more of the following dose reduction techniques: Automated exposure control, adjustment of the MA and/or Kv according to patient size, or use of the iterative reconstruction technique. FINDINGS: Pulmonary Vasculature: Contrast bolus is adequate for evaluation of pulmonary embolism. Pulmonary trunk appears nondilated. No filling defects are identified to suggest pulmonary embolism. Mediastinum : Thoracic aorta is normal in caliber. No pericardial effusion. No lymphadenopathy. The esophagus is grossly unremarkable. Lungs: Mild interstitial thickening. No focal consolidation, pneumothorax or pleural effusion. Upper abdomen: No acute findings Soft tissue/bones: Soft tissues surrounding the chest wall demonstrate no acute findings. Osseous structures demonstrate degenerative change. Multilevel ankylosis. CT/CT angio chest PE protocol IMPRESSION: NO CT EVIDENCE OF PULMONARY EMBOLISM. NEGATIVE ACUTE PLEURAL-PARENCHYMAL DISEASE. Impression dictated by: Jan Becker M.D.10/23/2024 2:49 PM Dictation Location: [place] [address] Transcribed By: [facility] 10/23/24 1449 Dictated By: Jan Becker MD 10/23/24 1445 Signed By: 10/23/24 144 Normal [facility] Calcium [Mass/volume] in Ser um or PlasmaOrdered By: Diane Murry on 10-23-2024 Calcium [Mass/Vol] Calcium [Mass/volume ] in Serum or Plasma 8.6-10.3 [facility] Carbon dioxide, total [Moles /volume] in Serum or PlasmaOrdered By: Diane Murry on 10-23-2024 CO2 [Moles/Vol] Carbon dioxide, tota l [Moles/volume] in Serum or Plasma 21.0-31.0 [facility] Chloride [Moles/volume] in S reji or PlasmaOrdered By: Diane Murry on 10-23-2024 Chloride [Moles/Vol] Chloride [Moles/vol ume] in Serum or Plasma Low 98-107 [facility] Complete Blood Count Auto Di ffon 10-23-2024 Basophils (Bld) [#/Vol] 0.1 10*3/uL Normal 0.0-0.2 [facility] Comment on above: Result Comment: PERF ORMED BY: [facility] [address] [place] [address] PATHOLOGIST CEO [place] JAN ROGERS M.D. Performed By: #### C BC, BMP, LIPASE, HEPATIC ####[facility] [id number] [place] [address] [facility] Basophils/100 WBC (Bld) 1.0 % Normal . [facility] Comment on above: Performed By: #### C BC, BMP, LIPASE, HEPATIC ####[address] Eosinophils (Bld) [#/Vol] 0.2 10*3/uL Normal 0.0-0.45 [facility] Comment on above: Performed By: #### C BC, BMP, LIPASE, HEPATIC ####[address] Eosinophils/100 WBC (Bld) 2.2 % Normal . [facility] Comment on above: Performed By: #### C BC, BMP, LIPASE, HEPATIC ####[address] Erythrocyte distribution width (RBC) [Ratio] 15.2 % High 12.0-14.8 [facility] Comment on above: Performed By: #### C BC, BMP, LIPASE, HEPATIC ####[address] Hematocrit (Bld) [Volume fraction] 33.5 % Low 38.8-50.0 [facility] Comment on above: Performed By: #### C BC, BMP, LIPASE, HEPATIC ####[address] Hemoglobin (Bld) [Mass/Vol] 11.3 g/dL Low 13.0-17.0 [facility] Comment on above: Performed By: #### C BC, BMP, LIPASE, HEPATIC ####[address] Lymphocytes (Bld) [#/Vol] 0.7 10*3/uL Low 1.00-4.8 [facility] Comment on above: Performed By: #### C BC, BMP, LIPASE, HEPATIC ####[address] Lymphocytes/100 WBC (Bld) 10.1 % Normal . [facility] Comment on above: Performed By: #### C BC, BMP, LIPASE, HEPATIC ####[address] MCH (RBC) [Entitic mass] 33.5 pg Normal 27.5-35.2 [facility] Comment on above: Performed By: #### C BC, BMP, LIPASE, HEPATIC ####[address] MCV (RBC) [Entitic vol] 99.3 fL Normal 83.5-101 [facility] Comment on above: Performed By: #### C BC, BMP, LIPASE, HEPATIC ####[address] Mean Corpuscular HGB Conc 33.7 g/dL Normal 32.5-35.6 [facility] Comment on above: Performed By: #### C BC, BMP, LIPASE, HEPATIC ####[address] Monocytes (Bld) [#/Vol] 0.2 10*3/uL Normal 0.0-0.8 [facility] Comment on above: Performed By: #### C BC, BMP, LIPASE, HEPATIC ####[address] Monocytes/100 WBC (Bld) 19.76 % Normal 0.00-20.00 [facility] Comment on above: Performed By: #### C BC, BMP, LIPASE, HEPATIC ####[address] Monocytes/100 WBC (Bld) 2.3 % Normal . [facility] Comment on above: Performed By: #### C BC, BMP, LIPASE, HEPATIC ####[address] Neutrophils (Bld) [#/Vol] 5.9 10*3/uL Normal 1.8-7.7 [facility] Comment on above: Performed By: #### C BC, BMP, LIPASE, HEPATIC ####[address] Neutrophils/100 WBC (Bld) 84.4 % Normal . [facility] Comment on above: Performed By: #### C BC, BMP, LIPASE, HEPATIC ####[address] NRBC% 0.1 /100{WBC} Normal 0-0.5 [facility] Comment on above: Performed By: #### C BC, BMP, LIPASE, HEPATIC ####[address] Platelet mean volume (Bld) [Entitic vol] 9.3 fL Normal 6.6-10.1 [facility] Comment on above: Performed By: #### C BC, BMP, LIPASE, HEPATIC ####[address] Platelets (Bld) [#/Vol] 179 10*3/uL Normal 150-450 [facility] Comment on above: Performed By: #### C BC, BMP, LIPASE, HEPATIC ####[address] RBC (Bld) [#/Vol] 3.37 10*6/uL Low 3.90-5.60 [facility] Comment on above: Performed By: #### C BC, BMP, LIPASE, HEPATIC ####[address] WBC (Bld) [#/Vol] 7.0 10*3/uL Normal 4.1-10.5 [facility] Comment on above: Performed By: #### C BC, BMP, LIPASE, HEPATIC ####[place] [id number] [facility] Creatinine [Mass/volume] in Serum or PlasmaOrdered By: Diane Murry on 10-23-2024 Creatinine [Mass/Vol] Creatinine [Mass/v olume] in Serum or Plasma High 0.70-1.30 [facility] ECG 12 lead ECGon 10-23-2024 ECG 12 lead ECG [facility] [address] [place] [address] [place] [address] Electrocardiograph Report Signed Patient: Vj Cárdenas MR#: [id number] 3061 : 1950 Acct:[id number] Age/Sex: 74 / M ADM Date: 10/23/24 Loc: ER Room: Type: [facility] ER Attending Dr: Ordering Provider: Diane Murry DO Date of Service: 10/23/24 ECG/ECG 12 lead ECG: Weakness Copies to: Test Reason : Blood Pressure : 119/67 mmHG Vent. Rate : 91 BPM Atrial Rate : 91 BPM P-R Int : 180 ms QRS Dur : 100 ms QT Int : 398 ms P-R-T Axes : 64 7 159 degrees QTcB Int : 489 ms Sinus rhythm with premature atrial complexes Diffuse nonspecific ST and T wave changes Prolonged QT Abnormal ECG When compared with ECG of 23-Oct-2024 12:16, (Unconfirmed) QT has shortened Confirmed by FRANKI LOPEZ MD, FACC ([id number]) on 10/25/2024 10:56:17 AM Referred By: Electronically Signed By: FRANKI LOPEZ MD FAC Transcribed By: MUS Signed By Franki Lopez MD, FACC 10/25/24 1056 Normal [facility] ECG 12 lead ECG [facility] [place] [address] Electrocardiograph Report Signed Patient: Vj Cárdenas MR#: [id number] : 1950 Acct:[id number] Age/Sex: 74 / M ADM Date: 10/23/24 Loc: ER Room: Type: [facility] ER Attending Dr: Ordering Provider: Diane Murry DO Date of Service: 10/23/24 ECG/ECG 12 lead ECG: Weakness Copies to: Test Reason : Blood Pressure : */* mmHG Vent. Rate : 99 BPM Atrial Rate : 99 BPM P-R Int : 156 ms QRS Dur : 100 ms QT Int : 420 ms P-R-T Axes : 57 22 120 degrees QTcB Int : 539 ms Sinus rhythm with premature atrial complexes Nonspecific intraventricular block Prolonged QT Abnormal ECG When compared with ECG of 11-Sep-2024 20:05, premature ventricular complexes are no longer present premature atrial complexes are now present Confirmed by FRANKI LOPEZ MD, FACC ([id number]) on 10/25/2024 10:54:52 AM Referred By: Electronically Signed By: FRANKI LOPEZ MD [facility] Transcribed By: MUS Signed By Franki Lopez MD, [facility] 10/25/24 1054 Normal [facility] Eosinophils Auto (Bld) [#/Vo l]Ordered By: Diane Murry on 10-23-2024 Eosinophils (Bld) [#/Vol] Automated eosinophil count 0.0-0.45 [facility] Eosinophils/100 WBC Auto (Bl d)Ordered By: Diane Murry on 10-23-2024 Eosinophils/100 WBC (Bld) Automated eosinophil % . [facility] Erythrocyte distribution wid th Auto (RBC) [Ratio]Ordered By: Diane Murry on 10-23-2024 Erythrocyte distribution width (RBC) [Ratio] Erythrocyte distribution width [Ratio] by Automated count High 12.0-14.8 [facility] Globulin Calc (S) [Mass/Vol] Ordered By: Diane Murry on 10-23-2024 Globulin (S) [Mass/Vol] Serum globulin measurement by calculation (mass/volume) [facility] Glucose Glucometer (BldC) [M ass/Vol]Ordered By: Diane Murry on 10-23-2024 Glucose [Mass/Vol] Capillary blood gluc ose measurement by glucometer (mass/volume) [facility] Comment on above: Random Glucose Refer ence Range is dependent on time and content of last meal. Glucose of more than 200 mg/dL in a nonstressed, ambulatory subject supports the diagnosis of Diabetes Mellitus. Glucose Poct Glucometerson 0 10-23-2024 Glucose [Mass/Vol] 201 mg/dL Normal [facility] Comment on above: Result Comment: [place] Glucose Reference Range is dependent on time and content of last meal. Glucose of more than 200 mg/dL in a nonstressed, ambulatory subject supports the diagnosis of Diabetes Mellitus. PERFORMED BY: [facility] [address] [place] [address] PATHOLOGIST CEO [place] JAN ROGERS M.D. Performed By: #### G LULS #### Point of Care testing , Glucose [Mass/volume] in Ser um or PlasmaOrdered By: Diane Murry on 10-23-2024 Glucose [Mass/Vol] Glucose [Mass/volume ] in Serum or Plasma High 70-100 [facility] Comment on above: ADA recommended refe rence rangeRandom Glucose Reference Range is dependent on time and content of last meal. Glucose of more than 200 mg/dL in a nonstressed, ambulatory subject supports the diagnosis of Diabetes Mellitus. Hematocrit Auto (Bld) [Volum e fraction]Ordered By: Diane Murry on 10-23-2024 Hematocrit (Bld) [Volume fraction] Hematocrit [Volume Fraction] of Blood by Automated count Low 38.8-50.0 [facility] Hemoglobin [Mass/volume] in BloodOrdered By: Diane Murry on 10-23-2024 Hemoglobin (Bld) [Mass/Vol] Hemoglobin [Mass/volume] in Blood Low 13.0-17.0 [facility] Hepatic Panelon 10-23-2024 Albumin [Mass/Vol] 4.3 g/dL Normal 3.5-5.7 [facility] Comment on above: Performed By: #### C BC, BMP, LIPASE, HEPATIC ####[place] [address] [place] [id number] [facility] Albumin/Globulin [Mass ratio] 1.6 {ratio} Normal [facility] Comment on above: Performed By: #### C BC, BMP, LIPASE, HEPATIC ####[place] [address] [place] [address] [facility] ALP [Catalytic activity/Vol] 60 U/L Normal 34-104 [facility] Comment on above: Performed By: #### C BC, BMP, LIPASE, HEPATIC ####[place] [address] [place] [address] [facility] ALT [Catalytic activity/Vol] 23 U/L Normal 7-52 [facility] Comment on above: Performed By: #### C BC, BMP, LIPASE, HEPATIC ####[place] [address] [place] [address] [facility] AST [Catalytic activity/Vol] 20 U/L Normal 13-39 [facility] Comment on above: Performed By: #### C BC, BMP, LIPASE, HEPATIC ####[facility] [place] [id number] [facility] Bilirubin [Mass/Vol] 0.5 mg/dL Normal 0.3-1.0 [facility] Comment on above: Performed By: #### C BC, BMP, LIPASE, HEPATIC ####[place] [id number] [facility] Bilirubin,Indirect 0.4 mg/dL Normal [facility] Comment on above: Performed By: #### C BC, BMP, LIPASE, HEPATIC ####[place] [id number] [facility] Bilirubin.indirect [Mass/Vol] 0.10 mg/dL Normal 0.03-0.18 [facility] Comment on above: Performed By: #### C BC, BMP, LIPASE, HEPATIC ####[place] [id number] [facility] Globulin (S) [Mass/Vol] 2.7 g/dL Normal [facility] Comment on above: Performed By: #### C BC, BMP, LIPASE, HEPATIC ####[place] [id number] [facility] Protein [Mass/Vol] 7.0 g/dL Normal 6.4-8.9 [facility] Comment on above: Performed By: #### C BC, BMP, LIPASE, HEPATIC ####[place] [id number] [facility] Lactate [Moles/volume] in Se rum or PlasmaOrdered By: Diane Murry on 10-23-2024 Lactate [Moles/Vol] Lactate [Moles/volum e] in Serum or Plasma 0.5-1.9 [facility] Comment on above: Lactic Acid referenc e range has been updated to 0.5 1.9 mmol/L and the critical range of 2.0 or greater. Lactic Acidon 10-23-2024 Lactate [Moles/Vol] 0.6 mmol/L Normal 0.5-1.9 [facility] Comment on above: Result Comment: Lact ic Acid reference range has been updated to 0.5 ? 1.9 mmol/L and the critical range of 2.0 or greater. PERFORMED BY: [place] [address] PATHOLOGIST CEO [place] JAN ROGERS M.D. Performed By: #### L ACTIC #### [facility] [address] Lactate [Moles/Vol] 1.8 mmol/L Normal 0.5-1.9 [facility] Comment on above: Result Comment: Lact ic Acid reference range has been updated to 0.5 ? 1.9 mmol/L and the critical range of 2.0 or greater. PERFORMED BY: [place] [address] PATHOLOGIST CEO [place] JAN ROGERS M.D. Performed By: #### C BC, CUBLD #### [facility] [address] [place] [address] Leukocytes [#/volume] correc maria teresa for nucleated erythrocytes in Blood by Automated counOrdered By: Diane Murry on 10-23-2024 WBC corrected for nucl RBC Auto (Bld) [#/Vol] Leukocytes [#/volume] corrected for nucleated erythrocytes in Blood by Automated coun 4.1-10.5 [facility] Lipaseon 10-23-2024 Lipase [Catalytic activity/Vol] 30.0 U/L Normal 11.0-82.0 [facility] Comment on above: Result Comment: PERF ORMED BY: [place] [address] PATHOLOGIST CEO [place] JAN ROGERS M.D. Performed By: #### C BC, BMP, LIPASE, HEPATIC ####[facility] [id number] Lipase [Enzymatic activity/v olume] in Serum or PlasmaOrdered By: Diane Murry on 10-23-2024 Lipase [Catalytic activity/Vol] Lipase [Enzymatic activity/volume] in Serum or Plasma 11.0-82.0 [facility] Lymphocytes Auto (Bld) [#/Vo l]Ordered By: Diane Murry on 10-23-2024 Lymphocytes (Bld) [#/Vol] Lymphocytes [#/volume] in Blood by Automated count Low 1.00-4.8 [facility] Lymphocytes/100 WBC Auto (Bl d)Ordered By: Diane Murry on 10-23-2024 Lymphocytes/100 WBC (Bld) Lymphocytes/100 leukocytes in Blood by Automated count . [facility] MCH Auto (RBC) [Entitic mass ]Ordered By: Diane Murry on 10-23-2024 MCH (RBC) [Entitic mass] MCH [Entitic mass] by Automated count 27.5-35.2 [facility] MCHC Auto (RBC) [Mass/Vol]Or dered By: Diane Murry on 10-23-2024 MCHC (RBC) [Mass/Vol] MCHC [Mass/volume] by Automated count 32.5-35.6 [facility] MCV Auto (RBC) [Entitic vol] Ordered By: Diane Murry on 10-23-2024 MCV (RBC) [Entitic vol] MCV [Entitic volume] by Automated count 83.5-101 [facility] Monocyte distribution width [Entitic volume] in Blood by AutomatedOrdered By: Diane Murry on 10-23-2024 Monocyte distribution width Auto (Bld) [Entitic vol] Monocyte distribution width [Entitic volume] in Blood by Automated 0.00-20.00 [facility] Monocytes Auto (Bld) [#/Vol] Ordered By: Diane Murry on 10-23-2024 Monocytes (Bld) [#/Vol] Automated blood monocyte count 0.0-0.8 [facility] Monocytes/100 WBC Auto (Bld) Ordered By: Diane Murry on 10-23-2024 Monocytes/100 WBC (Bld) Automated monocyte % . [facility] Neutrophils Auto (Bld) [#/Vo l]Ordered By: Diane Murry on 10-23-2024 Neutrophils (Bld) [#/Vol] Neutrophils [#/volume] in Blood by Automated count 1.8-7.7 [facility] Neutrophils/100 WBC Auto (Bl d)Ordered By: Diane Murry on 10-23-2024 Neutrophils/100 WBC (Bld) Automated neutrophil % . [facility] No Panel InformationOrdered By: Diane Murry on 10-23-2024 Estimated GFR (CKD-EPI) 11.356 mL/Min [facility] Creatinine Clearance (Chem 16.39 [facility] Nucleated erythrocytes [Pres ence] in Blood by Automated countOrdered By: iDane Murry on 10-23-2024 Nucleated RBC Auto Ql (Bld) Nucleated erythrocytes [Presence] in Blood by Automated count 0-0.5 [facility] Platelet mean volume Auto (B ld) [Entitic vol]Ordered By: Diane Murry on 10-23-2024 Platelet mean volume (Bld) [Entitic vol] Platelet mean volume [Entitic volume] in Blood by Automated count 6.6-10.1 [facility] Platelets Auto (Bld) [#/Vol] Ordered By: Diane Murry on 10-23-2024 Platelets (Bld) [#/Vol] Platelets [#/volume] in Blood by Automated count 150-450 [facility] Potassium [Moles/volume] in Serum or PlasmaOrdered By: Diane Murry 10-23-2024 Potassium [Moles/Vol] Potassium [Moles/v olume] in Serum or Plasma 3.5-5.1 [facility] Protein [Mass/volume] in Ser um or PlasmaOrdered By: Diane Murry 10-23-2024 Protein [Mass/Vol] Protein [Mass/volume ] in Serum or Plasma 6.4-8.9 [facility] RBC Auto (Bld) [#/Vol]Ordere d By: Diane Murry 10-23-2024 RBC (Bld) [#/Vol] Erythrocytes [#/volu me] in Blood by Automated count Low 3.90-5.60 [facility] Serum or plasma albumin/glob ulin mass ratioOrdered By: Diane Murry 10-23-2024 Albumin/Globulin [Mass ratio] Serum or plasma albumin/globulin mass ratio [facility] Serum or plasma anion gap de terminationOrdered By: Diane Murry 10-23-2024 Anion gap [Moles/Vol] Serum or plasma an ion gap determination High 6.0-15.0 [facility] Serum or plasma non-glucuron idated bilirubin measurement (mass/volume)Ordered By: Diane Murry on 10-23-2024 Bilirubin.indirect [Mass/Vol] Serum or plasma non-glucuronidated bilirubin measurement (mass/volume) [facility] Sodium [Moles/volume] in Ser um or PlasmaOrdered By: Diane Murry on 10-23-2024 Sodium [Moles/Vol] Sodium [Moles/volume ] in Serum or Plasma Low 136-145 [facility] Troponin I High Sensitivityo n 10-23-2024 Troponin I High Sensitivity 34 High 0-20 [facility] Comment on above: Result Comment: The Troponin units of report have been changed to meet the Chest Pain Accreditation requirement, element EC5.M1l2. Troponin units are changed from pg/ml to ng/L. Also, the decimal is removed and results are in whole numbers. PERFORMED BY: [place] [address] PATHOLOGIST CEO [place] JAN ROGERS M.D. Performed By: #### C BC, CUBLD #### [address] Troponin I.cardiac [Mass/vol ume] in Serum or Plasma by Detection limit <= 0.01 ng/Ordered By: Diane Murry on 10-23-2024 Troponin I.cardiac DL <= 0.01 ng/mL [Mass/Vol] Troponin I.cardiac [Mass/volume] in Serum or Plasma by Detection limit <= 0.01 ng/ High 0-20 [facility] Comment on above: The Troponin units o f report have been changed to meet the Chest Pain Accreditation requirement, element EC5.M1l2. Troponin units are changed from pg/ml to ng/L. Also, the decimal is removed and results are in whole numbers. Urea nitrogen [Mass/volume] in Serum or PlasmaOrdered By: Diane Murry on 10-23-2024 Urea nitrogen [Mass/Vol] Urea nitrogen [Mass/volume] in Serum or Plasma 7-25 [facility] WBC Auto (Bld) [#/Vol]Ordere d By: Diane Murry on 10-23-2024 WBC (Bld) [#/Vol] Leukocytes [#/volume ] in Blood by Automated count 4.1-10.5 [facility] X-ray reportOrdered By: Jaison Becker on 10-23-2024 Study report [address] [address] XRay Report Signed Patient: Vj Cárdenas MR#: [id number] : 1950 Acct:[id number] Age/Sex: 74 / M ADM Date: 5 Loc: ER Room: Type: PRE ER Attending Dr: Copies to: Diane Murry DO~ Ordering Provider: Diane Murry DO Date of Service: 10/23/24 XR/XR chest 1V portable: Weakness SINGLE VIEW CHEST CLINICAL HISTORY: Weakness, fall, recent dialysis COMPARISON: 09/11/2024 FINDINGS: Unremarkable cardiomediastinal. Lungs clear. No effusion or pneumothorax. XR/XR chest 1V portable IMPRESSION: NO ACUTE FINDINGS Impression dictated by: Jan Becker M.D.10/23/2024 1:34 PM Dictation Location: [place] [address] Transcribed By: [facility] 10/23/24 1334 Dictated By: Jan Becker MD 10/23/24 133 Signed By: 10/23/[address] [place] [address] Work Phone: XR chest 1V portableon 10-23 XR chest 1V portable [facility] Main [address] [address] XRay Report Signed Patient: Vj Cárdenas MR#: [id number] : 1950 Acct:[id number] Age/Sex: 74 / M ADM Date: 10/23/24 Loc: ER Room: Type: PRE ER Attending Dr: Copies to: Diane Murry DO Ordering Provider: Diane Murry DO Date of Service: 10/23/24 XR/XR chest 1V portable: Weakness SINGLE VIEW CHEST CLINICAL HISTORY: Weakness, fall, recent dialysis COMPARISON: 09/11/2024 FINDINGS: Unremarkable cardiomediastinal. Lungs clear. No effusion or pneumothorax. XR/XR chest 1V portable IMPRESSION: NO ACUTE FINDINGS Impression dictated by: Jan Becker M.D.10/23/2024 1:34 PM Dictation Location: [place] [address] Transcribed By: [facility] 10/23/24 1334 Dictated By: Jan Becker MD 10/23/24 1333 Signed By: 10/23/24 1334 Normal [facility] Telephoneon 10-19-2024 Telephone [id number] Gisela Cárdenas Siena 1950 [facility] Provider Department Center 10/19/2024 1603-AMOS DIGGS PR Medical Family History Problem Relation Age of Onset Coronary artery disease Mother Heart attack Father Family Status - Relation Status Age at Mother Father Reason for Visit and Comments: Hospital Follow-up [832] Normal [facility] 30on 10-18-2024 30 The patient is Moder ately Stable - Low risk of patient condition declining or worsening The patient's goals for the shift include dicharge The clinical goals for the shift include echo/event monitor Over the shift, the patient did not make progress toward the following goals. Barriers to progression include . Recommendations to address these barriers include Problem: Pain - Adult Goal: Verbalizes/displays adequate comfort level or baseline comfort level Outcome: Progressing Flowsheets (Taken 10/18/2024 0740) Verbalizes/displays adequate comfort level or baseline comfort level: Encourage patient to monitor pain and request assistance Assess pain using appropriate pain scale Problem: Safety - Adult Goal: Free from fall injury Outcome: Progressing Problem: Discharge Planning Goal: Discharge to home or other facility with appropriate resources Outcome: Progressing Flowsheets (Taken 10/18/2024 0740) Discharge to home or other facility with appropriate resources: Identify barriers to discharge with patient and caregiver Arrange for needed discharge resources and transportation as appropriate Problem: Chronic Conditions and Co-morbidities Goal: Patient's chronic conditions and co-morbidity symptoms are monitored and maintained or improved Outcome: Progressing Flowsheets (Taken 10/18/2024 0740) Care Plan - Patient's Chronic Conditions and Co-Morbidity Symptoms are Monitored and Maintained or Improved: Monitor and assess patient's chronic conditions and comorbid symptoms for stability, deterioration, or improvement Collaborate with multidisciplinary team to address chronic and comorbid conditions and prevent exacerbation or deterioration Problem: Respiratory - Adult Goal: Achieves optimal ventilation and oxygenation Outcome: Progressing Flowsheets (Taken 10/18/2024739) Achieves optimal ventilation and oxygenation: Assess for changes in respiratory status Problem: Cardiovascular - Adult Goal: Maintains optimal cardiac output and hemodynamic stability Outcome: Progressing Flowsheets (Taken 10/18/2024739) Maintains optimal cardiac output and hemodynamic stability: Monitor blood pressure and heart rate Problem: Musculoskeletal - Adult Goal: Return ADL status to a safe level of function Outcome: Progressing Problem: Gastrointestinal - Adult Goal: Maintains adequate nutritional intake Outcome: Progressing Flowsheets (Taken 10/18/2024739) Maintains adequate nutritional intake: Monitor percentage of each meal consumed Problem: Genitourinary - Adult Goal: Absence of urinary retention Outcome: Progressing Flowsheets (Taken 10/18/2024739) Absence of urinary retention: Assess patient???s ability to void and empty bladder Monitor intake/output and perform bladder scan as needed Problem: Metabolic/Fluid and Electrolytes - Adult Goal: Electrolytes maintained within normal limits Outcome: Progressing Flowsheets (Taken 10/18/2024739) Electrolytes maintained within normal limits: Monitor labs and assess patient for signs and symptoms of electrolyte imbalances Goal: Hemodynamic stability and optimal renal function maintained Outcome: Progressing Flowsheets (Taken 10/18/2024739) Hemodynamic stability and optimal renal function maintained: Monitor labs and assess for signs and symptoms of volume excess or deficit Problem: Hematologic - Adult Goal: Maintains hematologic stability Outcome: Progressing Flowsheets (Taken 10/18/2024739) Maintains hematologic stability: Assess for signs and symptoms of bleeding or hemorrhage Problem: Skin/Tissue Integrity - Adult Goal: Incisions, wounds, or drain sites healing without S/S of infection Outcome: Progressing Flowsheets (Taken 10/18/2024739) Incisions, wounds, or drain sites healing without sign and symptoms of infection: TWICE DAILY: Assess and document skin integrity . Normal [facility] 30 The patient is Moder ately Stable - Low risk of patient condition declining or worsening The patient's goals for the shift include Rest; Comfort The clinical goals for the shift include VSS; No Post-Op Complications Problem: Pain - Adult Goal: Verbalizes/displays adequate comfort level or baseline comfort level Outcome: Progressing Problem: Safety - Adult Goal: Free from fall injury Outcome: Progressing Flowsheets (Taken 10/17/20241999) Free from fall injury: Assess patient frequently for physical needs Educate patient/family on patient safety, including physical limitations Instruct patient to call for assistance with activity based on assessment Problem: Discharge Planning Goal: Discharge to home or other facility with appropriate resources Outcome: Progressing Flowsheets (Taken 10/17/20241999) Discharge to home or other facility with appropriate resources: Identify barriers to discharge with patient and caregiver Arrange for needed discharge resources and transportation as appropriate Identify discharge learning needs (meds, wound care, etc) Problem: Chronic Conditions and Co-morbidities Goal: Patient's chronic conditions and co-morbidity symptoms are monitored and maintained or improved Outcome: Progressing Flowsheets (Taken 10/17/20241999) Care Plan - Patient's Chronic Conditions and Co-Morbidity Symptoms are Monitored and Maintained or Improved: Monitor and assess patient's chronic conditions and comorbid symptoms for stability, deterioration, or improvement Collaborate with multidisciplinary team to address chronic and comorbid conditions and prevent exacerbation or deterioration Update acute care plan with appropriate goals if chronic or comorbid symptoms are exacerbated and prevent overall improvement and discharge Problem: Respiratory - Adult Goal: Achieves optimal ventilation and oxygenation Outcome: Progressing Flowsheets (Taken 10/17/20241999) Achieves optimal ventilation and oxygenation: Assess for changes in respiratory status Assess for changes in mentation and behavior Position to facilitate oxygenation and minimize respiratory effort Encourage broncho-pulmonary hygiene including cough, deep breathe, incentive spirometry Assess and instruct to report shortness of breath or any respiratory difficulty Problem: Cardiovascular - Adult Goal: Maintains optimal cardiac output and hemodynamic stability Outcome: Progressing Flowsheets (Taken 10/17/20241999) Maintains optimal cardiac output and hemodynamic stability: Monitor blood pressure and heart rate Monitor urine output and notify Licensed Independent Practitioner for values outside of normal range Assess for signs of decreased cardiac output Problem: Musculoskeletal - Adult Goal: Return ADL status to a safe level of function Outcome: Progressing Flowsheets (Taken 10/17/20241999) Return ADL status to a safe level of function: Assess activities of daily living deficits and provide assistive devices as needed Assist and instruct patient to increase activity and self care as tolerated Problem: Gastrointestinal - Adult Goal: Maintains adequate nutritional intake Outcome: Progressing Flowsheets (Taken 10/17/20241999) Maintains adequate nutritional intake: Monitor percentage of each meal consumed Identify factors contributing to decreased intake, treat as appropriate Monitor intake and output, weight and lab values Problem: Genitourinary - Adult Goal: Absence of urinary retention Outcome: Progressing Flowsheets (Taken 10/17/20241999) Absence of urinary retention: Monitor intake/output and perform bladder scan as needed Assess patient???s ability to void and empty bladder Problem: Metabolic/Fluid and Electrolytes - Adult Goal: Electrolytes maintained within normal limits Outcome: Progressing Flowsheets (Taken 10/17/20241999) Electrolytes maintained within normal limits: Monitor labs and assess patient for signs and symptoms of electrolyte imbalances Administer electrolyte replacement as ordered Monitor response to electrolyte replacements, including repeat lab results as appropriate Goal: Hemodynamic stability and optimal renal function maintained Outcome: Progressing Flowsheets (Taken 10/17/20241999) Hemodynamic stability and optimal renal function maintained: Monitor labs and assess for signs and symptoms of volume excess or deficit Monitor intake, output and patient weight Monitor urine specific gravity, serum osmolarity and serum sodium as indicated or ordered Monitor response to interventions for patient's volume status, including labs, urine output, blood pressure (other measures as available) Problem: Hematologic - Adult Goal: Maintains hematologic stability Outcome: Progressing Flowsheets (Taken 10/17/20241999) Maintains hematologic stability: Assess for signs and symptoms of bleeding or hemorrhage Monitor labs for bleeding or clotting dis (more content not included)... Normal [facility] BASIC METABOLIC PANELon 04- Anion gap [Moles/Vol] 16 mmol/L Normal 7-20 [facility] Comment on above: Performed By: #### L [id number] ####[facility] ([facility])[address] [place] [address] Calcium [Mass/Vol] 8.5 mg/dL Low 8.6-10.3 [facility] Comment on above: Performed By: #### L [id number] ####[facility] ([facility])[address] [place] [address] Chloride [Moles/Vol] 94 mmol/L Low 98-107 [facility] Comment on above: Performed By: #### L [id number] ####[facility] ([facility])[address] [place] [address] CO2 [Moles/Vol] 26 mmol/L Normal 21-31 [facility] Comment on above: Performed By: #### L [id number] ####[facility] ([facility])[address] [place] [address] Creatinine [Mass/Vol] 7.90 mg/dL High 0.70-1.30 [facility] Comment on above: Performed By: #### L [id number] ####[facility] ([facility])[address] [place] [address] GLOMERULAR FILTRATION RATE ML/MIN/1.73 SQ M.PREDICTED 6.7 mL/min/1.73m*2 Low >60.0 [facility] Comment on above: Result Comment: The [facility]???s estimated glomerular filtration rate (eGFR) will no longer include consideration of race in its calculation. The National Kidney Foundation???s eGFR Task Force developed new recommendations for the estimation of the glomerular filtration rate in the [place] They recommend immediate implementation of the new equation refit without the race variable in all laboratories because the calculation does not include race. In addition to not including race in the calculation and reporting, it included diversity in its development, and has acceptable performance characteristics and potential consequences that do not disproportionately affect any one group of individuals. Performed By: #### L [id number] ####[facility] ([facility])[address] [place] [address] Glucose [Mass/Vol] 87 mg/dL Normal 70-100 [facility] Comment on above: Performed By: #### L [id number] ####[facility] ([facility])[address] [place] [address] Potassium [Moles/Vol] 4.5 mmol/L Normal 3.5-5.1 [facility] Comment on above: Performed By: #### L [id number] ####[facility] ([facility])[address] [place] [address] Sodium [Moles/Vol] 131 mmol/L Low 136-145 [facility] Comment on above: Performed By: #### L [id number] ####[facility] ([facility])[address] [place] [address] Urea nitrogen [Mass/Vol] 42 mg/dL High 7-25 [facility] Comment on above: Performed By: #### L [id number] ####[facility] ([facility])[address] [place] [address] UREA NITROGEN/CREATININE (MASS RATIO) IN SER/PLAS 5.3 Normal [facility] Comment on above: Performed By: #### L [id number] ####[facility] ([facility])[address] [place] [address] CBC WITH AUTO DIFFERENTIALon 10-18-2024 Basophils (Bld) [#/Vol] 0.08 10*3/uL Normal 0.00-0.20 [facility] Comment on above: Performed By: #### L [id number] ####[facility] ([facility])[address] [place] [address] Basophils/100 WBC (Bld) 0.9 % Normal 0.0-1.0 [facility] Comment on above: Performed By: #### L [id number] ####[facility] ([facility])[address] [place] [address] Eosinophils (Bld) [#/Vol] 0.37 10*3/uL Normal 0.00-0.50 [facility] Comment on above: Performed By: #### L [id number] ####[facility] ([facility])[address] [place] [address] Eosinophils/100 WBC (Bld) 4.3 % Normal 0.0-6.0 [facility] Comment on above: Performed By: #### L [id number] ####[facility] ([facility])[address] [place] [address] Erythrocyte distribution width (RBC) [Ratio] 14.6 % Normal 11.5-15.0 [facility] Comment on above: Performed By: #### L [id number] ####[facility] ([facility])[address] [place] [address] ERYTHROCYTE MEAN CORPUSCULAR HEMOGLOBIN CONCENTRATION (G/DL) BY AUTOMATED 33.8 g/dL Normal 32.0-35.0 [facility] Comment on above: Performed By: #### L [id number] ####[facility] ([facility])[address] [place] [address] Hematocrit (Bld) [Volume fraction] 27.8 % Low 39.0-50.0 [facility] Comment on above: Performed By: #### L [id number] ####[facility] ([facility])[address] [place] [address] Hemoglobin (Bld) [Mass/Vol] 9.4 g/dL Low 13.0-17.0 [facility] Comment on above: Performed By: #### L [id number] ####[facility] ([facility])[address] [place] [address] Immature granulocytes (Bld) [#/Vol] 0.04 10*3/uL Normal 0.00-0.20 [facility] Comment on above: Performed By: #### L [id number] ####[facility] ([facility])[address] [place] [address] Immature granulocytes/100 WBC (Bld) 0.5 % Normal 0.0-1.0 [facility] Comment on above: Performed By: #### L [id number] ####[facility] ([facility])[address] [place] [address] IMMATURE PLATELET FRACTION % 4.8 % Normal 0.8-6.3 [facility] Comment on above: Performed By: #### L [id number] ####[facility] ([facility])[address] [place] [address] Lymphocytes (Bld) [#/Vol] 0.95 10*3/uL Low 1.20-4.00 [facility] Comment on above: Performed By: #### L [id number] ####[facility] ([facility])[address] [place] [address] Lymphocytes/100 WBC (Bld) 11.0 % Low 20.0-45.0 [facility] Comment on above: Performed By: #### L [id number] ####[facility] ([facility])[address] [place] [address] MCH (RBC) [Entitic mass] 33.2 pg High 27.0-33.0 [facility] Comment on above: Performed By: #### L [id number] ####[facility] ([facility])[address] [place] [address] MCV (RBC) [Entitic vol] 98.2 fL High 82.0-98.0 [facility] Comment on above: Performed By: #### L [id number] ####[facility] ([facility])[address] [place] [address] Monocytes (Bld) [#/Vol] 0.72 10*3/uL Normal 0.10-1.00 [facility] Comment on above: Performed By: #### L [id number] ####[facility] ([facility])[address] [place] [address] Monocytes/100 WBC (Bld) 8.3 % Normal 5.0-12.0 [facility] Comment on above: Performed By: #### L [id number] ####[facility] ([facility])[address] [place] [address] Neutrophils (Bld) [#/Vol] 6.48 10*3/uL Normal 1.60-7.60 [facility] Comment on above: Performed By: #### L [id number] ####[facility] ([facility])[address] [place] [address] Neutrophils/100 WBC (Bld) 75.0 % High 40.0-72.0 [facility] Comment on above: Performed By: #### L [id number] ####[facility] ([facility])[address] [place] [address] NRBC (PER 100 WBCS) BY AUTOMATED COUNT 0.0 % Normal 0 [facility] Comment on above: Performed By: #### L [id number] ####[facility] ([facility])[address] [place] [address] PLATELETS (10*3/UL) IN BLOOD AUTOMATED COUNT 125 10*3/uL Low 150-400 [facility] Comment on above: Performed By: #### L [id number] ####[facility] ([facility])[address] [place] [address] RBC (Bld) [#/Vol] 2.83 10*6/uL Low 4.20-5.70 [facility] Comment on above: Performed By: #### L [id number] ####[facility] ([facility])[address] [place] [address] WBC (Bld) [#/Vol] 8.64 10*3/uL Normal 4.00-10.60 [facility] Comment on above: Performed By: #### L [id number] ####[facility] ([facility])[address] [place] [address] CONSULTon 10-18-2024 CONSULT ----- ----- Attestation signed by Marilee Velásquez MD at 10/18/2024 5:34 PM Patient seen and examined at bedside during nephrology rounds. Agree with the above findings and plan. Any changes to the above plan are written below. Seen during hemodialysis treatment. Post cardiac cath with placement of PCI. Feels well, no complaints, stable blood pressure and heart rate during HD treatment. ----- Nephrology Consult Note Patient : Vj Devries Titomeaghan; 74 y.o. [facility] Attending: Dexter Bowers MD Admit Date: 10/17/2024 Hospital Day: 0 Reason for Consult: ESRD on HD. History of Present Illness: Vj Cárdenas is a 74 y.o. male with PMHx ESRD on HD who is scheduled for coronary angiography as patient has been experiencing chest pain with shortness of breath. Patient is seen and examined receiving hemodialysis. Tolerating well. Denies fever, chills, chest pain, shortness of breath, abdominal pain, nausea, vomiting, constipation, diarrhea. The patient typically gets 3 L fluid removal with HD. Review of Systems: Review of Systems Constitutional: Negative for chills, fatigue and fever. Respiratory: Negative for cough and shortness of breath. Cardiovascular: Negative for chest pain, palpitations and leg swelling. Gastrointestinal: Negative for abdominal distention, abdominal pain, blood in stool, constipation, diarrhea, nausea and vomiting. Endocrine: Negative for polyuria. Genitourinary: Negative for decreased urine volume, dysuria and urgency. Musculoskeletal: Negative for arthralgias and back pain. Neurological: Negative for syncope, weakness and headaches. Input/Output: I/O last 3 completed shifts: In: 611.5 (5.1 mL/kg) [P.O.:480; IV Piggyback:131.5] Out: 10 (0.1 mL/kg) [Blood:10] Weight: 119.3 kg Vital Signs: Temperature: Temp: 36.5 ???C (97.7 ???F) TMax: Temp (24hrs), Av.2 ???C (97.2 ???F), Min:35.9 ???C (96.6 ???F), Max:36.5 ???C (97.7 ???F) Respirations: Resp: 18 Pulse: Heart Rate: 84 BP: BP: 106/77 BP Range: Systolic (24hrs), Av , Min:92 , Max:143 Diastolic (24hrs), Av, Min:49, Max:86 Wt Readings from Last 3 Encounters: 10/18/24 119 kg (263 lb) 10/09/24 118 kg (260 lb) Physical Examination: Physical Exam Constitutional: Appearance: Normal appearance. HENT: Head: Normocephalic and atraumatic. Cardiovascular: Rate and Rhythm: Normal rate and regular rhythm. Pulses: Normal pulses. Heart sounds: Normal heart sounds. Pulmonary: Breath sounds: Normal breath sounds. Abdominal: General: Abdomen is flat. Palpations: Abdomen is soft. Musculoskeletal: Right lower leg: No edema. Left lower leg: No edema. Neurological: Mental Status: He is alert. Labs: Chemistry: Lab Results Component Value Date NA 131 (L) 10/18/2024 K 4.5 10/18/2024 CL 94 (L) 10/18/2024 CO2 26 10/18/2024 ANIONGAP 16 10/18/2024 BUN 42 (H) 10/18/2024 CREATININE 7.90 (H) 10/18/2024 EGFR 6.7 (L) 10/18/2024 CALCIUM 8.5 (L) 10/18/2024 Hematology & Iron studies: Lab Results Component Value Date WBC 8.64 10/18/2024 HGB 9.4 (L) 10/18/2024 HCT 27.8 (L) 10/18/2024 MCV 98.2 (H) 10/18/2024 PLT 125 (L) 10/18/2024 Urine chemistry: No results found for: PROTUR , CREATUR , MICROALBCREA , ALBCREA , ALBUMINUR , NAUR , UREAUR , KURINE , CLUR , MGUR Urinalysis & Microscopy: No results found for: COLORU , CLARITYU , SPECGRAVU , MATHEUS , PROTUR , LEUKOCYTESU , NITRITEU , GLUCOSEU , KETONESU , BILIRUBINUR , UROBILINOGEN , BLOODU , RBCU , WBCU , SQUAMEPIU , MUCUSU , TRIPHOCRYU , CAOXALCRU , CAPHOSCRYU Urine Eosinophils: No components found for: UEOS Serology & Other labs: BNP: No results found for: BNP MAX: No results found for: MAX SPEP:No results found for: PROT UPEP: No components found for: LABPE C3: No results found for: C3 C4: No results found for: C4 MPO ANCA: No components found for: MPO PR3 ANCA: No components found for: PR3 Anti-GBM: No components found for: GBMABIGG Hep BsAg: No results found for: HEPBSAG Hep C AB: No results found for: HEPCAB Outpatient Medications & Allergies: Medication Documentation Review Audit Reviewed by Adrienne Orona RN (Registered Nurse) on 10/17/24 at 0932 Medication Order Taking? Sig Documenting Provider Last Dose Status allopurinol (Zyloprim) 100 mg tablet [id number] Yes Take 100 mg by mouth twice a day. Historical Provider, 10/16/2024 Active aspirin 81 mg EC tablet [id number] Yes Take 81 mg by mouth in the morning. Historical Provider, 10/17/2024 Active calcitriol (Rocaltrol) 0.25 mcg capsule [id number] No Take 0.25 mcg by mouth in the morning. Historical Provider, Unknown Active calcium acetate (Phoslo) 667 mg capsule [id number] No Take 667 mg by mouth. Historical Prov (more content not included)... [facility] DSon 10-18-2024 DS Admission Admitted 10/17/2024 for Angina pectoris, unstable (CMS/HCC) Discharge Diagnosis Unstable angina (CMS/HCC) Discharge Disposition Home or Self Care () Discharge Medications Your medication list ASK your doctor about these medications Instructions Last Dose Given Next Dose Due allopurinol 100 mg tablet Commonly known as: Zyloprim aspirin 81 mg EC tablet calcitriol 0.25 mcg capsule Commonly known as: Rocaltrol calcium acetate 667 mg capsule Commonly known as: Phoslo carvedilol 6.25 mg tablet Commonly known as: Coreg doxepin 10 mg/mL solution Commonly known as: SINEquan doxycycline 100 mg capsule Commonly known as: Monodox DULoxetine [address] capsule Commonly known as: Cymbalta famotidine 20 mg tablet Commonly known as: Pepcid FLUoxetine 10 mg capsule Commonly known as: PROzac levoFLOXacin 250 mg tablet Commonly known as: Levaquin lisinopril 5 mg tablet montelukast 10 mg tablet Commonly known as: Singulair nitrofurantoin (macrocrystal-monohydrate ) 100 mg capsule Commonly known as: Macrobid Renal Vitamin 0.8 mg tablet Generic drug: B complex-vitamin C-folic acid rosuvastatin 20 mg capsule, sprinkle sevelamer carbonate 800 mg tablet Commonly known as: Renvela Synthroid 200 mcg tablet Generic drug: levothyroxine Activity Patient currently has no discharge activity orders Diet Patient currently has no discharge diet orders Allergies Verapamil Hospital Course PMH of 10/09/24 patient seen as new patient eval by Dr. Bowers for SOB, reports MA during surgery 40 years ago, c/o elft side CP with SOB at times. Also reports hx WPW, CAD, ESRD on Dialysis and HTN. Dr. ANTUNEZ recommended LHC, event monitor for hx WPW and echo. 10/17/24 had elective LHC with PCI/GINI to 70-80% Lcx stenosis and 80-90% RCA finding mild-mod LAD disease. Held overnight for dialysis prior to discharge. Also had echocardiogram and discharging with 30 day event monitor. 10/18/24 Today patient evaluated after dialysis. Says he is feeling well, looking forward to discharge. No pain at groin arteriotomy site. Luis Angel BARKLEY, CPOE, positional lightheadedness, palpitations, racing heart beats, syncope or near syncope, orthopnea, PND, lower extremity edema, GI or other bleeding. Labs: reviewed, stable PLAN: I spoke by phone with his earlier today about HC findings, and plan for at least 6 mos of DAPT with ASA & Plavix. Also that would plan echocardiogram and apply event monitor piror to discharge. Has OP FU with [facility] 11/05/24 Later in day, pt had HD, echo and prior to discharge had event monitor applied. Discharged home in stable condition with AVS. Pertinent Physical Exam At Time of Discharge Physical Exam Physical exam: BP 94/59 Pulse 71 Temp 36.5 ???C (97.7 ???F) (Temporal) Resp 14 Ht 1.727 m (5' 8 ) Wt 119 kg (263 lb) SpO2 100% BMI 39.99 kg/m??? General: Alert, appropriate mood / affect. NAD Eyes: anicteric sclera. Non-injected conjunctiva. No xanthelasmas Neck: No elevated JVP. No carotid bruit Pulm: no increased effort of breathing. Breath sounds CTA bilaterally with no wheeze, rhonchi or rales. Cards: HRRR , NL S1, S2. No S3 or S4 gallop. Murmur: none Abd: Soft, Nontender, physiologic bowel sounds are present Extr: Lower extremity edema: none. DP pulses present bilaterally Right groin arteriotomy site intact, c/d/I. Dressing removed, no hematoma or bruising. Bandaid applied Skin: warm, dry, well perfused Neuro: A&Ox3, No gross deficits Psych: appropriate mood, affect. Lab Results Labs Reviewed BASIC METABOLIC PANEL - Abnormal Result Value Sodium 131 (*) Potassium 4.5 Chloride 94 (*) CO2 26 BUN 42 (*) Creatinine 7.90 (*) Glucose 87 Calcium 8.5 (*) Anion Gap 16 eGFR 6.7 (*) BUN/Creatinine Ratio 5.3 CBC WITH AUTO DIFFERENTIAL - Abnormal Auto WBC 8.64 RBC 2.83 (*) Hemoglobin 9.4 (*) Hematocrit 27.8 (*) MCV 98.2 (*) MCH 33.2 (*) MCHC 33.8 RDW 14.6 Neutrophils Relative 75.0 (*) Lymphocytes Relative 11.0 (*) Monocytes Relative 8.3 Eosinophils Relative 4.3 Basophils Relative 0.9 Neutrophils Absolute 6.48 Lymphocytes Absolute 0.95 (*) Monocytes Absolute 0.72 Eosinophils Absolute 0.37 Basophils Absolute 0.08 Platelets 125 (*) nRBC % 0.0 Immature Granulocytes Relative 0.5 Immature Granulocytes Absolute 0.04 Immature Platelet Fraction % 4.8 POCT HBO2% - Abnormal WKLKSF02% 69.5 (*) QC Pass/Fail Passed QC LOT # [id number] QC Expiration Date 113,025 SAMPLESITE not listed Narrative: Network Operations Analyst 9701 POCT ACT - Abnormal POCT ACT 356 (*) QC Pass/Fail Passed QC LOT # 8 QC Expiration Date 73,125 Narrative: Qc lot [id number]; 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 Normal [facility] LIPID PANELon 10-18-2024 CHOL/HDL 3.8 mg/dL Normal [facility] Comment on above: Performed By: #### L AB18 ####[facility] ([facility])[address] [place] [address] Cholesterol [Mass/Vol] 99 mg/dL Low 120-200 [facility] Comment on above: Performed By: #### L AB18 ####[facility] ([facility] [facility] [place] [address] Magnesium [Mass/Vol] 141 mg/dL Normal <150 [facility] Comment on above: Result Comment: TRIG LYCERIDE REFERENCE RANGE: 20 YEARS AND OLDER CARDIOVASCULAR RISK LESS THAN 150 mg/dL LOW RISK 150 TO 199 mg/dL BORDERLINE RISK 200 mg/dL AND GREATER HIGH RISK Performed By: #### L AB18 ####[facility] ([facility])[address] [place] [place] [address] Magnesium [Mass/Vol] 45 mg/dL Normal 0-160 [facility] Comment on above: Performed By: #### L AB18 ####[facility] ([facility])[address] [place] [place] [address] Magnesium [Mass/Vol] 26 mg/dL Normal 23-92 [facility] Comment on above: Performed By: #### L AB18 ####[facility] ([facility])[address] [place] [place] [address] NON HDL CHOL. (LDL+VLDL) 73 [facility] Comment on above: Performed By: #### L AB18 ####[facility] ([facility])[address] [place] [place] [address] TOTAL VLDL-C 28 mg/dL Normal 0-40 [facility] Comment on above: Performed By: #### L AB18 ####[facility] ([facility])[address] [place] [place] [address] 30on 10-17-2024 30 The patient is Moder ately Stable - Low risk of patient condition declining or worsening The patient's goals for the shift include laying flat/no bleeding at cath site The clinical goals for the shift include comfort Over the shift, the patient did not make progress toward the following goals. Barriers to progression include . Recommendations to address these barriers include . Normal [facility] ANESon 10-17-2024 ANES ----- ----- Attestation signed by Dexter Bowers MD at 10/17/2024 10:52 AM Dexter Bowers MD, MPH, FACC, [facility], [facility] Interventional Cardiology Pager Email: u ----- Patient: Vj Cárdenas Procedure Information Date/Time: 10/17/24 1030 Procedures: Coronary angiography Right heart cath Location: [facility] 3 / [facility] (Cath) Providers: Dexter Bowers MD Clinical information reviewed: Allergies Meds Physical Exam Airway Mallampati: III TM distance: <3 FB Cardiovascular Rhythm: regular Rate: normal Dental Pulmonary Abdominal Anesthesia Plan ASA 3 other (Conscious ) Anesthetic plan and risks discussed with patient. Use of blood products discussed with patient who consented to blood products. Plan discussed with attending. Additional Equipment Requests Normal [facility] HPon 10-17-2024 ----- ----- Attestation signed by Dexter Bowers MD at 10/17/2024 10:52 AM Dexter Bowers MD, MPH, FACC, [facility], [facility] Interventional Cardiology Pager Email: u ----- H&P reviewed. The patient was examined and there are no changes to the H&P. Discussed risks, benefits, and alternative therapies with the patient, she understands and willing to proceed with RHC/coronary angiogram and possible PCI. Chayo Martin MD PGY-7 Interventional Plasterer Rough [facility] HP H&P reviewed. The pa zahra was examined and there are no changes to the H&P. Risks, benefits, and alternatives were discussed explained to the patient; he understands and wishes to proceed. Plan is for right heart catheterization and coronary angiography +/- PCI via a right femoral approach. Dexter Bowers MD, MPH, [facility], [facility], [facility] Interventional Cardiology Pager Email: [email or web address] u [facility] NURSNOTEon 10-17-2024 NURSNOTE Report given to Mariela de souza RN from VINOD Deleon RN notified RN of pts procedural intervention site, allergies, IV location/status, and medications given during the procedure. Any diagnostics, abnormal labs, abnormal assessment findings, orders and safety concerns/issues were reviewed. RN encouraged RN receiving handoff to voice any questions or concerns, and answered any questions or concerns if verbalized. RN verbalizes the pt will be coming up to the floor soon. [facility] Basic Metabolic Panelon 10-01 Anion gap [Moles/Vol] 13.9 mmol/L Normal 6.0-15.0 e [facility] Comment on above: Performed By: #### C BC, BMP ####[facility] [address] [place] [address] [facility] Calcium [Mass/Vol] 9.0 mg/dL Normal 8.6-10.3 [facility] Comment on above: Result Comment: PERF ORMED BY: [facility] [address] [place] [id number] PATHOLOGIST CEO [place] JAN ROGERS M.D. Performed By: #### C BC, BMP ####[address] Chloride [Moles/Vol] 92 mmol/L Low 98-107 [facility] Comment on above: Performed By: #### C BC, BMP ####[address] CO2 [Moles/Vol] 32.9 mmol/L High 21.0-31.0 [facility] Comment on above: Performed By: #### C BC, BMP ####[address] Creatinine [Mass/Vol] 5.28 mg/dL High 0.70-1.30 [facility] Comment on above: Performed By: #### C BC, BMP ####[address] Estimated GFR 10.790 mL/Min Normal [facility] Comment on above: Performed By: #### C BC, BMP ####[address] Glucose [Mass/Vol] 112 mg/dL High 70-100 [facility] Comment on above: Result Comment: [place] Glucose Reference Range is dependent on time and content of last meal. Glucose of more than 200 mg/dL in a nonstressed, ambulatory subject supports the diagnosis of Diabetes Mellitus. ADA recommended reference range Performed By: #### C BC, BMP ####[address] Potassium [Moles/Vol] 3.8 mmol/L Normal 3.5-5.1 [facility] Comment on above: Performed By: #### C BC, BMP ####[address] Sodium [Moles/Vol] 135 mmol/L Low 136-145 [facility] Comment on above: Performed By: #### C BC, BMP ####[place] [id number] [place] [id number] [facility] Urea nitrogen [Mass/Vol] 18 mg/dL Normal 7-25 [facility] Comment on above: Performed By: #### C , BMP ####[place] [id number] [place] [id number] [facility] Basophils Auto (Bld) [#/Vol] Ordered By: Ehab Eltahawy on 10-11-2024 Basophils (Bld) [#/Vol] Automated basophil count 0.0-0.2 [facility] Basophils/100 WBC Auto (Bld) Ordered By: Ehab Eltahawy on 10-11-2024 Basophils/100 WBC (Bld) Automated basophil % . [facility] Calcium [Mass/volume] in Ser um or PlasmaOrdered By: ab Eltahawy on 10-11-2024 Calcium [Mass/Vol] Calcium [Mass/volume ] in Serum or Plasma 8.6-10.3 [facility] Carbon dioxide, total [Moles /volume] in Serum or PlasmaOrdered By: ab Eltahawy on 10-11-2024 CO2 [Moles/Vol] Carbon dioxide, tota l [Moles/volume] in Serum or Plasma High 21.0-31.0 [facility] Chloride [Moles/volume] in S reji or PlasmaOrdered By: ab Eltahawy on 10-11-2024 Chloride [Moles/Vol] Chloride [Moles/vol ume] in Serum or Plasma Low 98-107 [facility] Complete Blood Count Auto Di ffon 10-11-2024 Basophils (Bld) [#/Vol] 0.1 10*3/uL Normal 0.0-0.2 [facility] Comment on above: Result Comment: PERF ORMED BY: [facility] [address] [place] [id number] PATHOLOGIST CEO [place] JAN ROGERS M.D. Performed By: #### C , BMP ####[place] [id number] [place] [id number] [facility] Basophils/100 WBC (Bld) 0.9 % Normal . [facility] Comment on above: Performed By: #### C BC, BMP ####[address] Eosinophils (Bld) [#/Vol] 0.3 10*3/uL Normal 0.0-0.45 [facility] Comment on above: Performed By: #### C BC, BMP ####[address] Eosinophils/100 WBC (Bld) 3.7 % Normal . [facility] Comment on above: Performed By: #### C BC, BMP ####[address] Erythrocyte distribution width (RBC) [Ratio] 14.8 % Normal 12.0-14.8 [facility] Comment on above: Performed By: #### C BC, BMP ####[address] Hematocrit (Bld) [Volume fraction] 34.7 % Low 38.8-50.0 [facility] Comment on above: Performed By: #### C BC, BMP ####[address] Hemoglobin (Bld) [Mass/Vol] 11.7 g/dL Low 13.0-17.0 [facility] Comment on above: Performed By: #### C BC, BMP ####[address] Lymphocytes (Bld) [#/Vol] 1.3 10*3/uL Normal 1.00-4.8 [facility] Comment on above: Performed By: #### C BC, BMP ####[address] Lymphocytes/100 WBC (Bld) 14.5 % Normal . [facility] Comment on above: Performed By: #### C BC, BMP ####[address] MCH (RBC) [Entitic mass] 33.0 pg Normal 27.5-35.2 [facility] Comment on above: Performed By: #### C BC, BMP ####[address] MCV (RBC) [Entitic vol] 97.7 fL Normal 83.5-101 [facility] Comment on above: Performed By: #### C BC, BMP ####[address] Mean Corpuscular HGB Conc 33.8 g/dL Normal 32.5-35.6 [facility] Comment on above: Performed By: #### C BC, BMP ####[address] Monocytes (Bld) [#/Vol] 0.9 10*3/uL High 0.0-0.8 [facility] Comment on above: Performed By: #### C BC, BMP ####[address] Monocytes/100 WBC (Bld) 11.0 % Normal . [facility] Comment on above: Performed By: #### C BC, BMP ####[address] Neutrophils (Bld) [#/Vol] 6.1 10*3/uL Normal 1.8-7.7 [facility] Comment on above: Performed By: #### C BC, BMP ####[address] Neutrophils/100 WBC (Bld) 69.9 % Normal . [facility] Comment on above: Performed By: #### C BC, BMP ####[address] NRBC% 0.0 /100{WBC} Normal 0-0.5 [facility] Comment on above: Performed By: #### C BC, BMP ####[address] Platelet mean volume (Bld) [Entitic vol] 10.1 fL Normal 6.6-10.1 [facility] Comment on above: Performed By: #### C BC, BMP ####[place] [id number] [place] [id number] [facility] Platelets (Bld) [#/Vol] 130 10*3/uL Low 150-450 [facility] Comment on above: Performed By: #### C BC, BMP ####[place] [address] [place] [id number] [facility] RBC (Bld) [#/Vol] 3.55 10*6/uL Low 3.90-5.60 [facility] Comment on above: Performed By: #### C BC, BMP ####[place] [address] [place] [id number] [facility] WBC (Bld) [#/Vol] 8.7 10*3/uL Normal 4.1-10.5 [facility] Comment on above: Performed By: #### C BC, BMP ####[place] [id number] [place] [id number] [facility] Creatinine [Mass/volume] in Serum or PlasmaOrdered By: Dexter Bowers on 10-11-2024 Creatinine [Mass/Vol] Creatinine [Mass/v olume] in Serum or Plasma High 0.70-1.30 [facility] Eosinophils Auto (Bld) [#/Vo l]Ordered By: Ehab Eltahawnolvia on 10-11-2024 Eosinophils (Bld) [#/Vol] Automated eosinophil count 0.0-0.45 [facility] Eosinophils/100 WBC Auto (Bl d)Ordered By: Ehab Eltahawy on 10-11-2024 Eosinophils/100 WBC (Bld) Automated eosinophil % . [facility] Erythrocyte distribution wid th Auto (RBC) [Ratio]Ordered By: Ehab Frankhawnolvia on 10-11-2024 Erythrocyte distribution width (RBC) [Ratio] Erythrocyte distribution width [Ratio] by Automated count 12.0-14.8 [facility] Glucose [Mass/volume] in Ser um or PlasmaOrdered By: Ehab Eltahawnolvia on 10-11-2024 Glucose [Mass/Vol] Glucose [Mass/volume ] in Serum or Plasma High 70-100 [facility] Comment on above: ADA recommended refe rence rangeRandom Glucose Reference Range is dependent on time and content of last meal. Glucose of more than 200 mg/dL in a nonstressed, ambulatory subject supports the diagnosis of Diabetes Mellitus. Hematocrit Auto (Bld) [Volum e fraction]Ordered By: ab Bowers on 10-11-2024 Hematocrit (Bld) [Volume fraction] Hematocrit [Volume Fraction] of Blood by Automated count Low 38.8-50.0 [facility] Hemoglobin [Mass/volume] in BloodOrdered By: ab Bowers on 10-11-2024 Hemoglobin (Bld) [Mass/Vol] Hemoglobin [Mass/volume] in Blood Low 13.0-17.0 [facility] Leukocytes [#/volume] correc maria teresa for nucleated erythrocytes in Blood by Automated counOrdered By: ab Bowers on 10-11-2024 WBC corrected for nucl RBC Auto (Bld) [#/Vol] Leukocytes [#/volume] corrected for nucleated erythrocytes in Blood by Automated coun 4.1-10.5 [facility] Lymphocytes Auto (Bld) [#/Vo l]Ordered By: ab Bowers on 10-11-2024 Lymphocytes (Bld) [#/Vol] Lymphocytes [#/volume] in Blood by Automated count 1.00-4.8 [facility] Lymphocytes/100 WBC Auto (Bl d)Ordered By: ab Bowers on 10-11-2024 Lymphocytes/100 WBC (Bld) Lymphocytes/100 leukocytes in Blood by Automated count . [facility] MCH Auto (RBC) [Entitic mass ]Ordered By: ab Bowers on 10-11-2024 MCH (RBC) [Entitic mass] MCH [Entitic mass] by Automated count 27.5-35.2 [facility] MCHC Auto (RBC) [Mass/Vol]Or dered By: ab Mariehawnolvia on 10-11-2024 MCHC (RBC) [Mass/Vol] MCHC [Mass/volume] by Automated count 32.5-35.6 [facility] MCV Auto (RBC) [Entitic vol] Ordered By: Dexter Bowers on 10-11-2024 MCV (RBC) [Entitic vol] MCV [Entitic volume] by Automated count 83.5-101 [facility] Monocytes Auto (Bld) [#/Vol] Ordered By: Dexter Bowers on 10-11-2024 Monocytes (Bld) [#/Vol] Automated blood monocyte count High 0.0-0.8 [facility] Monocytes/100 WBC Auto (Bld) Ordered By: Dexter Bowers on 10-11-2024 Monocytes/100 WBC (Bld) Automated monocyte % . [facility] Neutrophils Auto (Bld) [#/Vo l]Ordered By: Dexter Bowers on 10-11-2024 Neutrophils (Bld) [#/Vol] Neutrophils [#/volume] in Blood by Automated count 1.8-7.7 [facility] Neutrophils/100 WBC Auto (Bl d)Ordered By: Dexter Bowers on 10-11-2024 Neutrophils/100 WBC (Bld) Automated neutrophil % . [facility] No Panel InformationOrdered By: Dexter Bowers on 10-11-2024 Estimated GFR (CKD-EPI) 10.790 mL/Min [facility] Creatinine Clearance (Chem N/A [facility] Nucleated erythrocytes [Pres ence] in Blood by Automated countOrdered By: Dexter Bowers on 10-11-2024 Nucleated RBC Auto Ql (Bld) Nucleated erythrocytes [Presence] in Blood by Automated count 0-0.5 [facility] Platelet mean volume Auto (B ld) [Entitic vol]Ordered By: Dexter Bowers on 10-11-2024 Platelet mean volume (Bld) [Entitic vol] Platelet mean volume [Entitic volume] in Blood by Automated count 6.6-10.1 [facility] Platelets Auto (Bld) [#/Vol] Ordered By: Dexter Bowers on 10-11-2024 Platelets (Bld) [#/Vol] Platelets [#/volume] in Blood by Automated count Low 150-450 [facility] Potassium [Moles/volume] in Serum or PlasmaOrdered By: Dexter Bowers on 10-11-2024 Potassium [Moles/Vol] Potassium [Moles/v olume] in Serum or Plasma 3.5-5.1 [facility] RBC Auto (Bld) [#/Vol]Ordere d By: Dexter Bowers on 10-11-2024 RBC (Bld) [#/Vol] Erythrocytes [#/volu me] in Blood by Automated count Low 3.90-5.60 [facility] Serum or plasma anion gap de terminationOrdered By: Dexter Bowers on 10-11-2024 Anion gap [Moles/Vol] Serum or plasma an ion gap determination 6.0-15.0 [facility] Sodium [Moles/volume] in Ser um or PlasmaOrdered By: Dexter Bowers on 10-11-2024 Sodium [Moles/Vol] Sodium [Moles/volume ] in Serum or Plasma Low 136-145 [facility] Urea nitrogen [Mass/volume] in Serum or PlasmaOrdered By: Dexter Bowers on 10-11-2024 Urea nitrogen [Mass/Vol] Urea nitrogen [Mass/volume] in Serum or Plasma 7-25 [facility] WBC Auto (Bld) [#/Vol]Ordere d By: Dexter Bowers on 10-11-2024 WBC (Bld) [#/Vol] Leukocytes [#/volume ] in Blood by Automated count 4.1-10.5 [facility] HPon 10-09-2024 [facility] Cardiology Clinic Note Chief Complaint: New patient here to establish care. Self ref for SOB. He was seen at [facility] last month for SOB. Says he had a heart attack during surgery 40 years ago. Gets left-sided chest pain with the SOB at times. 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 Says he's only ever followed up with Dr. Mendoza for cardiology care. He is a dialysis patient. HPI: Vj Cárdenas is a 74 y.o. male With a history of coronary artery disease, end-stage renal disease, hypertension here to establish care. His is also my patient. Per ER notes: 74-year-old male presenting with shortness of breath for a few hours. Has had cough/cold symptoms for the last week and congestion. Has history of end-stage renal disease on dialysis. His fistula is working fine. He is no longer feeling short of breath or congested. No lightheadedness or dizziness. No new swelling of the lower extremities. Ultimately diagnosed with a URI; given a cough syrup and tablets and discharged Past medical history: End-stage renal disease, dialysis 3 times a week, obstructive sleep apnea, neuropathy, depression, back pain, arthritis, migraine, benign prostatic hypertrophy, diverticulitis, gastroesophageal reflux disease, dyslipidemia, hypertension, hypothyroidism, myocardial infarction Family history: Mother had a history of coronary artery disease and myocardial infarction as did his father Social history: Never smoked, alcohol occasionally Currently; Symptoms that he had when he went to the emergency room have improved. However, he continues to have left-sided chest pain with and without exertion. He was has exertional shortness of breath when walking from his car to the office. He sleeps in a recliner. He denies paroxysmal nocturnal dyspnea. He has no significant lower extremity edema. He does have occasional lightheadedness and dizziness. He states that when in the ER, his heart rate was in the 40s. Cardiology ROS: Review of Systems Cardiovascular: Positive for chest pain and dyspnea on exertion. Respiratory: Positive for shortness of breath. Musculoskeletal: Positive for muscle weakness. Neurological: Positive for dizziness and light-headedness. All other systems reviewed and are negative. Past Medical History He has no past medical history on file. Surgical History He has no past surgical history on file. Social History He has no history on file for tobacco use, alcohol use, and drug use. Family History No family history on file. Allergies Verapamil Medications Current Outpatient Medications: calcium acetate (Phoslo) 667 mg capsule, Take 667 mg by mouth., Disp: , Rfl: doxepin (SINEquan) 10 mg/mL solution, Take 30 mg by mouth at bedtime., Disp: , Rfl: doxycycline (Monodox) 100 mg capsule, Take 1 capsule by mouth Twice daily at 6am and 6pm., Disp: , Rfl: DULoxetine (Cymbalta) [address] capsule, Take 60 mg by mouth in the morning., Disp: , Rfl: FLUoxetine (PROzac) 10 mg capsule, Take 10 mg by mouth in the morning., Disp: , Rfl: levoFLOXacin (Levaquin) 250 mg tablet, Take 1 tablet by mouth in the morning., Disp: , Rfl: montelukast (Singulair) 10 mg tablet, Take 10 mg by mouth in the morning., Disp: , Rfl: nitrofurantoin, macrocrystal-monohydrate, (Macrobid) 100 mg capsule, Take 1 capsule by mouth in the morning., Disp: , Rfl: Renal Vitamin 0.8 mg tablet, Take 1 tablet by mouth in the morning., Disp: , Rfl: sevelamer carbonate (Renvela) 800 mg tablet, Take 800 mg by mouth with breakfast, with lunch, and with evening meal., Disp: , Rfl: allopurinol (Zyloprim) 100 mg tablet, Take 100 mg by mouth twice a day., Disp: , Rfl: amLODIPine (Norvasc) 2.5 mg tablet, Take 2.5 mg by mouth in the morning., Disp: , Rfl: calcitriol (Rocaltrol) 0.25 mcg capsule, Take 0.25 mcg by mouth in the morning., Disp: , Rfl: carvedilol (Coreg) 6.25 mg tablet, Take 6.25 mg by mouth in the morning., Disp: , Rfl: famotidine (Pepcid) 20 mg tablet, Take 20 mg by mouth twice a day., Disp: , Rfl: furosemide (Lasix) 40 mg tablet, Take 40 mg by mouth in the morning., Disp: , Rfl: lisinopril 5 mg tablet, Take 5 mg by mouth in the morning., Disp: , Rfl: rosuvastatin 20 mg capsule, sprinkle, Take 20 mg by mouth in the morning., Disp: , Rfl: Synthroid 200 mcg tablet, Take 200 mcg by mouth before breakfast., Disp: , Rfl: Last Recorded Vitals BP 118/88 (BP Location: Left arm, Patient Position: Sitting) Pulse 100 Ht 1.727 m (5' 8 ) Wt 118 kg (260 lb) SpO2 90% BMI 39.53 kg/m??? Physical Examination: GENERAL: alert and oriented x3, well developed, in no acute distress. HEAD: atraumatic, normocephalic. EYES: JUNIOR, EOMI. NECK: trachea midline, no JVD present, no carotid bruits present. CARDIAC: S1, S2 present. Irregular. No murmur, rubs, or gallops. RESPIRATORY: CTAB, no increased effort of breathing, no rales, rhonchi, or wheezing. ABDOMEN: soft, nontender, nondis (more content not included)... Normal [facility] Office Visiton 10-09-2024 Follow-up visit [id number] Gisela Cárdenas 1950 M Date Provider Department Center 10/09/2024 Dian-DEXTER BOWERS Family History Problem Relation Age of Onset Coronary artery disease Mother Heart attack Father Family Status - Relation Status Age at Mother Father Level of Service:[address] [place] OFFICE/OUTPATIENT NEW HIGH MDM 60 MINUTES Normal [facility] Orders Onlyon 10-09-2024 Orders Only [id number] Gisela Cárdenas [place] 1950 M Date Provider Department Center 10/09/2024 CHEPE GR[facility]ER [facility] Family History Problem Relation Age of Onset Coronary artery disease Mother Heart attack Father Family Status - Relation Status Age at Mother Father Normal [facility] Alanine aminotransferase [En zymatic activity/volume] in Serum or PlasmaOrdered By: Diane Murry on 09-11-2024 ALT [Catalytic activity/Vol] Alanine aminotransferase [Enzymatic activity/volume] in Serum or Plasma 7-52 [facility] Albumin [Mass/volume] in Ser um or Plasma by Bromocresol green (BCG) dye binding methoOrdered By: Diane Murry on 09-11-2024 Albumin BCG dye [Mass/Vol] Albumin [Mass/volume] in Serum or Plasma by Bromocresol green (BCG) dye binding metho 3.5-5.7 [facility] Alkaline phosphatase [Enzyma tic activity/volume] in Serum or PlasmaOrdered By: Diane Murry on 09-11-2024 ALP [Catalytic activity/Vol] Alkaline phosphatase [Enzymatic activity/volume] in Serum or Plasma 34-104 [facility] Anisocytosis LM Ql (Bld)Orde red By: Diane Murry on 09-11-2024 Anisocytosis Ql (Bld) Anisocytosis [Pres ence] in Blood by Light microscopy [facility] Aspartate aminotransferase [ Enzymatic activity/volume] in Serum or PlasmaOrdered By: Diane Murry on 09-11-2024 AST [Catalytic activity/Vol] Aspartate aminotransferase [Enzymatic activity/volume] in Serum or Plasma 13-39 [facility] B-Type Natriuretic Peptideon 09-11-2024 Natriuretic peptide B (Bld) [Mass/Vol] 190.0 pg/mL High 5-100 [facility] Comment on above: Result Comment: PERF ORMED BY: [facility] [address] [place] [address] PATHOLOGIST CEO [place] JAN ROGERS M.D. Performed By: #### H S TROP, CK, SCAN CBC, CMP, BNP ####[facility] [place] [address] [facility] Basophils Auto (Bld) [#/Vol] Ordered By: Diane Murry on 09-11-2024 Basophils (Bld) [#/Vol] Automated basophil count 0.0-0.2 [facility] Basophils/100 WBC Auto (Bld) Ordered By: Diane Murry on 09-11-2024 Basophils/100 WBC (Bld) Automated basophil % . [facility] Bilirubin.total [Mass/volume ] in Serum or PlasmaOrdered By: Diane Murry on 09-11-2024 Bilirubin [Mass/Vol] Bilirubin.total [Mass/volume] in Serum or Plasma 0.3-1.0 [facility] COVID Cepheid NegativeOrdere d By: Diane Murry on 09-11-2024 SARS-CoV-2 (COVID-19) Ab IA Ql COVID Cepheid Negative [facility] Comment on above: This is a duplicate Cepheid Xpert Xpress CoV-2/Flu/RSV Plus RNA by RT-PCR result to be used for statistical tracking purpose only. COVID-19 / Flu A/B / RSV PCR on 09-11-2024 SARS-CoV-2 (COVID-19) RNA MARK+probe Ql (Unsp spec) COVID-19 Cepheid Result Negative for SARS-CoV-2 RNA by RT-PCR Flu A Cepheid Result Negative for Flu A RNA by RT-PCR Flu B Cepheid Result Negative for Flu B RNA by RT-PCR RSV Cepheid Result Negative for RSV RNA by RT-PCR COVID19 Blank Space ---- Reference: Negative COVID19 Blank Space ---- Cepheid Disclaimer The Cepheid Xpert Xpress CoV-2/Flu/RSV Plus has Cepheid Disclaimer not been FDA cleared or approved; this test has Cepheid Disclaimer been authorized by FDA under an EUA for use by Cepheid Disclaimer authorized laboratories; this test has been Cepheid Disclaimer authorized only for the simultaneous qualitative Cepheid Disclaimer detection and differentiation of nucleic acids from Cepheid Disclaimer SARS-CoV-2, influenza A, influenza B, and Cepheid Disclaimer respiratory syncytial virus (RSV), and not for any Cepheid Disclaimer other viruses or pathogens; and this test is only Cepheid Disclaimer authorized for the duration of the declaration that Cepheid Disclaimer circumstances exist justifying the authorization of Cepheid Disclaimer emergency use of in vitro diagnostic tests for Cepheid Disclaimer detection and/or diagnosis of COVID-19 under Cepheid Disclaimer Section 564(b)(1) of the Act, 21 U.S.C. 360bbb- Cepheid Disclaimer 3(b)(1), unless the authorization is terminated or Cepheid Disclaimer revoked sooner. PERFORMED BY: [facility] [address] [place] [address] PATHOLOGIST CEO [place] JAN ROGERS M.D. Normal [facility] Comment on above: Performed By: #### C EPHEID NEG, COVID19 FLU RSV #### [place] [id number] [facility] Calcium [Mass/volume] in Ser um or PlasmaOrdered By: Diane Murry on 09-11-2024 Calcium [Mass/Vol] Calcium [Mass/volume ] in Serum or Plasma 8.6-10.3 [facility] Carbon dioxide, total [Moles /volume] in Serum or PlasmaOrdered By: Diane Murry on 09-11-2024 CO2 [Moles/Vol] Carbon dioxide, tota l [Moles/volume] in Serum or Plasma 21.0-31.0 [facility] Cepheid COVID PCR Negativeon 09-11-2024 SARS-CoV-2 (COVID-19) RNA MARK+probe Ql (Unsp spec) Negative Normal Negative [facility] Comment on above: Result Comment: This is a duplicate Cepheid Xpert Xpress CoV-2/Flu/RSV Plus RNA by RT-PCR result to be used for statistical tracking purpose only. PERFORMED BY: [facility] [address] [place] [address] PATHOLOGIST CEO [place] JAN ROGERS M.D. Performed By: #### C EPHEID NEG, COVID19 FLU RSV #### [address] Chloride [Moles/volume] in S reji or PlasmaOrdered By: Diane Murry on 09-11-2024 Chloride [Moles/Vol] Chloride [Moles/vol ume] in Serum or Plasma Low 98-107 [facility] Comprehensive Metabolic Pane piotr 09-11-2024 Albumin [Mass/Vol] 4.3 g/dL Normal 3.5-5.7 [facility] Comment on above: Performed By: #### H S TROP, CK, SCAN CBC, CMP, BNP ####[place] [id number] [address] Albumin/Globulin [Mass ratio] 1.4 {ratio} Normal [facility] Comment on above: Performed By: #### H S TROP, CK, SCAN CBC, CMP, BNP ####[place] [id number] [address] ALP [Catalytic activity/Vol] 73 U/L Normal 34-104 [facility] Comment on above: Performed By: #### H S TROP, CK, SCAN CBC, CMP, BNP ####[place] [address] ALT [Catalytic activity/Vol] 26 U/L Normal 7-52 [facility] Comment on above: Performed By: #### H S TROP, CK, SCAN CBC, CMP, BNP ####[address] Anion gap [Moles/Vol] 15.5 mmol/L High 6.0-15.0 [facility] Comment on above: Performed By: #### H S TROP, CK, SCAN CBC, CMP, BNP ####[address] AST [Catalytic activity/Vol] 24 U/L Normal 13-39 [facility] Comment on above: Performed By: #### H S TROP, CK, SCAN CBC, CMP, BNP ####[address] Bilirubin [Mass/Vol] 0.4 mg/dL Normal 0.3-1.0 [facility] Comment on above: Performed By: #### H S TROP, CK, SCAN CBC, CMP, BNP ####[address] Calcium [Mass/Vol] 9.8 mg/dL Normal 8.6-10.3 [facility] Comment on above: Performed By: #### H S TROP, CK, SCAN CBC, CMP, BNP ####[address] Chloride [Moles/Vol] 94 mmol/L Low 98-107 [facility] Comment on above: Performed By: #### H S TROP, CK, SCAN CBC, CMP, BNP ####[address] CO2 [Moles/Vol] 28.8 mmol/L Normal 21.0-31.0 [facility] Comment on above: Performed By: #### H S TROP, CK, SCAN CBC, CMP, BNP ####[address] Creatinine [Mass/Vol] 5.35 mg/dL High 0.70-1.30 [facility] Comment on above: Performed By: #### H S TROP, CK, SCAN CBC, CMP, BNP ####[address] Creatinine Clr Calc Pharmacy 15.14 Normal [facility] Comment on above: Result Comment: PERF ORMED BY: [facility] [address] [place] [address] PATHOLOGIST CEO [place] JAN ROGERS M.D. Performed By: #### H S TROP, CK, SCAN CBC, CMP, BNP ####[address] Estimated GFR 10.622 mL/Min Normal [facility] Comment on above: Performed By: #### H S TROP, CK, SCAN CBC, CMP, BNP ####[address] Globulin (S) [Mass/Vol] 3.0 g/dL Normal [facility] Comment on above: Performed By: #### H S TROP, CK, SCAN CBC, CMP, BNP ####[address] Glucose [Mass/Vol] 101 mg/dL High 70-100 [facility] Comment on above: Result Comment: [place] Glucose Reference Range is dependent on time and content of last meal. Glucose of more than 200 mg/dL in a nonstressed, ambulatory subject supports the diagnosis of Diabetes Mellitus. ADA recommended reference range Performed By: #### H S TROP, CK, SCAN CBC, CMP, BNP ####[address] Potassium [Moles/Vol] 4.3 mmol/L Normal 3.5-5.1 [facility] Comment on above: Result Comment: Hemo lysis is present at a level that could interfere with the result. Contact lab if redraw is required Performed By: #### H S TROP, CK, SCAN CBC, CMP, BNP ####[address] Protein [Mass/Vol] 7.3 g/dL Normal 6.4-8.9 [facility] Comment on above: Performed By: #### H S TROP, CK, SCAN CBC, CMP, BNP ####[facility] Sodium [Moles/Vol] 134 mmol/L Low 136-145 [facility] Comment on above: Performed By: #### H S TROP, CK, SCAN CBC, CMP, BNP ####[facility] Urea nitrogen [Mass/Vol] 26 mg/dL High 7-25 [facility] Comment on above: Performed By: #### H S TROP, CK, SCAN CBC, CMP, BNP ####[facility] Creatine Kinaseon 09-11-2024 CK [Catalytic activity/Vol] 37 U/L Normal 30-223 [facility] Comment on above: Performed By: #### H S TROP, CK, SCAN CBC, CMP, BNP #### [facility] [address] Creatine kinase [Enzymatic a ctivity/volume] in Serum or PlasmaOrdered By: Diane Murry on 09-11-2024 CK [Catalytic activity/Vol] Creatine kinase [Enzymatic activity/volume] in Serum or Plasma 30-223 [facility] Creatinine [Mass/volume] in Serum or PlasmaOrdered By: Diane Murry on 09-11-2024 Creatinine [Mass/Vol] Creatinine [Mass/v olume] in Serum or Plasma High 0.70-1.30 [facility] ECG 12 lead ECGon 09-11-2024 ECG 12 lead ECG [facility] [address] [address] [place] [address] Electrocardiograph Report Signed Patient: Vj Cárdenas MR#: [id number] : 1950 Acct:[id number] Age/Sex: 74 / M ADM Date: 09/11/24 Loc: ER Room: Type: [facility] ER Attending Dr: Ordering Provider: Diane Murry DO Date of Service: 09/11/2406/26/2006 ECG/ECG 12 lead ECG: Shortness of Breath/Dyspnea Copies to: Test Reason : Blood Pressure : 142/65 mmHG Vent. Rate : 67 BPM Atrial Rate : 94 BPM P-R Int : * ms QRS Dur : 84 ms QT Int : 464 ms P-R-T Axes : 65 20 125 degrees QTcB Int : 490 ms Sinus rhythm with 2nd degree AV block (Mobitz I) with occasional premature ventricular complexes Prolonged QT Abnormal ECG When compared with ECG of 11-Jun-2022 14:20, premature ventricular complexes are now present Sinus rhythm is now with 2nd degree AV block (Mobitz I) Nonspecific T wave abnormality has replaced inverted T waves in Anterior leads Confirmed by DIANE MURRY DO ([id number]) on 09/12/2024 6:20:16 AM Referred By: Electronically Signed By: DIANE MURRY DO Transcribed By: MUS Signed By Diane Murry DO 0620 Normal [facility] Eosinophils Auto (Bld) [#/Vo l]Ordered By: Diane Murry on 09-11-2024 Eosinophils (Bld) [#/Vol] Automated eosinophil count 0.0-0.45 [facility] Eosinophils/100 WBC Auto (Bl d)Ordered By: Diane Murry on 09-11-2024 Eosinophils/100 WBC (Bld) Automated eosinophil % . [facility] Erythrocyte distribution wid th Auto (RBC) [Ratio]Ordered By: Diane Murry on 09-11-2024 Erythrocyte distribution width (RBC) [Ratio] Erythrocyte distribution width [Ratio] by Automated count 12.0-14.8 [facility] Erythrocyte morphology findi ng [Identifier] in BloodOrdered By: Diane Murry on 09-11-2024 RBC morphology finding Nom (Bld) RBC morphology [facility] Globulin Calc (S) [Mass/Vol] Ordered By: Diane Murry on 09-11-2024 Globulin (S) [Mass/Vol] Serum globulin measurement by calculation (mass/volume) [facility] Glucose [Mass/volume] in Ser um or PlasmaOrdered By: Diane Murry on 09-11-2024 Glucose [Mass/Vol] Glucose [Mass/volume ] in Serum or Plasma High 70-100 [facility] Comment on above: ADA recommended refe rence rangeRandom Glucose Reference Range is dependent on time and content of last meal. Glucose of more than 200 mg/dL in a nonstressed, ambulatory subject supports the diagnosis of Diabetes Mellitus. Hematocrit Auto (Bld) [Volum e fraction]Ordered By: Diane Murry on 09-11-2024 Hematocrit (Bld) [Volume fraction] Hematocrit [Volume Fraction] of Blood by Automated count Low 38.8-50.0 [facility] Hemoglobin [Mass/volume] in BloodOrdered By: Diane Murry on 09-11-2024 Hemoglobin (Bld) [Mass/Vol] Hemoglobin [Mass/volume] in Blood Low 13.0-17.0 [facility] Leukocytes [#/volume] correc maria teresa for nucleated erythrocytes in Blood by Automated counOrdered By: Diane Murry on 09-11-2024 WBC corrected for nucl RBC Auto (Bld) [#/Vol] Leukocytes [#/volume] corrected for nucleated erythrocytes in Blood by Automated coun High 4.1-10.5 [facility] Lymphocytes Auto (Bld) [#/Vo l]Ordered By: Diane Murry on 09-11-2024 Lymphocytes (Bld) [#/Vol] Lymphocytes [#/volume] in Blood by Automated count 1.00-4.8 [facility] Lymphocytes/100 WBC Auto (Bl d)Ordered By: Diane Murry on 09-11-2024 Lymphocytes/100 WBC (Bld) Lymphocytes/100 leukocytes in Blood by Automated count . [facility] MCH Auto (RBC) [Entitic mass ]Ordered By: Diane Murry on 09-11-2024 MCH (RBC) [Entitic mass] MCH [Entitic mass] by Automated count 27.5-35.2 [facility] MCHC Auto (RBC) [Mass/Vol]Or dered By: Diane Murry on 09-11-2024 MCHC (RBC) [Mass/Vol] MCHC [Mass/volume] by Automated count 32.5-35.6 [facility] MCV Auto (RBC) [Entitic vol] Ordered By: Diane Murry on 09-11-2024 MCV (RBC) [Entitic vol] MCV [Entitic volume] by Automated count 83.5-101 [facility] Monocyte distribution width [Entitic volume] in Blood by AutomatedOrdered By: Diane Murry on 09-11-2024 Monocyte distribution width Auto (Bld) [Entitic vol] Monocyte distribution width [Entitic volume] in Blood by Automated 0.00-20.00 [facility] Monocytes Auto (Bld) [#/Vol] Ordered By: Diane Murry on 09-11-2024 Monocytes (Bld) [#/Vol] Automated blood monocyte count High 0.0-0.8 [facility] Monocytes/100 WBC Auto (Bld) Ordered By: Diane Murry on 09-11-2024 Monocytes/100 WBC (Bld) Automated monocyte % . [facility] Natriuretic peptide B [Mass/ Vol]Ordered By: Diane Murry on 09-11-2024 Natriuretic peptide B (Bld) [Mass/Vol] BNP ser/plas High 5-100 [facility] Neutrophils Auto (Bld) [#/Vo l]Ordered By: Diane Murry on 09-11-2024 Neutrophils (Bld) [#/Vol] Neutrophils [#/volume] in Blood by Automated count High 1.8-7.7 [facility] Neutrophils/100 WBC Auto (Bl d)Ordered By: Diane Murry on 09-11-2024 Neutrophils/100 WBC (Bld) Automated neutrophil % . [facility] No Panel InformationOrdered By: Diane Murry on 09-11-2024 Estimated GFR (CKD-EPI) 10.622 mL/Min [facility] Creatinine Clearance (Chem 15.14 [facility] Nucleated erythrocytes [Pres ence] in Blood by Automated countOrdered By: Diane Murry on 09-11-2024 Nucleated RBC Auto Ql (Bld) Nucleated erythrocytes [Presence] in Blood by Automated count 0-0.5 [facility] Ovalocytes [Presence] in Blo od by Light microscopyOrdered By: Diane Murry on 09-11-2024 Ovalocytes LM Ql (Bld) Ovalocyte detection [facility] Platelet adequacy [Presence] in Blood by Light microscopyOrdered By: Diane Murry on 09-11-2024 Platelets LM Ql (Bld) Platelet adequacy [Presence] in Blood by Light microscopy Normal [facility] Platelet mean volume Auto (B ld) [Entitic vol]Ordered By: Diane Murry on 09-11-2024 Platelet mean volume (Bld) [Entitic vol] Platelet mean volume [Entitic volume] in Blood by Automated count 6.6-10.1 [facility] Platelet morphology finding [Identifier] in BloodOrdered By: Diane Murry on 09-11-2024 Platelet morphology finding Nom (Bld) Platelet morphology finding [Identifier] in Blood Normal [facility] Platelets Auto (Bld) [#/Vol] Ordered By: Diane Murry on 09-11-2024 Platelets (Bld) [#/Vol] Platelets [#/volume] in Blood by Automated count 150-450 [facility] Poikilocytosis [Presence] in Blood by Light microscopyOrdered By: Diane Murry on 09-11-2024 Poikilocytosis LM Ql (Bld) Poikilocytosis [Presence] in Blood by Light microscopy [facility] Polychromasia [Presence] in Blood by Light microscopyOrdered By: Diane Murry on 09-11-2024 Polychromasia LM Ql (Bld) Polychromasia [Presence] in Blood by Light microscopy [facility] Potassium [Moles/volume] in Serum or PlasmaOrdered By: Diane Murry on 09-11-2024 Potassium [Moles/Vol] Potassium [Moles/v olume] in Serum or Plasma 3.5-5.1 [facility] Comment on above: Hemolysis is present at a level that could interfere with the result.Contact lab if redraw is required Protein [Mass/volume] in Ser um or PlasmaOrdered By: Diane Murry on 09-11-2024 Protein [Mass/Vol] Protein [Mass/volume ] in Serum or Plasma 6.4-8.9 [facility] RBC Auto (Bld) [#/Vol]Ordere d By: Diane Murry on 09-11-2024 RBC (Bld) [#/Vol] Erythrocytes [#/volu me] in Blood by Automated count Low 3.90-5.60 [facility] Respiratory specimen influen za A virus, influenza B virus, respiratory syncytical virOrdered By: Diane Murry on 09-11-2024 SARS-CoV-2 (COVID-19) RNA MARK+probe Ql (Unsp spec) Respiratory specimen influenza A virus, influenza B virus, respiratory syncytical vir [facility] Scan and CBCon 09-11-2024 Anisocytosis Ql (Bld) Slight Normal [facility] Comment on above: Performed By: #### H S TROP, CK, SCAN CBC, CMP, BNP ####[address] Basophils (Bld) [#/Vol] 0.1 10*3/uL Normal 0.0-0.2 [facility] Comment on above: Performed By: #### H S TROP, CK, SCAN CBC, CMP, BNP ####[address] Basophils/100 WBC (Bld) 0.8 % Normal . [facility] Comment on above: Performed By: #### H S TROP, CK, SCAN CBC, CMP, BNP ####[address] Eosinophils (Bld) [#/Vol] 0.2 10*3/uL Normal 0.0-0.45 [facility] Comment on above: Performed By: #### H S TROP, CK, SCAN CBC, CMP, BNP ####[address] Eosinophils/100 WBC (Bld) 1.4 % Normal . [facility] Comment on above: Performed By: #### H S TROP, CK, SCAN CBC, CMP, BNP ####[address] Erythrocyte distribution width (RBC) [Ratio] 14.6 % Normal 12.0-14.8 [facility] Comment on above: Performed By: #### H S TROP, CK, SCAN CBC, CMP, BNP ####[address] Hematocrit (Bld) [Volume fraction] 35.9 % Low 38.8-50.0 [facility] Comment on above: Performed By: #### H S TROP, CK, SCAN CBC, CMP, BNP ####[address] Hemoglobin (Bld) [Mass/Vol] 12.3 g/dL Low 13.0-17.0 [facility] Comment on above: Performed By: #### H S TROP, CK, SCAN CBC, CMP, BNP ####[address] Lymphocytes (Bld) [#/Vol] 1.2 10*3/uL Normal 1.00-4.8 [facility] Comment on above: Performed By: #### H S TROP, CK, SCAN CBC, CMP, BNP ####[address] Lymphocytes/100 WBC (Bld) 9.1 % Normal . [facility] Comment on above: Performed By: #### H S TROP, CK, SCAN CBC, CMP, BNP ####[address] MCH (RBC) [Entitic mass] 33.2 pg Normal 27.5-35.2 [facility] Comment on above: Performed By: #### H S TROP, CK, SCAN CBC, CMP, BNP ####[address] MCV (RBC) [Entitic vol] 96.8 fL Normal 83.5-101 [facility] Comment on above: Performed By: #### H S TROP, CK, SCAN CBC, CMP, BNP ####[address] Mean Corpuscular HGB Conc 34.3 g/dL Normal 32.5-35.6 [facility] Comment on above: Performed By: #### H S TROP, CK, SCAN CBC, CMP, BNP ####[address] Monocytes (Bld) [#/Vol] 1.1 10*3/uL High 0.0-0.8 [facility] Comment on above: Performed By: #### H S TROP, CK, SCAN CBC, CMP, BNP ####[address] Monocytes/100 WBC (Bld) 18.78 % Normal 0.00-20.00 [facility] Comment on above: Performed By: #### H S TROP, CK, SCAN CBC, CMP, BNP ####[address] Monocytes/100 WBC (Bld) 8.9 % Normal . [facility] Comment on above: Performed By: #### H S TROP, CK, SCAN CBC, CMP, BNP ####[address] Neutrophils (Bld) [#/Vol] 10.3 10*3/uL High 1.8-7.7 [facility] Comment on above: Performed By: #### H S TROP, CK, SCAN CBC, CMP, BNP ####[address] Neutrophils/100 WBC (Bld) 79.8 % Normal . [facility] Comment on above: Performed By: #### H S TROP, CK, SCAN CBC, CMP, BNP ####[address] NRBC% 0.1 /100{WBC} Normal 0-0.5 [facility] Comment on above: Performed By: #### H S TROP, CK, SCAN CBC, CMP, BNP ####[address] Ovalocytes Slight Normal [facility] Comment on above: Performed By: #### H S TROP, CK, SCAN CBC, CMP, BNP ####[address] Platelet Estimate Normal Normal Normal [facility] Comment on above: Performed By: #### H S TROP, CK, SCAN CBC, CMP, BNP ####[address] Platelet mean volume (Bld) [Entitic vol] 9.3 fL Normal 6.6-10.1 [facility] Comment on above: Performed By: #### H S TROP, CK, SCAN CBC, CMP, BNP ####[address] Platelet Morphology Normal Normal Normal [facility] Comment on above: Result Comment: PERF ORMED BY: [facility] [address] [place] [address] PATHOLOGIST CEO [place] JAN ROGERS M.D. Performed By: #### H S TROP, CK, SCAN CBC, CMP, BNP ####[address] Platelets (Bld) [#/Vol] 210 10*3/uL Normal 150-450 [facility] Comment on above: Performed By: #### H S TROP, CK, SCAN CBC, CMP, BNP ####[address] Poikilocytosis Slight Normal [facility] Comment on above: Performed By: #### H S TROP, CK, SCAN CBC, CMP, BNP ####[address] Polychromasia Slight Normal [facility] Comment on above: Performed By: #### H S TROP, CK, SCAN CBC, CMP, BNP ####[address] RBC (Bld) [#/Vol] 3.71 10*6/uL Low 3.90-5.60 [facility] Comment on above: Performed By: #### H S TROP, CK, SCAN CBC, CMP, BNP ####[address] WBC (Bld) [#/Vol] 12.9 10*3/uL High 4.1-10.5 [facility] Comment on above: Performed By: #### H S TROP, CK, SCAN CBC, CMP, BNP ####[facility] [place] [id number] [facility] Serum or plasma albumin/glob ulin mass ratioOrdered By: Diane Murry on 09-11-2024 Albumin/Globulin [Mass ratio] Serum or plasma albumin/globulin mass ratio [facility] Serum or plasma anion gap de terminationOrdered By: Diane Murry on 09-11-2024 Anion gap [Moles/Vol] Serum or plasma an ion gap determination High 6.0-15.0 [facility] Sodium [Moles/volume] in Ser um or PlasmaOrdered By: Diane Murry on 09-11-2024 Sodium [Moles/Vol] Sodium [Moles/volume ] in Serum or Plasma Low 136-145 [facility] Troponin I High Sensitivityo n 09-11-2024 Troponin I High Sensitivity 14 Normal 0-20 [facility] Comment on above: Result Comment: The Troponin units of report have been changed to meet the Chest Pain Accreditation requirement, element EC5.M1l2. Troponin units are changed from pg/ml to ng/L. Also, the decimal is removed and results are in whole numbers. PERFORMED BY: [facility] [address] [facility] [place] [address] PATHOLOGIST CEO [place] JAN ROGERS M.D. Performed By: #### H S TROP, CK, SCAN CBC, CMP, BNP ####[facility] [place] [id number] [facility] Troponin I.cardiac [Mass/vol ume] in Serum or Plasma by Detection limit <= 0.01 ng/Ordered By: Diane Murry on 09-11-2024 Troponin I.cardiac DL <= 0.01 ng/mL [Mass/Vol] Troponin I.cardiac [Mass/volume] in Serum or Plasma by Detection limit <= 0.01 ng/ 0-20 [facility] Comment on above: The Troponin units o f report have been changed to meet the Chest Pain Accreditation requirement, element EC5.M1l2. Troponin units are changed from pg/ml to ng/L. Also, the decimal is removed and results are in whole numbers. Urea nitrogen [Mass/volume] in Serum or PlasmaOrdered By: Diane Murry on 09-11-2024 Urea nitrogen [Mass/Vol] Urea nitrogen [Mass/volume] in Serum or Plasma High 7-25 [facility] WBC Auto (Bld) [#/Vol]Ordere d By: Diane Murry on 09-11-2024 WBC (Bld) [#/Vol] Leukocytes [#/volume ] in Blood by Automated count High 4.1-10.5 [facility] X-ray reportOrdered By: Eric Canales on 09-11-2024 Study report [facility] Main [place] [id number] XRay Report Signed Patient: Vj Cárdenas MR#: [id number] : 1950 Acct:[id number] Age/Sex: 74 / M ADM Date: 5 Loc: ER Room: Type: [facility] ER Attending Dr: Copies to: Diane Murry DO~ Ordering Provider: Diane Murry DO Date of Service: 09/11/24 XR/XR chest 2V*: Shortness of Breath/Dyspnea Plain film chest and two-view HISTORY: Shortness of breath today. Cough and congestion COMPARISON: 06/11/2022 FINDINGS: SUPPORT DEVICES: None POSTSURGICAL CHANGES: None HEART: Within normal limits PULMONARY QUEENIE: Within normal limits MEDIASTINUM: Unremarkable LUNGS AND PLEURA: No acute lung process, pleural effusion or pneumothorax identified. BONY STRUCTURES: Thoracic hyperostosis ADDITIONAL FINDINGS None XR/XR chest 2V* IMPRESSION: No acute process. Impression dictated by: Jair Canales M.D.09/11/2024 8:52 PM Dictation Location: [facility]20 Transcribed By: [facility] 09/11/242051 Dictated By: Jair Canales DO 09/11/242050 Signed By: 09/11/242051 [facility] XR chest 2V*on 09-11-2024 XR chest 2V* [place] [id number] XRay Report Signed Patient: Vj Cárdenas MR#: [id number] : 1950 Acct:[id number] Age/Sex: 74 / M ADM Date: 09/11/24 Loc: ER Room: Type: [facility] ER Attending Dr: Copies to: Diane Murry DO Ordering Provider: Diane Murry DO Date of Service: 09/11/24 XR/XR chest 2V*: Shortness of Breath/Dyspnea Plain film chest and two-view HISTORY: Shortness of breath today. Cough and congestion COMPARISON: 06/11/2022 FINDINGS: SUPPORT DEVICES: None POSTSURGICAL CHANGES: None HEART: Within normal limits PULMONARY QUEENIE: Within normal limits MEDIASTINUM: Unremarkable LUNGS AND PLEURA: No acute lung process, pleural effusion or pneumothorax identified. BONY STRUCTURES: Thoracic hyperostosis ADDITIONAL FINDINGS None XR/XR chest 2V* IMPRESSION: No acute process. Impression dictated by: Jair Canales M.D.09/11/2024 8:52 PM Dictation Location: [employer]-20 Transcribed By: [facility] 09/11/242051 Dictated By: Jair Canales DO 09/11/242050 Signed By: 09/11/242051 Normal [facility] No Panel Informationon 02-26 [facility] Automated basophil %Ordered By: Ector Berg on 12-08-2023 Basophils/100 WBC (Bld) 0.5 % Normal . [facility] Comment on above: Performed By: #### C JUDITH, CUBLD #### [address] Automated basophil countOrde red By: Ector Berg on 12-08-2023 Basophils (Bld) [#/Vol] 0.0 10*3/uL Normal 0.0-0.2 [facility] Comment on above: Result Comment: PERF ORMED BY: [place] [address] PATHOLOGIST CEO [place] EARNEST SCHUSTER M.D. Performed By: #### C JUDITH, CUBLD #### [facility] [address] [place] [address] Automated blood monocyte cou ntOrdered By: Ector Berg on 12-08-2023 Monocytes (Bld) [#/Vol] 0.7 10*3/uL Normal 0.0-0.8 [facility] Comment on above: Performed By: #### C JUDITH, CUBLD #### [address] Automated eosinophil %Ordere d By: Ector Tanya on 12-08-2023 Eosinophils/100 WBC (Bld) 1.6 % Normal . [facility] Comment on above: Performed By: #### C JUDITH, CUBLD #### [address] Automated eosinophil countOr dered By: Ector Tanya on 12-08-2023 Eosinophils (Bld) [#/Vol] 0.1 10*3/uL Normal 0.0-0.45 [facility] Comment on above: Performed By: #### C JUDITH, CUBLD #### [address] Automated monocyte %Ordered By: Ector Tanya on 12-08-2023 Monocytes/100 WBC (Bld) 8.3 % Normal . [facility] Comment on above: Performed By: #### C JUDITH, CUBLD #### [address] Automated neutrophil %Ordere d By: Ector Tanya on 12-08-2023 Neutrophils/100 WBC (Bld) 79.9 % Normal . [facility] Comment on above: Performed By: #### C JUDITH, CUBLD #### [address] Blood Cultureon 12-08-2023 Bacteria identified Cx Nom (Bld) NO GROWTH 5 DAYS PERFORMED BY: [place] [address] PATHOLOGIST CEO [place] EARNEST SCHUSTER M.D. Normal [facility] Comment on above: Performed By: #### C BC, CUBLD #### [address] Bacteria identified Cx Nom (Bld) NO GROWTH 5 DAYS PERFORMED BY: [place] [address] PATHOLOGIST CEO [place] EARNEST SCHUSTER M.D. Normal [facility] Comment on above: Performed By: #### C BC, CUBLD #### [address] Complete Blood Count Auto Di ffon 12-08-2023 Mean Corpuscular HGB Conc 34.4 g/dL Normal 32.5-35.6 [facility] Comment on above: Performed By: #### C BC, CUBLD #### [address] NRBC% 0.0 /100{WBC} Normal 0-0.5 [facility] Comment on above: Performed By: #### C BC, CUBLD #### [address] Erythrocyte distribution wid th [Ratio] by Automated countOrdered By: Ector Tanya on 12-08-2023 Erythrocyte distribution width (RBC) [Ratio] 14.6 % Normal 12.0-14.8 [facility] Comment on above: Performed By: #### C BC, CUBLD #### [address] Erythrocytes [#/volume] in B lood by Automated countOrdered By: Ector Tanya on 12-08-2023 RBC (Bld) [#/Vol] 3.10 10*6/uL Low 3.90-5.60 [facility] Comment on above: Performed By: #### C BC, CUBLD #### [address] Hematocrit [Volume Fraction] of Blood by Automated countOrdered By: Ector Tanya on 12-08-2023 Hematocrit (Bld) [Volume fraction] 29.9 % Low 38.8-50.0 [facility] Comment on above: Performed By: #### C BC, CUBLD #### [address] Hemoglobin [Mass/volume] in BloodOrdered By: Ector Tanya on 12-08-2023 Hemoglobin (Bld) [Mass/Vol] 10.3 g/dL Low 13.0-17.0 [facility] Comment on above: Performed By: #### C JUDITH, MELINDALD #### [facility] [address] Leukocytes [#/volume] correc maria teresa for nucleated erythrocytes in Blood by Automated counOrdered By: Ector Tanya on 12-08-2023 WBC corrected for nucl RBC Auto (Bld) [#/Vol] 8.0 10*3/uL 4.1-10.5 [facility] Leukocytes [#/volume] in Blo od by Automated countOrdered By: Ector Tanya on 12-08-2023 WBC (Bld) [#/Vol] 8.0 10*3/uL Normal 4.1-10.5 [facility] Comment on above: Performed By: #### C JUDITH, CUBLD #### [facility] [address] Lymphocytes [#/volume] in Bl ood by Automated countOrdered By: Ector Tanya on 12-08-2023 Lymphocytes (Bld) [#/Vol] 0.8 10*3/uL Low 1.00-4.8 [facility] Comment on above: Performed By: #### C JUDITH, CUBLD #### [place] [address] [place] Lymphocytes/100 leukocytes i n Blood by Automated countOrdered By: Ector Tanya on 12-08-2023 Lymphocytes/100 WBC (Bld) 9.7 % Normal . [facility] Comment on above: Performed By: #### C BC, CUBLD #### [facility] [address] [place] [address] [place] MCH [Entitic mass] by Automa maria teresa countOrdered By: Ector Tanya on 12-08-2023 MCH (RBC) [Entitic mass] 33.2 pg Normal 27.5-35.2 [facility] Comment on above: Performed By: #### C JUDITH, CUBLD #### [facility] [address] MCHC Auto (RBC) [Mass/Vol]Or dered By: Ector Mar on 12-08-2023 MCHC (RBC) [Mass/Vol] 34.4 g/dL 32.5-35.6 [facility] MCV [Entitic volume] by Auto mated countOrdered By: Ector Tanya on 12-08-2023 MCV (RBC) [Entitic vol] 96.5 fL Normal 83.5-101 [facility] Comment on above: Performed By: #### C BC, CUBLD #### [address] Neutrophils [#/volume] in Bl ood by Automated countOrdered By: Ector Mar on 12-08-2023 Neutrophils (Bld) [#/Vol] 6.4 10*3/uL Normal 1.8-7.7 [facility] Comment on above: Performed By: #### C BC, CUBLD #### [address] Nucleated erythrocytes [Pres ence] in Blood by Automated countOrdered By: Ector Berg on 12-08-2023 Nucleated RBC Auto Ql (Bld) 0.0 /100{WBC} 0-0.5 [facility] Platelet mean volume [Entiti c volume] in Blood by Automated countOrdered By: Ector Tanya on 12-08-2023 Platelet mean volume (Bld) [Entitic vol] 10.7 fL High 6.6-10.1 [facility] Comment on above: Performed By: #### C BC, CUBLD #### [address] Platelets [#/volume] in Bloo d by Automated countOrdered By: Ector Tanya on 12-08-2023 Platelets (Bld) [#/Vol] 129 10*3/uL Low 150-450 [facility] Comment on above: Performed By: #### C BC, CUBLD #### [address] ARTERIAL BLOOD GASon 024 Base excess Calc (Bld) [Moles/Vol] 3.0 mmol/L -3.0 - 3.0 mmol/L [facility] CO2 (Bld) [Partial pressure] 40 mm[Hg] [facility] HCO3 (Bld) [Moles/Vol] 27 mmol/L 22 - 28 mmol/L [facility] Oxygen (Bld) [Partial pressure] 96 mm[Hg] [facility] Oxygen saturation in Blood 98 % 94 - 98 % [facility] pH (Bld) 7.44 [pH] 7.35 - 7.45 [facility] Specimen source Nom (Unsp spec) [facility] Procedure Ordered By: Krunal Brown on 10-27-2023 Ao ASC index 1.40 cm/m2 [facility] Work Phone: Ao peak ruiz 1.63 m/s [facility] Work Phone: Ao SOV index 1.38 cm/m2 [facility] Work Phone: Ao STJ index 1.28 cm/m2 [facility] Work Phone: Ao VTI 31.85 cm [facility] Work Phone: Ascending aorta 3.[facility]: AV LVOT peak gradient 3 mmHg [facility] Work Phone: AV mean gradient [address] [facility] Work Phone: AV peak gradient [address] [facility] Work Phone: AV valve area 2.20 cm2 [facility] Work Phone: AV Velocity Ratio 0.56 [facility] Work Phone: SIXTO (continuity Vmax) 2.14 cm2 [facility] Work Phone: SIXTO (continuity VTI) 2.20 cm2 [facility] Work Phone: SIXTO index (continuity Vmax) 0.94 m/s [facility] Work Phone: SIXTO index (continuity VTI) 0.96 cm2/m2 [facility] Work Phone: Avg e' pk ruiz 0.08 m/s [facility] Work Phone: Avg E/e' ratio 7.51 [facility] Work Phone: Body surface area Derived from formula 2.29 m2 [facility] Work Phone: BP EF 65 % [facility] Work Phone: DI (Vmax) 0.56 [facility] Work Phone: DI (VTI) 0.58 m/2 [facility] Work Phone: E wave decelartion time 222.00 msec [facility] Work Phone: e' lateral pk ruiz 0.0860 m/s [facility]: e' lateral pk ruiz 0.09 m/s [facility] Work Phone: e' septal pk ruiz 0.0700 m/[facility] Work Phone: e' septal pk ruiz 0.07 m/s [facility] Work Phone: E/A ratio 0.73 [facility] Work Phone: E/e' lateral ratio 6.74 [facility] Work Phone: E/e' septal ratio 8.29 [facility] Work Phone: EF SP 2CH 65 [facility] Work Phone: EF SP 4CH 66 [facility] Work Phone: EST RAP 3.00 mmHg [facility] Work Phone: FS 34 % 28 - 44 % [facility] Work Phone: IVC ostium 1.62 cm [facility] Work Phone: IVS 1.16 cm [facility] Work Phone: LA AREA 2CH 25.66 cm2 [facility] Work Phone: LA area 4CH 22.53 cm2 [facility] Work Phone: LA ESV BP (MOD) 80 mL [facility] Work Phone: LA ESV BP (MOD) index 35 mL/m2 [facility] Work Phone: LA ESV SP 2CH (MOD) 78 mL [facility] Work Phone: LA ESV SP 4CH (MOD) 82 mL [facility] Work Phone: LV EDV BP 149 mL [facility] Work Phone: LV EDV SP 2CH 144 mL [facility] Work Phone: LV EDV SP 4CH 154 mL [facility] Work Phone: LV ESV BP 52 mL [facility] Work Phone: LV ESV SP 2CH 50 mL [facility] Work Phone: LV ESV SP 4CH 52 mL [facility] Work Phone: LV mass 168.44 g [facility] Work Phone: LV Mass Index 73.6 g/m2 [facility] Work Phone: LV RWT 0.47 [facility] Work Phone: LV stroke volume BP (ml) 97 mL [facility] Work Phone: LV stroke volume index BP 42.36 mL/m2 [facility] Work Phone: LVIDD 4.41 cm [facility] Work Phone: LVIDS 2.92 cm [facility] Work Phone: LVOT area 3.80 cm2 [facility] Work Phone: LVOT diameter 2.20 cm [facility] Work Phone: LVOT peak ruiz 0.92 m/s [facility] Work Phone: LVOT peak VTI 18.46 cm [facility] Work Phone: LVOT stroke volume 70 [facility] LVOT stroke volume index 30.63 ml/m2 [facility] Work Phone: MV pk A ruiz 0.80 m/s [facility] Work Phone: MV pk E ruiz 0.58 m/s [facility] Work Phone: [facility] AV VTI RATIO PRE STRESS 0.58 [facility] Work Phone: [facility] ECHO LV BIPLANE SYSTOLIC VOLUME INDEX 22.71 mL/m2 [facility] Work Phone: [facility] ECHO LV BP DIASTOLIC VOLUME INDEX 65.07 mL/m2 [facility] Work Phone: [facility] RVOT VTI RATIO 0.92 [facility] Work Phone: PV mean gradient 3 mmHg [facility] Work Phone: PV peak gradient 5 mmHg [facility] Work Phone: PV PK RUIZ 1.09 m/s [facility] Work Phone: PV VTI 20.37 cm [facility] Work Phone: PW 1.03 cm [facility] Work Phone: RA vol index 4CH (MOD) 15.72 mL/m2 [facility] Work Phone: Right atrium volume 4 chamber method of disks 36 mL [facility] Work Phone: RV S' 16.40 cm/s [facility] Work Phone: RVOT peak gradient 4 mmHg [facility] Work Phone: RVOT peak ruiz 0.94 m/s [facility] Work Phone: RVOT peak VTI 18.84 cm [facility] Work Phone: Sinus 3.17 cm [facility] Work Phone: STJ 2.93 cm [facility] Work Phone: Stroke Volume 70 cm/mL [facility] Work Phone: Stroke volume index 31 [facility] Work Phone: TAPSE 1.99 cm [facility] Work Phone: [facility] Work Phone: Cardiac echo study Procedure on [...] left ventricle contiguous segments. Imaging system used: [email or web address]. Indications Indications for study: pre-op. [facility] Radiology Study observation (narrative) [facility] SPECT Heart perfusion at res t and W stress and W radionuclide IVOrdered By: Krunal Brown on 10-27-2023 % APHRMAX 64 % [facility] Work Phone: APHRMAX 148 bpm [facility] Work Phone: Baseline DBP 84 mmHg [facility] Work Phone: Baseline DBP 80 mmHg [facility] Work Phone: Baseline HR 93 bpm [facility] Work Phone: Baseline HR 91 bpm [facility] Work Phone: Baseline SBP 144 mmHg [facility] Work Phone: Baseline SBP 152 mmHg [facility] Work Phone: Body surface area Derived from formula 2.29 m2 [facility] Work Phone: chronotropic augmentation 3 [facility] Work Phone: Exercise duration (min) 4 min [facility] Work Phone: Exercise duration (sec) 0 sec [facility] Work Phone: NM ED vol idx 31.00 mL/m2 [facility] Work Phone: NM ES vol idx 9.00 mL/m2 [facility] Work Phone: Nuc Stress EF 72.00 % [facility] Work Phone: Peak DBP 80 mmHg [facility] Work Phone: Peak HR 94 bpm [facility] Work Phone: Peak SBP 150 mmHg [facility] Work Phone: Rate Pressure Product [id number] [facility] Work Phone: [facility] Work Phone: SPECT Heart perfusion at res [...] CT images were obtained. Imaging system used: [facility]. Stress Findings A pharmacological stress test was [...] segments: apex. All other segments are normal. [facility]narrative[facility] Ab[facility] Aorta and Bila [...] Bilateral atrophic kidney (more content not included)... [facility] Radiology Study observation (narrative) [facility] CTA Abdominal Aorta and Bila teral Runoff Vessels W contrast IVOrdered By: Philipp Gresham on 09-19-2023 [facility] Work Phone: ALBUMINon 08-31-2023 Albumin [Mass/Vol] 4.0 g/dL 3.5 - 5.0 g/dL [facility] ALCOHOL (ETHANOL),BLOODon Ethanol Ql (Bld) mg/dL NINF - 10 mg/dL [facility] Interpretation and review of laboratory results Normal [facility] ALP ALT Brian 08-31-2023 ALP [Catalytic activity/Vol] 67 U/L 32 - 126 U/L [facility] ALT [Catalytic activity/Vol] 19 U/L 10 - 52 U/L [facility] AST [Catalytic activity/Vol] 18 U/L 10 - 39 U/L [facility] BILIRUBIN TOTALon 08-31-2023 Bilirubin [Mass/Vol] 0.5 mg/dL NINF - 1.5 mg/dL [facility] CALCIUMon 08-31-2023 Calcium [Mass/Vol] 9.4 mg/dL 8.6 - 10. 5 mg/dL [facility] CBC AND ELECTRONIC DIFFon Basophils (Bld) [#/Vol] 0.05 10*3/uL 0.00 - 0.09 K/uL [facility] Basophils/100 WBC (Bld) 0.7 % [facility] Differential cell count method Nom (Bld) Electronic Differential O [facility] Eosinophils (Bld) [#/Vol] 0.12 10*3/uL 0.00 - 0.48 K/uL [facility] Eosinophils/100 WBC (Bld) 1.6 % [facility] Erythrocyte distribution width (RBC) [Ratio] 14.4 % High 10.9 - 14.3 % [facility] Hematocrit (Bld) [Volume fraction] 31.5 % Low 39.6 - 48.8 % [facility] Hemoglobin (Bld) [Mass/Vol] 10.4 g/dL Low 13.4 - 16.8 g/dL [facility] Immature granulocytes (Bld) [#/Vol] 0.04 10*3/uL NINF - 0.07 K/uL [facility] Immature granulocytes/100 WBC (Bld) 0.5 % [facility] Interpretation and review of laboratory results Abnormal [facility] Lymphocytes (Bld) [#/Vol] 0.52 10*3/uL Low 0.83 - 3.57 K/uL [facility] Lymphocytes/100 WBC (Bld) 7.1 % [facility] MCH (RBC) [Entitic mass] 32.3 pg 26.1 - 33.3 pg [facility] MCHC (RBC) [Mass/Vol] 33.0 g/dL 31.9 - 36.5 g/dL [facility] MCV (RBC) [Entitic vol] 97.8 fL High 79.0 - 94.5 fL [facility] Monocytes (Bld) [#/Vol] 0.71 10*3/uL 0.24 - 0.93 K/uL [facility] Monocytes/100 WBC (Bld) 9.6 % [facility] Neutrophils (Bld) [#/Vol] 5.93 10*3/uL 1.57 - 6.19 K/uL [facility] Nucleated RBC/100 WBC (Bld) [Ratio] 0.0 % NINF [facility] Platelet mean volume (Bld) [Entitic vol] [facility] Comment on above: Not measured Platelets (Bld) [#/Vol] 86 10*3/uL Low 146 - 337 K/uL [facility] Comment on above: Platelet clumps note d on smear. Reported instrument value is acceptable This is an appended report. These results have been appended to a previously preliminary verified report. RBC (Bld) [#/Vol] 3.22 10*6/uL Low [facility] Segmented neutrophils/100 WBC (Bld) 80.5 % [facility] WBC (Bld) [#/Vol] 7.37 10*3/uL 3.73 - 10.10 K/uL [facility] CHEM 7 (LYTES,BUN,CREA,GLUC) on 08-31-2023 Anion gap [Moles/Vol] 17 mmol/L 7 - 17 mmol/L [facility] Chloride [Moles/Vol] 97 mmol/L Low 98 - 10 8 mmol/L [facility] CO2 [Moles/Vol] 30 mmol/L 21 - 31 mmol/L [facility] Creatinine [Mass/Vol] 6.89 mg/dL High 0.70 - 1.30 mg/dL [facility] eGFR, CKD-EPI, Male 8 Low - PINF [facility] Comment on above: Reported eGFR is bas ed on the CKD-EPI 2020 equation using creatinine, age, and sex. Glucose [Mass/Vol] 101 mg/dL High 70 - 99 mg/dL [facility] Interpretation and review of laboratory results Abnormal [facility] Osmolality Calc [Osmolality] 299 [facility] Potassium [Moles/Vol] 4.1 mmol/L 3.5 - 5.0 mmol/L [facility] Sodium [Moles/Vol] 140 mmol/L 135 - 145 mmol/L [facility] Urea nitrogen [Mass/Vol] 29 mg/dL High 7 - 25 mg/dL [facility] Urea nitrogen/Creatinine [Mass ratio] 4 mg/mg [facility] EBV VCA IGG ABon 08-31-2023 EBV capsid IgG Ql (S) Positive Abnormal Negative [facility] Interpretation and review of laboratory results Abnormal [facility] ETHANOL (ALCOHOL), URINEon 0 08-31-2023 Ethanol Ql (U) mg/dL NINF - 10 mg/dL [facility] Ethanol Ql (U) Not detected [facility] GGTon 08-31-2023 Gamma glutamyl transferase [Catalytic activity/Vol] 12 U/L 8 - 64 U/L [facility] HEMOGLOBIN A1Con 08-31-2023 Average glucose Estimated from glycated hemoglobin (Bld) [Mass/Vol] 103 mg/dL [facility] HbA1c (Bld) [Mass fraction] 5.2 % 4.7 - 5.6 % [facility] HEP B CORE AB,TOTAL(IGG+IGM) on 08-31-2023 HBV core IgG+IgM Ql (S) Negative Negative [facility] HEPATITIS A IGM ABon 024 HAV IgM IA Ql Negative Negative [facility] HEPATITIS B SURFACE ANTIBODY on 08-31-2023 HBV surface Ab IA Ql (S) Negative Negative [facility] Interpretation and review of laboratory results Normal [facility] HEPATITIS B SURFACE ANTIGENo n 08-31-2023 HBV surface Ag Ql (S) Negative Negative [facility] HEPATITIS C ANTIBODYon HCV Ab Ql (S) Negative Negative [facility] Interpretation and review of laboratory results Normal [facility] HIV 1 AND 2 ANTIBODIES/P24 A NTIGENon 08-31-2023 HIV 1+2 Ab+HIV1 p24 Ag IA Ql Non-Reactive Non Reactive [facility] Interpretation and review of laboratory results Normal [facility] HSV 1 AND 2 IGG ANTIBODYon 0 08-31-2023 HSV 1 IgG IA Qn (S) Positive Abnormal Negative [facility] HSV 2 IgG IA Qn (S) Negative Negative [facility] Interpretation and review of laboratory results Abnormal [facility] MAGNESIUMon 08-31-2023 Magnesium [Mass/Vol] 2.0 mg/dL 1.6 - 2 .6 mg/dL [facility] No Panel Informationon Interpretation and review of laboratory results Normal [facility] ABO/RH(D) TYPE Positive [facility] Interpretation and review of laboratory results Abnormal [facility] Interpretation and review of laboratory results Normal [facility] Interpretation and review of laboratory results Normal [facility] No Panel InformationOrdered By: Lidia Mckenzie on 08-31-2023 Interpretation and review of laboratory results Normal [facility] OSMOLALITYon 08-31-2023 Interpretation and review of laboratory results Normal [facility] Osmolality [Osmolality] 287 mosm/kg [facility] PHOSPHATE, INORGANICon Phosphate [Mass/Vol] 3.4 mg/dL 2.2 - 4 .6 mg/dL [facility] PROTEIN TOTALon 08-31-2023 Protein [Mass/Vol] 6.0 g/dL Low 6.4 - 8.3 g/dL [facility] PSA, SCREENINGon 08-31-2023 Interpretation and review of laboratory results Normal [facility] Prostate specific Ag [Mass/Vol] 0.98 ng/mL NINF - 4.00 ng/mL [facility] Comment on above: This test was perfor med on the [employer] Immunoassay platform which is a 2-step sandwich chemiluminescent immunoassay. It is important to note that assays using different manufacturers and/or methods may not be comparable. [facility] PT,INR,PTTon 08-31-2023 aPTT Coag (PPP) [Time] 36.1 s High OS [facility] INR Coag (Bld) [Relative time] 1.0 {INR} 0.9 - 1.1 [facility] Interpretation and review of laboratory results Abnormal [facility] PT Coag (PPP) [Time] 13.[address] [facility] PTH INTACTon 08-31-2023 Interpretation and review of laboratory results Abnormal [facility] Parathyrin.intact [Mass/Vol] 273.9 pg/mL High 14.0 - 72.0 pg/mL [facility] T. pallidum Ab Ql (S)Ordered By: Lidia Mckenzie on 08-31-2023 T. pallidum IgG Ql (S) Non-Reactive Non Reactive [facility] TT SAMPLEon 08-31-2023 TISSUE TYPING SAMPLE Specimen Received [facility] URIC ACIDon 08-31-2023 Urate [Mass/Vol] 3.2 mg/dL Low 3.5 - 7.0 mg/dL [facility] URINE DRUG SCREEN 10 WITH CO NFIRMATIONon 08-31-2023 Amphetamine+Methamphet amine Screen (U) [Mass/Vol] Not detected Cutoff: 500 ng/mL [facility] Barbiturates Ql (U) Not detected Cutoff: 200 ng/mL [facility] Benzodiazepines Ql (U) Not detected Cutof f: 200 ng/mL [facility] Buprenorphine Ql (U) Not detected Cutoff: 5 ng/mL [facility] Cannabinoids Screen Ql (U) Not detected Cutoff: 50 ng/mL [facility] Cocaine Ql (U) Not detected Cutoff: 150 ng/mL [facility] Creatinine (U) [Mass/Vol] 119.3 mg/dL 20.0 - PINF mg/dL [facility] fentaNYL Ql (U) Not detected Cutoff: 1 ng/mL [facility] Interpretation and review of laboratory results Abnormal [facility] Methadone Ql (U) Not detected Cutoff: 300 ng/mL [facility] Opiates Ql (U) Positive Abnormal Cutoff: 300 ng/mL [facility] oxyCODONE Ql (U) Not detected Cutoff: 100 ng/mL [facility] VARICELLA IGG AB (IMM STATUS )on 08-31-2023 VZV IgG Ql (S) Positive Positive [facility] Comment on above: Prior exposure to th e varicella zoster virus may cause measurable varicella zoster IgG antibody. A positive result indicates immunity through past immunization or prior infection. VZV IgG Qn (S) 5.9 [facility] Comment on above: THIS IS A QUALITATIV E ASSAY. The numeric value is not necessarily indicative of the amount of anti-Measles, Mumps, Rubella, or VZV IgG antibody present. Results should be interpreted in conjunction with clinical and epidemological data. [facility] XR Chest PA and Lateralon IMPRESSION: No [...] Normal IMPRESSION IMPRESSION: No acute cardiopulmonary disease [facility] Radiology Study observation (narrative) [facility] XR Chest PA and LateralOrder ed By: Jeff Gonzalez on 08-31-2023 [facility] Work Phone: Initial Visit (Otolaryngolog y)on 03-01-2023 [...] MG Oral Tablet Vitals Vital Signs Recorded: [id number] 11:43AM Zsdiewfmhtl30.6 F Acrwxvog241 Lxrthryad18 Height5 ft 9 in Glovls777 lb 6 oz BMI Ckndwxgrax53.08 kg/m2 BSA Calculated2.35 Tobacco Useb) No Falls [...] 92% in each ear and his speech medical office receptionist threshold is 60 dB in the right ear and 80 dB in the left ear. 'Scores and Scales' Signatures Electronically signed by : Brady Hobson DO; Mar 01 2023 11:56AM EST (Author) Normal [facility] Office Visit (Audiology)on 0 03-01-2023 Follow-up visit [...] and currently wears hearing aids purchased from [employer] in [place]. Mentioned he has noticed a decrease in [...] or sudden hearing loss. Patient's preferred language: [place] Citizen Preferred language of the parent, legal guardian or surrogate decision-maker of this minor or incapacitated patient: [place] Citizen No overt signs of domestic violence/neglect/abuse. Pain [...] Otoacoustic Em (more content not included)... Normal [facility] Automated erythrocytes count in urine sediment (number/area)Ordered By: Elmer Mendoza on 06-30-2022 RBC Auto (Urine sed) [#/Area] 3-4 [HPF] 0-4 [facility] Automated leukocytes count i n urine sediment (number/area)Ordered By: Elmer Mendoza on 06-30-2022 WBC Auto (Urine sed) [#/Area] Innumerable [HPF] 0-4 [facility] Bilirubin Test strip Ql (U)O rdered By: Elmer Mendoza on 06-30-2022 Bilirubin Ql (U) Negative Negative [facility] Color Auto (U)Ordered By: Juan Alberto Mendoza on 06-30-2022 Color (U) Yellow Yellow [facility] Ketones Auto test strip (U) [Mass/Vol]Ordered By: Elmer Mendoza on 06-30-2022 Ketones (U) [Mass/Vol] Negative Negative [facility] Laboratory - UrinalysisOrder ed By: Elmer Mendoza on 06-30-2022 Hyaline casts LM Ql (Urine sed) 0-8 [LPF] 0-8 [facility] Nitrite Test strip Ql (U)Ord ered By: Elmer Mendoza on 06-30-2022 Nitrite Ql (U) Negative Negative [facility] Protein Auto test strip (U) [Mass/Vol]Ordered By: Elmer Mendoza on 06-30-2022 Protein (U) [Mass/Vol] 300 mg/dL Negative [facility] Specific gravity Auto test s trip (U) [Rel density]Ordered By: Elmer Mendoza on 06-30-2022 Specific gravity (U) [Rel density] 1.014 1.001-1.03 0 [facility] Squamous epithelial cells de tection in urine sediment by light microscopyOrdered By: Elmer Mendoza on 06-30-2022 Epithelial cells.squamous LM Ql (Urine sed) 1-2 [HPF] 0-2 [facility] Urine bacteria detection by automated methodOrdered By: Elmer Mendoza on 06-30-2022 Bacteria Auto Ql (U) None seen None Seen [facility] Urine clarity by refractomet ry automatedOrdered By: Elmer Mendoza on 06-30-2022 Clarity Refractometry automated (U) Turbid Clear [facility] Urine glucose measurement by automated test strip (mass/volume)Ordered By: Elmer Mendoza on 06-30-2022 Glucose Auto test strip (U) [Mass/Vol] 100 mg/dL Normal [facility] Urine hemoglobin detection b y automated test stripOrdered By: Elmer Mendoza on 06-30-2022 Hemoglobin Auto test strip Ql (U) 1+ Negative [facility] Urine leukocyte esterase det ection by automated test stripOrdered By: Elmer Mendoza on 06-30-2022 Leukocyte esterase Auto test strip Ql (U) 4+ Negative [facility] Urobilinogen Auto test strip (U) [Mass/Vol]Ordered By: Elmer Mendoza on 06-30-2022 Urobilinogen (U) [Mass/Vol] Normal mg/dL Normal [facility] Yeast detection in urine sed iment by light microscopyOrdered By: Elmer Mendoza on 06-30-2022 Yeast LM Ql (Urine sed) None seen [HPF] None Seen [facility] pH Auto test strip (U)Ordere d By: Elmer Mendoza on 06-30-2022 pH (U) 7.5 [pH] 5.0-9.0 [facility] Activated partial thrombopla stin time (aPTT) in platelet poor plasma by coagulation aOrdered By: Conrad Garcia on 06-11-2022 aPTT Coag (PPP) [Time] 29.9 s 25.1-36.5 [facility] Bacterial blood cultureOrder ed By: Conrad Garcia on 06-11-2022 Bacteria identified Cx Nom (Bld) NO GROWTH 5 DAYS [facility] Basophils Auto (Bld) [#/Vol] Ordered By: Conrad Garcia on 06-11-2022 Basophils (Bld) [#/Vol] 0.1 10*3/uL 0.0-0.2 [facility] Basophils/100 WBC Auto (Bld) Ordered By: Conrad Garcia on 06-11-2022 Basophils/100 WBC (Bld) 0.9 % . [facility] Body fluid albumin measureme nt (mass/volume)Ordered By: Conrad Garcia on 06-11-2022 Albumin (Body fld) [Mass/Vol] 3.8 g/dL 3.2-5.5 [facility] COVID-19 Detected/Not Detect edOrdered By: Conrad Garcia on 06-11-2022 SARS-CoV-2 (COVID-19) RNA MARK+non-probe Ql (Nph) Not detected Not Detecte [facility] Comment on above: This is a duplicate RP2.1 COVID (PCR) result to be used for statistical tracking purpose only. Creatinine and Glomerular fi ltration rate.predicted panel (S/P/Bld)Ordered By: Conrad Garcia on 06-11-2022 Creatinine [Mass/Vol] 5.10 mg/dL 0.64-1.27 [facility] Eosinophils Auto (Bld) [#/Vo l]Ordered By: Conrad Garcia on 06-11-2022 Eosinophils (Bld) [#/Vol] 0.1 10*3/uL 0.0-0.45 [facility] Eosinophils/100 WBC Auto (Bl d)Ordered By: Conrad Garcia on 06-11-2022 Eosinophils/100 WBC (Bld) 1.0 % . [facility] Erythrocyte distribution wid th Auto (RBC) [Ratio]Ordered By: Conrad Garcia on 06-11-2022 Erythrocyte distribution width (RBC) [Ratio] 14.8 % 12.0-14.8 [facility] Estimated glomerular filtrat ion rate (GFR) non- AmericanOrdered By: Conrad Garcia on 06-11-2022 GFR/1.73 sq M.predicted among non-blacks MDRD (S/P/Bld) [Vol rate/Area] 11 mL/Min [facility] Globulin Calc (S) [Mass/Vol] Ordered By: Conrad Garcia on 06-11-2022 Globulin (S) [Mass/Vol] 2.7 g/dL [facility] Hematocrit Auto (Bld) [Volum e fraction]Ordered By: Conrad Garcia on 06-11-2022 Hematocrit (Bld) [Volume fraction] 34.5 % 38.8-50.0 [facility] Hemoglobin [Mass/volume] in BloodOrdered By: Conrad Garcia on 06-11-2022 Hemoglobin (Bld) [Mass/Vol] 11.7 g/dL 13.0-17.0 [facility] Laboratory - Chemistry and C hemistry - challengeOrdered By: Conrad Garcia on 06-11-2022 Natriuretic peptide B (Bld) [Mass/Vol] 36.0 pg/mL 5-100 [facility] Laboratory - CoagulationOrde red By: Conrad Garcia on 06-11-2022 PT Coag (PPP) [Time] 13.0 s 9.0-12.9 [facility] Leukocytes [#/volume] correc maria teresa for nucleated erythrocytes in Blood by Automated counOrdered By: Conrad Garcia on 06-11-2022 WBC corrected for nucl RBC Auto (Bld) [#/Vol] 10.5 10*3/uL 4.1-10.5 [facility] Lymphocytes Auto (Bld) [#/Vo l]Ordered By: Conrad Garcia on 06-11-2022 Lymphocytes (Bld) [#/Vol] 0.6 10*3/uL 1.00-4.8 [facility] Lymphocytes/100 WBC Auto (Bl d)Ordered By: Conrad Garcia on 06-11-2022 Lymphocytes/100 WBC (Bld) 5.9 % . [facility] MCH Auto (RBC) [Entitic mass ]Ordered By: Conrad Garcia on 06-11-2022 MCH (RBC) [Entitic mass] 33.0 pg 27.5-35.2 [facility] MCHC Auto (RBC) [Mass/Vol]Or dered By: Conrad Garcia on 06-11-2022 MCHC (RBC) [Mass/Vol] 33.8 g/dL 32.5-35.6 [facility] MCV Auto (RBC) [Entitic vol] Ordered By: Conrad Garcia on 06-11-2022 MCV (RBC) [Entitic vol] 97.5 fL 83.5-101 [facility] Monocyte distribution width [Entitic volume] in Blood by AutomatedOrdered By: Conrad Garcia on 06-11-2022 Monocyte distribution width Auto (Bld) [Entitic vol] 20.89 % 0.00-20.00 [facility] Comment on above: For adults in ED, MD W > 20.0 may be associated with a higher risk of sepsis during the first 12 hrs of hospital admission Monocytes Auto (Bld) [#/Vol] Ordered By: Conrad Garcia on 06-11-2022 Monocytes (Bld) [#/Vol] 0.7 10*3/uL 0.0-0.8 [facility] Monocytes/100 WBC Auto (Bld) Ordered By: Conrad Garcia on 06-11-2022 Monocytes/100 WBC (Bld) 6.9 % . [facility] Neutrophils Auto (Bld) [#/Vo l]Ordered By: Conrad Garcia on 06-11-2022 Neutrophils (Bld) [#/Vol] 9.0 10*3/uL 1.8-7.7 [facility] Neutrophils/100 WBC Auto (Bl d)Ordered By: Conrad Garcia on 06-11-2022 Neutrophils/100 WBC (Bld) 85.3 % . [facility] No Panel InformationOrdered By: Conrad Garcia on 06-11-2022 Estimated GFR () 14 mL/Min [facility] Comment on above: GFR estimated refere nce range: According to KDOQI guidelines, <60 ml/min/1.73m2 is sufficient to diagnose a patient with chronic kidney disease. Pharmacy Creatinine Clearance (Chem 17.65 [facility] Nucleated erythrocytes [Pres ence] in Blood by Automated countOrdered By: Conrad Garcia on 06-11-2022 Nucleated RBC Auto Ql (Bld) 0.0 /100{WBC} 0-0.5 [facility] Platelet mean volume Auto (B ld) [Entitic vol]Ordered By: Conrad Garcia on 06-11-2022 Platelet mean volume (Bld) [Entitic vol] 10.1 fL 6.6-10.1 [facility] Platelet poor plasma interna tional normalized ratio (INR) by coagulation assay (relatOrdered By: Conrad Garcia on 06-11-2022 INR Coag (PPP) [Relative time] 1.2 {INR} [facility] Comment on above: INR Therapeutic Rang [...] 06-11-2022 Platelets (Bld) [#/Vol] 138 10*3/uL 150-450 [facility] Protein [Mass/volume] in Ser um or PlasmaOrdered By: Conrad Garcia on 06-11-2022 Protein [Mass/Vol] 6.5 g/dL 6.1-7.9 [facility] RBC Auto (Bld) [#/Vol]Ordere d By: Conrad Garcia on 06-11-2022 RBC (Bld) [#/Vol] 3.54 10*6/uL 3.90-5.60 [facility] Respiratory pathogens DNA an d RNA panel - Nasopharynx by MARK with non-probe detectionOrdered By: Conrad Garcia on 06-11-2022 Respiratory pathogens DNA and RNA panel MARK+non-probe (Nph) [facility] Serum or plasma alanine waldrop otransferase measurement without P-5'-P (enzymatic activiOrdered By: Conrad Garcia on 06-11-2022 ALT No additional P-5'-P [Catalytic activity/Vol] 20 U/L 10-60 [facility] Serum or plasma albumin/glob ulin mass ratioOrdered By: Conrad Garcia on 06-11-2022 Albumin/Globulin [Mass ratio] 1.4 {ratio} [facility] Serum or plasma alkaline elizabeth sphatase measurement (enzymatic activity/volume)Ordered By: Conrad Garcia on 06-11-2022 ALP [Catalytic activity/Vol] 66 U/L 32-92 [facility] Serum or plasma anion gap de terminationOrdered By: Conrad Garcia on 06-11-2022 Anion gap [Moles/Vol] 16.9 mmol/L 6.0-15.0 [facility] Serum or plasma aspartate am inotransferase measurement (enzymatic activity/volume)Ordered By: Conrad Garcia on 06-11-2022 AST [Catalytic activity/Vol] 21 U/L 10-42 [facility] Serum or plasma calcium tato urement (mass/volume)Ordered By: Conrad Garcia on 06-11-2022 Calcium [Mass/Vol] 9.7 mg/dL 8.2-10.2 [facility] Serum or plasma chloride michael surement (moles/volume)Ordered By: Conrad Garcia on 06-11-2022 Chloride [Moles/Vol] 91 mmol/L 95-114 [facility] Serum or plasma glucose tato urement (mass/volume)Ordered By: Conrad Garcia on 06-11-2022 Glucose [Mass/Vol] 111 mg/dL 70-100 [facility] Comment on above: ADA recommended refe rence rangeRandom Glucose Reference Range is dependent on time and content of last meal. Glucose of more than 200 mg/dL in a nonstressed, ambulatory subject supports the diagnosis of Diabetes Mellitus. Serum or plasma potassium me asurement (moles/volume)Ordered By: Conrad Garcia on 06-11-2022 Potassium [Moles/Vol] 3.9 mmol/L 3.5-5.1 [facility] Serum or plasma sodium measu rement (moles/volume)Ordered By: Conrad Garcia on 06-11-2022 Sodium [Moles/Vol] 134 mmol/L 136-146 [facility] Serum or plasma total biliru bin measurement (mass/volume)Ordered By: Conrad Garcia on 06-11-2022 Bilirubin [Mass/Vol] 0.6 mg/dL 0.3-1.2 [facility] Serum or plasma total carbon dioxide measurement (moles/volume)Ordered By: Conrad Garcia on 06-11-2022 CO2 [Moles/Vol] 30.0 mmol/L 22.0-30.0 [facility] Serum or plasma urea nitroge n measurement (mass/volume)Ordered By: Conrad Garcia on 06-11-2022 Urea nitrogen [Mass/Vol] 14 mg/dL 9-23 [facility] Troponin I.cardiac [Mass/vol ume] in Serum or Plasma by High sensitivity methodOrdered By: Conrad Garcia on 06-11-2022 Troponin I.cardiac High sensitivity method [Mass/Vol] 8 pg/mL 0-20 [facility] WBC Auto (Bld) [#/Vol]Ordere d By: Conrad Garcia on 06-11-2022 WBC (Bld) [#/Vol] 10.5 10*3/uL 4.1-10.5 [facility] Automated erythrocytes count in urine sediment (number/area)Ordered By: Ector Berg on 06-09-2022 RBC Auto (Urine sed) [#/Area] 10-19 [HPF] 0-4 [facility] Automated leukocytes count i n urine sediment (number/area)Ordered By: Ector Berg on 06-09-2022 WBC Auto (Urine sed) [#/Area] Innumerable [HPF] 0-4 [facility] Automated urine hyaline cast s count (number/volume)Ordered By: Ector Berg on 06-09-2022 Hyaline casts Auto (U) [#/Vol] None seen [LPF] 0-1 [facility] Bilirubin Test strip Ql (U)O rdered By: Ector Berg on 06-09-2022 Bilirubin Ql (U) Negative Negative [facility] Casts typing in urine sedime nt by light microscopyOrdered By: Ector Berg on 06-09-2022 Casts LM Nom (Urine sed) None seen [LPF] None Seen [facility] Color Auto (U)Ordered By: Ab germaine Berg on 06-09-2022 Color (U) [place] Yellow [facility] Ketones Auto test strip (U) [Mass/Vol]Ordered By: Ector Berg on 06-09-2022 Ketones (U) [Mass/Vol] Trace Negative Fi [facility] Nitrite Test strip Ql (U)Ord ered By: Ector Berg on 06-09-2022 Nitrite Ql (U) Negative Negative [facility] Protein Auto test strip (U) [Mass/Vol]Ordered By: Ector Berg on 06-09-2022 Protein (U) [Mass/Vol] mg/dL Negative [facility] Specific gravity Auto test s trip (U) [Rel density]Ordered By: Ector Berg on 06-09-2022 Specific gravity (U) [Rel density] 1.015 1.001-1.03 0 [facility] Squamous epithelial cells de tection in urine sediment by light microscopyOrdered By: Ector Berg on 06-09-2022 Epithelial cells.squamous LM Ql (Urine sed) 1-2 [HPF] 0-2 [facility] Urine bacteria detection by automated methodOrdered By: Ector Berg on 06-09-2022 Bacteria Auto Ql (U) 3+ None Seen [facility] Urine clarity by refractomet ry automatedOrdered By: Ector Berg on 06-09-2022 Clarity Refractometry automated (U) Turbid Clear [facility] Urine culture routineOrdered By: Ector Berg on 06-09-2022 Bacteria identified Cx Nom (U) 2 Days [facility] Urine glucose measurement by automated test strip (mass/volume)Ordered By: Ector Berg on 06-09-2022 Glucose Auto test strip (U) [Mass/Vol] Normal mg/dL Normal [facility] Urine hemoglobin detection b y automated test stripOrdered By: Ector Berg on 06-09-2022 Hemoglobin Auto test strip Ql (U) 3+ Negative [facility] Urine leukocyte esterase det ection by automated test stripOrdered By: Ector Berg on 06-09-2022 Leukocyte esterase Auto test strip Ql (U) 4+ Negative [facility] Urobilinogen Auto test strip (U) [Mass/Vol]Ordered By: Ector Berg on 06-09-2022 Urobilinogen (U) [Mass/Vol] Normal mg/dL Normal [facility] Yeast detection in urine sed iment by light microscopyOrdered By: Ector Berg on 06-09-2022 Yeast LM Ql (Urine sed) None seen [HPF] None Seen [facility] pH Auto test strip (U)Ordere d By: Ector Berg on 06-09-2022 pH (U) 7.5 [pH] 5.0-9.0 [facility] Basophils Auto (Bld) [#/Vol] Ordered By: Conrad Garcia on 05-31-2022 Basophils (Bld) [#/Vol] 0.1 10*3/uL 0.0-0.2 [facility] Basophils/100 WBC Auto (Bld) Ordered By: Conrad Garcia on 05-31-2022 Basophils/100 WBC (Bld) 1.1 % . [facility] Body fluid albumin measureme nt (mass/volume)Ordered By: Conrad Garcia on 05-31-2022 Albumin (Body fld) [Mass/Vol] 3.6 g/dL 3.2-5.5 [facility] Creatinine and Glomerular fi ltration rate.predicted panel (S/P/Bld)Ordered By: Conrad Garcia on 05-31-2022 Creatinine [Mass/Vol] 12.43 mg/dL 0.64-1.27 [facility] Eosinophils Auto (Bld) [#/Vo l]Ordered By: Conrad Garcia on 05-31-2022 Eosinophils (Bld) [#/Vol] 0.3 10*3/uL 0.0-0.45 [facility] Eosinophils/100 WBC Auto (Bl d)Ordered By: Conrad Garcia on 05-31-2022 Eosinophils/100 WBC (Bld) 3.5 % . [facility] Erythrocyte distribution wid th Auto (RBC) [Ratio]Ordered By: Conrad Garcia on 05-31-2022 Erythrocyte distribution width (RBC) [Ratio] 15.7 % 12.0-14.8 [facility] Estimated glomerular filtrat ion rate (GFR) non- AmericanOrdered By: Conrad Garcia on 05-31-2022 GFR/1.73 sq M.predicted among non-blacks MDRD (S/P/Bld) [Vol rate/Area] 4 mL/Min [facility] Globulin Calc (S) [Mass/Vol] Ordered By: Conrad Garcia on 05-31-2022 Globulin (S) [Mass/Vol] 2.1 g/dL [facility] Hematocrit Auto (Bld) [Volum e fraction]Ordered By: Conrad Garcia on 05-31-2022 Hematocrit (Bld) [Volume fraction] 33.4 % 38.8-50.0 [facility] Hemoglobin [Mass/volume] in BloodOrdered By: Conrad Garcia on 05-31-2022 Hemoglobin (Bld) [Mass/Vol] 11.3 g/dL 13.0-17.0 [facility] Laboratory - Chemistry and C hemistry - challengeOrdered By: Conrad Garcia on 05-31-2022 Lipase [Catalytic activity/Vol] 44.0 U/L 22-51 [facility] Laboratory - Hematology and Cell countsOrdered By: Conrad Garcia on 05-31-2022 Nucleated RBC/100 WBC (Bld) [Ratio] 0.1 % 0-0.5 [facility] Leukocytes [#/volume] in Blo od by Automated countOrdered By: Conrad Garcia on 05-31-2022 WBC (Bld) [#/Vol] 8.5 10*3/uL 4.5-11.0 [facility] Lymphocytes Auto (Bld) [#/Vo l]Ordered By: Conrad Garcia on 05-31-2022 Lymphocytes (Bld) [#/Vol] 0.8 10*3/uL 1.00-4.8 [facility] Lymphocytes/100 WBC Auto (Bl d)Ordered By: Conrad Garcia on 05-31-2022 Lymphocytes/100 WBC (Bld) 9.8 % . [facility] MCH Auto (RBC) [Entitic mass ]Ordered By: Conrad Garcia on 05-31-2022 MCH (RBC) [Entitic mass] 33.3 pg 27.5-35.2 [facility] MCHC Auto (RBC) [Mass/Vol]Or dered By: Conrad Garcia on 05-31-2022 MCHC (RBC) [Mass/Vol] 33.8 g/dL 32.5-35.6 [facility] MCV Auto (RBC) [Entitic vol] Ordered By: Conrad Garcia on 05-31-2022 MCV (RBC) [Entitic vol] 98.8 fL 83.5-101 [facility] Monocytes Auto (Bld) [#/Vol] Ordered By: Conrad Garcia on 05-31-2022 Monocytes (Bld) [#/Vol] 0.6 10*3/uL 0.0-0.8 [facility] Monocytes/100 WBC Auto (Bld) Ordered By: Conrad Garcia on 05-31-2022 Monocytes/100 WBC (Bld) 7.3 % . [facility] Neutrophils Auto (Bld) [#/Vo l]Ordered By: Conrad Garcia on 05-31-2022 Neutrophils (Bld) [#/Vol] 6.7 10*3/uL 1.8-7.7 [facility] Neutrophils/100 WBC Auto (Bl d)Ordered By: Conrad Garcia on 05-31-2022 Neutrophils/100 WBC (Bld) 78.3 % . [facility] No Panel InformationOrdered By: Conrad Garcia on 05-31-2022 Estimated GFR () 5 mL/Min [facility] Comment on above: GFR estimated refere nce range: According to KDOQI guidelines, <60 ml/min/1.73m2 is sufficient to diagnose a patient with chronic kidney disease. Pharmacy Creatinine Clearance (Chem 7.34 [facility] Platelet mean volume Auto (B ld) [Entitic vol]Ordered By: Conrad Garcia on 05-31-2022 Platelet mean volume (Bld) [Entitic vol] 9.9 fL 6.6-10.1 [facility] Platelets Auto (Bld) [#/Vol] Ordered By: Conrad Garcia on 05-31-2022 Platelets (Bld) [#/Vol] 138 10*3/uL 150-450 [facility] Protein [Mass/volume] in Ser um or PlasmaOrdered By: Conrad Garcia on 05-31-2022 Protein [Mass/Vol] 5.7 g/dL 6.1-7.9 [facility] RBC Auto (Bld) [#/Vol]Ordere d By: Conrad Garcia on 05-31-2022 RBC (Bld) [#/Vol] 3.38 10*6/uL 3.90-5.60 [facility] Serum or plasma alanine waldrop otransferase measurement without P-5'-P (enzymatic activiOrdered By: Conrad Garcia on 05-31-2022 ALT No additional P-5'-P [Catalytic activity/Vol] 17 U/L 10-60 [facility] Serum or plasma albumin/glob ulin mass ratioOrdered By: Conrad Garcia on 05-31-2022 Albumin/Globulin [Mass ratio] 1.7 {ratio} [facility] Serum or plasma alkaline elizabeth sphatase measurement (enzymatic activity/volume)Ordered By: Conrad Garcia on 05-31-2022 ALP [Catalytic activity/Vol] 50 U/L 32-92 [facility] Serum or plasma anion gap de terminationOrdered By: Conrad Garcia on 05-31-2022 Anion gap [Moles/Vol] 22.2 mmol/L 6.0-15.0 [facility] Serum or plasma aspartate am inotransferase measurement (enzymatic activity/volume)Ordered By: Conrad Garcia on 05-31-2022 AST [Catalytic activity/Vol] 14 U/L 10 [facility] Serum or plasma calcium tato urement (mass/volume)Ordered By: Conrad Garcia on 05-31-2022 Calcium [Mass/Vol] 9.4 mg/dL 8.2-10.2 [facility] Serum or plasma chloride michael surement (moles/volume)Ordered By: Conrad Garcia on 05-31-2022 Chloride [Moles/Vol] 94 mmol/L 95-114 [facility] Serum or plasma glucose tato urement (mass/volume)Ordered By: Conrad Garcia on 05-31-2022 Glucose [Mass/Vol] 132 mg/dL 70-100 [facility] Comment on above: ADA recommended refe rence rangeRandom Glucose Reference Range is dependent on time and content of last meal. Glucose of more than 200 mg/dL in a nonstressed, ambulatory subject supports the diagnosis of Diabetes Mellitus. Serum or plasma potassium me asurement (moles/volume)Ordered By: Conrad Garcai on 05-31-2022 Potassium [Moles/Vol] 4.1 mmol/L 3.5-5.1 [facility] Serum or plasma sodium measu rement (moles/volume)Ordered By: Conrad Garcia on 05-31-2022 Sodium [Moles/Vol] 140 mmol/L 136-146 [facility] Serum or plasma total biliru bin measurement (mass/volume)Ordered By: Conrad Garcia on 05-31-2022 Bilirubin [Mass/Vol] 0.6 mg/dL 0.3-1.2 [facility] Serum or plasma total carbon dioxide measurement (moles/volume)Ordered By: Conrad Garcia on 05-31-2022 CO2 [Moles/Vol] 27.9 mmol/L 22.0-30.0 [facility] Serum or plasma urea nitroge n measurement (mass/volume)Ordered By: Conrad Garcia on 05-31-2022 Urea nitrogen [Mass/Vol] 78 mg/dL 9-23 [facility] Cholesterol [Mass/volume] in Serum or PlasmaOrdered By: Elmer Mendoza on 05-14-2022 Cholesterol [Mass/Vol] 164 mg/dL 140-200 [facility] Comment on above: Chol less than 200 m g/dl low riskChol 201-239 mg/dl borderline riskChol 240 mg/dl and greater high risk Cholesterol in LDL Calc [Mas s/Vol]Ordered By: Elmer Mendoza on 05-14-2022 Cholesterol in LDL [Mass/Vol] 68 mg/dL 0-100 [facility] Comment on above: LDL ATP III CLASSIFI CATIONLDL less than 100 mg/dL OptimalLDL 100-129 mg/dL Near or above optimalLDL 130-159 mg/dL Borderline highLDL 160-189 mg/dL HighLDL greater than 189 mg/dL Very high Cholesterol in VLDL Calc [Ma ss/Vol]Ordered By: Elmer Mendoza on 05-14-2022 Cholesterol in VLDL [Mass/Vol] 61 mg/dL [facility] Glucose mean value [Mass/vol ume] in Blood Estimated from glycated hemoglobinOrdered By: Emler Mendoza on 05-14-2022 Average glucose Estimated from glycated hemoglobin (Bld) [Mass/Vol] 108 mg/dL [facility] Hemoglobin A1c percentageOrd ered By: Elmer Mendoza on 05-14-2022 HbA1c (Bld) [Mass fraction] 5.4 % 4.3-5.6 [facility] Comment on above: Increased risk for d iabetes: 5.7 - 6.4diabetes: >6.4glycemic control for adults with diabetes: <7.0 Laboratory - Chemistry and C hemistry - challengeOrdered By: Elmer Mendoza on 05-14-2022 Natriuretic peptide B (Bld) [Mass/Vol] 33.0 pg/mL 5-100 [facility] Serum or plasma high density lipoprotein (HDL) cholesterol measurementOrdered By: Elmer Mendoza on 05-14-2022 Cholesterol in HDL [Mass/Vol] 35 mg/dL 29-71 [facility] Comment on above: HDL CHOL ATP-III CLA SSIFICATION Cardiovascular RiskHDL > or equal to 60 mg/dL LOWHDL < 40 mg/dL HIGH Serum or plasma total choles terol/high density lipoprotein (HDL) cholesterol mass ratOrdered By: Elmer Mendoza on 05-14-2022 Cholesterol.total/Chol esterol in HDL [Mass ratio] 4.7 {ratio} <5.0 [facility] TSH DL <= 0.005 mIU/L QnOrde red By: Elmer Mendoza on 05-14-2022 TSH Qn 152.95 m[IU]/L 0.45-5.33 [facility] Triglyceride [Mass/volume] i n Serum or PlasmaOrdered By: Elmer Mendoza on 05-14-2022 Triglyceride [Mass/Vol] 306 mg/dL 35-149 [facility] Comment on above: TRIG ATP III CLASSIF ICATIONTRIG less than 150 mg/dL NormalTRIG 150-199 mg/dL Borderline highTRIG 200-500 mg/dL High TRIG greater than 500 mg/dL Very highStandard traceable to the Center for Disease Conrtrol and Prevention (CDC) test method. XR chest 2V*on 04-08-2022 XR chest 2V* [facility] [employer] Other XR chest 2V* [facility] [employer] Other XR chest 2V* [address] [place] [address] [employer] Other XR chest 2V* [place] [address] [facility] Other XR chest 2V* XRay Report [employer] Other XR chest 2V* Signed [employer] Other XR chest 2V* Patient: Gisela Cárdenas MR#: [id number] [employer] Other XR chest 2V* 3061 [employer] Other XR chest 2V* : 1950 Acct:[id number] [employer] Other XR chest 2V* Age/Sex: 71 / M ADM Date: 04/08/22 [employer] Other XR chest 2V* Loc: [id number] Room: pe: REG CLI [employer] Other XR chest 2V* Attending Dr: Awa Riley NP [employer] Other XR chest 2V* Copies to: Awa Riley NP [employer] Other XR chest 2V* Ordering Provider: Awa Bloom NP [employer] Other XR chest 2V* Date of Service: 04/08/22 [employer] Other XR chest 2V* XR/XR chest 2V*: Acute cough [employer] Other XR chest 2V* XR chest 2V* 04/08/20 2:26 PM [employer] Other XR chest 2V* SIGNS AND SYMPTOMS: Shortness of breath, productive cough [employer] Other XR chest 2V* PROTOCOL: Frontal an d lateral radiographs of the chest [employer] Other XR chest 2V* COMPARISON: 06/18/2021 [employer] Other XR chest 2V* FINDINGS: [employer] Other XR chest 2V* The trachea is midli ne. Atherosclerotic changes are noted in the thoracic aorta. The heart and [employer] Other XR chest 2V* mediastinal structur es are within normal limits. The lung parenchyma is clear. The bony thorax is [employer] Other XR chest 2V* intact. Degenerative changes are noted in the thoracic spine. [employer] Other XR chest 2V* X R/XR chest 2V* [employer] Other XR chest 2V* IMPRESSION: [employer] Other XR chest 2V* No acute cardiopulmo nary pathology. [employer] Other XR chest 2V* Impression dictated by: Jeff Rivera M.D.04/08/2022 2:43 PM [employer] Other XR chest 2V* Dictation Location: [place] [address] [employer] Other XR chest 2V* Transcribed By: WILL 04/08/22 [facility] [employer] Other XR chest 2V* Dictated By: Jeff Rivera II, MD 04/08/22 [facility] [employer] Other XR chest 2V* Signed By: [employer] Other XR chest 2V* 04/08/22 [facility] [address] [facility] [employer] Other COVID-19 Positive/NegativeOr dered By: Ector Berg on 04-02-2022 SARS-CoV-2 (COVID-19) N gene MARK+probe Ql (Resp) Negative Negative [facility] Comment on above: Testing for SARS-CoV -2 by RT-PCRThis test was developed and its performance characteristics determined by [employer] ([employer]) and validated at the [facility]. This test has not been FDA [...] by: NATHAN AVILA Date: 2021-12-10 14:33 Normal [facility] HEMOGLOBINon 09-10-2021 Hemoglobin (Bld) [Mass/Vol] 11.1 g/dL Critically low 14.0-18.0 [facility] Comment on above: Performed By: #### H GB #### [facility] [address] [address] [address] Amanda Patrick URIC ACID SERUMon 08-20-2021 Urate [Mass/Vol] 4.3 mg/dL Normal 3.5-8.5 [facility] Comment on above: Performed By: #### U ANIKET #### [facility] [address] [address] [address] Amanda Patrick Reminderson 08-12-2021 Reminders - From: Mya Lao To: EU - Recalls Rice; Sent: 01/21/2021 15:16:32 EDT Show up: 07/03/2021 15:16:00 EST Subject: 6m cysto/ud Reminder/Recall Test: cysto/ud Diagnosis: micro hematuria, urethral stricture Due: 6 months see message Normal [facility] OCC BLD IMMUNO SCREENon 07-03 OCCULT BLOOD Negative Normal NEGATIVE [facility] Comment on above: Performed By: #### O BSCRN #### [facility] [address] [place] [address] Dr. Amanda Patrick HEMOGLOBINon 07-01-2021 Hemoglobin (Bld) [Mass/Vol] 8.2 g/dL Critically low 14.0-18.0 [facility] Comment on above: Performed By: #### H GB #### [facility] [address] [place] [address] Dr. Amanda Patrick PTH INTACTon 06-17-2021 PTH, Intact 332 pg/mL Critically high 15-65 [facility] Comment on above: Performed By: #### P THINT #### [facility] [address] [place] [address] Dr. Amanda Patrick HEMOGRAM AND PLATELon 06-16 Hematocrit (Bld) [Volume fraction] 24.5 % Critically low 42.0-54.0 [facility] Comment on above: Performed By: #### H H #### [facility] [address] [place] [address] Dr. Amanda Patrick Hemoglobin (Bld) [Mass/Vol] 7.7 g/dL Critically low 14.0-18.0 [facility] Comment on above: Performed By: #### H H #### [facility] [address] [place] [address] Dr. Amanda Patrick MCH (RBC) [Entitic mass] 29.3 pg Normal 25.9-34.0 [facility] Comment on above: Performed By: #### H H #### [facility] [address] [place] [address] Dr. Amanda Patrick MCHC (RBC) [Mass/Vol] 31.4 g/dL Normal 29.9-35.2 [facility] Comment on above: Performed By: #### H H #### [facility] [address] [place] [address] Dr. Amanda Patrick MCV (RBC) [Entitic vol] 93.2 fL Normal 80.0-94.0 [facility] Comment on above: Performed By: #### H H #### [facility] [address] [address] [address] Amanda Patrick PLT 113 103/ul Critically low 150-450 [facility] Comment on above: Performed By: #### H H #### [facility] [address] [place] [address] Dr. Amanda Patrick RBC 2.63 106/ul Critically low 4.70-6.10 [facility] Comment on above: Performed By: #### H H #### [facility] [address] [place] [address] Dr. Amanda Patrick WBC 7.7 103/ul Normal 4.0-11.0 [facility] Comment on above: Performed By: #### H H #### [facility] [address] [place] [address] Dr. Amanda Patrick PHOSPHORUSon 06-16-2021 Phosphate [Mass/Vol] 9.8 mg/dL Critically high 2.5-4.5 [facility] Comment on above: Result Comment: TEST REPEATED CRITICAL VALUE VERIFIED Performed By: #### P HOS, CMP #### [facility] [address] [place] [address] Dr. Amanda Patrick PROF 14(COMP METB)on 021 Albumin [Mass/Vol] 2.6 g/dL Critically low 3.5-5.0 [facility] Comment on above: Performed By: #### P HOS, CMP #### [facility] [address] [place] [address] Dr. Amanda Patrick Albumin/Globulin [Mass ratio] 0.9 {ratio} Normal [facility] Comment on above: Performed By: #### P HOS, CMP #### [facility] [address] [address] [address] Amanda Patrick ALP [Catalytic activity/Vol] 64 U/L Normal 38-126 [facility] Comment on above: Performed By: #### P HOS, CMP #### [facility] [address] [address] [address] Amanda Patrick ALT [Catalytic activity/Vol] 17 U/L Critically low 21-72 [facility] Comment on above: Performed By: #### P HOS, CMP #### [facility] [address] [address] [address] Amanda Patrick Anion gap [Moles/Vol] 17.6 mmol/L Normal [facility] Comment on above: Performed By: #### P HOS, CMP #### [facility] [address] [address] [address] Amanda Patrick AST [Catalytic activity/Vol] 10 U/L Critically low 17-59 [facility] Comment on above: Performed By: #### P HOS, CMP #### [facility] [address] [address] [address] Amanda Patrick Bilirubin [Mass/Vol] 0.5 mg/dL Normal 0.2-1.3 [facility] Comment on above: Performed By: #### P HOS, CMP #### [facility] [address] [address] [address] Amanda Patrick Calcium [Mass/Vol] 8.6 mg/dL Normal 8.4-10.2 [facility] Comment on above: Performed By: #### P HOS, CMP #### [facility] [address] [address] [address] Amanda Patrick Chloride [Moles/Vol] 109 mmol/L Critically high 98-107 [facility] Comment on above: Performed By: #### P HOS, CMP #### [facility] [address] [address] [address] Amanda Patrick CO2 [Moles/Vol] 23.8 mmol/L Normal 22.0-30.0 [facility] Comment on above: Performed By: #### P HOS, CMP #### [facility] [address] [address] [address] Amanda Patrick Creatinine [Mass/Vol] 8.22 mg/dL Critically high 0.66-1.25 [facility] Comment on above: Result Comment: TEST REPEATED CRITICAL VALUE REPEATED Performed By: #### P HOS, CMP #### [facility] [address] [address] [address] Amanda Patrick EGFR-AF BRITISH 8 mL/min/1.73m2 Critically low >=60 [facility] Comment on above: Performed By: #### P HOS, CMP #### [facility] [address] [address] [address] Amanda Patrick EGFR-NON AF BRITISH 7 mL/min/1.73m2 Critically low >=60 [facility] Comment on above: Performed By: #### P HOS, CMP #### [facility] [address] [address] [address] Amanda Patrick Globulin (S) [Mass/Vol] 2.9 g/dL Normal [facility] Comment on above: Performed By: #### P HOS, CMP #### [facility] [address] [address] [address] Amanda Patrick Glucose [Mass/Vol] 99 mg/dL Normal 74-106 [facility] Comment on above: Performed By: #### P HOS, CMP #### [facility] [address] [address] [address] Amanda Patrick Potassium [Moles/Vol] 4.4 mmol/L Normal 3.4-5.0 [facility] Comment on above: Performed By: #### P HOS, CMP #### [facility] [address] [address] [address] Amanda Patrick Protein [Mass/Vol] 5.5 g/dL Critically low 6.1-8.2 [facility] Comment on above: Performed By: #### P HOS, CMP #### [facility] [address] [address] [address] Amanda Patrick Sodium [Moles/Vol] 146 mmol/L Critically high 137-145 [facility] Comment on above: Performed By: #### P HOS, CMP #### [facility] [address], [place] [address] Dr. Amanda Patrick Urea nitrogen [Mass/Vol] 96.0 mg/dL Critically high 9.0-20.0 [facility] Comment on above: Result Comment: TEST REPEATED CRITICAL VALUE REPEATED Performed By: #### P HOS, CMP #### [facility] [address] [address] [address] Amanda Patrick Urea nitrogen/Creatinine [Mass ratio] 11.7 mg/mg Normal [facility] Comment on above: Performed By: #### P HOS, CMP #### [facility] [address] [address] [address] Amanda Patrick Consent for Procedure/Surger yon 01-22-2021 Consent for Procedure/Surgery [id number] Normal [facility] Ambulatory Clinical Summaryo n 01-21-2021 Ambulatory Clinical Summary {[id number] Normal [facility] Patient Educationon 01-22-20 21 Patient Education Nutrition [...] in your pocket, or use a mobile evelio or website. Some programs will calculate calories [...] You could (more content not included)... Normal [facility] Urology Office/Clinic Noteon 01-21-2021 Urology Office/Clinic Note HPI Staff Cystoscopy w/ UD Scope #5 ABX taken History of Present Illness I have reviewed the previous health record information and history for this patient from Dr. Chan I have reviewed and verified the staff [...] urine The Urethra was dilated to: 26_ Hebrew with sounds. Specimens Removed: None Removal: Cystoscope [...] cystoscopy I did the dilatation from 16 Louann to 26 Hebrew. I will repeat the process in 6 months or as needed we will see how the dialysis proceeds Follow-up With When Contact Information ANAYELI GALLO, DPITI Stevens In 6 months 07/24/[address] [address]- [phone] Additional Instructions: cysto/UD Patient Education Calorie Counting for Weight Loss Urethral Stricture Mya Hardy personally scribed for Dr. Chan on 01/21/2021 14:03:25. . Documentation recorded by the scribe, Mya Garcia, accurately reflects the services(s) I performed and decisions made by me. Authenticated by Dr. Chan on 01/21/2021 14:06:08. Problem List/Past Medical History [...] (11/07/2019), Cystoscopy (more content not included)... Normal [facility] Comment on above: Result Comment: Elec tronically Signed By: ANAYELI GALLO, Cipriano Kinsey\.br\Date and Time Signed: 01/21/21 14:06 EDT\.br\Electronically Co-Signed [...] DAP: 130 cGycm2 Dose: 17 mGy PROCEDURE: INSTALLER INTERIOR ASSEMBLIES: Krunal Douglass Informed consent was obtained and [...] by: Krunal Douglass 05/04/20 Final result Normal [facility] Successful fluoroscopic-guided right hip steroid injection. [facility]- [place], [place] EXAMINATION: FLUOROS COPIC GUIDED INJECTION OF THE right hip 05/04/2020 1:06 pm HISTORY: ORDERING SYSTEM PROVIDED HISTORY: Hip pain, right Osteoarthritis of the right hip. FLUOROSCOPY DOSE AND TYPE OR TIME AND EXPOSURES: Fluoro time: 54 seconds DAP: 130 cGycm2 Dose: 17 mGy PROCEDURE: INSTALLER INTERIOR ASSEMBLIES: Krunal Douglass Informed consent was obtained and [...] Estimated blood loss: Less than 1 mL [place], [place] Rajinder, Mhpn Incoming Radiant Results From [employer] - 05/04/2020 1:56 PM EST EXAMINATION: FLUOROSCOPIC GUIDED INJECTION OF THE right hip 05/04/2020 1:06 pm HISTORY: ORDERING SYSTEM PROVIDED HISTORY: Hip pain, right Osteoarthritis of the right hip. FLUOROSCOPY DOSE AND TYPE OR TIME AND EXPOSURES: Fluoro time: 54 seconds DAP: 130 cGycm2 Dose: 17 mGy PROCEDURE: INSTALLER INTERIOR ASSEMBLIES: Krunal Douglass Informed consent was obtained and [...] IMPRESSION: Successful fluoroscopic-guided right hip steroid injection. [place], [place] Vital Signs Date Time Vital Sign Value Performing Clinician Facility 10-23-2024 16:05-0400 Diastolic blood pressure 65 mm[Hg] Elmer Mendoza JR Work Phone: [facility] 10-23-2024 16:05-0400 Heart rate 91 /min Elmer Mendoza JR Work Phone: [facility] 10-23-2024 16:05-0400 SaO2% (BldA) [Mass fraction] 100 % Elmer Mendoza JR Work Phone: [facility] 10-23-2024 16:05-0400 Systolic blood pressure 117 mm[Hg] Elmer Mendoza JR Work Phone: [facility] 10-23-2024 15:15-0400 Respiratory rate 18 /min Elmer Mendoza JR Work Phone: [facility] 10-23-2024 14:56-0400 Body temperature 96.8 [degF] Elmer Mendoza JR Work Phone: [facility] 10-23-2024 12:12-0400 Body height 172.72 cm Elmer Mendoza JR Work Phone: [facility] 10-23-2024 12:12-0400 Body weight 120.2 kg Elmer Mendoza JR Work Phone: [facility] 09-19-2024 15:27-0400 Body mass index (BMI) [Ratio] 39.56 kg/m2 Clara George GENERAL LABOR FORKLIFT OPERATOR-RESOLUTE PROFESSIONAL Work Phone: [facility] 09-19-2024 15:27-0400 Body temperature 97.59 [degF] Clraa George GENERAL LABOR FORKLIFT OPERATOR-RESOLUTE PROFESSIONAL Work Phone: [facility] 09-19-2024 15:27-0400 Body weight 118.03 kg Clara George GENERAL LABOR FORKLIFT OPERATOR-RESOLUTE PROFESSIONAL Work Phone: [facility] 09-19-2024 15:27-0400 Diastolic blood pressure 65 mm[Hg] Clara George GENERAL LABOR FORKLIFT OPERATOR-RESOLUTE PROFESSIONAL Work Phone: [facility] 09-19-2024 15:27-0400 Heart rate 80 /min Clara George GENERAL LABOR FORKLIFT OPERATOR-RESOLUTE PROFESSIONAL Work Phone: [facility] 09-19-2024 15:27-0400 Systolic blood pressure 119 mm[Hg] Clara George GENERAL LABOR FORKLIFT OPERATOR-RESOLUTE PROFESSIONAL Work Phone: [facility] 09-11-2024 22:44-0400 Diastolic blood pressure 60 mm[Hg] Elmer Mendoza JR Work Phone: [facility] 09-11-2024 22:44-0400 Heart rate 75 /min Elmer Mendoza JR Work Phone: [facility] 09-11-2024 22:44-0400 Respiratory rate 17 /min Elmer Mendoza JR Work Phone: [facility] 09-11-2024 22:44-0400 SaO2% (BldA) [Mass fraction] 99 % Elmer Mendoza JR Work Phone: [facility] 09-11-2024 22:44-0400 Systolic blood pressure 125 mm[Hg] Elmer Mendoza JR Work Phone: [facility] 09-11-2024 20:03-0400 Body temperature 97.7 [degF] Elmer Mendoza JR Work Phone: [facility] 09-11-2024 20:02-0400 Body height 172.72 cm Elmer Mendoza JR Work Phone: [facility] 09-11-2024 20:02-0400 Body weight 115 kg Elmer Mendoza JR Work Phone: [facility] 02-29-2024 14:26-0400 Body height 172.7 cm Clara George GENERAL LABOR FORKLIFT OPERATOR-RESOLUTE PROFESSIONAL Work Phone: [facility] 02-29-2024 14:26-0400 Body mass index (BMI) [Ratio] 39.53 kg/m2 Clara George GENERAL LABOR FORKLIFT OPERATOR-RESOLUTE PROFESSIONAL Work Phone: [facility] 02-29-2024 14:26-0400 Body temperature 97.39 [degF] Clara George GENERAL LABOR FORKLIFT OPERATOR-RESOLUTE PROFESSIONAL Work Phone: [facility] 02-29-2024 14:26-0400 Body weight 117.94 kg Clara George GENERAL LABOR FORKLIFT OPERATOR-RESOLUTE PROFESSIONAL Work Phone: [facility] 02-29-2024 14:26-0400 Diastolic blood pressure 97 mm[Hg] Clara George GENERAL LABOR FORKLIFT OPERATOR-RESOLUTE PROFESSIONAL Work Phone: [facility] 02-29-2024 14:26-0400 Heart rate 87 /min Clara George GENERAL LABOR FORKLIFT OPERATOR-RESOLUTE PROFESSIONAL Work Phone: [facility] 02-29-2024 14:26-0400 Systolic blood pressure 158 mm[Hg] Clara George GENERAL LABOR FORKLIFT OPERATOR-RESOLUTE PROFESSIONAL Work Phone: [facility] 10-27-2023 10:58-0400 Body height 172.7 cm Belen Mackey MD, PhD Work Phone: [facility] 10-27-2023 10:58-0400 Body mass index (BMI) [Ratio] 39.7 kg/m2 Belen Mackey MD, PhD Work Phone: [facility] 10-27-2023 10:58-0400 Body weight 118.4 kg Belen Mackey MD, PhD Work Phone: 4(979)452-737423 [address] 10-27-2023 10:58-0400 Diastolic blood pressure 84 mm[Hg] Belen Mackey MD, PhD Work Phone: [facility] 10-27-2023 10:58-0400 Systolic blood pressure 178 mm[Hg] Belen Mackey MD, PhD Work Phone: [facility] 10-27-2023 10:21-0400 Body height 172.7 cm Belen Mackey MD, PhD Work Phone: [facility] 10-27-2023 10:21-0400 Body mass index (BMI) [Ratio] 39.68 kg/m2 Belen Mackey MD, PhD Work Phone: [facility] 10-27-2023 10:21-0400 Body weight 118.39 kg Belen Mackey MD, PhD Work Phone: [facility] 10-27-2023 10:21-0400 Diastolic blood pressure 84 mm[Hg] Belen Mackey MD, PhD Work Phone: 2(139)338-268930 [place] [address] 10-27-2023 10:21-0400 Heart rate 93 /min Belen Mackey MD, PhD Work Phone: 2(350)035-594930 [place] [address] 10-27-2023 10:21-0400 Systolic blood pressure 144 mm[Hg] Belen Mackey MD, PhD Work Phone: 6(622)[phone] [place] [address] 09-19-2023 13:22-0400 Body height 172.7 cm Belen Mackey MD, PhD Work Phone: 1(988)797-947330 [place] [address] 09-19-2023 13:22-0400 Body mass index (BMI) [Ratio] 39.68 kg/m2 Belen Mackey MD, PhD Work Phone: 1(843)207-645530 [place] [address] 09-19-2023 13:22-0400 Body weight 118.39 kg Belen Mackey MD, PhD Work Phone: 6(137)092-572330 [place] [address] 09-19-2023 13:22-0400 Diastolic blood pressure 84 mm[Hg] Belen Mackey MD, PhD Work Phone: 6(474)445-260930 [place] [address] 09-19-2023 13:22-0400 Systolic blood pressure 178 mm[Hg] Belen Mackey MD, PhD Work Phone: 2(781)968-903230 [place] [address] 08-31-2023 08:43-0500 Body height 172.7 cm Belen Mackey MD, PhD Work Phone: 7(908)252-495330 [place] [address] 08-31-2023 08:43-0500 Body mass index (BMI) [Ratio] 39.76 kg/m2 Belen Mackey MD, PhD Work Phone: 4(616)087-134330 [place] [address] 08-31-2023 08:43-0500 Body temperature 97.59 [degF] Belen Mackey MD, PhD Work Phone: [facility] 08-31-2023 08:43-0500 Body weight 118.62 kg Belen Mackey MD, PhD Work Phone: [facility] 08-31-2023 08:43-0500 Diastolic blood pressure 72 mm[Hg] Belen Mackey MD, PhD Work Phone: [facility] 08-31-2023 08:43-0500 Heart rate 100 /min Belen Mackey MD, PhD Work Phone: [facility] 08-31-2023 08:43-0500 Systolic blood pressure 128 mm[Hg] Belen Mackey MD, PhD Work Phone: [facility] 08-17-2022 12:40-0500 Body height 172.72 cm Naldo Castillo Other [employer] Other 08-17-2022 12:40-0500 Body mass index (BMI) [Ratio] 41.81 kg/m2 Naldo Castillo Other [employer] Other 08-17-2022 12:40-0500 Body temperature 97.6 [degF] Naldo Castillo Other [employer] Other 08-17-2022 12:40-0500 Body weight 124.74 kg Naldo Castillo Other [employer] Other 08-17-2022 12:40-0500 Diastolic blood pressure 83 mm[Hg] Naldo Castillo Other [employer] Other 08-17-2022 12:40-0500 SaO2% (BldA) [Mass fraction] 97 % Naldo Castillo Other [employer] Other 08-17-2022 12:40-0500 Systolic blood pressure 131 mm[Hg] Naldo Castillo Other [facility] [employer] Other 06-11-2022 18:00-0500 Diastolic blood pressure 60 mm[Hg] JR Payne Valone Work Phone: [facility] 06-11-2022 18:00-0500 Heart rate 82 /min JR Elmer Valone Work Phone: [facility] 06-11-2022 18:00-0500 Respiratory rate 18 /min JR Elmer Valone Work Phone: [facility] 06-11-2022 18:00-0500 SaO2% (BldA) [Mass fraction] 95 % JR Payne Valone Work Phone: [facility] 06-11-2022 18:00-0500 Systolic blood pressure 122 mm[Hg] JR Elmer Valone Work Phone: [facility] 06-11-2022 13:26-0500 Body height 172.72 cm JR Elmer Valone Work Phone: [facility] 06-11-2022 13:26-0500 Body weight 128.9 kg JR Payne Valone Work Phone: [facility] 06-11-2022 13:25-0500 Body temperature 98 [degF] JR Elmer Valone Work Phone: [facility] 05-31-2022 04:30-0500 Diastolic blood pressure 78 mm[Hg] JR Elmer Valone Work Phone: [facility] 05-31-2022 04:30-0500 Heart rate 83 /min JR Elmer Valone Work Phone: [facility] 05-31-2022 04:30-0500 Respiratory rate 20 /min JR Elmer Valone Work Phone: [facility] 05-31-2022 04:30-0500 SaO2% (BldA) [Mass fraction] 95 % JR Elmer Mendoza Work Phone: [facility] 05-31-2022 04:30-0500 Systolic blood pressure 152 mm[Hg] JR Elmer Mendoza Work Phone: [facility] 05-31-2022 03:03-0500 Body height 172.72 cm JR Elmer Mendoza Work Phone: [facility] 05-31-2022 03:03-0500 Body temperature 98.4 [degF] JR Elmer Mendoza Work Phone: [facility] 05-31-2022 03:03-0500 Body weight 132 kg JR Elmer Mendoza Work Phone: [facility] 04-08-2022 13:30-0400 Body height 172.72 cm Awa Riley Other [employer] Other 04-08-2022 13:30-0400 Body mass index (BMI) [Ratio] 42.57 kg/m2 Awa Riley Other [employer] Other 04-08-2022 13:30-0400 Body temperature 98.4 [degF] Awa Riley Other [employer] Other 04-08-2022 13:30-0400 Body weight 127.01 kg Awa Riley Other [employer] Other 04-08-2022 13:30-0400 Diastolic blood pressure 75 mm[Hg] Awa Riley Other [employer] Other 04-08-2022 13:30-0400 SaO2% (BldA) [Mass fraction] 97 % Awa Riley Other [employer] Other 04-08-2022 13:30-0400 Systolic blood pressure 111 mm[Hg] Awa Riley Other [employer] Other 12-18-2021 13:00-0400 Body height 172.72 cm Zahra Whelan Other [employer] Other 12-18-2021 13:00-0400 Body mass index (BMI) [Ratio] 42.57 kg/m2 Zahra Whelan Other [employer] Other 12-18-2021 13:00-0400 Body temperature 98.1 [degF] Zahra Whelan Other [employer] Other 12-18-2021 13:00-0400 Body weight 127.01 kg Zahra Whelan Other [employer] Other 12-18-2021 13:00-0400 SaO2% (BldA) [Mass fraction] 99 % Zahra Whelan Other [employer] Other 10-26-2021 13:30-0400 Body height 172.72 cm Jair Willams Other [employer] Other 10-26-2021 13:30-0400 Body mass index (BMI) [Ratio] 42.57 kg/m2 Jair Willams Other [employer] Other 10-26-2021 13:30-0400 Body weight 127.01 kg Jair Willams Other [employer] Other 10-26-2021 13:30-0400 Diastolic blood pressure 64 mm[Hg] Jair Willams Other [employer] Other 10-26-2021 13:30-0400 SaO2% (BldA) [Mass fraction] 99 % Jair Buehrer Other [employer] Other 10-26-2021 13:30-0400 Systolic blood pressure 112 mm[Hg] Jair Buehrer Other [employer] Other 10-12-2021 13:45-0400 Body height 172.72 cm Jair Buehrer Other [employer] Other 10-12-2021 13:45-0400 Body mass index (BMI) [Ratio] 42.57 kg/m2 Jair Buehrer Other [employer] Other 10-12-2021 13:45-0400 Body temperature 97.1 [degF] Jair Davidsonrer Other [employer] Other 10-12-2021 13:45-0400 Body weight 127.01 kg Jair Davidsonrer Other [employer] Other 10-12-2021 13:45-0400 Diastolic blood pressure 58 mm[Hg] Jair Buehrer Other [employer] Other 10-12-2021 13:45-0400 Systolic blood pressure 94 mm[Hg] Jair Buehrer Other [employer] Other 09-21-2021 11:30-0400 Body height 172.72 cm Minna Hand Other [employer] Other 09-21-2021 11:30-0400 Body mass index (BMI) [Ratio] 42.57 kg/m2 Minna Hand Other [employer] Other 09-21-2021 11:30-0400 Body temperature 96.3 [degF] Minna Hand Other [employer] Other 09-21-2021 11:30-0400 Body weight 127.01 kg Minna Hand Other [employer] Other 09-21-2021 11:30-0400 Diastolic blood pressure 60 mm[Hg] Minna Hand Other [employer] Other 09-21-2021 11:30-0400 SaO2% (BldA) [Mass fraction] 99 % Minna Hand Other [employer] Other 09-21-2021 11:30-0400 Systolic blood pressure 94 mm[Hg] Minna Hand Other [employer] Other 08-02-2021 11:30-0500 Body height 172.72 cm Jair Willams Other [employer] Other 08-02-2021 11:30-0500 Body mass index (BMI) [Ratio] 42.57 kg/m2 Jair Davidsonreleilani Other [employer] Other 08-02-2021 11:30-0500 Body temperature 97.5 [degF] Jair Davidsonreleilani Other [employer] Other 08-02-2021 11:30-0500 Body weight 127.01 kg Jair Buehrer Other [employer] Other 08-02-2021 11:30-0500 Diastolic blood pressure 80 mm[Hg] Jair Buehrer Other [employer] Other 08-02-2021 11:30-0500 SaO2% (BldA) [Mass fraction] 92 % Jair Buehrer Other [employer] Other 08-02-2021 11:30-0500 Systolic blood pressure 102 mm[Hg] Jair Buehrer Other [employer] Other 07-12-2021 11:45-0500 Body height 172.72 cm Jair Adelaehrer Other [employer] Other 07-12-2021 11:45-0500 Body mass index (BMI) [Ratio] 45.61 kg/m2 Jair Buehrer Other [employer] Other 07-12-2021 11:45-0500 Body temperature 96.3 [degF] Jair Adelaannabellerer Other [employer] Other 07-12-2021 11:45-0500 Body weight 136.08 kg Jair Buehrer Other [employer] Other 07-12-2021 11:45-0500 Diastolic blood pressure 60 mm[Hg] Jair Buehrer Other [employer] Other 07-12-2021 11:45-0500 Systolic blood pressure 110 mm[Hg] Jair Buehrer Other [employer] Other 05-18-2021 13:45-0500 Body height 172.72 cm Jair Davidsonrer Other [employer] Other 05-18-2021 13:45-0500 Body mass index (BMI) [Ratio] 45.61 kg/m2 Jair Davidsonrer Other [employer] Other 05-18-2021 13:45-0500 Body temperature 97.4 [degF] Jair Davidsonrer Other [employer] Other 05-18-2021 13:45-0500 Body weight 136.08 kg Jair Chapmanehrer Other [employer] Other 05-18-2021 13:45-0500 Diastolic blood pressure 78 mm[Hg] Jair Adelaannabellerer Other [employer] Other 05-18-2021 13:45-0500 SaO2% (BldA) [Mass fraction] 98 % Jair Chapmanehrer Other [employer] Other 05-18-2021 13:45-0500 Systolic blood pressure 130 mm[Hg] Jair Buehrer Other [employer] Other 05-11-2021 14:00-0500 Body height 172.72 cm Nargis Church Other [employer] Other 05-11-2021 14:00-0500 Body mass index (BMI) [Ratio] 45.93 kg/m2 Nargis Church Other [employer] Other 05-11-2021 14:00-0500 Body temperature 96.8 [degF] Nargis Church Other [employer] Other 05-11-2021 14:00-0500 Body weight 137.03 kg Nargis Church Other [employer] Other 05-11-2021 14:00-0500 Diastolic blood pressure 70 mm[Hg] Nargis Church Other [employer] Other 05-11-2021 14:00-0500 Respiratory rate 18 /min Nargis Church Other [employer] Other 05-11-2021 14:00-0500 SaO2% (BldA) [Mass fraction] 98 % Nargis Church Other [employer] Other 05-11-2021 14:00-0500 Systolic blood pressure 124 mm[Hg] Nargis Church Other [employer] Other 04-26-2021 12:30-0400 Body height 172.72 cm Jair Willams Other [employer] Other 04-26-2021 12:30-0400 Body mass index (BMI) [Ratio] 46.22 kg/m2 Jair Willams Other [employer] Other 04-26-2021 12:30-0400 Body temperature 98 [degF] Jair Willams Other [employer] Other 04-26-2021 12:30-0400 Body weight 137.89 kg Jair Willams Other [employer] Other 04-26-2021 12:30-0400 Diastolic blood pressure 82 mm[Hg] Jair Willams Other [employer] Other 04-26-2021 12:30-0400 SaO2% (BldA) [Mass fraction] 96 % Jair Willams Other [employer] Other 04-26-2021 12:30-0400 Systolic blood pressure 120 mm[Hg] Jair Davidsonirish Other [employer] Other Encounters Encounter Date Encounter Type Care Provider Facility Start: 12-31-2024 ambulatory BELEN MACKEY Facility:[facility] Start: 12-01-2024 ambulatory ELMER PAUL JR. Facility:[facility] Start: 11-05-2024 End: 11-05-2024 ambulatory [facility] Start: 10-31-2024 ambulatory ELMER PAUL JR. Facility:[facility] Start: 10-23-2024 End: 10-23-2024 Emergency department patient visit Elmer Mendoza JR Work Phone: [facility] Work Phone: Start: 10-18-2024 Evaluation and manag ement of inpatient [facility] Start: 10-18-2024 Evaluation and manag ement of inpatient [facility] Start: 10-18-2024 End: 10-18-2024 Evaluation and management of inpatient [facility] Start: 10-17-2024 ambulatory [facility] Start: 10-17-2024 ambulatory [facility] Start: 10-17-2024 End: 10-18-2024 Evaluation and management of inpatient [facility] Start: 10-11-2024 End: 10-11-2024 Patient encounter procedure Elmer Mendoza JR Work Phone: [facility] [place] Work Phone: Start: 10-11-2024 End: 10-11-2024 ambulatory Elmer Mendoza Work Phone: [facility] Work Phone: Start: 10-09-2024 End: 10-09-2024 ambulatory AB [facility] Start: 10-01-2024 ambulatory ELMER PAUL JR. Facility:[facility] Start: 09-25-2024 Non-patient / Non-visit Richard s Estrellaone JR Work Phone: [facility] Work Phone: Start: 09-19-2024 ambulatory ELMER PAUL JR. Facility:[facility] Start: 09-19-2024 End: 09-19-2024 Office outpatient visit 25 minutes Clara George APRN-[facility] Work Phone: [facility] Comment on above: Patient on waiting l ist for kidney transplant (Primary Dx) Start: 09-11-2024 End: 09-11-2024 Emergency department patient visit Elmer Mendoza Work Phone: [facility] Work Phone: Start: 08-31-2024 ambulatory ELMER PAUL JR. Facility:[facility] Start: 08-26-2024 Non-patient / Non-visit Richard s Estrellaone Work Phone: [facility] Work Phone: Start: 08-03-2024 ambulatory ELMER PAUL JR. Facility:[facility] Start: 07-31-2024 Non-patient / Non-visit Richard s Estrellaone JR Work Phone: [facility] Work Phone: Start: 07-03-2024 ambulatory ELMER PAUL JR. Facility:[facility] Start: 06-25-2024 Non-patient / Non-visit Richard s Valone JR Work Phone: [facility] Work Phone: Start: 06-02-20[facility] Start: 05-03-2024 ambulatory [facility] Facility:[facility] Start: 04-02-2024 ambulatory [facility] Facility:[facility] Start: 03-03-2024 ambulatory [facility] Facility:[facility] Start: 02-29-2024 End: 02-29-2024 Office outpatient visit 25 minutes Clara M Dyllan GENERAL LABOR FORKLIFT OPERATOR-RESOLUTE PROFESSIONAL Work Phone: [facility] Comment on above: Patient on waiting l ist for kidney transplant (Primary Dx); End-stage renal disease needing dialysis; Atherosclerosis of [place] coronary artery of [place] heart without angina pectoris; Peripheral arteriosclerosis Start: 02-29-2024 ambulatory ELMER PAUL JR. Facility:[facility] Start: 02-27-2024 End: 02-27-2024 [employer]amboo Net[employer] Naresh A Felter GENERAL LABOR FORKLIFT OPERATOR-RESOLUTE PROFESSIONAL Work Phone: [facility] Start: 02-27-2024 End: 02-27-2024 [employer] flowsheet Naresh A Felter GENERAL LABOR FORKLIFT OPERATOR-RESOLUTE PROFESSIONAL Work Phone: [facility] Start: 02-27-2024 End: 02-27-2024 ambulatory NARESH A FELTER Not Available Start: 02-27-2024 End: 02-27-2024 Office outpatient visit 15 minutes Naresh Pearson Ailyner GENERAL LABOR FORKLIFT OPERATOR-RESOLUTE PROFESSIONAL Work Phone: [facility] Comment on above: Seborrheic keratosis ; Angioma of skin; Atopic dermatitis, unspecified type; Seborrheic keratosis, inflamed; Notalgia paresthetica Start: 12-08-2023 End: 12-08-2023 ambulatory JR Elmer Mendoza Work Phone: [facility] Work Phone: Start: 12-08-2023 End: 12-08-2023 Patient encounter procedure JR Elmer Mendoza Work Phone: [facility] Work Phone: Start: 11-08-2023 End: 11-08-2023 ambulatory FELIPE PACHECO Not Available Start: 10-27-2023 End: 10-27-2023 Patient encounter status Belen Mackey MD, PhD Work Phone: [facility] Work Phone: Start: 10-27-2023 End: 10-27-2023 Subsequent hospital visit by physician Belen Mackey MD, PhD Work Phone: [facility] [place] Comment on above: Arrived Start: 10-26-2023 End: 10-26-2023 Clinical Support Encounter [facility] Pre-Transplant Social Work [facility] Transplant [facility] Comment on above: Pre-transplant evalu ation for kidney transplant (Primary Dx) Start: 10-26-2023 End: 10-26-2023 Patient encounter status [facility] Pre-Transplant Social Work [facility] Start: 10-25-2023 Non-patient / Non-visit JR Barby Mendoza Work Phone: [facility] Work Phone: Start: 09-24-2023 Non-patient / Non-visit JR Barby Mendoza Work Phone: [facility] Work Phone: Start: 09-19-2023 End: 09-19-2023 Patient encounter status Belen Mackey MD, PhD Work Phone: [facility] Work Phone: Start: 09-19-2023 End: 09-19-2023 Subsequent hospital visit by physician Belen Mackey MD, PhD Work Phone: [facility] [place] Comment on above: Arrived Start: 08-31-2023 End: 08-31-2023 Office outpatient new [...] status Belen Mackey MD, PhD Work Phone: [facility] Start: 08-31-2023 End: 08-31-2023 Subsequent hospital visit by physician Belen Mackey MD, PhD Work Phone: [facility] [place] Comment on above: Arrived Start: 03-01-[address] Elmer Urbina Jr Facility:[id number] Start: 08-17-2022 End: 08-17-2022 ambulatory Naldo Castillo Other [employer] Other Start: 08-17-2022 Office outpatient vi sit 15 minutes Naldo Castillo [facility] Urgent Care [facility] Start: 06-30-2022 End: 06-30-2022 ambulatory JR Elmer Mendoza Work Phone: [facility] Work Phone: Start: 06-30-2022 End: 06-30-2022 Patient encounter procedure JR Elmer Mendoza Work Phone: [facility] [place] Work Phone: Start: 06-11-2022 End: 06-11-2022 Emergency department patient visit JR Elmer Mendoza Work Phone: [facility] Work Phone: Start: 06-09-2022 End: 06-09-2022 ambulatory JR Elmer Mendoza Work Phone: [facility] Work Phone: Start: 06-09-2022 End: 06-09-2022 Patient encounter procedure JR Elmer Mendoza Work Phone: [facility] Start: 05-31-2022 End: 05-31-2022 Emergency department patient visit JR Elmer Mendoza Work Phone: [facility] Start: 05-14-2022 End: 05-14-2022 ambulatory JR Elmer Mendoza Work Phone: [facility] Work Phone: Start: 05-14-2022 End: 05-14-2022 Patient encounter procedure JR Elmer Mendoza Work Phone: [facility] Start: 05-11-2022 End: 05-12-[address] KRISTAL MORALEZ Facility:H1 Start: 04-08-2022 Office outpatient vi sit 25 minutes Awa Riley [facility] Start: 04-08-2022 End: 04-08-2022 ambulatory JR Elmer Mendoza Work Phone: [employer] Other Start: 04-08-2022 End: 04-08-2022 Patient encounter procedure JR Elmer Mendoza Work Phone: [facility] 250 Start: 04-02-2022 End: 04-02-2022 ambulatory JR Elmer Mendoza Work Phone: [facility] Work Phone: Start: 04-02-2022 End: 04-02-2022 Patient encounter procedure JR Elmer Mendoza Work Phone: [facility] Start: 12-27-2021 End: 12-27-[address] JAIR HUFF Facility:H1 Start: 12-18-2021 End: 12-18-2021 ambulatory Zahra Whelan Other [employer] Other Start: 12-18-2021 Office outpatient vi sit 15 minutes Zahra Whelan [facility] Start: 12-10-2021 End: 12-10-[address] NATHAN AVILA Facility:H1 Start: 10-26-2021 End: 10-26-2021 ambulatory Jair Willams Other [employer] Other Start: 10-26-2021 Office outpatient vi sit 15 minutes Jair Willams [facility] Start: 10-12-2021 End: 10-12-2021 ambulatory Jair Willams Other [employer] Other Start: 10-12-2021 Postop follow up vis it related to original px Jair Willams [facility] Start: 09-21-2021 End: 09-21-2021 ambulatory Minna Hand Other [employer] Other Start: 09-21-2021 Office outpatient vi sit 15 minutes Minna Hand [facility] Start: 09-10-2021 End: 09-10-[address] ELMER MENDOZA Facility:H1 Start: 08-20-2021 End: 08-21-[address] ELMER MENDOZA Facility:H1 Start: 08-04-2021 End: 08-04-2021 ambulatory Jair Willams Other [employer] Other Start: 08-04-2021 Telephone encounter Jair Willams [facility] Start: 08-02-2021 End: 08-02-2021 ambulatory Jair Willams Other [employer] Other Start: 08-02-2021 Office outpatient vi sit 25 minutes Jair Willams [facility] Start: 07-12-2021 End: 07-12-[address] ELMER MENDOZA [employer] Other Start: 07-12-2021 Office outpatient vi sit 15 minutes Jair Willams [facility] Start: 07-01-2021 End: 07-01-[address] ELMER MENDOZA Facility:H1 Start: 06-17-2021 End: 06-17-2021 ambulatory Nargis Church Other [employer] Other Start: 06-17-2021 Telephone encounter Nargis Thomasvance [facility] Start: 06-16-2021 Telephone encounter Nargis Thomasvance [facility] Start: 06-16-2021 End: 06-17-[address] ELMER MENDOZA [employer] Other Start: 05-18-2021 End: 05-18-2021 ambulatory Ector Berg Other [employer] Other Start: 05-18-2021 Postop follow up vis it related to original px Jair Willams [facility] Start: 05-18-2021 Telephone encounter Ector Berg [facility] Start: 05-13-2021 End: 05-13-2021 ambulatory Nargis Church Other [employer] Other Start: 05-13-2021 Telephone encounter Nargis Church [facility] Start: 05-11-2021 End: 05-11-2021 ambulatory Nargis Church Other [employer] Other Start: 05-11-2021 Office outpatient vi sit 25 minutes Nargis Church [facility] [place] Start: 05-04-2021 End: 05-04-2021 ambulatory Zahra Whelan Other [employer] Other Start: 05-04-2021 Telephone encounter Zahra helm [facility] Start: 05-03-2021 End: 05-03-2021 ambulatory Jair Willams Other [employer] Other Start: 05-03-2021 Telephone encounter Jair Willams [facility] Start: 04-29-2021 Telephone encounter Zahra helm [facility] Vascular Surgery Start: 04-26-2021 [facility] visit new patient Jair Rader er [facility] V[facility] Surgery Start: 05-04-2020 End: 05-07-2020 Patient encounter procedure KJ BACA [facility] Start: 05-04-2020 End: 05-06-2020 Subsequent hospital visit by physician [facility] Nurse 1 [facility] Special Procedures Comment on above: Hip pain, right Procedures Date Procedure Procedure Detail Performing Clinician Start: 10-23-2024 CT angiography of thorax Elmer Mendoza Work Phone: Start: 10-23-2024 Plain chest X-ray Leandro Mendoza Work Phone: Start: 09-11-2024 Plain chest X-ray Courtneysiena nichole Mendoza Work Phone: Start: 09-11-2024 Viral nucleic acid assay Elmer Mendoza JR Work Phone: Start: 02-27-2024 CRYOTHERAPY SKIN LESION Naresh Peters GENERAL LABOR FORKL[employer] OPERATOR-RESOLUTE PROFESSIONAL Work Phone: Start: 12-08-2023 Blood culture for ba cteria, including anaerobic screen Elmer Mendoza Work Phone: Start: 10-27-2023 Myocardial spect mul tiple studies Belen Mackey MD, PhD Work Phone: Start: 10-27-2023 Echo tthrc r-t 2d w/wom-mode compl spec&colr d Belen Mackey MD, PhD Work Phone: Start: 10-27-2023 Blood gases any comb ination ph pco2 po2 co2 hco3 Belen Mackey MD, PhD Work Phone: Start: 10-27-2023 Arterial puncture withdrawal blood dx Belen Mackey MD, PhD Work Phone: Start: 10-27-2023 End: 10-27-2023 Spmtry w/vc expiratory jay w/wo mxml vol vntj Belen Mackey MD, PhD Work Phone: Start: 09-19-2023 Cta abdl aorta&bi il iofem w/contrast&postp Belen Mackey MD, PhD Work Phone: Start: 08-31-2023 Antibody screen Belen slaughter MD, PhD Work Phone: Start: 08-31-2023 Radiologic exam ches t 2 [...] Phone: Start: 06-11-2022 Plain chest X-ray JR Juan Alberto Mendoza Work Phone: Start: 06-11-2022 Blood culture for ba cteria, including anaerobic screen JR Elmer Mendoza Work Phone: Start: 06-11-2022 Respiratory Panel (PCR) JR Elmer Mendoza Work Phone: Start: 06-09-2022 Urine culture JR Richard Mendoza Work Phone: Start: 05-31-2022 CT of abdomen and pe lvis without contrast JR lEmer Mendoza Work Phone: Start: 04-08-2022 Plain chest X-ray JR Juan Alberto jordannila Mendoza Work Phone: Start: 05-04-2020 DISCHARGE PATIENT CIARA BACA Start: 05-04-2020 Arthrocentesis aspir &/inj major jt/bursa w/o us KJ BACA Start: 05-04-2020 Arthrocentesis aspir &/inj major jt/bursa w/o us Kj Baca Work Phone: Urine culture JR Elmer dupree Work Phone: Plan of Treatment Date Care Activity Detail Author Start: 02-27-2025 End: 02-27-2025 Patient encounter procedure 02/27/2025 1:00 PM EDT Office Visit [facility] [address] [place] [address] Naresh Peters, GENERAL LABOR FORKLIFT OPERATOR-RESOLUTE PROFESSIONAL [address] [place] [address] [facility] Start: 11-20-2024 Screening for malign ant neoplasm of colon COLORECTAL CANCER SCREENING DISCUSSION [facility] Start: 10-23-2024 Bacteria identified in Blood by Culture Blood Culture [facility] Start: 10-23-2024 [facility] Start: 08-30-2024 Prostate specific antigen measurement PROSTATE CANCER SCREENING DISCUSSION [facility] Start: 03-03-2024 COVID-19 VACCINE ( season) COVID-19 VACCINE ( season) [facility] Start: 03-03-2024 Influenza vaccination [facility] Start: 03-03-2024 End: 03-03-2024 Patient encounter procedure 03/03/2024 6:00 AM EDT Lab Encounter CLINICAL LAB TISSUE TYPING [address] [place] [address] Belen Mackey MD, PhD [address] [place] [address] CLINICAL LAB TISSUE TYPING Start: 12-08-2023 Bacteria identified in Blood by Culture [facility] Start: 08-31-2023 End: 08-30-2024 CTA Abdominal Aorta and Bilateral Runoff Vessels W contrast IV CT ANGIO ABDOMINAL AORTA WITH RUNOFF Imaging Routine Pre-transplant evaluation for kidney transplant Chronic kidney disease, stage V ESRD (end stage renal disease) on dialysis Expected: 08/31/2023, Expires: 08/30/2024 [facility] Comment on above: Expected: 08/31/2023 , Expires: 08/30/2024 Start: 03-03-2023 COVID-19 VACCINE ( season) COVID-19 VACCINE ( season) [facility] Start: 03-03-2023 Influenza vaccination INFLUENZA VACC INE (#1) [facility] Start: 06-30-2022 Bacteria identified in Urine by Culture Urine Culture [facility] Start: 05-31-2022 CT of abdomen and pelvis without contrast CT abdomen pelvis wo con [facility] Start: 05-14-2022 [facility] Start: 09-13-2020 Pneumococcal vaccination [facility] Start: 07-22-2020 End: 07-22-2020 Office Visit 07/22/2020 Office Visit Orthopedic Surgery Kj Baca MD [address] [place] [address] [facility] Start: 04-03-2020 Annual Wellness Visi t (AWV) Annual Wellness Visit (AWV) [place] Start: 03-03-2020 Influenza vaccination Flu vaccine (# 1) [place] Start: 2016 Abdominal aortic aneurysm screening ABDOMINAL AORTIC ANEURYSM HIGH RISK SCREEN [facility] Start: 2016 Pneumococcal 65+ yea rs Vaccine (1 of 1 - PPSV23) Pneumococcal 65+ years Vaccine (1 of 1 - PPSV23) [place] Start: 12-13-2013 Zoster vaccine hzv l zaheer for subcutaneous use ZOSTER (SHINGLES) VACCINE (2 of 3) [facility] Start: 2011 RSV VACCINE (1 - 1-d ose 60+ series) RSV VACCINE (1 - 1-dose 60+ series) [facility] Start: 2011 RSV VACCINE (1 - Ris k 60-74 years 1-dose series) RSV VACCINE (1 - Risk 60-74 years 1-dose series) [facility] Start: 2001 Screening for malign ant neoplasm of colon Colon cancer screen colonoscopy [place], [place] Start: 2001 Shingles Vaccine (1 of 2) Shingles Vaccine (1 of 2) [place] Start: 1996 Screening for malign ant neoplasm of colon COLORECTAL CANCER SCREENING DISCUSSION [facility] Start: 1991 Lipid panel [facility] Start: 1970 DTaP/Tdap/Td vaccine (1 - Tdap) DTaP/Tdap/Td vaccine (1 - Tdap) [place] Start: 1970 Third diphtheria, tetanus and acellular pertussis (DTaP) vaccination TDAP (ADULT) [facility] Start: 1950 Hepatitis C screening Hepatitis C sc reen [place], [place] Start: 1950 Tetanus vaccination TETANUS [facility] Start: 1950 Thyroid stimulating hormone measurement TSH [facility] 6-minute walk test EXERCISE-6 MA N. WALK PFT Routine Pre-transplant evaluation for kidney transplant Chronic kidney disease, stage V 10/27/2023 9:43 AM EDT [facility] Work Phone: ARTERIAL BLOOD GAS, PULMONARY LAB OBTAINED ARTERIAL BLOOD GAS, PULMONARY LAB OBTAINED PFT Routine Pre-transplant evaluation for kidney transplant Chronic kidney disease, stage V 10/27/2023 9:15 AM EDT [facility] Work Phone: Bacteria identified in Urine by Culture [facility] Work Phone: CMV IGG AB CMV IGG AB Lab R outine Pre-transplant evaluation for kidney transplant 08/31/2023 10:04 AM EST [facility] Glucose measurement estimated from glycated hemoglobin [facility] Work Phone: Hemoglobin A1c/Hemoglobin.total in Blood [facility] Work Phone: HLA TYPING (SOLID ORGAN) HLA TYPING (SOLID ORGAN) Lab Routine Pre-transplant evaluation for kidney transplant 08/31/2023 10:04 AM EST [facility] HSV IGM ANTIBODY HSV IGM ANTIBOD Y Lab Routine Pre-transplant evaluation for kidney transplant 08/31/2023 10:04 AM EST [facility] Measurement of respiratory function PFT STANDARD PFT Routine Pre-transplant evaluation for kidney transplant Chronic kidney disease, stage V 10/27/2023 9:15 AM EDT [facility] Work Phone: OPIOIDS, URINE, CONFIRMATION OPIOIDS, URINE, CONFIRMATION Lab Routine Pre-transplant evaluation for kidney transplant Encounter for therapeutic drug level monitoring 08/31/2023 10:04 AM EST [facility] Patient Education [facility] Work Phone: Patient referral [facility] Work Phone: PRA CLASS (PRE-TRANSPLANT) PRA CLASS (PRE-TRANSPLANT) Lab Routine Pre-transplant evaluation for kidney transplant 08/31/2023 10:04 AM [facility] Immunizations Immunization Date Immunization Notes Care Provider Janes maguire 09-25-2020 COVID-19 mRNA, Comirnaty (Pfizer) JR Elmer Mendoza Work Phone: [facility] 09-04-2020 COVID-19 mRNA, Comirnaty (Pfizer) JR Elmer Mendoza Work Phone: [facility] 04-22-2019 influenza virus vaccine, unspecified formulation Belen Mackey MD, PhD Work Phone: [facility] 10-18-2013 zoster vaccine, unspecified formulation Belen Mackey MD, PhD Work Phone: [facility] Payers Date Payer Category Payer Managed Care (unspecified) MEDICARE SUPPLEMENT Member Subscriber Plan / Payer (Effective 2023-Present) Name: Vj Cárdenas Relation to Subscriber: Self Name: Vj Cárdenas Payer ID: Not on file Group ID: Not on file Type: Not on file Address: [place] [id number] 2022 Unknown [id number] [id number]. [id number] 2016 Medicare [id number] [id number]. [id number] 1959 Medicare [id number] [id number]. [id number] 1959 Self-pay [id number] 1959 Unknown [id number] 1.2.840.830877.1.13.239.2. 7.3.050181.315 1951 Unknown [id number] 2.16.840.1.051366.3.579.2. 176 1951 Unknown [id number] 2.16.840.1.675179.3.579.2. 593 1951 Unknown [id number] 2.16.840.1.186877.3.579.2. 593 1951 Unknown [id number] 2.16.840.1.269436.3.579.2. 593 1951 Unknown [id number] 2.16.840.1.367723.3.579.2. 593 1951 Unknown [id number] 2.16.840.1.251739.3.579.2. 593 1951 Unknown [id number] 2.16.840.1.634082.3.579.2. 593 1951 Unknown [id number] 2.16.840.1.298410.3.579.2. 593 1951 Unknown [id number] 2.16.840.1.524716.3.579.2. 356 1951 Unknown [id number] 2.16.840.1.655938.3.579.2. 1259 1951 Unknown [id number] 2.16.840.1.746925.3.579.2. 1259 1951 Unknown [id number] 2.16.840.1.404419.3.579.2. 594 1951 Unknown [id number] 2.16.840.1.511306.3.579.2. 594 1951 Unknown [id number] 2.16.840.1.652318.3.579.2. 594 1951 Unknown [id number] 2.16.840.1.359560.3.579.2. 594 1951 Unknown [id number] 2.16.840.1.944529.3.579.2. 594 1951 Unknown [id number] 2.16.840.1.627831.3.579.2. 594 1951 Unknown [id number] 2.16.840.1.754675.3.579.2. 594 1951 Unknown [id number] 2.16.840.1.374469.3.579.2. 594 1951 Unknown [id number] 2.16.840.1.712716.3.579.2. 594 1951 Unknown [id number] 2.16.840.1.049570.3.579.2. 594 1951 Unknown [id number] 2.16.840.1.360824.3.579.2. 594 1951 Unknown [id number] 2.16.840.1.901785.3.579.2. 594 1951 Unknown [id number] 2.16.840.1.178830.3.579.2. 594 Medicare Medicare Nonpatient [id number] Unknown Regular Insurance [id number] Unknown [employer] [id number] Unknown [id number] 2.16.840.1.119264.3.579.2. 593 Unknown [id number] 2.16.840.1.837228.3.579.2. 531 Unknown [id number] 2.16.840.1.106134.3.579.2. 531 Unknown [id number] 2.16.840.1.355557.3.579.2. 531 Unknown [id number] 2.16.840.1.136894.3.579.2. 531 Social History Date Type Detail Facility Tobacco smoking stat [facility] Unknown if ever smoked [place] Start: 1950 Sex Assigned At Not on file [place] Exposure to SARS-CoV -2 (event) Not sure [place] Start: 08-31-2023 End: 10-27-2023 Sex Assigned At [employer] Other Start: 11-04-2021 End: 06-11-2022 Tobacco smoking status FLIS Ex-smoker (finding) [facility] Start: 1950 Sex Assigned At Male [facility] Start: 05-31-2022 End: 10-23-2024 Tobacco smoking status NHIS Never smoked tobacco (finding) [facility] Start: 03-02-2023 End: 08-31-2023 Tobacco use and exposure Smokeless tobacco non-user [facility] Start: 08-31-2023 End: 01-23-2024 Alcoholic beverage intake Current drinker of alcohol (finding) [facility] Start: 08-31-2023 End: 10-27-2023 Alcoholic beverage intake [facility] Start: 07-25-2023 Gender identity Identifies as male gender (finding) [facility] Start: 07-25-2023 Sexual orientation Heterosexual (finding) [facility] Start: 11-08-2023 End: 02-27-2024 Alcoholic beverage intake Lifetime non-drinker (finding) [facility] Start: 02-23-2023 Alcohol Comment Caffeine: 1-2 cups/day coffee [facility] Start: 09-11-2024 End: 10-23-2024 Sex Male (finding) [facility] Medical Equipment Procedure Code Equipment Code Equipment Origin al Text Equipment Identifier Dates Fluoroscopic guidance for insertion of tunnelled dialysis catheter Double-lumen haemodialysis catheter, implantable [id number] [facility] Start: 06-18-2021 Clinical Notes 04-26-2021 to 11-05-2024 JENNY Cash - 09/19/2024 3:00 PM EDTPatient InstructionsJENNY Cash - 02/29/2024 2:30 PM EDTPatient InstructionsJENNY Sanders - 02/27/2024 1:00 PM EDT Note Date & Type Note Facility 11-05-2024 Note [facility] Cardiology Clinic Note Chief Complaint: Patient here for a follow up from heart cath. Patient had ER visit 2 weeks ago due to low blood pressure. Occasional dyspnea with exertion. HPI: Vj Cárdenas is a 74 y.o. male With a history of coronary artery disease, end-stage renal disease on HD, hypertension here to establish care. His is also my patient. Per ER notes: 74-year-old male presenting with shortness of breath for a few hours. Has had cough/cold symptoms for the last week and congestion. Has history of end-stage renal disease on dialysis. His fistula is working fine. He is no longer feeling short of breath or congested. No lightheadedness or dizziness. No new swelling of the lower extremities. Ultimately diagnosed with a URI; given a cough syrup and tablets and discharged Past medical history: End-stage renal disease, dialysis 3 times a week, obstructive sleep apnea, neuropathy, depression, back pain, arthritis, migraine, benign prostatic hypertrophy, diverticulitis, gastroesophageal reflux disease, dyslipidemia, hypertension, hypothyroidism, myocardial infarction Family history: Mother had a history of coronary artery disease and myocardial infarction as did his father Social history: Never smoked, alcohol occasionally Currently; Symptoms that he had when he went to the emergency room have improved. However, he continues to have left-sided chest pain with and without exertion. He was has exertional shortness of breath when walking from his car to the office. He sleeps in a recliner. He denies paroxysmal nocturnal dyspnea. He has no significant lower extremity edema. He does have occasional lightheadedness and dizziness. He states that when in the ER, his heart rate was in the 40s. UPDATE 11/05/2024 Doing well from a cardiac standpoint; however, had episodic significant hypotension with systolics into the 60s. He was seen in the emergency room. His antihypertensives were discontinued. He was also started on midodrine to take as needed for hypotension. His blood pressure now runs in the low 100s to 85 systolic. He continues to receive hemodialysis but apparently does not receive midodrine during the sessions. Cardiology ROS: Review of Systems Cardiovascular: Positive for dyspnea on exertion. Musculoskeletal: Positive for muscle weakness. Neurological: Positive for dizziness and light-headedness. All other systems reviewed and are negative. Past Medical History He has a past medical history of Abnormal ECG, Chronic kidney disease, and Hyperlipidemia. Surgical History He has a past surgical history that includes Cholecystectomy; Colectomy; Appendectomy; Hernia repair; Vasectomy; Mastectomy; Knee surgery; Ankle surgery; and hc dialysis procedure - miscellaneous dialysis (10/18/2024). Social History He reports that he has never smoked. He has never used smokeless tobacco. He reports current alcohol use. No history on file for drug use. Family History Family History Problem Relation Name Age of Onset Coronary artery disease Mother Heart attack Father Allergies Verapamil Medications Current Outpatient Medications: allopurinol (Zyloprim) 100 mg tablet, Take 100 mg by mouth twice a day., Disp: , Rfl: aspirin 81 mg EC tablet, Take 81 mg by mouth in the morning., Disp: , Rfl: calcitriol (Rocaltrol) 0.25 mcg capsule, Take 0.25 mcg by mouth in the morning., Disp: , Rfl: calcium acetate (Phoslo) 667 mg capsule, Take 667 mg by mouth., Disp: , Rfl: carvedilol (Coreg) 6.25 mg tablet, Take 6.25 mg by mouth in the morning., Disp: , Rfl: clopidogrel (Plavix) 75 mg tablet, Take 1 tablet (75 mg) by mouth in the morning. DO NOT STOP OR SKIP A DOSE WITHOUT SPEAKING TO STAFF DEVELOPMENT COORDINATOR RN, Disp: 90 tablet, Rfl: 3 doxepin (SINEquan) 10 mg/mL solution, Take 30 mg by mouth at bedtime., Disp: , Rfl: doxycycline (Monodox) 100 mg capsule, Take 1 capsule by mouth Twice daily at 6am and 6pm., Disp: , Rfl: DULoxetine (Cymbalta) [address] capsule, Take 60 mg by mouth in the morning., Disp: , Rfl: famotidine (Pepcid) 20 mg tablet, Take 20 mg by mouth twice a day., Disp: , Rfl: FLUoxetine (PROzac) 10 mg capsule, Take 10 mg by mouth in the morning., Disp: , Rfl: levoFLOXacin (Levaquin) 250 mg tablet, Take 1 tablet by mouth in the morning., Disp: , Rfl: lisinopril 5 mg tablet, Take 5 mg by mouth in the morning., Disp: , Rfl: montelukast (Singulair) 10 mg tablet, Take 10 mg by mouth in the morning., Disp: , Rfl: nitrofurantoin, macrocrystal-monohydrate, (Macrobid) 100 mg capsule, Take 1 capsule by mouth in the morning., Disp: , Rfl: Renal Vitamin 0.8 mg tablet, Take 1 tablet by mouth in the morning., Disp: , Rfl: rosuvastatin (Crestor) 40 mg tablet, Take 1 tablet (40 mg) by mouth in the evening., Disp: 90 tablet, Rfl: 3 sevelamer carbonate (Renvela) 800 mg tablet, Take 800 mg by mouth with breakfast, with lunch, and with evening meal (more content not included)... [facility] 10-23-2024 Radiology Diagnostic study note [facility] Main [place] [address] [place], [place] [id number] CT Scan Report Signed Patient: Vj Cárdenas MR#: [id number] : 1950 Acct:[id number] Age/Sex: 74 / M ADM Date: 5 Loc: ER Room: Type: [facility] ER Attending Dr: Copies to: Diane Murry DO~ Ordering Provider: Diane Murry DO Date of Service: 10/23/24 CT/CT angio chest PE protocol: neck pain, hypotensive, dialysis CT ANGIOGRAM OF THE CHEST, PULMONARY EMBOLISM PROTOCOL: CLINICAL INFORMATION: Weakness, fall, rule out pulmonary embolism TECHNIQUE: Following intravenous injection of contrast CT scans of the chest were obtained using pulmonary embolism protocol. Coronal and sagittal reconstructed images, as well as volume rendered CT pulmonary angiographic images were also submitted.The CT exam was performed using one or more of the following dose reduction techniques: Automated exposure control, adjustment of the MA and/or Kv according to patient size, or use of the iterative reconstruction technique. FINDINGS: Pulmonary Vasculature: Contrast bolus is adequate for evaluation of pulmonary embolism. Pulmonary trunk appears nondilated. No filling defects are identified to suggest pulmonary embolism. Mediastinum : Thoracic aorta is normal in caliber. No pericardial effusion. Nolymphadenopathy. The esophagus is grossly unremarkable. Lungs: Mild interstitial thickening. No focal consolidation, pneumothorax or pleural effusion. Upper abdomen: No acute findings Soft tissue/bones: Soft tissues surrounding the chest wall demonstrate no acute findings. Osseous structures demonstrate degenerative change. Multilevel ankylosis. CT/CT angio chest PE protocol IMPRESSION: NO CT EVIDENCE OF PULMONARY EMBOLISM. NEGATIVE ACUTE PLEURAL-PARENCHYMAL DISEASE. Impression dictated by: Jan Becker M.D.10/23/2024 2:49 PM Dictation Location: [place] [id number] Transcribed By: [facility] 10/23/24 1449 Dictated By: Jan Becker MD 10/23/24 144 Signed By: 10/23/24 1449 [facility] Work Phone: 10-18-2024 Note Pt in for 3.5 hr felipe atment after heart cath yesterday. Up 3 kg from dry wt. States he has low BP and sometimes is dizzy after treatment. Crit line being used. Goal set to 3 kg, right arm fistula without problems. On 2 k bath/138/35. Removed 2.5 kg as pt BP did fall and he became somnolent for a couple seconds, 200 NS returned , UF goal then decreased and subsequently taken off treatment . Pt alert and BP at the end 100/48 standing, 110/59 HR 78 sitting. Denied dizziness. Transported to heart station in stable condition. [facility] 10-09-2024 Note [facility] Cardiology Clinic Note Chief Complaint: New patient here to establish care. Self ref for SOB. He was seen at [facility] last month for SOB. Says he had a heart attack during surgery 40 years ago. Gets left-sided chest pain with the SOB at times. 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 Says he's only ever followed up with Dr. Mendoza for cardiology care. He is a dialysis patient. HPI: Vj Cárdenas is a 74 y.o. male With a history of coronary artery disease, end-stage renal disease, hypertension here to establish care. His is also my patient. Per ER notes: 74-year-old male presenting with shortness of breath for a few hours. Has had cough/cold symptoms for the last week and congestion. Has history of end-stage renal disease on dialysis. His fistula is working fine. He is no longer feeling short of breath or congested. No lightheadedness or dizziness. No new swelling of the lower extremities. Ultimately diagnosed with a URI; given a cough syrup and tablets and discharged Past medical history: End-stage renal disease, dialysis 3 times a week, obstructive sleep apnea, neuropathy, depression, back pain, arthritis, migraine, benign prostatic hypertrophy, diverticulitis, gastroesophageal reflux disease, dyslipidemia, hypertension, hypothyroidism, myocardial infarction Family history: Mother had a history of coronary artery disease and myocardial infarction as did his father Social history: Never smoked, alcohol occasionally Currently; Symptoms that he had when he went to the emergency room have improved. However, he continues to have left-sided chest pain with and without exertion. He was has exertional shortness of breath when walking from his car to the office. He sleeps in a recliner. He denies paroxysmal nocturnal dyspnea. He has no significant lower extremity edema. He does have occasional lightheadedness and dizziness. He states that when in the ER, his heart rate was in the 40s. Cardiology ROS: Review of Systems Cardiovascular: Positive for chest pain and dyspnea on exertion. Respiratory: Positive for shortness of breath. Musculoskeletal: Positive for muscle weakness. Neurological: Positive for dizziness and light-headedness. All other systems reviewed and are negative. Past Medical History He has no past medical history on file. Surgical History He has no past surgical history on file. Social History He has no history on file for tobacco use, alcohol use, and drug use. Family History No family history on file. Allergies Verapamil Medications Current Outpatient Medications: calcium acetate (Phoslo) 667 mg capsule, Take 667 mg by mouth., Disp: , Rfl: doxepin (SINEquan) 10 mg/mL solution, Take 30 mg by mouth at bedtime., Disp: , Rfl: doxycycline (Monodox) 100 mg capsule, Take 1 capsule by mouth Twice daily at 6am and 6pm., Disp: , Rfl: DULoxetine (Cymbalta) [address] capsule, Take 60 mg by mouth in the morning., Disp: , Rfl: FLUoxetine (PROzac) 10 mg capsule, Take 10 mg by mouth in the morning., Disp: , Rfl: levoFLOXacin (Levaquin) 250 mg tablet, Take 1 tablet by mouth in the morning., Disp: , Rfl: montelukast (Singulair) 10 mg tablet, Take 10 mg by mouth in the morning., Disp: , Rfl: nitrofurantoin, macrocrystal-monohydrate, (Macrobid) 100 mg capsule, Take 1 capsule by mouth in the morning., Disp: , Rfl: Renal Vitamin 0.8 mg tablet, Take 1 tablet by mouth in the morning., Disp: , Rfl: sevelamer carbonate (Renvela) 800 mg tablet, Take 800 mg by mouth with breakfast, with lunch, and with evening meal., Disp: , Rfl: allopurinol (Zyloprim) 100 mg tablet, Take 100 mg by mouth twice a day., Disp: , Rfl: amLODIPine (Norvasc) 2.5 mg tablet, Take 2.5 mg by mouth in the morning., Disp: , Rfl: calcitriol (Rocaltrol) 0.25 mcg capsule, Take 0.25 mcg by mouth in the morning., Disp: , Rfl: carvedilol (Coreg) 6.25 mg tablet, Take 6.25 mg by mouth in the morning., Disp: , Rfl: famotidine (Pepcid) 20 mg tablet, Take 20 mg by mouth twice a day., Disp: , Rfl: furosemide (Lasix) 40 mg tablet, Take 40 mg by mouth in the morning., Disp: , Rfl: lisinopril 5 mg tablet, Take 5 mg by mouth in the morning., Disp: , Rfl: rosuvastatin 20 mg capsule, sprinkle, Take 20 mg by mouth in the morning., Disp: , Rfl: Synthroid 200 mcg tablet, Take 200 mcg by mouth before breakfast., Disp: , Rfl: Last Recorded Vitals BP 118/88 (BP Location: Left arm, Patient Position: Sitting) Pulse 100 Ht 1.727 m (5' 8 ) Wt 118 kg (260 lb) SpO2 90% BMI 39.53 kg/m??? Physical Examination: GENERAL: alert and oriented x3, well developed, in no acute distress. HEAD: atraumatic, normocephalic. EYES: JUNIOR, EOMI. NECK: trachea midline, no JVD present, no carotid bruits present. CARDIAC: S1, S2 present. Irregular. No murmur, rubs, or gallops. RESPIRATORY: CTAB, no increased effort of breathing, no rales, rhonchi, or wheezing. ABDOMEN: soft, nontender, nondis (more content not included)... [facility] 09-19-2024 History of Present illness Narrative Images from the original note were not included. [facility] Wait list Evaluation Dialysis Center: [facility] Chief Complaint: Scheduled Kidney Transplant wait list evaluation. History of Present Illness: Vj Cárdenas was initiated on chronic dialysis 06/17/2021 due to Hypertensive Nephrosclerosis and is currently on hemodialysis. Since Vj was most recently evaluated in clinic on 02/29/2024, he has not had any hospitalizations, surgeries, or infections. [place] kidney biopsy: no List Date: 12/06/2023 Inactive Date(s): 12/06/2023 to current due to weight Verified he is inactive in [facility]. No auth required, no clinical needed for continued listing. Review of Symptoms: History obtained from chart review and the patient Energy level 0-10 (last month with 0 no energy and 10 most energy ever had): 5 Psychological ROS:difficulty sleeping Ophthalmic ROS: wears glasses Respiratory ROS: shortness of breath CPAP/bi-pap: not ordered Cardiovascular ROS: normal Vascular access: RUE fistula Gastrointestinal ROS:normal Genito-Urinary ROS: urinates minimal amount but at least daily Musculoskeletal ROS: chronic right knee and hip pain; does not use controlled substances Neurological ROS: left hand numbness Dermatological ROS: itching all the time Social History Living situation: spouse Working for income: Not working due to patient choice - retired Activity/nutrition: needs assistance with activities of daily living Primary Support person: spouse Physical Exam Blood pressure 119/65, pulse 80, temperature 97.6 F (36.4 C), temperature source Temporal, weight 118 kg (260 lb 3.2 oz). Estimated body mass index is 39.56 kg/m as calculated from the following: Height as of 02/29/24: 1.727 m (5' 8 ). Weight as of this encounter: 118 kg (260 lb 3.2 oz). General: obese Cardio: S1S2 RRR Lungs: Clear to auscultation Femoral Pulse:right femoral faint Skin: intact Allergies: Allergies Allergen Reactions Verapamil Rash Other Reaction(s): Unknown Medications: Current Outpatient Medications Medication Sig Allopurinol 100 MG tablet Take 1 tablet by mouth 2 times daily. B [id number] Acid (Renal Vitamin) 0.8 MG tablet Take 1 tablet by mouth daily. calcium acetate - Phos Binder 667 MG capsule Take 2 capsules by mouth 3 times daily with meals. doxepin 10 MG/ML Conc Take 3 mL by mouth at bedtime. DULoxetine [address] Particles capsule DR Take 1 capsule by mouth daily. faMOTIdine 20 MG tablet Take 1 tablet by mouth 2 times daily. FLUoxetine 10 MG capsule Take 1 capsule by mouth daily. Levothyroxine 200 MCG tablet Take 1 tablet by mouth daily. Montelukast 10 MG tablet Take 1 tablet by mouth daily. Rosuvastatin Calcium 20 MG Cap Sprinkle Take 1 capsule by mouth daily. sevelamer 800 MG tablet Take 2 tablets by mouth 3 times daily with meals. Laboratory Data O POS No results found for: CPRA Health Maintenance: Colonoscopy: 11/21/2023 No specimens Vj reports that he has never smoked. He has never used smokeless tobacco. Cardiac Testin10/27/2023 Impression: - Normal pharmacological SPECT stress test [...] function (LVEF >70%) with normal wall motion. 10/27/2023 - Normal left ventricular size and function. Ejection fraction 60-65%. - Normal right ventricular size and function. - Mildly dilated left atrium. - Aortic valve is sclerotic. - RVSP could not be estimated. Active living donors: 0 EPTS score: 82% Maximum KDPI acceptable: 100% Impression and Plan Vj Cárdenas will remain inactive on the kidney transplant wait list with a qualifying date of 06/17/2021. Items to be completed before consideration of status change: Weight goal 240 lbs Weight during initial evaluation 261 lbs Today's weight 260 lbs History small bowel resection - 9 yo he had an appendectomy then bowel obstruction Morbid obesity - has lost one pound since 08/31/2023 at initial evaluation by cutting back on sweets and eating more vegetables Strongly advised him to discuss weight loss medications with his PCP. Mr. Cárdenas is not diabetic therefore, he was not referred to Dr. Gomez's clinic. Cardiac atherosclerosis 09/19/2023 Multivessel coronary artery calcifications. Peripheral atherosclerosis 09/19/2023 Scattered atherosclerotic disease throughout the visualized thoracic and abdominal aorta; Scattered atherosclerotic disease throughout the iliac vessels results in multifocal areas of mild stenosis with no calcifications of bilateral external iliac arteries. Hyperparathyroidism- PTH unavailable Functional status: 3.81 Pre-Frail Mr. Cárdenas was highly encouraged to find a living donor. Consider a transplant champion. He was educated on Hepatitis C Antibody positive/ELIZABETH negative donors so if he received a kidney offer with this classification, he could make an informed decision. He was educated on Hepatitis C Antibody positive/ELIZABETH positive donors so if he received a kidney offer with this classification, he could make an informed decision. Consent previously signed. He was educated on high kidney donor profile index donors so if he received a kidney offer with this classification, he could make an informed decision. Consent previously signed. Mr. Cárdenas will be asked to return for a wait list appointment as well as repeat cardiac testing according to protocol. He was also asked to keep the transplant center updated with any change in condition or hospitalizations. Time Spent on Encounter: 30 minutes Clara George MSN, RN, GENERAL LABOR FORKLIFT OPERATOR-BC, CCTN Certified Nurse Practitioner Comprehensive Transplant [facility] [address] [facility] [address] documented in this encounter [facility] 09-19-2024 Instructions JENNY Cash - 09/19/2024 3:00 PM EDT Living Donor [facility] Ask one or two family members or close friends to be your living donor champion. The roles of the champion are to: Find a living donor for you in a timely fashion Take the responsibility of identifying a donor away from the you, allowing you to focus on your health Connect and talk with as many people as possible so that an appropriate match can be found Offer support and inspiration through your difficult journey The champion should be knowledgeable with the kidney transplant process. Please call us with your champion's name and contact information so we can provide the education Benefits to the champion Provides the opportunity to save a life. Gives the opportunity to contribute to the recipient s life -- and the lives of the recipient s loved ones -- in a very meaningful and lifelong way Benefits to you A live donor reduces your wait time from years to a few months. You can receive your transplant while you are still an acceptable candidate. Many people become too ill for transplant while waiting on the list for a donor kidney. Current Status on the Kidney Transplant List inactive Weight goal 240 lbs Your Blood Type O POS Your To Do List Update our transplant center updated with any illnesses, open wounds or hospitalizations by calling your coordinator at [phone]. Continue your health maintenance while waiting for your transplant. You have the right to opt out of the transplant process at any time. If you would like to discuss alternative treatments or therapies to kidney transplantation, please discuss with your provider. July 2020-June 2021 [facility] 330 People Received Kidney Transplants 76 Living donor [address] [facility] Living donor [facility] Requires dialysis in the first week after transplant 28.3% 1.3% Estimated probability of surviving with a functioning graft at 1 year (1) 95.66% 96.922% Estimated probability of surviving with a functioning graft at 3 years (2) 86.98% 90.61% Data from: [place] Scientific Registry of Transplant Recipients http://www.srtr.org (1) Single organ transplants performed between 07/03/2018 and 09/12/2019 (unadjusted for patient and donor characteristics) (2) Single organ transplants performed between 01/01/2016 and 2018 (unadjusted for patient and donor characteristics) All recipients will be tested for HIV, HBV and HCV after transplant. The types of kidney offer you may receive: Risk criteria for infection In the past month the donor: Had sex with known or suspected infected person with HIV, Hepatitis B or Hepatitis C Is a man who had sex with another man Unknown medical or social history Had sex with a person in exchange for money or drugs Used non medical injection of drugs Has been in lockup, nursing home, residential or juvenile correctional facility for > 72 hours Had sex with a person who injected drugs for a non medical reason Had sex with a person who had sex in exchange for money or drugs Child born to a mother with HIV, HBV or HCV infection Child breastfed by a mother with HIV infection Donor is Hepatitis C antibody (+)/ELIZABETH (nucleic acid test) (-) You may receive an offer in which the food safety coordinator asks you if you want to accept a kidney from a donor that is HCV +/ELIZABETH -. This means that either the kidney donor: Had hepatitis C in the past and his/her body cleared the virus (can occur 20-45% of the time) -OR- The test was a false positive. In either case, the absence of detectable HCV RNA (ELIZABETH) essentially confirms the absence of chronic HCV infection. Donor is Hepatitis C antibody (+)/ELIZABETH (nucleic acid test) (+) You may receive an offer in which the food safety coordinator asks you if you want to accept a kidney from a donor that is HCV +/ELIZABETH + . This means that the kidney donor has active circulating hepatitis C and with the acceptance of this organ, you will get hepatitis C. Once it is confirmed, and the genotype is confirmed, we will prescribe an antiviral as defined below. What is Hepatitis C? Hepatitis C is an infection of the liver that results from the Hepatitis C virus (HCV). HCV causes inflammation of the liver. The inflammation progresses slowly over years. The disease usually has mild or no symptoms. How is Hepatitis C Spread? Hepatitis C is usually spread when blood from a person infected with HCV enters the body of someone who is not infected. Today, most people become infected with HCV by sharing needles, syringes, or any other equipment to inject drugs. Treatment Process According to the Center for Disease Control (CDC), over 90% of HCV infected persons can be cured of HCV infection regardless of HCV genotype, with 8-12 weeks of oral therapy.1 [place]: has an overall cure rate 98% most common side effects are headache and tiredness.2, 3 If you are not cured with the first 8 week treatment, you will then complete a second round of treatment. Protect Your Family Against Hepatitis C while you are in the Treatment Process Since HCV is not passed casually, HCV transmission between household members is rare. HCV is contagious, but only through ypoid-ct-[id number] contact. HCV is not transmitted by hugging, kissing, sneezing, coughing, sharing eating utensils or glasses, or by casual contact. Although the risk of acquiring HCV is low, we do recommend that you do not share razors, toothbrushes, glucose monitors and other tools that may be exposed to blood. Sexual Transmission While rare, sexual transmission of Hepatitis C is possible. It is recommended that you use a latex condom until you have been cleared of the hepatitis C infection. By consenting to receive a HCV positive kidney your wait time may be much shorter. 1 [place] Association for the Study of Liver Diseases (AASLD) and the Infectious Diseases Society of [place] (IDSA). Recommendations for testing, management, and treating hepatitis C. HCV testing and linkage to care. Available at: https://www.hcvguidelines.org 2 Epclusa full prescribing information 754010-NN-404 revised 05/2019 3 Mavyret full prescribing information 03-[id number] revised July 2019 Living donor is expected to function over 12 years High Kidney Donor Profile Index KDPI 0-20% is expected to function, on average, nearly 11 and a half years after transplant KDPI between 21 and 85% and are expected to function for about 9 years (majority of offers) KDPI exceeding 85% are expected to function for more than five and a half years. Actual graft survival for any given patient depends on patient-specific factors such as age, diagnosis, HLA mismatching, compliance with treatment protocols, and other factors. https://optn.transplant.hrsa.gov /resources/guidance/kidney-donor -gyqacin-vsxco-wgci-vcitm-xag-qb inicians/#:~:text=Figure%201%20s hows%20that%20a,function%20for%2 0about%209%20years. Did not receive dialysis before kidney transplant Was on dialysis for 4 years before kidney transplant 5 years after transplant 86% chance patient survival 75% chance patient survival 8 years after transplant 78% chance patient survival 65% chance patient survival documented in this encounter [facility] 02-29-2024 History of Present illness Narrative Images from the original note were not included. Comprehensive Transplant Center Wait list Evaluation Dialysis Center: [facility] Chief Complaint: Scheduled Kidney Transplant wait list evaluation. History of Present Illness: Vj Cárdenas was initiated on chronic dialysis 06/17/2021 due to Hypertensive Nephrosclerosis and is currently on hemodialysis. Since Vj was most recently evaluated in clinic on 08/31/2023, he has not had any hospitalizations, surgeries, or infections. [place] kidney biopsy: no List Date: 12/06/2023 Inactive Date(s): 12/06/2023 to current due to weight Verified he is inactive in [facility]. No auth required, no clinical needed for continued listing. Review of Symptoms: History obtained from chart review and the patient Energy level 0-10 (last month with 0 no energy and 10 most energy ever had): 3 Psychological ROS:difficulty sleeping Ophthalmic ROS: wears glasses Respiratory ROS: normal CPAP/bi-pap: not ordered Cardiovascular ROS: normal Vascular access: RUE fistula Gastrointestinal ROS:normal Genito-Urinary ROS: urinates minimal amount but at least daily Musculoskeletal ROS: normal Neurological ROS:normal Dermatological ROS: itching all the time Social History Living situation: spouse Working for income: Not working due to patient choice - retired Activity/nutrition: needs assistance with activities of daily living Primary Support person: spouse Physical Exam Blood pressure (!) 158/97, pulse 87, temperature 97.4 F (36.3 C), temperature source Oral, height 1.727 m (5' 8 ), weight 117.9 kg (260 lb). Estimated body mass index is 39.53 kg/m as calculated from the following: Height as of this encounter: 1.727 m (5' 8 ). Weight as of this encounter: 117.9 kg (260 lb). General: obese Cardio: S1S2 RRR Lungs: Clear to auscultation Femoral Pulse:right femoral faint Skin: intact Allergies: Allergies Allergen Reactions Verapamil Rash Other Reaction(s): Unknown Medications: Current Outpatient Medications Medication Sig Allopurinol 100 MG tablet Take 1 tablet by mouth 2 times daily. calcium acetate - Phos Binder 667 MG capsule Take 2 capsules by mouth 3 times daily with meals. carveDILOL 6.25 MG tablet Take 1 tablet by mouth daily. doxepin 10 MG/ML Conc Take 3 mL by mouth at bedtime. DULoxetine [address] Particles capsule DR Take 1 capsule by mouth daily. faMOTIdine 20 MG tablet Take 1 tablet by mouth 2 times daily. FLUoxetine 10 MG capsule Take 1 capsule by mouth daily. Levothyroxine 200 MCG tablet Take 1 tablet by mouth daily. Montelukast 10 MG tablet Take 1 tablet by mouth daily. Rosuvastatin Calcium 20 MG Cap Sprinkle Take 1 capsule by mouth daily. sevelamer 800 MG tablet Take 2 tablets by mouth 3 times daily with meals. B Cdmpplo-C-Vmovh Acid (Renal Vitamin) 0.8 MG tablet Take 1 tablet by mouth daily. Laboratory Data O POS cPRA (%) Date Value 08/31/2023 10 (H) Health Maintenance: Colonoscopy: 11/21/2023 No specimens Vj reports that he has never smoked. He has never used smokeless tobacco. Cardiac Testin10/27/2023 Impression: - Normal pharmacological SPECT stress test [...] function (LVEF >70%) with normal wall motion. 10/27/2023 - Normal left ventricular size and function. Ejection fraction 60-65%. - Normal right ventricular size and function. - Mildly dilated left atrium. - Aortic valve is sclerotic. - RVSP could not be estimated. Active living donors: 0 EPTS score: 79% Maximum KDPI acceptable: 100% Impression and Plan Vj Cárdenas will remain inactive on the kidney transplant wait list with a qualifying date of 06/17/2021. Items to be completed before consideration of status change: Weight goal 240 lbs Weight during initial evaluation 261 lbs Today's weight 260 lbs History small bowel resection - 9 yo he had an appendectomy then bowel obstruction Morbid obesity - has lost one pound since 08/31/2023 at initial evaluation by cutting back on sweets and eating more vegetables Strongly advised him to discuss weight loss medications with his PCP. Mr. Cárdenas is not diabetic therefore, he was not referred to Dr. Gomez's clinic. Cardiac atherosclerosis 09/19/2023 Multivessel coronary artery calcifications. Peripheral atherosclerosis 09/19/2023 Scattered atherosclerotic disease throughout the visualized thoracic and abdominal aorta; Scattered atherosclerotic disease throughout the iliac vessels results in multifocal areas of mild stenosis with no calcifications of bilateral external iliac arteries. Hyperparathyroidism- PTH unavailable Functional status: 4.47 Pre-Frail Mr. Cárdenas was highly encouraged to find a living donor. Consider a transplant champion. He was educated on Hepatitis C Antibody positive/ELIZABETH negative donors so if he received a kidney offer with this classification, he could make an informed decision. He was educated on Hepatitis C Antibody positive/ELIZABETH positive donors so if he received a kidney offer with this classification, he could make an informed decision. Consent previously signed. He was educated on high kidney donor profile index donors so if he received a kidney offer with this classification, he could make an informed decision. Consent previously signed. Mr. Cárdenas will be asked to return for a wait list appointment as well as repeat cardiac testing according to protocol. He was also asked to keep the transplant center updated with any change in condition or hospitalizations. Time Spent on Encounter: 30 minutes Clara George MSN, RN, GENERAL LABOR FORKLIFT OPERATOR-BC, CCTN Certified Nurse Practitioner [facility] [address] [facility] [place] [address] documented in this encounter [facility] 02-29-2024 Instructions JENNY Cash - 02/29/2024 2:30 PM EDT Living Donor [facility] Ask one or two family members or close friends to be your living donor champion. The roles of the champion are to: Find a living donor for you in a timely fashion Take the responsibility of identifying a donor away from the you, allowing you to focus on your health Connect and talk with as many people as possible so that an appropriate match can be found Offer support and inspiration through your difficult journey The champion should be knowledgeable with the kidney transplant process. Please call us with your champion's name and contact information so we can provide the education Benefits to the champion Provides the opportunity to save a life. Gives the opportunity to contribute to the recipient s life -- and the lives of the recipient s loved ones -- in a very meaningful and lifelong way Benefits to you A live donor reduces your wait time from years to a few months. You can receive your transplant while you are still an acceptable candidate. Many people become too ill for transplant while waiting on the list for a donor kidney. Current Status on the Kidney Transplant List inactive Weight loss to 240 lbs Your Blood Type O POS Your To Do List Update our transplant center updated with any illnesses, open wounds or hospitalizations by calling your coordinator at [phone]. Continue your health maintenance while waiting for your transplant. You have the right to opt out of the transplant process at any time. If you would like to discuss alternative treatments or therapies to kidney transplantation, please discuss with your provider. July 2020-June 2021 [facility] 330 People Received Kidney Transplants 76 Living donor [address] [facility] Living [facility] Requires dialysis in the first week after transplant 28.3% 1.3% Estimated probability of surviving with a functioning graft at 1 year (1) 95.66% 96.922% Estimated probability of surviving with a functioning graft at 3 years (2) 86.98% 90.61% Data from: [place] Scientific Registry of Transplant Recipients http://www.srtr.org (1) Single organ transplants performed between 07/03/2018 and 09/12/2019 (unadjusted for patient and donor characteristics) (2) Single organ transplants performed between 01/01/2016 and 2018 (unadjusted for patient and donor characteristics) All recipients will be tested for HIV, HBV and HCV after transplant. The types of kidney offer you may receive: Risk criteria for infection In the past month the donor: Had sex with known or suspected infected person with HIV, Hepatitis B or Hepatitis C Is a man who had sex with another man Unknown medical or social history Had sex with a person in exchange for money or drugs Used non medical injection of drugs Has been in lockup, nursing home, residential or juvenile correctional facility for > 72 hours Had sex with a person who injected drugs for a non medical reason Had sex with a person who had sex in exchange for money or drugs Child born to a mother with HIV, HBV or HCV infection Child breastfed by a mother with HIV infection Donor is Hepatitis C antibody (+)/ELIZABETH (nucleic acid test) (-) You may receive an offer in which the food safety coordinator asks you if you want to accept a kidney from a donor that is HCV +/ELIZABETH -. This means that either the kidney donor: Had hepatitis C in the past and his/her body cleared the virus (can occur 20-45% of the time) -OR- The test was a false positive. In either case, the absence of detectable HCV RNA (ELIZABETH) essentially confirms the absence of chronic HCV infection. Donor is Hepatitis C antibody (+)/ELIZABETH (nucleic acid test) (+) You may receive an offer in which the food safety coordinator asks you if you want to accept a kidney from a donor that is HCV +/ELIZABETH + . This means that the kidney donor has active circulating hepatitis C and with the acceptance of this organ, you will get hepatitis C. Once it is confirmed, and the genotype is confirmed, we will prescribe an antiviral as defined below. What is Hepatitis C? Hepatitis C is an infection of the liver that results from the Hepatitis C virus (HCV). HCV causes inflammation of the liver. The inflammation progresses slowly over years. The disease usually has mild or no symptoms. How is Hepatitis C Spread? Hepatitis C is usually spread when blood from a person infected with HCV enters the body of someone who is not infected. Today, most people become infected with HCV by sharing needles, syringes, or any other equipment to inject drugs. Treatment Process According to the Center for Disease Control (CDC), over 90% of HCV infected persons can be cured of HCV infection regardless of HCV genotype, with 8-12 weeks of oral therapy.1 Mavyret: has an overall cure rate 98% most common side effects are headache and tiredness.2, 3 If you are not cured with the first 8 week treatment, you will then complete a second round of treatment. Protect Your Family Against Hepatitis C while you are in the Treatment Process Since HCV is not passed casually, HCV transmission between household members is rare. HCV is contagious, but only through feapa-wf-aqngf contact. HCV is not transmitted by hugging, kissing, sneezing, coughing, sharing eating utensils or glasses, or by casual contact. Although the risk of acquiring HCV is low, we do recommend that you do not share razors, toothbrushes, glucose monitors and other tools that may be exposed to blood. Sexual Transmission While rare, sexual transmission of Hepatitis C is possible. It is recommended that you use a latex condom until you have been cleared of the hepatitis C infection. By consenting to receive a HCV positive kidney your wait time may be much shorter. 1 [place] Association for the Study of Liver Diseases (AASLD) and the Infectious Diseases Society of [place] (IDSA). Recommendations for testing, management, and treating hepatitis C. HCV testing and linkage to care. Available at: https://www.hcvguidelines.org 2 Epclusa full prescribing information [id number] revised 05/2019 3 Mavyret full prescribing information 03-C386 revised July 2019 Living donor is expected to function over 12 years High Kidney Donor Profile Index KDPI 0-20% is expected to function, on average, nearly 11 and a half years after transplant KDPI between 21 and 85% and are expected to function for about 9 years (majority of offers) KDPI exceeding 85% are expected to function for more than five and a half years. Actual graft survival for any given patient depends on patient-specific factors such as age, diagnosis, HLA mismatching, compliance with treatment protocols, and other factors. https://optn.transplant.hrsa.gov /resources/guidance/kidney-donor -wpbamgh-pnitu-csue-koate-mst-lo inicians/#:~:text=Figure%201%20s hows%20that%20a,function%20for%2 0about%209%20years. Did not receive dialysis before kidney transplant Was on dialysis for 4 years before kidney transplant 5 years after transplant 86% chance patient survival 75% chance patient survival 8 years after transplant 78% chance patient survival 65% chance patient survival documented in this encounter [facility] 02-27-2024 History of Present illness Narrative Skin Check Location: Patient requests a skin examination from the waist up, A full body skin exam was offered, patient declined Dermatologic history: no history of skin cancer, no history of atypical moles Last visit: 1 year ago Established patient Lesions: Location: back Duration: months Quality: itchy, denies pain, denies bleeding Modifying factors: rubs on clothing, aggravated by picking Associated symptoms: rough, scaly Treatments: none All pertinent medical history, medications, and allergies were reviewed. General Exam: alert , oriented to person, place, and time , normal affect, well appearing Unaccompanied A complete skin exam was offered, pt declined. Areas not examined despite medical recommendation: From the waist down Scalp, Examined Head, Face Examined Neck Examined Chest Examined Back Examined Abdomen Examined Right arm Examined Left arm Examined Hands Examined Digits,nails: Examined Lymphatics: Not examined 1. Seborrheic keratosis (2) Head - Anterior (Face), Torso - Posterior (Back) Stuck on verrucous, santana-brown papules and plaques. Patient was counseled regarding these benign growths. Removal is normally not necessary, but they may be removed if they are symptomatic or for cosmetic reasons. 2. Angioma of skin Torso - Posterior (Back) Scattered rachel-red papule(s). The patient was informed that angiomas are benign growths on the the skin. No treatment is necessary. 3. Atopic dermatitis, unspecified type Buttocks Scaly erythematous plaques +/- dyspigmentation, lichenification, excoriations. Flaring today Discussed that atopic dermatitis is a chronic condition that can be controlled but not cured. Continue using TAC 0.1 % bid prn when flared, hold if smooth/asymptomatic. Encouraged daily moisturizing and gentle cleansers to prevent flares. Notify office if flaring despite treatment. triamcinolone (Kenalog) 0.1 % cream - Buttocks Apply topically 2 (two) times a day as needed for rash 4. Seborrheic keratosis, inflamed Right Lower Back Witmer and brown stuck on verrucous scaly papule with surrounding erythema The patient was informed that symptomatic seborrheic keratoses are benign growths that become inflamed, itchy, tender, traumatized, caught on clothing, or bleed. Symptomatic lesions can be treated with cryotherapy or curretage. Thicker lesions treated with cryotherapy may require more than one treatment. The patient was instructed to notify the office if abnormal redness or tenderness develops at the treatment site. Cryotherapy today, see procedure note. Diagnosis: Inflamed seborrheic keratosis Indication: Inflamed Consent: Verbal consent was obtained and risks were discussed, including, but not limited to risks of scarring, darker or emergency medical technician basic pigmentary changes, recurrence, incomplete removal and infection. Method: Liquid nitrogen was used to treat the lesion(s) with two 5-10 second freeze-thaw cycles Number of lesions treated: 1 Post-procedure instructions: Instructions were given orally and in writing. The office will be contacted if the lesion fails to resolve despite treatment, or if a side effect develops such as abnormal crusting, scabbing, redness or tenderness Cryotherapy, skin lesion - Right Lower Back 5. Notalgia paresthetica Right Lower Back Skin appears normal in areas of itching. The patient was informed that notalgia paresthetica is a chronic itching, burning, or tingling sensation in the areas of skin just below the shoulder blade on either side of the back. The affected skin may appear normal or show changes from chronic scratching. It was explained that this is caused by nerve changes or damage in the local nerves, usually from arthritis or minor injury. The patient was informed that treatment is difficult and often ineffective. Treatment options were discussed including cooling lotions/icing the area. Handout given to patient. Next Visit: 1 year documented in this encounter [facility] 02-23-2024 Note SOPHIA LVM for patient s tating that his referral was reviewed in the >[address] Bolton and it was determined that he can be seen for orientation and transplant evaluation in clinic. TC advised that next steps are sending a letter to schedule orientation. TC provided patient with transplant assistants phone number to discuss further. [facility] 10-27-2023 History of Present illness Narrative Explained Definity use to patient [...] for further testing. documented in this encounter [facility] 10-27-2023 History of Present illness Narrative Caffeine free for 24 hours. status no status no Pharmacologic nuclear stress procedure explained to patient. Risk/benefits of the procedure were reviewed and patient verbalized understanding. Medical dry can tender offered to patient prior to sensitive procedure [...] from the clinic. documented in this encounter [facility] 10-27-2023 Hospital Discharge instructions Jose Raul Kelley RN - 10/27/2023 12:30 PM EDT After the completion of your nuclear test at the [facility], you should be aware of the following [...] Dr. Kevin tan. A qualified and licensed [facility] director clinical research will interpret your study and a final [...] technologist if this is the case. (Reference: [id number], Volume 9, Revision 2, Appendix U). If you have any questions or concerns regarding your exam, please call the [place] office at [phone], Monday through Monday, between the hours of 8:00 AM and 5:00 PM. For medical emergencies, please call 911 or go to your nearest emergency room. ? To Whom It May Concern: Our patient, Vj Cárdenas, was seen at The [facility] on 10/27/23 for a nuclear test of [...] further questions please contact our staff at [phone] Monday through Monday, between the hours of 8:00 AM and 5:00 PM. Trace Cabrera, [facility] Animal Husbandry Professor and RSO [facility] [place] [facility] [place] [id number] documented in this encounter [facility] 10-26-2023 History of Present illness Narrative Transplant Recipient Psychosocial Evaluation Demographics: Patient is a 73 y.o., , , male, who presented for a kidney transplant evaluation. Patient was AOx4. Transplant Curriculum Development Coordinator role/function was explained and reviewed. The patient was informed that the results of this assessment will be shared with the referring provider and the transplant team. The patient verbalized understanding of this information. The [facility] psychosocial assessment consent form has been explained to patient and has been signed. Patient is completing this evaluation with spouse (Ronna) in the Outpatient setting. Curriculum Development Coordinator educated patient on the benefits of completing/filing advanced directives and resources were offered and questions regarding same were answered by this social science teacher. Patient identifies with QUAKER voodoo. Patient confirms being a [place] Citizen. Patient's primary language is [place] Citizen. Patient denies potential donors. Donor cards and [...] high blood pressure. Patient is on hemodialysis ([facility]). Patient was diagnosed with organ related disease [...] able to travel, be free from dialysis. Usp plans were to get a camper. Patient concerns regarding transplant. Medical Adherence: Patient denies having difficulty following medical recommendations. There is no evidence of patient having difficulty following medical recommendations per chart review. He denies missing/stopping dialysis early or arriving late. Patient organizes his medical appointments with the assistance of calendar, a family member, telephone reminders. Patient educated on benefits of utilizing [employer] and given information on how to obtain [...] Patient is Retired. He has access to [employer] pension, SSI payment in regards to financial [...] patient: none at this time KELLI Vance, [facility] Outpatient Transplant Curriculum Development Coordinator [facility] [address] [place] [address] [email or web address] The above assessment was conducted by means of corroborating information from patient's chart review, support person(s) report, multiple evidence based clinical tools and a modified version of the [place] Integrated Psychosocial Assessment for Transplant (SIPAT) and the SIPAT-General TXP Long Form Sameer et al, 2008; Sameer et al, Psychosomatics 2012. documented in this encounter [facility] 08-31-2023 History of Present illness Narrative Pre-Tx Evaluation Kidney 08/31/2023 Vj Cárdenas [id number] Chief Complaint: Chief Complaint Patient presents with Kidney Recipient Evaluation HPI: I saw Vj Cárdenas in our transplant office for a pre-kidney transplant visit. He has ESRD secondary to HTN and been on dialysis for approximately 4 years. He is weak limited activity. He had MA 1981. He is morbidly obese BMI 40 [...] Partner Violence: Unknown (08/24/2023) Re[facility] from [facility] Fear of Current or [...] histories, medications, & allergies taken by our food safety coordinator noted for today s visit and [...] the transplant team. documented in this encounter [facility] 08-31-2023 Instructions Donald Porras RN - 08/31/2023 [...] the clinic, please stop at the front office attendant, and schedule this appointment. The following orders have been placed. To schedule, please call [phone]. Ct angio Please work with your Primary Care Provider (PCP) or coffee weigher to schedule these tests when appropriate and contact your Gas Maker upon completion. Cancer Screenings: Colonoscopy (Age 50>) Financial Assessment: If you have not completed a financial assessment, one will be sent to you in [employer] [facility] or emailed to you. Please call your peoplesoft financial developer to complete your financial assessment or with any questions. Ute Pinzon [phone] (I, J, K, L, W, X, Y, Z). Today in clinic you were seen by Dr. Belen Mackey MD, PhD and your Pre Gas Maker Donald Porras. It is the expectation of [...] it. We offer the vaccine at the [facility] on the ground floor, or you can contact a local health department. You may also speak to your Primary Care Provider (PCP) or Hand Finisher to get vaccinated. documented in this encounter [facility] 08-31-2023 Miscellaneous Notes Addended by: DONALD PORRAS on: 08/31/2023 11:36 AM Modules accepted: Orders documented in this encounter [facility] 08-31-2023 Note Addended by: DONALD QUIÑONES on: 08/31/2023 11:36 AM Modules accepted: Orders [facility] 08-17-2022 Evaluation note Encounter Date Diagnosis Assessment [...] if symptoms worsen or do not improve. [facility] Other 10-07-2022 Evaluation note* Encounter Date Diagnosis [...] last > 3-4 weeks, or bloody sputum. [facility] Other 06-18-2022 Evaluation note* Encounter Date Diagnosis [...] based on patient history of renal insuffiency [facility] Other 04-26-2022 Evaluation note* Encounter Date Diagnosis [...] He understands and agrees with that plan. [facility] Other 04-12-2022 Evaluation note* Encounter Date Diagnosis [...] He understands and agrees with that plan. [facility] Other 03-22-2022 Evaluation note* Encounter Date Diagnosis [...] Dependence on renal dialysis (ICD-10 - Z99.2) [facility] Other 02-02-2022 Evaluation note* Encounter Date Diagnosis Assessment Notes Treatment Notes Treatment Clinical Notes Aug, Hypertensive chronic kidney disease w stg 1-4/unsp chr kdny (ICD-10 - I12.9) [facility] Other 01-31-2022 Evaluation note* Encounter Date Diagnosis [...] family understand and agree with that plan. [facility] Other 01-10-2022 Evaluation note* Encounter Date Diagnosis [...] can remove his catheter at that time. 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 Mendoza. [facility] Other 10-28-2021 Evaluation note* Encounter Date Diagnosis Assessment Notes Treatment Notes Treatment Clinical Notes Apr, CKD (chronic kidney disease) stage 4, GFR 15-29 ml/min (ICD-10 - N18.4) [facility] Other 10-25-2021 Evaluation note* Encounter Date Diagnosis [...] proceed Apr, Former smoker (ICD-10 - Z87.891) [facility] Other Evaluation noteNo InformationNort eshtery Other Evaluation noteNo assessment information available [facility] Work Phone: Evaluation note* Diagnosis [...] stage renal disease [facility] [facility]-trans[facility] for [facility] Diagnosis Pre-transplant evaluation for kidney transplant Chronic kidney disease, stage V Chronic kidney disease, Stage V ESRD (end stage renal disease) on dialysis End stage renal disease [facility] Diagnosis Pre-transplant evaluation for kidney transplant Chronic kidney disease, stage V Chronic kidney disease, Stage V [facility] Diagnosis Pre-transplant evaluation for kidney transplant Chronic kidney disease, stage V Chronic kidney disease, Stage V [facility] Diagnosis Pre-transplant evaluation for kidney transplant Chronic kidney disease, stage V Chronic kidney disease, Stage V Encounter for preprocedural cardiovascular examination Pre-operative cardiovascular examination documented [facility] Diagnosis Pre-transplant evaluation for kidney transplant- Primary [facility] Diagnosis Patient on waiting list for kidney transplant- Primary End-stage renal disease needing dialysis End stage renal disease Atherosclerosis of [place] coronary artery of [place] heart without angina pectoris Peripheral arteriosclerosis Atherosclerosis of [place] arteries of the extremities, unspecified [facility] Diagnosis Seborrheic keratosis Angioma of skin Atopic dermatitis, unspecified type Seborrheic keratosis, inflamed Notalgia paresthetica Disturbance of skin sensation [facility] on [facility] list for kidney [facility]- Primary [facility] Type Description Date [...] HIP 07/04 021 Hospitalization History See above [employer] Other History general Narrative - Reported* Type Description Date [...] FISTULA PLACEMENT 1 Hospitalization History See above [employer] Other history general Narrative - Reported* Type Description Date [...] FOREARM AVG 05/06/2021 Hospitalization History See above [employer] Other [employer] general Narrative - Reported* Type Description Date [...] CATHETER INSERT 06/18/2021 Hospitalization History See above [employer] Other history general Narrative - Reported* Type Description Date [...] REVISION 08/22 21 Hospitalization History See above [employer] Other Hospital Discharge instructions Additional Instructions Follow-up with your primary care doctor Return to the ED if develop worsening symptoms or concerns Make [facility] to [facility]: Reason for Referral Status Reason Specialty Diagnoses / Procedures Referre d By Contact Referred To Contact Closed Radiology Diagnoses Hip pain, right Procedures IR ARTHR/ASP/INJ MAJOR JT/BURSA RIGHT WO US Kj Baca MD [address] [facility] [address] [place] [address] Specialty Diagnoses / Procedures Referred By Jolie helm Referred To Contact Diagnoses Pre-transplant evaluation for kidney transplant Chronic kidney disease, stage V ESRD (end stage renal disease) on dialysis Procedures CT ANGIO ABDOMINAL AORTA WITH RUNOFF [place] CT ANGIO AORTOBIFEMORAL, COMBO Belen Mackey MD, PhD [address] [place] [phone] Referral ID Status Reason Start Date Expiration Date V isits Requested Visits Authorized [id number] New Request 08/31/2023 09/24/2024 1 1 Specialty Diagnoses / Procedures Referred By Jolie helm Referred To Contact Diagnoses Pre-transplant evaluation for kidney transplant Chronic kidney disease, stage V Procedures ECHOCARDIOGRAM [place] ECHO HEART XTHORACIC,COMPLETE W DOPPLER Belen Mackey MD, PhD [address] [place] [phone] Referral ID Status Reason Start Date Expiration Date V isits Requested Visits Authorized [id number] New Request 09/22/2023 10/16/2024 1 1 Specialty Diagnoses / Procedures Referred By Jolie helm Referred To Contact Diagnoses Pre-transplant evaluation for kidney transplant Chronic kidney disease, stage V Procedures PFT STANDARD Belen Mackey MD, PhD [address] [phone] Referral ID Status Reason Start Date Expiration Date V isits Requested Visits Authorized [id number] New Request 09/22/2023 10/16/2024 1 1 Specialty Diagnoses / Procedures Referred By Contac t Referred To Contact Diagnoses Pre-transplant evaluation for kidney transplant Chronic kidney disease, stage V Procedures EXERCISE-6 MIN. WALK Belen Mackey MD, PhD [address] [facility] [address] [place] [phone] Referral ID Status Reason Start Date Expiration Date V isits Requested Visits Authorized [id number] New Request 09/22/2023 10/16/2024 1 1 Specialty Diagnoses / Procedures Referred By Contac t Referred To Contact Diagnoses Pre-transplant evaluation for kidney transplant Chronic kidney disease, stage V Procedures ARTERIAL BLOOD GAS, PULMONARY LAB OBTAINED Belen Mackey MD, PhD [address] [place] [phone] Referral ID Status Reason Start Date Expiration Date V isits Requested Visits Authorized [id number] New Request 09/22/2023 10/16/2024 1 1 Discharge [...] questions, you can contact our department at [phone] for further information IF YOU CANNOT REACH [...] Unknown sister Malignant neoplasm of breast Unknown Relationship Condition Age at Onset Recorded Date/T naty Not Specified Myocardial infarction Unknown father Myocardial infarction Unknown Malignant neoplasm of breast Unknown Renal failure Unknown Congestive heart failure Unknown sister Malignant neoplasm of breast Unknown brother Family history of mental disorder Unknown Unknown father Malignant neoplasm of breast Unknown Malignant neoplasm Unknown Not Specified Unknown natural son Diabetes mellitus Unknown sister Malignant neoplasm Unknown Relationship Condition Age at Onset Recorded Date/T naty mother Myocardial infarction Unknown father Myocardial infarction Unknown Malignant neoplasm of breast Unknown Renal failure Unknown Congestive heart failure Unknown sister Malignant neoplasm of breast Unknown brother Family history of mental disorder Unknown Unknown father Malignant neoplasm of breast Unknown Malignant neoplasm Unknown mother Unknown son Diabetes mellitus Unknown sister Malignant neoplasm Unknown Advance Directives No Advanced Directives Records [...] E11.22;I50.32;E78.5 R side pain N39.0 ill N39.0 Chief Complaint Admit Date sob,dry throat September 11, 2024 7:5 7pm Chief Complaint Admit Date sob,dry throat September 11, 2024 7:5 7pm R97.31 October 11, 2024 3:3 9pm Chief Complaint Admit Date sob,dry throat September 11, 2024 7:5 7pm R97.October 11, 2024 3:3 9pm ill October 23, 2024 12: 12pm Additional Source Comments Reason for Visit (unrecogniz ed section and content) Status Reason Specialty Diagnoses / Procedures Referre d By Contact Referred To Contact Closed Radiology Diagnoses Hip pain, right Procedures IR ARTHR/ASP/INJ MAJOR JT/BURSA RIGHT WO US Kj Baca MD [address] [facility] [address] [place] [address] Reason Comments Kidney Recipient Evaluation Specialty Diagnoses / Procedures Referred By Contac t Referred To Contact Transplant / Transplant Surgery Procedures PRE NEW PATIENT Self, Self Belen Mackey MD, PhD [address] [place] [address] Referral ID Status Reason Start Date Expiration Date V isits Requested Visits Authorized [id number] New Request 08/31/2023 09/24/2024 1 1 Specialty Diagnoses / Procedures Referred By Contac t Referred To Contact Diagnoses Pre-transplant evaluation for kidney transplant Chronic kidney disease, stage V ESRD (end stage renal disease) on dialysis Procedures CT ANGIO ABDOMINAL AORTA WITH RUNOFF [place] CT ANGIO AORTOBIFEMORAL, COMBO Belen Mackey MD, PhD [address] [address] Referral ID Status Reason Start Date Expiration Date V isits Requested Visits Authorized [id number] New Request 08/31/2023 09/24/2024 1 1 Specialty Diagnoses / Procedures Referred By Contac t Referred To Contact Diagnoses Pre-transplant evaluation for kidney transplant Chronic kidney disease, stage V Procedures ECHOCARDIOGRAM [place] ECHO HEART XTHORACIC,COMPLETE W DOPPLER Belen Mackey MD, PhD [address] [address] Referral ID Status Reason Start Date Expiration Date V isits Requested Visits Authorized [id number] New Request 09/22/2023 10/16/2024 1 1 Specialty Diagnoses / Procedures Referred By Contac t Referred To Contact Diagnoses Pre-transplant evaluation for kidney transplant Chronic kidney disease, stage V Procedures PFT STANDARD Belen Mackey MD, PhD [address] [address] Referral ID Status Reason Start Date Expiration Date V isits Requested Visits Authorized [id number] New Request 09/22/2023 10/16/2024 1 1 Specialty Diagnoses / Procedures Referred By Jolie t Referred To Contact Diagnoses Pre-transplant evaluation for kidney transplant Chronic kidney disease, stage V Procedures EXERCISE-6 MIN. WALK Belen Mackey MD, PhD [address] [place], [place] [phone] Referral ID Status Reason Start Date Expiration Date V isits Requested Visits Authorized [id number] New Request 09/22/2023 10/16/2024 1 1 Specialty Diagnoses / Procedures Referred By Jolie t Referred To Contact Diagnoses Pre-transplant evaluation for kidney transplant Chronic kidney disease, stage V Procedures ARTERIAL BLOOD GAS, PULMONARY LAB OBTAINED Belen Mackey MD, PhD [address] [place], [place] [phone] Referral ID Status Reason Start Date Expiration Date V isits Requested Visits Authorized [id number] New Request 09/22/2023 10/16/2024 1 1 Specialty Diagnoses / Procedures Referred By Jolie t Referred To Contact Diagnoses Pre-transplant evaluation for kidney transplant Chronic kidney disease, stage V Encounter for preprocedural cardiovascular examination Procedures NUC MYOCARD PERF STRESS MIBI PHARM NUC MYOCARD PERF STRESS MIBI EXERCISE KS CHG MYOCARDIAL SPECT MULTIPLE STUDIES KS CARDIAC STRESS TST,TRACING ONLY CHG MYOCARDIAL SPECT MULTIPLE STUDIES-T KS CARDIAC STRESS TST,INTERP/REPT ONLY KS CV STRS TST XERS&/OR RX CONT ECG W/O I&R Belen Mackey MD, PhD [address] [place], [place] [address] [address] [place] [phone] Referral ID Status Reason Start Date Expiration Date V isits Requested Visits Authorized [id number] New Request 09/22/2023 10/16/2024 1 1 Reason Comments Social Work Consult Reason Comments Waitlist Maintenance Specialty Diagnoses / Procedures Referred By Jolie t Referred To Contact Certified Nurse Practitioner / Transplant Surgery Procedures PRE WAITLIST PATIENT Self, Self Dyllan Clara M, GENERAL LABOR FORKLIFT OPERATOR-RESOLUTE PROFESSIONAL [address] [place] [address] Referral ID Status Reason Start Date Expiration Date V isits Requested Visits Authorized [id number] New Request 02/29/2024 03/25/2025 1 1 Reason Comments Skin Check Specialty Diagnoses / Procedures Referred By Contac t Referred To Contact Certified Nurse Practitioner / Transplant Surgery Procedures PRE WAITLIST PATIENT Jose Garcia Theresa M, GENERAL LABOR FORKLIFT OPERATOR-RESOLUTE PROFESSIONAL [address] [place] [address] Phone: tel: fax: Referral ID Status Reason Start Date Expiration Date V isits Requested Visits Authorized [id number] New Request 09/19/2024 10/14/2025 1 1 (unrecognized sect ion and content) No Status Records FoundNo Status Records FoundNo Status Records FoundNo Status Records FoundNo Status Records FoundNo Status Records FoundNo Status Records FoundNo Status Records FoundNo Status Records Found INFORMATION SOURCE (unrecogn ized section and content) DATE CREATED AUTHOR 05/07/2020 [facility] DATE CREATED AUTHOR AUTHOR'S ORGANIZ ATION 08/13/2021 [facility] DATE CREATED AUTHOR AUTHOR'S ORGANIZ ATION 05/12/2022 [facility] DATE CREATED AUTHOR AUTHOR'S ORGANIZ ATION 03/02/2023 [facility] DATE CREATED AUTHOR AUTHOR'S ORGANIZ ATION 03/02/2023 [facility] DATE CREATED AUTHOR AUTHOR'S ORGANIZ ATION 02/29/2024 [facility] DATE CREATED AUTHOR AUTHOR'S ORGANIZ ATION 11/09/[address] [facility] DATE CREATED AUTHOR AUTHOR'S ORGANIZ ATION 12/05/2024 [facility] DATE CREATED AUTHOR AUTHOR'S ORGANIZ ATION 12/15/2024 [facility] DATE CREATED AUTHOR AUTHOR'S ORGANIZ ATION 02/08/2025 [facility] Care Teams (unrecognized sec tion and content) Team Status: Active Member Role Status Dates Elmer Mendoza JR DO Primary Care Provider Active Team Status: Active Member Role Status Dates Elmer Mendoza JR DO Primary Care Provider Active Start: September 24, 2023 Estrada Kelley MD Attending Provider Active Star t: September 24, 2023 Team Status: Active Member Role Status Dates Elmer Mendoza JR DO Primary Care Provider Active Start: October 25, 2023 Ector Berg MD Attending Provider Active Start : October 25, 2023 Team Status: Inactive Member Role Status Dates Elmer Mendoza JR DO Primary Care Provider Active Start: December 08, 2023 End: December 08, 2023 Ector Berg MD Attending Provider Active Start : December 08, 2023 End: December 08, 2023 Team Status: Inactive Member Role Status Dates Elmer Mendoza JR DO Primary Care Provider Active Ector Berg MD Attending Provider Active Team Status: Inactive Member Role [...] Active Conrad Garcia DO Emergency Provider Active Correctional Case Records Supervisor Relationship Specialty Start Date End Date Elmer Mendoza Jr., DO [address] [place] [address] PCP - General Internal Medicine 08/31/23 Correctional Case Records Supervisor Relationship Specialty Start Date End Date Elmer Mendoza Jr., DO [address] [place] [address] PCP - General Internal Medicine 08/31/23 Correctional Case Records Supervisor Relationship Specialty Start Date End Date Elmer Mendoza Jr., DO [address] [place] [address] PCP - General Internal Medicine 08/31/23 Correctional Case Records Supervisor Relationship Specialty Start Date End Date Elmer Mendoza Jr., DO [address] [place] [id number] PCP - General Internal Medicine 08/31/23 Correctional Case Records Supervisor Relationship Specialty Start Date End Date Elmer Mendoza Jr., DO [address] [place] [address] PCP - General Internal Medicine 08/31/23 Correctional Case Records Supervisor Relationship Specialty Start Date End Date Elmer Mendoza Jr., DO [address] [place] [id number] PCP - General Internal Medicine 08/31/23 Correctional Case Records Supervisor Relationship Specialty Start Date End Date Elmer Mendoza Jr., DO [address] [place] [id number] PCP - General Internal Medicine 08/31/23 Correctional Case Records Supervisor Relationship Specialty Start Date End Date Elmer Mendoza Jr., DO [address] [place] [address] PCP - General Internal Medicine 08/31/23 Correctional Case Records Supervisor Relationship Specialty Start Date End Date Elmer Mendoza MD [address] [place] [phone] PCP - General Internal Medicine 11/08/23 Correctional Case Records Supervisor Relationship Specialty Start Date End Date Elmer Mendoza MD [address] [place] [phone] PCP - General Internal Medicine 11/08/23 Team Status: Active Member Role Status Dates Elmer Mendoza JR DO Primary Care Provider Active Start: June 25, 2024 Estrada Kelley MD Attending Provider Active Star t: June 25, 2024 Team Status: Active Member Role Status Dates Elmer Mendoza JR DO Primary Care Provider Active Start: July 31, 2024 Ector Berg MD Attending Provider Active Start : July 31, 2024 Team Status: Inactive Member Role Status Dates Elmer Mendoza JR DO Primary Care Provider Active Start: September 11, 2024 End: September 11, 2024 Diane Murry DO Emergency Provider Active St art: September 11, 2024 End: September 11, 2024 Correctional Case Records Supervisor Relationship Specialty Start Date End Date Kelly Gibson, Elmer Devries DO [address] [place] [address] PCP - General Internal Medicine 08/31/23 Team Status: Active Member Role Status Dates Elmer Mendoza JR DO Primary Care Provider Active Start: August 26, 2024 Nargis Church MD Attending Provider Active Star t: August 26, 2024 Team Status: Inactive Member Role Status Dates Elmer Mendoza JR DO Primary Care Provider Active Start: October 11, 2024 End: October 11, 2024 Dexter Bowers Attending Provider Active Start: October 11, 2024 End: October 11, 2024 Team Status: Active Member Role Status Dates Elmer Mendoza JR DO Primary Care Provider Active Start: September 25, 2024 Estrada Kelley MD Attending Provider Active Star t: September 25, 2024 Team Status: Inactive Member Role Status Dates Diane Murry DO Emergency Provider Active St art: October 23, 2024 End: October 23, 2024 Elmer Mendoza JR DO Primary Care Provider Active Start: October 23, 2024 End: October 23, 2024 Goals (unrecognized section and content) Goals may [...] BE BASED ON THE PRIMARY CLINICAL RECORDS. [employer] [facility]. provides no warranty or guarantee of the accuracy or completeness of information in this document.
[2025-02-17 18:11] VITALS: BP 159/88; PULSE 78; O2SAT 97
== END 2025-02-17 18:12 | disposition home or self-care (01) ==
PROVIDERS: Emergency Provider Emergency Medicine; PCP Internal Medicine
DX: L03.211 Cellulitis of face (principal); N18.5 Chronic kidney disease, stage 5; Z99.2 Dependence on renal dialysis; Z90.49 Acquired absence of other specified parts of digestive tract
CPT/HCPCS: 96365; 99284

== ENCOUNTER 2025-06-24 13:42 | Emergency (ER) | payer MEDICARE, OTHER, SELFPAY ==
--- OUTSIDE RECORDS SUMMARY | 2024-04-09 11:20 | XMS_ITS ---
Author Organization [facility] in [place] Address [address] [place] [address] Care Team Providers Care Zigzag Appliquer Name Role Phone Elmer Farmer DO Primary Care Provider Unavail able Kj Barcenas [phone] Encounters Encounter Location Date Provider Diagnosis Urology [facility] [address] [address] 04/09/2024 Kj Barcenas Plan Of Treatment No Information Progress Notes * Vj VILLELA LDOB: [birth year] (74 yo M)Acc No.[id number]:04/09/2024 UNLOCKED PROGRESS NOTE 0 Patient: Vj PENA :?Kj Barcenas MDDOB:1950???Age:73 Y ???Sex:MaleDate:4Phone:[phone]:[id number] [place], [id number]:Elmer Farmer DO Subjective: * Chief Complaints: * * Medical History: Objective: * Vitals: Assessment: Plan: * Treatment: * * Electronic signature of Kj Barcenas MD, [id number] on 06/24/2025 at 02:23 PM ESTSign off status: PendingVisit Status:?R/S By O/P (Rescheduled by Office/Provider) * Provider: Leticia Barcenas MD Date: 1 Generated for Printing/Faxing/eTransmitting on:?06/24/2025 02:23 PM EST
--- OUTSIDE RECORDS SUMMARY | 2025-04-22 08:00 | XMS_ITS ---
Author Organization [facility] in [place] Address [address] [place] [address] Care Team Providers Care Freight Shipping Agent Name Role Phone Elmer Farmer DO Primary Care Provider Unavail able Kj Barcenas [phone] REASON FOR VISIT 6mo f/u Encounters Encounter Location Date Provider Diagnosis Urology [facility] [address] [address] 04/22/2025 Kj Barcenas Plan Of Treatment No Information Progress Notes * Vj VILLELA LDOB: [birth year] (74 yo M)Acc No.[id number]:04/22/2025 UNLOCKED PROGRESS NOTE Patient:Vj COOPER :?Kj Barcenas MDDOB:1950???Age:74 Y ???Sex:MaleDate:04/22/2025Phone:[phone]:[address] [place], [phone]:Elmer Farmer DO Subjective: * Chief Complaints: * 1 . 6mo f/u. * Medical History: Objective: * Vitals: Assessment: Plan: * Treatment: * * Electronic signature of Kj Barcenas MD, [id number] on 06/24/2025 at 02:23 PM ESTSign off status: PendingVisit Status:?CANC (Cancelled) * Provider: Leticia Barcenas MD Date: 1 Generated for Printing/Faxing/eTransmitting on:?06/24/2025 02:23 PM EST
--- OUTSIDE RECORDS SUMMARY | 2025-06-12 19:33 | XMS_ITS | Continuity of Care Document ---
Author Organization [facility] Address [address] [place] [address] Phone Care Team Providers Care Methods Specialist Engineer Name Role Phone Elmer Farmer JR Primary Care Provider Abimael Gant DO Emergency Provider [phone] Elmer Farmer JR Attending Provider [phone] Estrada Kelley MD Attending Provider Darrian Dejesus DO Emergency Provider Kj Barcenas MD Attending Provider Care Teams Patient Care Team Team Status: Active Member Role/Relationship Status Dates Elmer Farmer JR DO Primary Care Provider Active Visit Care Team Team Status: Inactive Member Role/Relationship Status Dates Elmer Farmer JR DO Primary Care Provider Active Start: March 19, 2025 End: March 19, 2025Max uMsa ProviderActiveStart: March 19, 2025 End: March 19, 2025 Visit Care Team Team Status: Inactive Member Role/Relationship Status Dates Elmer Farmer JR DO Primary Care Provider Active Start: March 25, 2025 End: March 25malgorzata Farmer JR DOAttending ProviderActiveStart: March 25, 2025 End: March 25, 2025 Visit Care Team Team Status: Active Member Role/Relationship Status Dates Elmer Farmer JR DO Primary Care Provider Active Start: March 26, 2025 Madhav Rey ProviderActiveStart: March 26, 2025 Visit Care Team Team Status: Inactive Member Role/Relationship Status Dates Elmer Farmer JR DO Primary Care Provider Active Start: April 16, 2025 End: April 17, 2025Max Florentino ProviderActiveStart: April 16, 2025 End: April 17, 2025 Patient Care Team Team Status: Active Member Role/Relationship Status Dates Elmer Farmer JR DO Primary Care Provider Active Start: May 01, 2025 Madhav Rey ProviderActiveStart: May 01, 2025 Patient Care Team Team Status: Inactive Member Role/Relationship Status Dates Elmer Farmer JR DO Primary Care Provider Active Start: June 12, 2025 End: June 12Madhav Arrington ProviderActiveStart: June 12, 2025 End: June 12, 2025 Chief Complaint and Reason for Visit Chief Complaint Admit Date CHEST PAIN March 19, 2025 2:32pm E11.9,E03.9,Z12.5,E78.5 March 25, 2025 11:34am Diff breathing April 16, 2025 7 :57pm R39.9 June 12, 2025 3:07pm Allergies, Adverse Reactions, Alerts Allergen Type Severity Reaction Last Updated Verified Status verapamil Adverse Reaction Unknown Rash April 16, 2025 7:08pm Yes Active Social History Smoking Status Status Start Date End Date Date of Observa tion Never smoked tobacco (finding) April 16, 2025 10:12pm Observation Status Observation Response Date of Response Legal Sex Male (finding) Sex Assigned At BirthMaleDeceer 1949 Family History Relationship Condition Age at Onset Recorded Date/T naty mother Myocardial infarction Unknown fatherMyocardial infarctionUnknownMalignant neoplasm of breastUnknownRenal failureUnknownCongestive heart failureUnknownsisterMalignant neoplasm of breast UnknownsisterMalignant neoplasm of breastUnknownsisterMalignant neoplasm of breastUnknownbrotherFamily history of mental disorderUnknownDeceasedUnknown fatherMalignant neoplasm of breastUnknownDeceasedUnknownMalignant neoplasm UnknownmotherDeceasedUnknownsonDiabetes mellitusUnknownsisterMalignant neoplasm Unknown Problems Active Problems Problem Diagnosis/Recorded Date Onset Date Status C omerrol UTI (urinary tract infection) May 29, 2021 9:44pm U nknown Active End-stage renal disease needing dialysisJanuary 2021 2:52pmUnknownActive Secondary hyperparathyroidismAugust 2024 2:19pmUnknownActiveHistory of heart artery stentAugust 2024 1:37pmUnknownActiveApril 2024: PCI's circumflex and RCAURI (upper respiratory infection)May 29, 2021 9:44pm UnknownActiveNeck painDecember 2021 2:14pmUnknownActiveAnemia of renal diseaseAugust 2024 2:19pmUnknownActiveAbdominal painNovember 2021 3:09amUnknownActiveChest painAugust 2024 8:31amUnknownActiveASHD (arteriosclerotic heart disease)February 26, 2025 1:37pmUnknownActive Inactive/Resolved Problems Problem Diagnosis/Recorded Date Onset Date Status C omments Chest pain in adult April 17, 2025 12:02am Unknown Resolved HypotensionApril 2024 2:17pmUnknownResolvedEnd-stage renal disease (ESRD) October 23, 2024 2:17pmUnknownResolved Medications Medication Status Dose Units Route Directions Qty Days Refills S tart Date Stop Date End Date Reason(s) Instructions Adherence Sevelamer Carbonate 800 mg tablet Discontinued 0 .ROUTE.RULPIOY99718Pgazuf 2023 4:56pmAugust 2024 5:50pmTAKE 4 TABLETS BY MOUTH THREE TIMES DAILY WITH MEALSAzithromycin 250 mg tablet Qwatjbscmqpg728WTGQXskdj468Plwywoaw 27th, 2021 12:00amFebruary 2021 11:12amstart on day 2 of therapyCephalexin 500 mg akjrlkjGcauztzvxdde668UKQS Twice qzpzi8092KmwxrnowMay 29, 2021 12:00amFebruary 2021 11:12amCarvedilol 6.25 mg TabletDiscontinued6.25MGPODailyDavis Regional Medical Center2021 12:00amApril 2024 1:51pmmust administer with a meal/foodB Complex-Vitamin C-Folic Acid (Renal Vitamin) 0.8 mg CkolnmAutqfb6JLHPZEdamvWuufvvlt 2021 12:00amUnknown Esomeprazole Magnesium 20 mg Capsule,Delayed Release(Dr/Ec)Ityiwnkrqrch13PUSG DailyDavis Regional Medical Center2021 12:00amApril 2024 1:52pmRosuvastatin 20 mg Tablet Xxiomo44MKSKTrhhiNfpnsxuh 2021 12:00amUnknownSevelamer Carbonate 800 mg nabqktRtmhfbhlvssb0784SOQY4-6 TIMES DAILYDavis Regional Medical Center2021 12:00[place] [facility] 2023 4:56pmCalcium Acetate 667 mg HqzzlmVijemarmnmfb1320BCQY5-2 TIMES DAILY May 31, 2022 12:00amApril 2024 11:45amGuaifenesin 200 mg tablet Foncitoovrox215JNAYExyp times daily as needed for wizkg665Zfvwr 2024 11:00pmApril 2024 11:45amClopidogrel 75 mg bdifryPhobrp46FCMBXymdtPzchn 2024 11:00pmUnknownDoxepin 10 mg/mL fbwfsymtxwvRjkefz89TBNKKpliexhXpuvu 2024 11:00pmUnknownFluoxetine 10 mg kdxvaroNicgsa38BSHQLbxovCvwsd 2024 11:00pmUnknownAspirin 81 mg ffeoczfOxvhul67OVAIKcnmnHjrwt 2024 11:00pmUnknownCarvedilol 12.5 mg ugglkrBpklxqquqsgb83.5MGPOTwice dailyOcthighlands arh regional medical center 2020 11:00pmNovember 2021 3:46amAllopurinol 100 mg dtxykfYscghh055WF POTwice dailyOcthighlands arh regional medical center 2020 11:00pmUnknownBaclofen 10 mg tabletDiscontinued 10MGPODaily as needed for PainOct2020 11:00pmDavis [facility] Center2021 3:45amMontelukast 10 mg srrpcjSmtwcl22NWJRHcduf morningApril 29, 2021 11:00pmUnknownLevothyroxine 200 mcg fslftgQfmenv994TAKLKQuiuf 2020 11:00pmUnknownAlbuterol Sulfate 90 mcg/actuation HFA aerosol inhaler Oavwzeqsukfe5UTJNXKULQVOAMIjbix as needed for sobApril 29, 2021 11:00pm May 31, 2022 3:45amRosuvastatin 40 mg yfgthxGgcptbmaxhtm45VIZOLujnt at bedtimeBronson [facility]2020 11:00pmDavis [facility]2021 3:46amFurosemide 40 mg MwjjyzOaajzelwpscq80KXMLSkeka as needed for EdemaApril 29, 2021 11:00pm May 31, 2022 3:46amrarely takesAllopurinol 100 mg tabletDiscontinuedMG April 29, 2021 11:00pm[facility] 2020 2:21pmLisinopril 5 mg tablet Discontinued2.5MGPOEvery 2020 11:00pm[facility] 2021 3:46amDuloxetine 60 mg capsule,delayed release(DR/EC)Tafdpd37PCQRTebqu at bedtimeBronson Battle [facility] Hospital2020 11:00pmUnknownCephalexin 500 mg bzgbjvdHuqdimjyfrvy844 FRIVG5J7426Bjzdlepa 2021 12:00amApril 2024 11:45amCalcium Acetate(Phosphat Bind) 667 mg rkwpbkfDlatme3543BZGIIzpst times dailyAucarrie tingley hospitalt 2024 11:00pmUnknownSevelamer Carbonate 800 mg ismfihPepxla3557FBGUTsory times dailyAucarrie tingley hospital2024 11:00pmTAKE 2 TABLETS BY MOUTH THREE TIMES DAILY WITH MEALSUnknownParicalcitol (Zemplar) 5 mcg/mL WmyicpeoWuzkwm4JNUJO-WRXZCcSrFj@1030 00Augus2024 11:00pmUnknownPantoprazole 40 mg Tablet,Delayed Release (Dr/Ec)Rkhpkl86NVSCAumju shvnn45655Qjsqjf 2024 11:00pmUnknownNitroglycerin 0.4 mg Tablet, SublingualActive0.6ZULPWHPBZPGIT4I as needed for Chest Hbah77246 February 26, 2025 11:00pmUnknownAmoxicillin-Pot Clavulanate (Augmentin) 500-125 mg tchesyPmecza5XUUNBPmvjp732Ltezlo 27th, 2025 11:00pmTake 1 tablet daily, On dialysis days take the medication in the eveningUnknownDoxycycline Hyclate 100 mg bolagrXhdqmk553APTZYsrdf piayz6368Zihrfw 27th, 2025 11:00pmUnknown Immunizations Immunization Event Date Not Given Reason Dose Number Power Mule Operator Lot Number Reason(s) Given Vaccine Information Statement (VIS) Detail Administration Location COVID-19 mRNA, ComirnatSchoology (Prolifiq Software) September 04 COVID-19 mRNA, Comirnatnolvia (Prolifiq Software)September 25, 2020 Medical Equipment Device Date Implanted Date Explanted Device Deta ils Double-lumen haemodialysis catheter, implantable June 18, 2021 November 04, 2021 [place]: [id number] Issuing Agency: [facility] Device Id: [id number] Expiration Date: 2023-08-02 Lot Number: [id number] Procedures Procedure Date Performed Status XR chest 2V* March 19, 2025 2:09pm comp leted XR chest 2V* April 16, 2025 7:10pm comple maria teresa Urine Culture June 11, 2025 active Relevant Diagnostic Tests and/or Laboratory Data Laboratory Results Test Collection Date/Time Result Date/Time Result Interpretation Reference Range Result Comment Performing Site Corrected White Blood Count April 16, 2025 10:16pm April 16, 2025 10:49pm 8.1 10*3/uL 4.1-10.5F[facility] [id number] [address] [facility] [address]Wwahrcxdjmz WBC CountOctober 2024 10:16pmOctober 2024 10:49pm8.1 10*3/uL4.1-10.5FOhioHealth [facility] Hospital [id number] [address] [facility] [address]Iwf Blood CountOctober 2024 10:16pmOctober 2024 10:49pm3.30 10*6/uLBelow low normal3.90-5.60[facility] [id number] [address] [facility] [address]LarbovbrgdDgcyzgk 2024 10:16pmOctober 2024 10:49pm 10.3 g/dLBelow low .0-17.0[facility] [id number] [address] [facility] [address]UyuwjzszegLixazij 2024 10:16pmOctober 2024 10:49pm 31.1 %Below low viruxn49.8-50.0[facility] [id number] [address] [facility] [address]Nyno Corpuscular VolumeOctober 2024 10:16pmOctober 2024 10:49pm94.1 fL83.5-101[facility] [id number] [address] [facility] [address]Zwot Corpuscular HemoglobinOctober 2024 10:16pmOctober 2024 10:49pm31.3 pg27.5-35.2F[facility] [id number] [address] [facility] [address]Dgmc Corpuscular Hemoglobin ConcentOctober 2024 10:16pm October 2024 10:49pm33.3 g/dL32.5-35.6FThe [facility] [id number] [address] [facility] [address]Vch Cell Distribution WidthOctober 2024 10:16pmOctober 2024 10:49pm17.0 %Above high zeqmnx74.0-14.8[facility] [id number] [address] [facility] [address]Rgpxgnsv CountOctober 2024 10:16pmOctober 2024 10:24fp686 10*3/uLBelow low dhdvpe548-778FschjdnyrAshtabula General Hospital [facility] [id number] [address] [facility] [address]Rfak Platelet VolumeOctober 2024 10:16pmOctober 2024 10:49pm10.3 fLAbove high normal6.6-10.1FThe [facility] [id number] [address] [facility] [address]Ksmkgeta Distribution WidthOctober 2024 10:16pmOctober 2024 10:49pm21.24 %Above high normal0.00-20.00For adults in ED, MDW > 20.0 may be associated with a higher risk of sepsis during the first 12 hrs of hospital admissionAshtabula [facility] [id number] [address] [facility] [address]Rnxnqccssyi (%) (Auto)April 16, 2025 10:16pmOctober 2024 10:49pm75.1 %.[facility] [id number] [address] [facility] [address]Mkuxsukcylv (%) (Auto)April 16, 2025 10:16pmOctober 2024 10:49pm11.3 %.[facility] [id number] [address] [facility] [facility] [address]Fxjortsuv (%) (Auto)April 16, 2025 10:16pmOctober 2024 10:49pm11.0 %.[facility] [id number] [address] [facility] [address]Ubpxahbksyf (%) (Auto)April 16, 2025 10:16pmOctober 2024 10:49pm1.7 %.[facility] [id number] [address] [facility] [facility] [address]Ycvyxwrtl (%) (Auto)April 16, 2025 10:16pmOctober 2024 10:49pm0.9 %.[facility] [id number] [address] [facility] [facility] [address]Wgegfhecz RBC Relative Count (auto)April 16, 2025 10:16pm April 16, 2025 10:49pm0.1 /100{WBC}0-0.5F[facility] [id number] [address] [facility] [facility] [address]Ftuctbenjme # (Auto)April 16, 2025 10:16pmOctober 2024 10:49pm6.1 10*3/uL1.8-7.7FThe [facility] [id number] [address] [facility] [facility] [address]Lfrbbszeevu # (Auto)April 16, 2025 10:16pmOctober 2024 10:49pm0.9 10*3/uLBelow low normal1.00-4.8[facility] [id number] [address] [facility] [facility] [address]Pduqymtfc # (Auto)April 16, 2025 10:16pmOctober 2024 10:49pm0.9 10*3/uLAbove high normal0.0-0.8[facility] [id number] [address] [place] [address]22[address]Eosinophils # (Auto)April 16, 2025 10:16pmOctober 2024 10:49pm0.1 10*3/uL0.0-0.45[facility] [id number] [address] [place] [address]22[address]Basophils # (Auto)April 16, 2025 10:16pmOctober 2024 10:49pm0.1 10*3/uL0.0-0.2FThe [facility] [id number] [address] [facility] [address]Edlwo ColorDecember 2024 6:00pmDecember 2024 4:05pm Dark-brownAbnormal (applies to non-numeric results)YellowAshtabula General Hospital Ctr [id number] [address] [facility] [address]Zqcpr AppearanceDecember 2024 6:00pmDecember 2024 4:05pmTurbidAbnormal (applies to non-numeric results)ClearAshtabula General Hospital [facility]tr [id number] [address] [facility] [facility] [address]Oteva Specific GravityDecember 2024 6:00pmDecember 2024 4:05pm1.0121.001-1.030[facility] [id number] [address] [facility] [facility] [address]Eksij pHDecember 2024 6:00pmDecember 2024 4:05pm7.0 5.0-9.0[facility] [id number] [address] [facility] [address]Tvxmt Leukocyte EsteraseDece2024 6:00pmDecember 2024 4:05pm4+Above high normalNegativeAshtabula General Hospital [facility]tr [id number] [address] [facility] [address]Zipxr NitriteDecember 2024 6:00pmDecember 2024 4:05pmNegativeNegativeAshtabula General [facility] [id number] [address] [facility] [address]Qjxfj ProteinDecemb2024 6:00pmDecember 2024 4:21al533 mg/dLAbove high normalNegativeAshtabula General [facility] [id number] [address] [facility] [facility] [address]Clajx Glucose (UA)June 11, 2025 6:00pmDecemb2024 4:05pmNormal mg/dLNormalAshtabula General Hospital [facility]tr [id number] [address] [facility] [address]Rofsx KetonesDece2024 6:00pmDecember 2024 4:05pmNegativeNegativeAshtabula General [facility] [id number] [address] [facility] [facility] [address]Gutbw UrobilinogenDece2024 6:00pmDecemb2024 4:05pmNormal mg/dLNormalAshtabula General Hospital [facility] [id number] [address] [facility] [facility] [address]Gqemb BilirubinDece2024 6:00pmDecember 2024 4:05pmNegativeNegativeAshtabula General [facility] [id number] [address] [facility] [facility] [address]Yxson Occult BloodDece2024 6:00pmDecember 2024 4:05pm3+Above high normalNegativeAshtabula General [facility] [id number] [address] [facility] [facility] [address]Fwmfe RBCDece2024 6:00pmDecemb2024 4:10pm Innumerable [HPF]Above high normal0-4F[facility] [id number] [address] [facility] [address]Pyorl WBCDecember 2024 6:00pmDecember 2024 4:10pm Innumerable [HPF]Above high normal0-4F[facility] [id number] [address] [facility] [address]Guvin WBC ClumpsDece2024 6:00pmDecember 2024 4:10pmModerate [LPF]Above high normalNone [facility] [id number] [address] [facility] [facility] [address]Hykhk Squamous Epithelial CellsDece2024 6:00pm June 12, 2025 4:10pmN/AFThe [facility] [id number] [address] [facility] [facility] [address]Nxgxa BacteriaDece2024 6:00pmDecemb2024 4:10pm3+ [HPF]Above high normalNone [facility] [id number] [address] [facility] [facility] [address]Buxqc Hyaline CastsDece2024 6:00pmDecemb2024 4:10pmNone [LPF]0-8[facility] [id number] [address] [facility] [facility] [address]Gwihflq LevelOctober 2024 10:16pmOctober 2024 11:92km493 mg/dLAbove high nhrwpi63-434AAN recommended reference rangeRandom Glucose Reference Range is dependent on time and content of last meal. Glucose of more than 200 mg/dL in a nonstressed, ambulatory subject supports the diagnosisof Diabetes Mellitus.[facility] [id number] [address] [facility] [facility] [address]Qsvyx Urea NitrogenOctober 2024 10:16pmOctober 2024 11:10pm21 mg/dL7-25[facility] [id number] [address] [facility] [address]CwjjirenddKjcbibk 2024 10:16pmOctober 2024 11:10pm 5.26 mg/dLAbove high normal0.70-1.30[facility] [id number] [address] [facility] [address]Krtwdzcgd GFR (CKD-EPI)April 16, 2025 10:16pmOctober 2024 11:10pm10.840 mL/MinAshtabula General Hospital [facility]tr [id number] [address] [facility] [address]Wjsmye LevelOctober 2024 10:16pmOctober 2024 11:09wo573 mmol/LBelow low jgbpjo996-309LmuzlgkkvAshtabula General Hospital [facility]tr [id number] [address] [facility] [address]Hepjavxkj LevelOctober 2024 10:16pmOctober 2024 11:10pm4.7 mmol/L3.5-5.1FThe [facility] [id number] [address] [facility] [address]Cgppdylw LevelOct2024 10:16pmOctober 2024 11:10pm93 mmol/LBelow low qicmvo20-427NadwfmoiuAshtabula General Hospital [facility]tr [id number] [address] [facility] [facility] [address]Oqhtsf Dioxide LevelOct2024 10:16pmOctober 2024 11:10pm34.0 mmol/LAbove high zohzty69.0-31.0[facility] [id number] [address] [facility] [address]Dianu GapOctober 2024 10:16pmOctober 2024 11:10pm 11.7 mEq/L6.0-15.0[facility] [id number] [address] [facility] [address]Aymoarb LevelOctober 2024 10:16pmOctober 2024 11:10pm9.5 mg/dL8.6-10.3F[facility] [id number] [address] [facility] [address]Gzjwx ProteinOctober 2024 10:16pmOctober 2024 11:10pm6.1 g/dLBelow low normal6.4-8.9[facility] [id number] [address] [facility] [address]XlezmvdJrkeiif 2024 10:16pmOctober 2024 11:10pm3.9 g/dL3.5-5.7FThe [facility] [id number] [address] [facility] [address]OmpoildtLhgztmr 2024 10:16pmOctober 2024 11:10pm2.2 g/dLAshtabula General Hospital [facility] [id number] [address] [facility] [address]Zvpqxly/Globulin RatioOctober 2024 10:16pmOctober 2024 11:10pm1.8[facility] [id number] [address] [facility] [address]Nuxse BilirubinOctober 2024 10:16pmOctober 2024 11:10pm0.4 mg/dL0.3-1.0[facility] [id number] [address] [facility] [address]Nqyazbkom Amino Transf (AST/SGOT)April 16, 2025 10:16pm April 16, 2025 11:10pm15 U/G37-45QizolmdsfAshtabula General Hospital Ctr [id number] [address] [facility] [address]Tspqinr Aminotransferase (ALT/SGPT)April 16, 2025 10:16pm April 16, 2025 11:10pm12 U/L7-52[facility] [id number] [address] [facility] [address]Zagwdrqa PhosphataseOctober 2024 10:16pmOctober 2024 11:10pm65 U/W41-723MsxemkcpjAshtabula General Hospital [facility]tr [id number] [address] [facility] [address]SnxtgiQfnfmxc 2024 10:16pmOctober 2024 11:10pm42.0 U/L11.0-82.0[facility] [id number] [address] [facility] [address]Gcagf Creatine KinaseOctober 2024 10:16pmOctober 2024 11:10pm30 U/I42-603MgaooaqqmAshtabula General Hospital Ctr [id number] [address] [facility] [address]Wdqopica I High SensitivityOctober 2024 10:16pmOctober 2024 11:18pm12 ng/L0-20The Troponin units of report have been changed to meet the Chest Pain Accreditation requirement, element EC5.M1l2. Troponin units are changed from pg/ml to ng/L. Also, the decimal is removed and results are in whole numbers.[facility] [id number] [address] [facility] [address]K-Labz Natriuretic PeptideOctober 2024 10:16pmOctober 2024 11:28wj036.0 pg/mLAbove high normal5-100[facility] [id number] [address] [facility] [address]Hxfavcnhekq LevelSeptember 2024 10:41amSeptember 2024 2:59st712 mg/dLBelow low jmygoj804-529Anyn less than 200 mg/dl low riskChol 201-239 mg/dl borderline riskChol 240 mg/dl and greater high riskAshtabula General Hospital [facility]tr [id number] [address] [facility] [address]OFW CholesterolSeptember 2024 10:41amSeptember 2024 2:17pm28 mg/rE89-15UNY CHOL ATP-III CLASSIFICATION Cardiovascular RiskHDL > or equal to 60 mg/dL LOWHDL < 40 mg/dL [facility] [id number] [address] [facility] [address]Lffxbhrnjpxrw LevelSeptember 2024 10:41amSeptember 2024 2:57sx163 mg/dL0-149TRIG ATP III CLASSIFICATIONTRIG less than 150 mg/dL NormalTRIG 150-199 mg/dL Borderline highTRIG 200-500 mg/dL High TRIG greater than 500 mg/dL Very highStandard traceable to the Center for Disease Conrtrol and Prevention (CDC) test method.[facility] [id number] [address] [facility] [address]PIO Cholesterol, CalculatedSeptember 2024 10:41am Geri 2024 2:17pm68 mg/dL0-100LDL ATP III CLASSIFICATIONLDL less than 100 mg/dL OptimalLDL 100-129 mg/dL Near or above ylttsgdGBK104-060 mg/dL Borderline highLDL 160-189 mg/dL HighLDL greater than 189 mg/dL Very high [facility] [id number] [address] [facility] [address]OGBM CholesterolSeptember 2024 10:41amSeptember 2024 2:17pm21 mg/dLAshtabula General Hospital [facility] [id number] [address] [facility] [address]Hvaxngjdtmf/HDL RatioSeptember 2024 10:41amSeptember 2024 2:17pm4.2<5.0[facility] [id number] [address] [facility] [address]Tloiakoq Specific Antigen ScreenSeptember 2024 10:41am March 25, 2025 2:25pm1.170 ng/mL0.000-4.000Serial tumor marker results determined by assays using different manufacturers or methods may not be comparable.[facility] retail customer service representative and method:Kromatid DXI, CHEMILUMINESCENT IMMUNOASSAY.[facility] [id number] [address] [facility] [address]Jpkcgek Stimulating Hormone 3rd GenSeptember 2024 10:41am March 25, 2025 2:33pm44.31 u[iU]/mLAbove high normal0.45-5.33[facility] [id number] [address] [facility] [address]Xfsaadqo Creatinine Clearance (ChemOctober 2024 10:16pm April 16, 2025 11:10pm15.47[facility] [id number] [address] [facility] [address]Mrzffrlrym G0aFyifkwiez 2024 10:41amSeptember 2024 9:29am5.5 %4.3-5.6Increased risk for diabetes: 5.7 - 6.4diabetes: >6.4glycemic control for adults with diabetes: <7.0[facility] [id number] [address] [facility] [address]Mknjtcgcs Average GlucoseSeptember 2024 10:41amSeptember 2024 9:88jx315 mg/dLAshtabula General Hospital [facility] [id number] [address] [place] [address] Diagnostic Imaging Reports Author Jan Becker [facility] CenterAuthoredSeptember 2024 3:34pmReport Dictated Date/TimeDictated ByStatusRadiology ReportSeptember 2024 3:34pm Jan Becker [facility] [address] [address] XRay Report Signed Patient: Vj Cárdenas MR#: [id number] : 1950 Acct:[id number] Age/Sex: 74 / M ADM Date: Loc: ER Room: Type: PRE ER Attending Dr: Copies to: IQRA PEREZ~ Ordering Provider: IQRA PEREZ Date of Service: 03/19/25 XR/XR chest 2V*: Chest Pain PA AND LATERAL CHEST: CLINICAL HISTORY: Generalized chest pain COMPARISON: CT chest 02/26/2025 FINDINGS: Enlarged cardiomediastinal silhouette with Small effusions and bibasilar airspace disease likely areas of atelectasis. No pneumothorax XR/XR chest 2V* IMPRESSION: Cardiomegaly with small effusions. Impression dictated by: Jan Becker M.D. 03/19/2025 3:35 PM Dictation Location: [place] [address] Transcribed By: [facility] 03/19/25 1535 Dictated By: Jan Becker MD 03/19/25 1534 Signed By: <Electronically signed by Jan Becker MD in [place]> 03/19/25 1535 Author Jeff Rivera [facility] CenterAuthoredOctober 2024 9:20pmReportDictated Date/TimeDictated ByStatusRadiology ReportOctober 2024 9:20pmJeff Rivera II [facility] [address] [address] XRay Report Signed Patient: Vj Cárdenas MR#: [id number] : 1950 Acct:[id number] Age/Sex: 74 / M ADM Date: 5 Loc: ER Room: Type: PRE ER Attending Dr: Copies to: IQRA PEREZ~ Ordering Provider: IQRA PEREZ Date of Service: 04/16/25 XR/XR chest 2V*: Shortness of Breath/Dyspnea XR chest 2V* 04/16/2025 9:01 PM SIGNS AND SYMPTOMS: ^Shortness of Breath/Dyspnea PROTOCOL: Frontal and lateral radiograph of the chest COMPARISON: 03/19/2025 FINDINGS: The trachea is midline. The heart and mediastinal structures are within normal limits. The lung parenchyma is clear. The bony thorax is intact. Degenerative changes are noted in the thoracic spine and shoulders. XR/XR chest 2V* IMPRESSION: No acute cardiopulmonary pathology. Impression dictated by: Jeff Rivera M.D. 04/16/2025 9:22 PM Dictation Location: [place] [address] Transcribed By: [facility] 04/16/252121 Dictated By: Jeff Rivera II, MD 04/16/252119 Signed By: <Electronically signed by Jeff Rivera II, MD in OV> 04/16/252121 Vital Signs Vital Reading Result Reference Range Collection Date/Time Body Temperature 98.0 [degF] 97.6-99.0 March 032024 2:07pm Heart Rate 96 /min 60-100 March 19, 2025 2:07pm Respiratory rate 18 /min 12-24 March 032024 2:07pm Oxygen saturation by Pulse oximetry 98 % 95-100 March 19, 2025 2:07pm BP Systolic 165 mm[Hg] 100-140 March 19, 2025 2:07pm BP Diastolic 84 mm[Hg] 60-100 March 19, 2025 2:07pm Height 68 [in_i] April 16, 2025 7:15ooAcvfdh067.00 kgOct2024 7:05pmBody Uspmqqllnqn19.9 [degF]97.6-99.0Aprober 2024 7:05pmHeart Rate86 /rfd48-765 April 16, 2025 11:14pmRespiratory rate20 /mpj40-32Lyiyomh , 2025 11:14pm Oxygen saturation by Pulse xitxhvod22 %95-100April 16, 2025 11:14pmBP Bnouorkw153 mm[Hg]100-140April 16, 2025 11:14pmBP Qzensqadw22 mm[Hg]60-100 April 16, 2025 11:14pm Advance Directives Advance Directive Response Recorded Date/ Time Advance Directives No October 25, 2 018 10:18am Insurance Providers Guarantor Vj Cárdenas Address [address] [place] [address] Info.Home Phone: Payer Group Member ID Coverage Type Subscriber Relationship to Subscriber Effective Date Expiration Date MMO Id: [id number] L Claygenevameaghan Id: [id number] [address] [place] [address] Home Phone: Email: [email or web address] [id number] L Claygenevameaghan Id: [id number] [address] [place] [address] Home Phone: Email: [email or web address] Encounters Encounter Location(s) Arrival/Admit Date Discharge/Departure Date Discharge/Departure Disposition Provider(s) Departed Emergency -Emergency Room March 19, 2025 2:32pm March 19, 2025 5:03pm Left against medical advice or discontinued care Departed Clinical-Lab [facility] 2024 11:34am March 25, 2025 11:35amDischarged to home care or self care (routine discharge)Jr Camilla Encinas-patient / Ftm-gspci-[facility] Dialysis Unit March 26, 2025 6:00Fina Tabaresarted Emergency-Emergency Room April 16, 2025 7[facility] 2024 2:02amDischarged to home care or self care (routine discharge)Non-patient / Wqg-zwqad-IJYV Dialysis UnitMay 01, 2025 4:00CARLOS MANUEL Tabareseparted Clinical-Lab [facility] 20[facility] 3:08pmDischarged to home care or self care (routine discharge)Kj Barcenas MD Plan of Treatment Future Tests Future scheduled test information is unavailable Pending Tests Test Name Ordered Date Scheduled Date Urine Culture June 11, 2025 6:00pm Future Visits Future appointment information is unavailable Future Procedures Procedure Name Ordered Date Scheduled Date Urine Culture June 12, 2025 3:48pm Decem 2024 6:00pm Future Medications Future medication information is unavailable Patient Instructions Instruction Admit Date Angina April 16, 2025 7 :57pm
[2025-06-24] VITALS (38 sets, daily range): BP systolic 123–139; BP diastolic 87–88; PULSE 87–155; TEMP 36.7; O2SAT 95–100
--- OUTSIDE RECORDS SUMMARY | 2025-06-24 14:23 | XMS_ITS | Clinical Summary ---
Author Organization [facility] Address [address] [place] [address] Care Team Providers Care Liquor Merchant Name Role Phone Elmer Farmer MD Primary Care Provider Allergies Active AllergyReactionsCriticalityNoted RaplGfnvvrxlAwwssqsuz96/19/2020 Other Reaction(s): Unknown Medications MedicationSigDispense QuantityRefillsLast FilledStart DateEnd DateStatus allopurinol (Zyloprim) 100 MG tablet 1 (one) time each day at the same time.Active amLODIPine (Norvasc) 2.5 MG tablet take 1 tablet by oral route every day OralActive calcitriol (Rocaltrol) 0.25 MCG capsule take 1 capsule by oral route every day OralActive DULoxetine (Cymbalta) [address] capsule 09/22/2022ctive FLUoxetine (PROzac) 10 MG capsule 02/14/2023ctive furosemide (Lasix) 40 MG tablet take 1 tablet by oral route every day OralActive levothyroxine (Synthroid, Levoxyl) 200 MCG tablet Take 200 mcg by mouth in the morning.Active lisinopril 5 MG tablet 1 (one) time each day at the same time.Active montelukast (Singulair) 10 MG tablet 01/30/2023ctive ofloxacin (Ocuflox) 0.3 % ophthalmic solution use 1 (ONE) DROP ophthalmic TWICE DAILY FOR 7 DAYS08/17/2022ctive sevelamer carbonate (Renvela) 800 MG tablet TAKE 3 TABLETS BY MOUTH THREE TIMES DAILY WITH MEALS12/21/2022ctive triamcinolone (Kenalog) 0.1 % cream every 12 (twelve) hours.Active azelastine (Astelin) 0.1 % nasal spray instill 2 (TWO) sprays nasally TWICE DAILY NLILJPUZ33/05/2024ctive B Msprzut-E-Cxaqa Acid (Renal Vitamin) 0.8 MG tablet Take 1 tablet by mouth Daily08/06/2023ctive Calcium Acetate 667 MG tablet Active carvedilol (Coreg) 6.25 MG tablet Active fluticasone (Flonase) 50 MCG/ACT nasal spray INSTILL TWO PUFFS IN EACH NOSTRIL NASALLY EVERY DAY03/01/2023ctive triamcinolone (Kenalog) 0.1 % cream Indications:Atopic dermatitis, unspecified typeApply topically 2 (two) times a day as needed for rash 240 g 11002/27/2024ctive Active Problems No known active problems Encounters DateTypeDepartmentCare ChpkRrbkrrhwudw25/30/2025 1:15 PM EDTOffice Visit [facility] [address] [place] [address] Pauly Peters RIPRAP WORKER-MARISOL Melanocytic nevus of trunk (Primary Dx); Lentigines; Seborrheic keratosis; Angioma of skin; Epidermal inclusion cyst; Capillary uuihfvq8204/01/2025amboo flowsheet [facility] [address] [place] [phone] Pauly Peters APRN-CNP 04/01/2025Travelfrom Last 3 Months Family History Medical HistoryRelationNameCommentsCancerFatherMainardDiabetesFatherMainardHeart diseaseFatherMainardHypertensionFatherMainardHeart diseaseMotherGertrude HypertensionMotherGertrudeHeart diseaseOtherSpouseHypertensionOtherSpouseStroke OtherSpouseHeart diseaseSiblingHypertensionSiblingDiabetesSonHypertensionSon MelanomaNeg HxRelationNameStatusCommentsFatherMainardDeceasedMaternal GrandfatherDeceasedMaternal GrandmotherDeceasedMotherGertrudeDeceasedOtherSpouse AlivePaternal GrandfatherDeceasedPaternal GrandmotherDeceasedSiblingAliveSon Alive Social History Tobacco UseTypesPacks/DayYears UsedDateSmoking Tobacco: NeverSmokeless Tobacco: NeverAlcohol UseStandard Drinks/WeekCommentsNever0 (1 standard drink = 0.6 oz pure alcohol)Caffeine: 1-2 cups/day coffeeSex and Gender InformationValueDate RecordedSex Assigned at BirthNot on fileLegal BzuTxom6709/14/2022 7:14 PM EDT Gender IdentityNot on fileSexual OrientationNot on file Last Filed Vital Signs Vital SignReadingTime TakenCommentsBlood Kkgsbcey396/8205 12:46 PM EDT Yrmpr428511/08/2023 12:46 PM EDTTemperature--Respiratory Rate--Oxygen Saturation-- Inhaled Oxygen Concentration--Prsxst355 kg (260 lb)11/08/2023 12:46 PM EDTHeight 174 cm (5' 8.5 )03/22/2021 12:00 PM EDTBody Mass Index38.9603/22/2021 12:00 PM EDT Plan of Treatment DateTypeDepartmentCare Team (Latest Contact Info)Sfxwvwtbsxf81/01/2026 1:05 PM EDTOffice Visit [facility] [address] [place] [address] Pauly Peters, NAZARIO-SHIPPER/RECEIVER [address] [place] [address] Insurance MemberSubscriberPlan / Payer (Effective 2022-Present)Name:Vj Cárdenas Jaycob Relation to Subscriber:SelfName:Vj Cárdenas Jaycob Payer ID:Not on file Type:Not on file Address: [place] [phone] Care Teams Team MemberRelationshipSpecialtyStart DateEnd Date Elmer Farmer MD [address] [place] [address] PCP - GeneralInternal Medicine11/08/23
--- OUTSIDE RECORDS SUMMARY | 2025-06-24 14:23 | XMS_ITS | Clinical Summary ---
Author Organization [facility] Address [address] [place] [address] Phone Care Team Providers Care Chute Feeder Name Role Phone LanaElmer dupree Primary Care Provider Social History Tobacco UseTypesPacks/DayYears UsedDateSmoking Tobacco: Never AssessedSex and Gender InformationValueDate RecordedSex Assigned at BirthNot on fileLegal Sex Male02/10/2023 3:35 PM EDTGender IdentityNot on fileSexual OrientationNot on file Plan of Treatment Health MaintenanceDue DateLast DoneCommentsCT Lwffxgmmzjwa1950FIT-DNA (Cologuard)1950FIT1950ipid Panel1950Medicare Annual Wellness Visit (AWV)1950 5492Btulhjzvxdero1951TSH Level1950MMR Vaccines (1 of 1 - Standard series)1952Hepatitis C Ndeunjung21/31/1969DTaP/Tdap/Td Vaccines (1 - Tdap)1973RSV High Risk: (Elderly (60+) or Population) (1 - Risk 50-74 years 1-dose series)2001Zoster Vaccines (2 of 3)/Pneumococcal Vaccine (3 of 3 - PCV20 or PCV21)09/13/2020 09/14/2015, 05/01/2014, 07/04/2012Diabetes Rgwzfhghe72/28//4COVID-19 Vaccine (5 - season)/03/2022, 07/20/2021, 09/25/2020, Additional history existsInfluenza Vaccine (#1), 04/15/2019, 06/18/2017, Additional history larrenKoocijcvhlm27/21/203405/olorectal Cancer Zmnjwhlrv13/21/2034HIB VaccinesAged OutNo longer eligible based on patient's age to complete this topicHPV VaccinesAged OutNo longer eligible based on patient's age to complete this topicHepatitis A VaccinesAged OutNo longer eligible based on patient's age to complete this topicHepatitis B VaccinesAged OutNo longer eligible based on patient's age to complete this topicIPV Vaccines Aged OutNo longer eligible based on patient's age to complete this topic Meningococcal VaccineAged OutNo longer eligible based on patient's age to complete this topicRotavirus VaccinesAged OutNo longer eligible based on patient's age to complete this topic Insurance Care Teams Team MemberRelationshipSpecialtyStart DateEnd Date Elmer Farmer DO PCP - General03/01/23
--- OUTSIDE RECORDS SUMMARY | 2025-06-24 14:23 | XMS_ITS | Clinical Summary ---
Author Organization [employer] [facility] Address [id number] [address] [place] [address] Care Team Providers Care Stage Electrician Name Role Phone Marleny Gibson DO, Charles L Primary Care Provider Social History Tobacco UseTypesPacks/DayYears UsedDateSmoking Tobacco: Never AssessedChildcare AnswerDate HkrmkwltRpgepbrgvJrwncxs29/12/2019EmploymentAnswerDate Recorded EwygxomhyrRnqhwma13/12/2019Purpose - LifeAnswerDate RecordedPurpose and direction in tioeNrwpbhf69/11/2021ex and Gender InformationValueDate Recorded Sex Assigned at BirthNot on fileLegal BegJdjm4002/05/2015 11:40 AM EDTGender IdentityNot on fileSexual OrientationNot on file Plan of Treatment Not on file Medical Devices Not on file Insurance Care Teams Team MemberRelationshipSpecialtyStart DateEnd Date Elmer Farmer Jr., [facility] [place] [address] PCP - GeneralInternal Zxcdnkib81/6/17
--- OUTSIDE RECORDS SUMMARY | 2025-06-24 14:23 | XMS_ITS | Clinical Summary ---
Author Organization [facility] Address [address] [place] [address] Care Team Providers Care Ballet Soloist Name Role Phone Elmer Farmer MD Primary Care Provider [phone] Allergies Active AllergyReactionsCriticalityNoted DateCommentsVerapamilRash,UnknownLow 04/20/2020 Other Reaction(s): Unknown Medications MedicationSigDispense QuantityRefillsLast FilledStart DateEnd DateStatus allopurinol (Zyloprim) 100 mg tablet Take 100 mg by mouth twice a day.Active calcitriol (Rocaltrol) 0.25 mcg capsule Take 0.25 mcg by mouth in the morning.Active calcium acetate (Phoslo) 667 mg capsule Take 667 mg by mouth.05/12/2024ctive doxepin (SINEquan) 10 mg/mL solution Take 30 mg by mouth at bedtime.02/26/2024ctive doxycycline (Monodox) 100 mg capsule Take 1 capsule by mouth Twice daily at 6am and 6pm.11/23/2023ctive DULoxetine (Cymbalta) [address] capsule Take 60 mg by mouth in the morning.09/22/2022ctive famotidine (Pepcid) 20 mg tablet Take 20 mg by mouth twice a day.Active FLUoxetine (PROzac) 10 mg capsule Take 10 mg by mouth in the morning.02/14/2023ctive Renal Vitamin 0.8 mg tablet Take 1 tablet by mouth in the morning.06/08/2024ctive levoFLOXacin (Levaquin) 250 mg tablet Take 1 tablet by mouth in the morning.12/07/2023ctive Synthroid 200 mcg tablet Take 200 mcg by mouth before breakfast.Active montelukast (Singulair) 10 mg tablet Take 10 mg by mouth in the morning.01/30/2023ctive nitrofurantoin, macrocrystal-monohydrate, (Macrobid) 100 mg capsule Take 1 capsule by mouth in the morning.11/28/2023ctive sevelamer carbonate (Renvela) 800 mg tablet Take 800 mg by mouth with breakfast, with lunch, and with evening meal. 12/21/2022ctive aspirin 81 mg EC tablet Take 81 mg by mouth in the morning.Active rosuvastatin (Crestor) 40 mg tablet Indications:Coronary artery disease involving otoe-missouria coronary artery of otoe-missouria heart with unstable angina pectoris (CMS/HCC),Mixed hyperlipidemiaTake 1 tablet (40 mg) by mouth in the evening. 90 tablet ctive clopidogrel (Plavix) 75 mg tablet Indications:Coronary artery disease involving otoe-missouria coronary artery of otoe-missouria heart with unstable angina pectoris (CMS/HCC),Mixed hyperlipidemiaTake 1 tablet (75 mg) by mouth in the morning. DO NOT STOP OR SKIP A DOSE WITHOUT SPEAKING TO ASSOCIATE PUBLISHER 90 tablet ctive pantoprazole (ProtoNix) 40 mg EC tablet Take 1 tablet by mouth before breakfast.02/27/2025tive midodrine (Proamatine) 2.5 mg tablet Take 2.5 mg by mouth three times daily.5Active baclofen (Lioresal) 10 mg tablet Take 1 tablet by mouth Twice daily at 6am and 6pm.5Active Active Problems ProblemNoted DateDiagnosed DatePre-transplant evaluation for kidney transplant 04/29/2025Physical wwenovvw67/28/2025Unstable jlbyst1610/17/2024enign prostatic hyperplasia with lower urinary tract xiwawhuj12/09/2025hronic cystitis 10/09/2024ngina pectoris, ntvaebba00/09/2025bnormal EKG010/09/2024Other ill- defined heart hmtcpujo51/09/2025Obesity, Class II, BMI 35-39.9009/19/2024 Atherosclerosis of otoe-missouria coronary artery of otoe-missouria heart without angina nuwiyyma05/29/2024 Overview (10/08/2024): 09/19/2023 Multivessel coronary artery calcifications ESRD (end stage renal disease)02/29/2024 Overview (10/08/2024): Chronic dialysis 06/17/2021 Peripheral mqyvwhgdcfqwvxwz75/29/2024 Overview (10/08/2024): 09/19/2023 Scattered atherosclerotic disease throughout the visualized thoracic and abdominal aorta;Scattered atherosclerotic disease throughout the iliac vessels results in multifocal areas of mild stenosis with no calcifications of bilateral external iliac arteries Hypertensive disorderCAD (coronary artery disease) Overview (02/20/2025): s/p AZ (1981) and GINI to LCx and RCA (10/2024) PAD (peripheral artery disease)DepressionObesityOSA (obstructive sleep apnea) Sensorineural hearing loss (SNHL) of left zswAknmsysgtnHlbab-Ktottoonl-Ygwwi (WPW) syndromeGoutHypothyroidismGERD (gastroesophageal reflux disease) DiverticulitisHistory of small bowel obstruction Overview (02/20/2025): s/p small bowel resection MigrainesArthritisBack pain Overview (02/20/2025): /sciatica Hydrocele of testis Overview (02/20/2025): s/p left orchiectomy 1986 Secondary hyperparathyroidism of renal originAnemia in chronic kidney disease (CKD)Anxiety Encounters DateTypeDepartmentCare RgzlDkvsfkmplor40/10/2025Orders Only [address] [address] ProviderXochitl MD 04/10/2025 2:40 PM EDTOffice Visit [address] [address] Diya Jurado, MARISOL Other chest pain (Primary Dx); Coronary artery disease involving otoe-missouria coronary artery of otoe-missouria heart without angina pectoris; Abnormal EKG; Mixed hyperlipidemia; H/O heart artery stent; Other specified hypotensionfrom Last 3 Months Family History Medical HistoryRelationNameCommentsMental illnessBrotherNo Known Problems DaughterNicoleBreast cancerFatherHeart attackFatherHeart failureFatherCHFKidney failureFatherCoronary artery diseaseMotherHeart attackMotherBreast cancerSister 1One sister also with neurologic diseaseBreast cancerSister 2Breast cancerSister 3DiabetesSonHypertensionSonRelationNameStatusCommentsBrotherDaughterNicoleFather DeceasedMotherDeceasedSister 1Sister 2Sister 3Son Social History Tobacco UseTypesPacks/DayYears UsedDateSmoking Tobacco: FormerCigarettes Smokeless Tobacco: Never Comments:Sporadic historical use - weekly (if the other guys were doing it i would do it) Last Use: Age 22 Alcohol UseStandard Drinks/WeekCommentsYes0 (1 standard drink = 0.6 oz pure alcohol)occasionallyAHC UtilitiesAnswerDate RecordedIn the past 12 months has the [employer], gas, oil, or water [email or web address] threatened to shut off services in your home?No10/17/2024Humiliation, Afraid, Rape, and Kick questionnaireAnswerDate RecordedWithin the last year, have you been afraid of your partner or ex-partner?No10/17/2024Emotionally AbusedNot on file10/17/2024Physically Abused Not on file10/17/2024Sexually AbusedNot on file10/17/2024Overall Financial Resource Strain (CARDIA)AnswerDate RecordedHow hard is it for you to pay for the very basics like food, housing, medical care, and heating?Not very hard 10/17/2024PHQ-2AnswerDate RecordedPatient Health Questionnaire-2 Score0 04/29/2025UT Safety & EnvironmentAnswerDate RecordedFear of Current or Ex-PartnerNot on file08/24/2023Emotionally AbusedNot on file08/24/2023hysically AbusedNot on file08/24/2023Sexually AbusedNot on file08/24/2023hysically or Sexually AbusedNot on file08/24/2023TransportationAnswerDate RecordedIn the past 12 months, has lack of transportation kept you from medical appointments or from getting medications?No10/17/2024Lack of Transportation (Non-Medical)Not on file 10/17/2024Housing Stability Vital SignAnswerDate RecordedIn the last 12 months, was there a time when you were not able to pay the mortgage or rent on time?No 10/17/2024In the past 12 months, how many times have you moved where you were living?t any time in the past 12 months, were you homeless or living in a skilled nursing (including now)?No10/17/2024Hunger Vital SignAnswerDate Recorded Within the past 12 months, you worried that your food would run out before you got the money to buymore.Never true10/17/2024Ran Out of Food in the Last YearNot on file10/17/2024Sex and Gender InformationValueDate RecordedSex Assigned at YlnipJqac50/02/2025 10:41 AM EDTLegal CbvNpdb2312/29/2021 9:29 PM EDTGender GzalxmcgRwwd67/02/2025 10:41 AM EDTSexual OrientationHeterosexual or Straight 11/01/2024 10:41 AM EDT Last Filed Vital Signs Vital SignReadingTime TakenCommentsBlood Vpkszyej161/7504/29/2025 8:13 AM EDT Thxfg526604/29/2025 8:13 AM PAFMufpwfnvogn51.9 ??C (94.8 ??F)04/29/2025 8:13 AM EDTRespiratory Aaqz0653 8:13 AM EDTOxygen Tjslkioewx52%04/29/2025 8:13 AM EDTInhaled Oxygen Concentration--Vrjund569 kg (255 lb 9.6 oz)04/29/2025 8:13 AM RKCNmjnjq026.7 cm (5' 8 )04/29/2025 8:13 AM EDTBody Mass Index38.8604/29/2025 8:13 AM EDT Plan of Treatment Health MaintenanceDue DateLast DoneCommentsMedicare Annual Wellness (AWV) 1Pneumococcal Vaccine: 50+ Years (1 of 2 - PCV)1970Adult Tetanus 1973Zoster Vaccines (1 of 2)2001COVID-19 Vaccine (3 - season), 09/04/2020Influenza Vaccine (#1)2025 Depression Knieyktrm64Fall Risk Jvxyxxkeu36 CfsmmjqbjjvCjvoncgbbesg45/21/2024olorectal Cancer ScreeningDiscontinuedCT ColonographyDiscontinuedFIT-DNADiscontinuedFITDiscontinuedFOBTDiscontinuedHIB VaccinesAged OutNo longer eligible based on patient's age to complete this topic HPV VaccinesAged OutNo longer eligible based on patient's age to complete this topicIPV VaccinesAged OutNo longer eligible based on patient's age to complete this topicMeningococcal B VaccineAged OutNo longer eligible based on patient's age to complete this topicMeningococcal VaccineAged OutNo longer eligible based on patient's age to complete this topicRotavirus VaccinesAged OutNo longer eligible based on patient's age to complete this topicSigmoidoscopyDiscontinued Medical Devices ImplantedTypeAreaManufacturerDevice IdentifierShelf Expiration DateModel / Serial / LotStenJovita helm Mr 3.50 X 20 - [id number] Implanted:Qty: 1 on 10/17/2024 by [facility]ers [facility] CenterDrug Eluting StentN/A: [employer] [id number] 07/31/[id number] / / [id number],Synergy Mr 4.00 X 28 - [id number] Implanted:Qty: 1 on 10/17/2024 by Dexter Bowers MD at [facility] CenterDrug Eluting StentN/A: [employer] [id number] 02/19/[id number] / / [id number] Procedures Procedure NamePriorityDate/TimeAssociated DiagnosisCommentsECG 12 LEAD UNIT ILZHGDIPTLelswpq13/10/2025 11:56 AM EDT Other chest pain from Last 3 Months Results * ECG 12 lead unit performed (04/11/2025 11:56 AM EDT)Specimen (Source) Anatomical Location / LateralityCollection Method / VolumeCollection Time Received Time Narrative Authorizing ProviderResult TypeResult StatusErmelindafiorella Jurado [facility] ORDERABLES Final Result from Last 3 Months Insurance Advance Directives * Full Code (Latest Code Status on File) Date ActivatedDate InactivatedComments10/17/2024 1:37 PM10/18/2024 7:13 PM Care Teams Team MemberRelationshipSpecialtyStart DateEnd Date Elmer Farmer MD [facility] [place] [address] PCP - GeneralInternal Medicine10/09/24
--- OUTSIDE RECORDS SUMMARY | 2025-06-24 14:23 | XMS_ITS ---
Author Organization [facility]) Address [address] [place] [address] Care Team Providers Care Maternity Nurse Name Role Phone Unavailable Unavailable Unavailable Allergies, Adverse Reactions, Alerts Allergy Name Allergy Type Status Severity Reaction(s) Onset Date Inactive Date Treating Clinician Comments Verapamil Allergy Active Unknown 2025-03-04 12:50:55 Problems This patient has no known problems. Procedures Procedure Date / Time Performed Performing Clinician Misa ce Details AV Fistula 2024-03-20 05:00:00 Access SiteForearm (Right)Access Use Start Ried9029-96-17 05:00:00 DIALYSIS TREATMENT INFORMATION Conventional Hemodialysis Date Type Treatment Start Date Treatment End Date Pre-Treatment Vitals Post-Treatment Vitals Weight Gain BFR DFR Actual UF Dialysis Access March 13, 2025 In-Center Hemodialysis Treatment 3610-44-70Y44:30:00.000Z 4292-15-34Q24:33:00.000Z BP Sitting (Pre-Dialysis) 176/96 mmHg BP Sitting (Post-Dialysis) 147/98 mmHg * Concurrent Access: false * AV Fistula Forearm (Right) Arterial BP Standing (Pre-Dialysis)164/91 mmHgBP Standing (Post-Dialysis)133/64 mmHg Sitting Heart Rate Pre-Uhaoyubm350 BPMSitting Heart Rate Post-Dbdvzjzo10 BPM Standing Heart Rate Pre-Beduyacr195 BPMStanding Heart Rate Post-Sozcxduy09 BPM March 11, 2025In-Center Hemodialysis Fibksyfre9645-84-54J75:38:34.000Z 8964-21-69S88:14:24.000ZBP Sitting (Pre-Dialysis)165/127 mmHgBP Sitting (Post-Dialysis)142/82 mmHg* Concurrent Access: false * AV Fistula Forearm (Right) Arterial BP Standing (Pre-Dialysis)133/90 mmHgBP Standing (Post-Dialysis)117/82 mmHg Sitting Heart Rate Pre-Riulmprt48 BPMSitting Heart Rate Post-Cdrovhcs396 BPM Standing Heart Rate Pre-Nkzjdwqb573 BPMStanding Heart Rate Post-Swnpthbx639 BPM Temperature Pre-Jqiurjkl39.2 degFTemperature Post-Szkwbyng80.3 degF Encounters No encounter information to report
--- OUTSIDE RECORDS SUMMARY | 2025-06-24 14:23 | XMS_ITS | Clinical Summary ---
Author Organization [facility] Address [address] [place] [id number] Care Team Providers Care Special Education Assistant Name Role Phone Marleny Gibson DO, Charles L Primary Care Provider Allergies Active AllergyReactionsCriticalityNoted NvycDgdrwnyqHvbyrtyyuLmjn67/19/2020 Other Reaction(s): Unknown Medications MedicationSigDispense QuantityRefillsLast FilledStart DateEnd DateStatus Allopurinol 100 MG tablet Indications:GoutTake 1 tablet by mouth 2 times daily.Active DULoxetine [address] Particles capsule DR Take 1 capsule by mouth daily.09/22/2022ctive FLUoxetine 10 MG capsule Take 1 capsule by mouth daily.02/14/2023ctive Levothyroxine 200 MCG tablet Take 1 tablet by mouth daily.Active Montelukast 10 MG tablet Take 1 tablet by mouth daily.01/30/2023ctive sevelamer 800 MG tablet Indications:HyperphosphatemiaTake 2 tablets by mouth 3 times daily with meals. Active Rosuvastatin Calcium 20 MG Cap Sprinkle Take 1 capsule by mouth daily.Active faMOTIdine 20 MG tablet Take 1 tablet by mouth 2 times daily.Active doxepin 10 MG/ML Conc Take 3 mL by mouth at bedtime.02/26/2024ctive calcium acetate - Phos Binder 667 MG capsule Take 2 capsules by mouth 3 times daily with meals.08/06/2023ctive B Wkanaeo-B-Vxfjv Acid (Renal Vitamin) 0.8 MG tablet Take 1 tablet by mouth daily.Active Active Problems ProblemNoted DateDiagnosed DateObesity: body mass index of 35.0-39.9009/19/2024 End-stage renal disease needing fkigwpfq30/29/2024 Overview (02/29/2024): Chronic dialysis 06/17/2021 Atherosclerosis of [place] coronary artery of [place] heart without angina arbqcriy67/29/2024 Overview (02/29/2024): 09/19/2023 Multivessel coronary artery calcifications Peripheral nxjjvmiwgzpjhpmp80/29/2024 Overview (02/29/2024): 09/19/2023 Scattered atherosclerotic disease throughout the visualized thoracic and abdominal aorta;Scattered atherosclerotic disease throughout the iliac vessels results in multifocal areas of mild stenosis with no calcifications of bilateral external iliac arteries Encounters DateTypeDepartmentCare CqduAaayqmfnhvi11/02/2025Telephone [facility] [address] [place] [address] Yue Porras RN Waitlist Ukrlrlfkvos63/02/2025Telephone [facility] [address] [place] [address] Aletha Whitman Waitlist Tldeevqhkay34/29/2025Telephone [facility] [address] [place] [address] Aletha Whitman Waitlist Maintenancefrom Last 3 Months Family History Medical HistoryRelationNameCommentsBreast CancerFatherDiabetesFatherHeart Disease - OtherMotherBreast CancerSisterNeurologic DiseaseSisterRelationName StatusCommentsFatherMotherSister Social History Tobacco UseTypesPacks/DayYears UsedDateSmoking Tobacco: NeverSmokeless Tobacco: Never Tobacco Cessation:Counseling Given: Not Answered Alcohol UseStandard Drinks/WeekCommentsYes1 (1 standard drink = 0.6 oz pure alcohol)Sex and Gender InformationValueDate RecordedSex Assigned at BirthNot on fileLegal FjtNlwf44/20/2023 9:28 AM EDTGender IjgjsibqJvvh02/23/2024 4:24 PM EST Sexual LxgljrjakpvMjfyhvnx24/23/2024 4:24 PM EST Last Filed Vital Signs Vital SignReadingTime TakenCommentsBlood Vtxqzyoi116/65009/19/2024 3:27 PM EDT Tasts5555/20/2025 3:27 PM HQBKzmcqmkmmow75.4 ??C (97.6 ??F)09/19/2024 3:27 PM EDTRespiratory Rate--Oxygen Saturation--Inhaled Oxygen Concentration--Nxdkig582 kg (260 lb 3.2 oz)09/19/2024 3:27 PM YZIEsziwq406.7 cm (5' 8 )02/29/2024 2:26 PM EDTBody Mass Index39.56002/29/2024 2:26 PM EDT Plan of Treatment Health MaintenanceDue DateLast WlbbAgamazdtSNLIORH76/31/1867SQJ1950TDAP (ADULT)1970LIPID KJJOZXVSB98/31/1991RSV VACCINE (1 - Risk 50-74 years 1- dose series)2001ZOSTER (SHINGLES) VACCINE (2 of 3) PNEUMOCOCCAL VACCINE SERIES (3 of 3 - PCV20 or PCV21)/, 05/01/2014, 07/04/2012COLORECTAL CANCER SCREENING QKUSSYLBFZ26 COVID-19 VACCINE ( season)/03/2022, 07/20/2021, 09/25/2020, Additional history existsINFLUENZA VACCINE (#1)/, 04/15/2019, 06/18/2017, Additional history existsHEPATITIS C VIRUS SCREENING Apkezmwvn22/29/2024ROSTATE CANCER SCREENING OANLFULRMHXxzwkzyortsj04/29/2024HEP B VACCINEAged OutNo longer eligible based on patient's age to complete this topic Procedures Procedure NamePriorityDate/TimeAssociated DiagnosisCommentsOUTSIDE COLONOSCOPY 11/21/2023 12:00 AM EDTHEPATITIS C TFHATGZTGeqpkrw00/29/2024 10:04 AM EST Pre-transplant evaluation for kidney transplant PSA, SFMNCXETGNuvgsex03/29/2024 10:04 AM EST Pre-transplant evaluation for kidney transplant Encounter for screening for malignant neoplasm of prostate from Last 3 Months or Most Recently Relevant to Health Maintenance Results * OUTSIDE COLONOSCOPY (11/21/2023 12:00 AM EDT)Anatomical RegionLaterality ModalityOtherSpecimen (Source)Anatomical Location / LateralityCollection Method / VolumeCollection TimeReceived Time11/21/2023 Narrative Authorizing ProviderResult TypeResult StatusOther OtherGI/BRONCH PROCEDURE ORDERABLESFinal Result * HEPATITIS C ANTIBODY (08/31/2023 10:04 AM EST)ComponentValueRef RangeTest MethodAnalysis TimePerformed AtPathologist SignatureHepatitis C Antibody YtrqualpJzptiydk25/29/2024 1:11 PM [facility]YSpecimen (Source)Anatomical Location / LateralityCollection Method / VolumeCollection TimeReceived TimeBloodVenipuncture / Fyqkcyk9408/31/2023 10:04 AM EST08/31/2023 11:00 AM EST Narrative Authorizing ProviderResult TypeResult StatusAmer Allison GALLO, PhDIMMUNOLOGY ORDERABLESFinal ResultPerforming OrganizationAddressCity/State/ZIP CodePhone Number [facility] [address] [address] * PSA, SCREENING (08/31/2023 10:04 AM EST)ComponentValueRef RangeTest Method Analysis TimePerformed AtPathologist SignaturePSA (Prostate Sp Ag)0.98<=4.00 ng/mL08/31/2023 11:28 AM [facility] Comment:This test was performed on the [employer] IM Immunoassay platform which is a 2-step sandwich chemiluminescent immunoassay. It is important to note that assays using different manufacturers and/or methods may not be comparable.Specimen (Source)Anatomical Location / LateralityCollection Method / VolumeCollection TimeReceived TimeBloodVenipuncture / Unknown 08/31/2023 10:04 AM EST08/31/2023 11:05 AM EST Narrative Authorizing ProviderResult TypeResult StatusAmer Allison GALLO, PhDIMMUNOLOGY ORDERABLESFinal ResultPerforming OrganizationAddressCity/State/ZIP CodePhone Number [facility] [address] [place] [address] from Last 3 Months or Most Recently Relevant to Health Maintenance Insurance Care Teams Team MemberRelationshipSpecialtyStart DateEnd Date Elmer Farmer Jr., DO [address] [place] [id number] PCP - GeneralInternal Medicine08/31/23
--- OUTSIDE RECORDS SUMMARY | 2025-06-24 14:24 | XMS_ITS | Patient Health Record ---
Author Organization [facility] Address [address] [place] [address] Care Team Providers Care Body Worker Name Role Phone Elmer Farmer DO Primary Care Provider Unavail able Kj Barcenas Unavailable [phone] Allergies Allergen (clinical drug ingredient) Drug/Non Drug Allergy documented on EMR Reaction Allergy Type Onset Date Status verapamil Verapamil Unknown Drug Allergy Active Reason For Referral No Information Medications Medication SIG (Take, Route, Frequency, Duration) Notes Start Date End Date Status Allopurinol ActiveCiprofloxacin HCl 250 MG1 tablet Orally daily; Duration: 5 days01/18/2024 Not-TakingCrestorActiveSynthroid 200 MCGOral; Duration: 89 DaysActiveCarvedilol ActiveCalcium AcetateActiveDULoxetine HCl 60 MGOral; Duration: 90 DaysActive FLUoxetine HCl 10 MGOral; Duration: 90 DaysActiveFamotidineActiveMontelukast Sodium 10 MGOral; Duration: 90 DaysActiveLevothyroxine SodiumActiveAspirin 81 ActiveRosuvastatin CalciumActiveRenal Vitamin 0.8 MGTAKE 1 TABLET BY MOUTH EVERY DAY Oral; Duration: 90 DaysActiveCiprofloxacin HCl 250 MG1 tablet Orally daily; Duration: 3 days5Active Social History Tobacco Use: Social History Observation Description Date Details (start date - stop date) Never Smoker NA - NA Tobacco Control (Standard) Question Answer Notes Tobacco use: Nonsmoker AUDIT-C (Standard) Question Answer Notes Did you have a drink containing alcohol in the p ast year? Yes How often did you have a drink containing alcohol in the past year?Never (0 point)How many drinks did you have on a typical day when you were drinking in the past year?1 or 2 drinks (0 point)How often did you have six or more drinks on one occasion in the past year?2 to 4 times a month (2 points)Points2 InterpretationNegative Problems Problem Type SNOMED Code ICD Code Onset Dates Problem Status W/U Status Risk Notes Problem Chronic cystitis (43711238) Othe r chronic cystitis without hematuria (N30.20) ActiveconfirmedProblemLower urinary tract symptoms due to benign prostatic hypertrophy ([id number])Benign prostatic hyperplasia with lower urinary tract symptoms, symptom details unspecified (N40.1)Activeconfirmed Vital Signs Height 68.00 in 10/22/2024 Ubtzmp223.3 lbs10/22/2024BMI40.18 kg/m210/22/2024 Encounters Encounter Location Date Provider Diagnosis [facility] [place] [address] [place] [address] 10/22/2024 Kj Barcenas Other chronic cystit is without hematuria N30.20 and Benign prostatic hyperplasia with lower urinary tract symptoms, symptom details unspecified N40.1 Assessments Encounter Date Diagnosis (ICD Code) Assessment Notes Treatment Notes Treatment Clinical Notes Section Notes 10/22/2024 Other chronic cystitis without h ematuria (ICD-10 - N30.20) 10/22/2024enign prostatic hyperplasia with lower urinary tract symptoms, symptom details unspecified (ICD-10- N40.1)10/22/2024OtherContinue self-start treatment with antibiotics. This is working well. Plan Of Treatment No Information Insurance Providers Payer Name Payer Address Payer Phone Subscriber Number Group Number Insured Name Patient Relationship to Insured Coverage Start Date Coverage End Date [place] [address] [place] [address] [id number] Joe Cárdenaself - patient is the [id number] 2016MMO MEDICARE [address]PP[address]MENTPO [address] [place] [id number], LeroySelf - patient is the [id number] 2022 Medical (General) History Medical History History ICD Code Arthritis DepressionHeart attackHypertensionHigh cholesterolRenal failure - on dialysis Thyroid disorderGoutsleep apneaSurgical History Surgery Date(Month/Year) 2 cardiac sents cardiac cathBilateral mastectomy- family hx of breast cancerappendectomyLeft orchiectomy - because of arioqxskd6430Dyozjpmkoxzlzle surgerycholecystectomy colon resection as a child
--- NOTE | 2025-06-24 14:34 | ECG_ITS ---
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 Measurements Intervals [place] Rate: 103 P: 54 MN: 154 QRS: 22 QRSD: 74 T: 180 QT: 364 QTc: 424 Interpretive Statements 1120 Sinus tachycardia 1474 with frequent supraventricular premature complexes 2420 RSR (QR) in lead V1/V2, consistent with right ventricular conduction delay [address] depression 4364 Twave abnormality, possible anterolateral ischemia 9150 abnormal ECG Compared to ECG 12/27/2021 14:32:13 ST (T wave) deviation now present Sinus rhythm no longer present Electronically Signed On 06-25-2025 11:40:52 EST by TABITHA LAYTON M.D.
--- NOTE | 2025-06-24 14:34 | CT_ITS ---
The [address] [address] Patient Name: LORENA VILLELA MRN: [id number] date: 1950 Sex: M Assigned Patient Location: ER Current Patient Location: ER Accession/Order Number: [id number] Exam Date: 06/24/2025 14:47 Report Date: 06/24/2025 15:40 At the request of: MALICK HUFF MD Procedure: CT stroke head/brain wo con CT BRAIN WITHOUT CONTRAST: CLINICAL HISTORY: change of mental status COMPARISON: None TECHNIQUE: Contiguous axial unenhanced images were obtained through the brain. This CT exam was performed using one or more following dose reduction techniques: Automated exposure control, adjustment of the mA and/or kV according to patient size, or use of iterative reconstruction technique. FINDINGS: There is no evidence of midline shift, intra or extra-axial fluid collection, hemorrhage or CT evidence of stroke. Cortical atrophy with chronic microvascular ischemic changes. Basal ganglia calcifications. Posterior fossa appears unremarkable. Visualized intraorbital contents demonstrate no acute findings. Visualized paranasal sinuses are clear. The surrounding soft tissues are normal. CT/CT stroke head/brain wo con IMPRESSION: NO ACUTE INTRACRANIAL ABNORMALITY. Impression dictated by: Jacob Pantoja Jr.OCelestino 06/24/2025 3:40 PM Dictation Location: [place] [address] Electronically authenticated by: [id number] Y Date: 06/24/2025 15:40
--- NOTE | 2025-06-24 14:34 | XR_ITS ---
The [address] [address] Patient Name: LORENA VILLELA MRN: [id number] date: 1950 Sex: M Assigned Patient Location: ER Current Patient Location: ER Accession/Order Number: [id number] Exam Date: 06/24/2025 14:47 Report Date: 06/24/2025 15:40 At the request of: MALICK HUFF MD Procedure: XR chest 1V Single view chest: CLINICAL HISTORY: confusion COMPARISON: 04/09/2021 FINDINGS: The heart is normal in size. The lungs are clear. The pulmonary vasculature is normal. Mediastinum and hilar regions are unremarkable. No pleural effusions are seen. Visualized bones are intact. XR/XR chest 1V IMPRESSION: NO ACUTE PROCESS. Impression dictated by: Kane Pendleton Jr., DCelestinoOCelestino 06/24/2025 3:40 PM Dictation Location: [place] [address] Electronically authenticated by: [id number] Y Date: 06/24/2025 15:40
[2025-06-24 14:47] LABS: Hematocrit 38.1 % (42.0-54.0); Hemoglobin 12.6 g/dL (14.0-18.0); Immature Granulocytes Abs Auto 0.04 10^3/uL (0.00-0.03); Immature Granulocytes Pct Auto 0.4 % (0.0-0.5); Lymphocytes Absolute Auto 1.1 10^3/uL (1.2-3.8); Mean Corpuscular HGB Conc 33.1 g/dL (29.9-35.2); Mean Corpuscular Hemoglobin 31.5 pg (25.9-34.0); Mean Corpuscular Volume 95.3 fL (80.0-94.0); Platelet Count 176 10^3/uL (150-450); Red Blood Count 4.00 10^6/uL (4.70-6.10); White Blood Count 10.3 10^3/uL (4.0-11.0)
--- NOTE | 2025-06-24 14:47 | ED.GENADUL1 ---
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 Patient reports he is here as his family thinks he has been confused recently. His provides some of the history and states that he gets most confused when driving and got lost about 3 times within the past week and called her from a gas station and did not know where he was. He was recently treated for UTI and finished antibiotics last week but denies any dysuria, urinary urgency/frequency, or retention. Patient's states that his oligoanuria is baseline. Related Data Home Medications ?Medication ?Instructions ?Recorded ?Confirmed allopurinol 100 mg tablet 100 mg PO DAILY 11/14/23 06/24/25 calcium acetate 667 mg tablet 667 mg PO TID 11/14/23 06/24/25 duloxetine 60 mg capsule,delayed 60 mg PO QPM 11/14/23 06/24/25 release (Cymbalta) fluoxetine 10 mg capsule 10 mg PO QPM 11/14/23 06/24/25 levothyroxine 200 mcg tablet 200 mcg PO DAILY 11/14/23 06/24/25 (Synthroid) rosuvastatin 20 mg sprinkle capsule 20 mg PO DAILY 11/14/23 06/24/25 clopidogrel 75 mg tablet mg 06/24/25 Previous Rx's ?Medication ?Instructions ?Recorded cefuroxime axetil 250 mg tablet 250 mg PO ONCE 10 days #10 tabs 06/24/25 Allergies Allergy/AdvReac Type Severity Reaction Status Date / Time verapamil Allergy Rash Verified 02/17/25 16:20 Opioid HPI Opioid Management Most Recent Opioid Data: Last Pain Scale 1 06/24/25, 13:46 Review of Systems ROS Status of ROS 10 or more systems reviewed and unremarkable except as noted in history and below [facility] Medical History (Updated 06/24/25 @ 18:44 by RYAN Jean) 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D64.9 - Anemia, unspecified (ICD-10) Panic attacks ?F41.0 - Panic disorder [episodic paroxysmal anxiety] (ICD-10) Depression ?F32.A - Depression, unspecified (ICD-10) Anxiety ?F41.9 - Anxiety disorder, unspecified (ICD-10) Sleep apnea ?G47.30 - Sleep apnea, unspecified (ICD-10) Migraine ?G43.909 - Migraine, unspecified, not intractable, without status migrainosus (ICD-10) Chronic renal failure ?N18.9 - Chronic kidney disease, unspecified (ICD-10) ESRD (end stage renal disease) ?N18.6 - End stage renal disease (ICD-10) Chronic kidney disease ?N18.9 - Chronic kidney disease, unspecified (ICD-10) Chronic kidney disease ?N18.9 - Chronic kidney disease, unspecified (ICD-10) Heartburn ?R12 - Heartburn (ICD-10) GERD (gastroesophageal reflux disease) ?K21.9 - Gastro-esophageal reflux disease without esophagitis (ICD-10) High cholesterol ?E78.00 - Pure hypercholesterolemia, unspecified (ICD-10) Hypertension ?I10 - Essential (primary) hypertension (ICD-10) Hypothyroidism ?E03.9 - Hypothyroidism, unspecified (ICD-10) Surgical History (Updated 11/14/23 @ 15:03 by Ciarra Diallo NP) H/O colonoscopy ?Z98.890 - Other specified postprocedural states (ICD-10) History of prostate surgery ?Z98.890 - Other specified postprocedural states (ICD-10) History of intestinal surgery ?Z98.890 - Other specified postprocedural states (ICD-10) H/O knee surgery ?Z98.890 - Other specified postprocedural states (ICD-10) H/O unilateral orchiectomy ?Z90.79 - Acquired absence of other genital organ(s) (ICD-10) H/O bilateral mastectomy ?Z90.13 - Acquired absence of bilateral breasts and nipples (ICD-10) History of hernia repair ?Z98.890 - Other specified postprocedural states (ICD-10) ?Z87.19 - Personal history of other diseases of the digestive system (ICD-10) History of cholecystectomy ?Z90.49 - Acquired absence of other specified parts of digestive tract (ICD-10) History of appendectomy ?Z90.49 - Acquired absence of other specified parts of digestive tract (ICD-10) Status post ORIF of fracture of ankle ?Z98.890 - Other specified postprocedural states (ICD-10) ?Z87.81 - Personal history of (healed) traumatic fracture (ICD-10) Family History (Updated 11/14/23 @ 14:45 by Ciarra Diallo NP) Other Family history of breast cancer Family history of diabetes mellitus Family history of heart disease Family history of hypertension Family history of myocardial infarction Family history of pulmonary embolism Social History (Updated 11/14/23 @ 14:36 by Ciarra Diallo NP) Within the past year, how often did you have a drink containing alcohol: 2-3 times a week Smoking status: Never smoker Non-prescribed substance use: denies use Highest level of school completed/degree received: high school graduate Little interest or pleasure in doing things: not at all Feeling down, depressed, or hopeless: not at all Exam Narrative Exam Narrative: General: No distress, age-appropriate Skin: Warm, dry, no pallor. No rash. Head: Normocephalic, atraumatic. Neck: Supple, non-tender. Eye: Pupils are equal, round and EOMI. No scleral icterus. Ears, Nose, Mouth, and Throat: No nasal mucosal hypertrophy. Oral mucosa is moist, no posterior oropharynx erythema, uvula is mid-line Cardiovascular: Regular Rate and Rhythm without murmur, gallop or rub. Respiratory: No accessory muscle use or respiratory distress. Lungs are clear to auscultation, no wheezing, rales or rhonchi Chest Wall: no tenderness Musculoskeletal: Full ROM of all extremities, no calf or popliteal tenderness GI: Abdomen is soft, non-distended, Epigastric tenderness with palpation. No masses appreciated. No rebound, guarding, or rigidity noted. Neurological: A&O x4. No cranial nerve dysfunction observed. No truncal ataxia. Moves all extremities. Sensation intact. Psychiatric: Cooperative and interactive. Normal mood and affect. Constitutional Vital Signs, click to edit/add: Last Vital Signs Temp 98.1 F 06/24/25 13:46 Pulse 95 H 06/24/25 19:45 Resp 16 06/24/25 19:45 BP 139/88 06/24/25 19:45 Pulse Ox 98 06/24/25 19:45 O2 Del Method Room Air 06/24/25 19:45 Documenting provider has reviewed patient's vital signs: yes Course Vital Signs Vital signs: Vital Signs Temperature 98.1 F 06/24/25 13:46 Pulse Rate 87 06/24/25 13:46 Respiratory Rate 18 06/24/25 13:46 Blood Pressure 123/87 06/24/25 13:46 Pulse Oximetry 98 06/24/25 13:46 Oxygen Delivery Method Room Air 06/24/25 13:46 Temperature 98.1 F 06/24/25 13:46 Pulse Rate 95 H 06/24/25 19:45 Respiratory Rate 16 06/24/25 19:45 Blood Pressure 139/88 06/24/25 19:45 Pulse Oximetry 98 06/24/25 19:45 Oxygen Delivery Method Room Air 06/24/25 19:45 Medical Decision Making MDM Narrative Medical decision making narrative: Patient is a 74-year-old male with a history of 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 On evaluation, he was hemodynamically stable, afebrile, and at baseline neurologic status (GCS 15). Labs and imaging were notable for mild leukocytosis with neutrophilic predominance and urinalysis consistent with UTI; CT head and chest x-ray were unremarkable. TSH was elevated at 38.73, consistent with his known chronic hypothyroidism managed with dialysis. EKG showed sinus tachycardia with frequent supraventricular premature complexes and nonspecific ST/T wave changes; troponin was within normal limits x2. Using the HEART score for ACS risk: History (epigastric pain) = 2, ECG = 1, Age = 2, Risk factors = 2, Troponin = 0 total 7, indicating [id number] risk, though two normal troponins reduce likelihood of acute NC. Discussed this with patient's daughter as well and she states that he has been worked up a few times recently for this epigastric pain and it did not just start this morning. Given history and presentation, acute confusion is most consistent with delirium secondary to UTI, with chronic hypothyroidism and underlying CKD as contributing factors. WPW is noted but patient remained hemodynamically stable without arrhythmic events. The UTI was addressed with IV ceftriaxone in the ED and oral Ceftin for 10 days. Family education was provided regarding discontinuation of driving, monitoring for recurrent confusion, and importance of completing antibiotics. Patient discharged in stable condition with close follow-up with PCP and plan for outpatient monitoring. I, Dr Martinez, have reviewed the above progress note and course of action in the ER; agree with the above. I have gone over history and physical, and discussed disposition and treatment plan of the patient with the PA/VAN OWNER OPERATOR At discharge we had shared decision making done with patient, , Ayana pharmacist from [facility], Dr Martinez and Chani DAVIS. Patient, , daughter agree with giving patient a dose of IV antibiotics of Rocephin prior to discharge and starting patient on cefuroxime 250 mg daily for the next 10 days secondary to complicated UTI. Patient and both agree that patient can go home. Mikaela daughter believes that patient was treated for a short-term rehab antibiotics and may have been not completely treated for UTI. Patient had 75,000 colonies initially. Urine cultures pending at this time. Differential Diagnosis Differential Diagnosis: Delerium from infection, metabolic/toxic enchepalopathy Lab Data Lab results reviewed: Yes I reviewed the patient's lab results Labs: Lab Results 06/24/25 06/24/25 06/24/25 Range/Units 14:00 15:02 16:50 WBC 10.3 (4.0-11.0) 10^3/uL RBC 4.00 L (4.70-6.10) 10^6/uL Hgb 12.6 L (14.0-18.0) g/dL Hct 38.1 L (42.0-54.0) % MCV 95.3 H (80.0-94.0) fL MCH 31.5 (25.9-34.0) pg MCHC 33.1 (29.9-35.2) g/dL RDW 15.0 (11.0-15.0) % Plt Count 176 (150-450) 10^3/uL MPV 12.1 (9.5-13.5) fL Neut % (Auto) 79.9 H (43.0-75.0) % Lymph % (Auto) 10.9 L (20.5-60.0) % Hinds % (Auto) 5.9 (1.7-12.0) % Eos % (Auto) 2.1 (0.9-7.0) % Baso % (Auto) 0.8 (0.2-2.0) % Neut # (Auto) 8.2 H (1.4-6.5) 10^3/uL Lymph # (Auto) 1.1 L (1.2-3.8) 10^3/uL Hinds # (Auto) 0.6 (0.3-0.8) 10^3/uL Eos # (Auto) 0.2 (0.0-0.7) 10^3/uL Baso # (Auto) 0.1 (0.0-0.1) 10^3/uL Abs Immat Gran (auto) 0.04 H (0.00-0.03) 10^3/uL Imm/Tot Granulo (auto) 0.4 (0.0-0.5) % PT 10.7 (9.0-11.6) sec INR 1.02 VBG pH 7.389 (7.330-7.430) VBG pCO2 53.6 H (40.0-52.0) mmHg Sodium 138 (136-145) mmol/L Potassium 3.5 (3.5-5.1) mmol/L Chloride 96 L (98-107) mmol/L Carbon Dioxide 32.6 H (21.0-32.0) mmol/L Anion Gap 12.9 BUN 19.0 H (7.0-18.0) mg/dL Creatinine 4.51 H (0.70-1.30) mg/dL Est GFR ( Amer) 16 L (>=60 mL/min/1.73m^2) Est GFR (Non-Af Amer) 13 L (>=60 mL/min/1.73m^2) BUN/Creatinine Ratio 4.2 Glucose 107 H (74-106) mg/dL Lactate 1.5 (0.4-2.0) mmol/L Calcium 9.2 (8.5-10.1) mg/dL Total Bilirubin 0.4 (0.2-1.0) mg/dL AST 20 (15-37) U/L ALT 24 (16-63) U/L Alkaline Phosphatase 81 (46-116) U/L Ammonia <10 L (11-32) umol/L Troponin I High Sens 14.2 (4.0-76.1) pg/mL Total Protein 6.8 (6.4-8.2) g/dL Albumin 3.6 (3.4-5.0) g/dL Globulin 3.2 g/dL Albumin/Globulin Ratio 1.1 TSH 38.783 H (0.358-3.740) uIU/mL Free T4 1.68 H (0.76-1.46) ng/dL Free T3 1.84 L (2.18-3.98) pg/mL Urine Color Yellow (YELLOW) Urine Clarity Clear (CLEAR) Urine pH 7.0 (5.0-9.0) Ur Specific Rye 1.015 (1.005-1.025) Urine Protein >=300 A (NEG/TRACE) mg/dL Urine Glucose (UA) Negative (NEGATIVE) mg/dL Urine Ketones Trace A (NEGATIVE) mg/dL Urine Occult Blood Moderate A (NEGATIVE) Urine Nitrite Negative (NEGATIVE) Urine Bilirubin Negative (NEGATIVE) Urine Urobilinogen 0.2 (0.2-1.0) EU/dL Ur Leukocyte Esterase Small A (NEGATIVE) Urine RBC 5-10 A (0-2) #/HPF Urine WBC 20-50 A (NONE SEEN) #/HPF Ur Squamous Epith Cells Rare (NONE/RARE) #/LPF Urine Crystals None seen (None Seen) #/HPF Urine Bacteria Small A (NONE SEEN) #/HPF Urine Casts None seen (NONE SEEN) #/LPF Urine Mucus None seen (NONE SEEN) Ur Culture Indicated? Yes-[facility] [place] Acetaminophen <2.0 L (10.0-30.0) ug/mL Ethanol Quant <3 mg/dL 06/24/25 Range/Units 17:46 WBC (4.0-11.0) 10^3/uL RBC (4.70-6.10) 10^6/uL Hgb (14.0-18.0) g/dL Hct (42.0-54.0) % MCV (80.0-94.0) fL MCH (25.9-34.0) pg MCHC (29.9-35.2) g/dL RDW (11.0-15.0) % Plt Count (150-450) 10^3/uL MPV (9.5-13.5) fL Neut % (Auto) (43.0-75.0) % Lymph % (Auto) (20.5-60.0) % Hinds % (Auto) (1.7-12.0) % Eos % (Auto) (0.9-7.0) % Baso % (Auto) (0.2-2.0) % Neut # (Auto) (1.4-6.5) 10^3/uL Lymph # (Auto) (1.2-3.8) 10^3/uL Hinds # (Auto) (0.3-0.8) 10^3/uL Eos # (Auto) (0.0-0.7) 10^3/uL Baso # (Auto) (0.0-0.1) 10^3/uL Abs Immat Gran (auto) (0.00-0.03) 10^3/uL Imm/Tot Granulo (auto) (0.0-0.5) % PT (9.0-11.6) sec INR VBG pH (7.330-7.430) VBG pCO2 (40.0-52.0) mmHg Sodium (136-145) mmol/L Potassium (3.5-5.1) mmol/L Chloride (98-107) mmol/L Carbon Dioxide (21.0-32.0) mmol/L Anion Gap BUN (7.0-18.0) mg/dL Creatinine (0.70-1.30) mg/dL Est GFR ( Amer) (>=60 mL/min/1.73m^2) Est GFR (Non-Af Amer) (>=60 mL/min/1.73m^2) BUN/Creatinine Ratio Glucose (74-106) mg/dL Lactate (0.4-2.0) mmol/L Calcium (8.5-10.1) mg/dL Total Bilirubin (0.2-1.0) mg/dL AST (15-37) U/L ALT (16-63) U/L Alkaline Phosphatase (46-116) U/L Ammonia (11-32) umol/L Troponin I High Sens 15.4 (4.0-76.1) pg/mL Total Protein (6.4-8.2) g/dL Albumin (3.4-5.0) g/dL Globulin g/dL Albumin/Globulin Ratio TSH (0.358-3.740) uIU/mL Free T4 (0.76-1.46) ng/dL Free T3 (2.18-3.98) pg/mL Urine Color (YELLOW) Urine Clarity (CLEAR) Urine pH (5.0-9.0) Ur Specific Rye (1.005-1.025) Urine Protein (NEG/TRACE) mg/dL Urine Glucose (UA) (NEGATIVE) mg/dL Urine Ketones (NEGATIVE) mg/dL Urine Occult Blood (NEGATIVE) Urine Nitrite (NEGATIVE) Urine Bilirubin (NEGATIVE) Urine Urobilinogen (0.2-1.0) EU/dL Ur Leukocyte Esterase (NEGATIVE) Urine RBC (0-2) #/HPF Urine WBC (NONE SEEN) #/HPF Ur Squamous Epith Cells (NONE/RARE) #/LPF Urine Crystals (None Seen) #/HPF Urine Bacteria (NONE SEEN) #/HPF Urine Casts (NONE SEEN) #/LPF Urine Mucus (NONE SEEN) Ur Culture Indicated? Acetaminophen (10.0-30.0) ug/mL Ethanol Quant mg/dL Imaging Data CT Head wo and Chest x-ray: Attestation: I have reviewed the pertinent imaging results. Radiologist's impression: ITS Impressions Brain CT 06/24/25 14:34 IMPRESSION: NO ACUTE INTRACRANIAL ABNORMALITY. Impression dictated by: Kane Pendleton Jr., D.O. 06/24/2025 3:40 PM Dictation Location: [place] [address] Electronically authenticated by: [id number] Y Date: 06/24/2025 15:40 Chest X-Ray 06/24/25 14:34 IMPRESSION: NO ACUTE PROCESS. Impression dictated by: Kane Pendleton Jr., D.O. 06/24/2025 3:40 PM Dictation Location: [place] [address] Electronically authenticated by: [id number] Y Date: 06/24/2025 15:40 ECG Data Attestation: ?I have reviewed the pertinent ECG results. Discharge Plan Discharge Chief Complaint: Altered Mental Status Clinical Impression: UTI (urinary tract infection), Altered mental status Patient Disposition: Home, Self-Care Time of Disposition Decision: 18:44 Condition: Good Mode of Transportation: Private Vehicle Prescriptions / Home Meds: New cefuroxime axetil 250 mg tablet 250 mg PO ONCE 10 Days Qty: 10 0RF No Action allopurinol 100 mg tablet 100 mg PO DAILY duloxetine [Cymbalta] 60 mg capsule,delayed release(DR/EC) 60 mg PO QPM fluoxetine 10 mg capsule 10 mg PO QPM levothyroxine [Synthroid] 200 mcg tablet 200 mcg PO DAILY calcium acetate 667 mg tablet 667 mg PO TID rosuvastatin 20 mg capsule, sprinkle 20 mg PO DAILY clopidogrel 75 mg tablet Print Language: [place] Islander Instructions: Urinary Tract Infection in Men (ED) Referrals: NOEMI MENDOZA DO [Primary Care Provider, Family Practice] - 1 week Discharge Date/Time: 06/24/25 19:47 Documented by User: Jair Martinez MD 08/11/25 14:19 HPI HPI - General Adult General Chief complaint: Altered Mental Status Stated complaint: confusion Time Seen by Provider: 06/24/25 14:33 Related Data Home Medications ?Medication ?Instructions ?Recorded ?Confirmed allopurinol 100 mg tablet 100 mg PO DAILY 11/14/23 06/24/25 calcium acetate 667 mg tablet 667 mg PO TID 11/14/23 06/24/25 duloxetine 60 mg capsule,delayed 60 mg PO QPM 11/14/23 06/24/25 release (Cymbalta) fluoxetine 10 mg capsule 10 mg PO QPM 11/14/23 06/24/25 levothyroxine 200 mcg tablet 200 mcg PO DAILY 11/14/23 06/24/25 (Synthroid) rosuvastatin 20 mg sprinkle capsule 20 mg PO DAILY 11/14/23 06/24/25 clopidogrel 75 mg tablet mg 06/24/25 Previous Rx's ?Medication ?Instructions ?Recorded cefuroxime axetil 250 mg tablet 250 mg PO ONCE 10 days #10 tabs 06/24/25 Allergies Allergy/AdvReac Type Severity Reaction Status Date / Time verapamil Allergy Rash Verified 02/17/25 16:20 Opioid HPI Opioid Management Most Recent Opioid Data: Last Pain Scale 1 06/24/25, 13:46 PFSH [facility] Medical History (Updated 06/24/25 @ 18:44 by RYAN Jean) 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D64.9 - Anemia, unspecified (ICD-10) Panic attacks ?F41.0 - Panic disorder [episodic paroxysmal anxiety] (ICD-10) Depression ?F32.A - Depression, unspecified (ICD-10) Anxiety ?F41.9 - Anxiety disorder, unspecified (ICD-10) Sleep apnea ?G47.30 - Sleep apnea, unspecified (ICD-10) Migraine ?G43.909 - Migraine, unspecified, not intractable, without status migrainosus (ICD-10) Chronic renal failure ?N18.9 - Chronic kidney disease, unspecified (ICD-10) ESRD (end stage renal disease) ?N18.6 - End stage renal disease (ICD-10) Chronic kidney disease ?N18.9 - Chronic kidney disease, unspecified (ICD-10) Chronic kidney disease ?N18.9 - Chronic kidney disease, unspecified (ICD-10) Heartburn ?R12 - Heartburn (ICD-10) GERD (gastroesophageal reflux disease) ?K21.9 - Gastro-esophageal reflux disease without esophagitis (ICD-10) High cholesterol ?E78.00 - Pure hypercholesterolemia, unspecified (ICD-10) Hypertension ?I10 - Essential (primary) hypertension (ICD-10) Hypothyroidism ?E03.9 - Hypothyroidism, unspecified (ICD-10) Surgical History (Updated 11/14/23 @ 15:03 by Ciarra Diallo NP) H/O colonoscopy ?Z98.890 - Other specified postprocedural states (ICD-10) History of prostate surgery ?Z98.890 - Other specified postprocedural states (ICD-10) History of intestinal surgery ?Z98.890 - Other specified postprocedural states (ICD-10) H/O knee surgery ?Z98.890 - Other specified postprocedural states (ICD-10) H/O unilateral orchiectomy ?Z90.79 - Acquired absence of other genital organ(s) (ICD-10) H/O bilateral mastectomy ?Z90.13 - Acquired absence of bilateral breasts and nipples (ICD-10) History of hernia repair ?Z98.890 - Other specified postprocedural states (ICD-10) ?Z87.19 - Personal history of other diseases of the digestive system (ICD-10) History of cholecystectomy ?Z90.49 - Acquired absence of other specified parts of digestive tract (ICD-10) History of appendectomy ?Z90.49 - Acquired absence of other specified parts of digestive tract (ICD-10) Status post ORIF of fracture of ankle ?Z98.890 - Other specified postprocedural states (ICD-10) ?Z87.81 - Personal history of (healed) traumatic fracture (ICD-10) Family History (Updated 11/14/23 @ 14:45 by Ciarra Diallo NP) Other Family history of breast cancer Family history of diabetes mellitus Family history of heart disease Family history of hypertension Family history of myocardial infarction Family history of pulmonary embolism Social History (Updated 11/14/23 @ 14:36 by Ciarra Diallo NP) Within the past year, how often did you have a drink containing alcohol: 2-3 times a week Smoking status: Never smoker Non-prescribed substance use: denies use Highest level of school completed/degree received: high school graduate Little interest or pleasure in doing things: not at all Feeling down, depressed, or hopeless: not at all Exam Constitutional Vital Signs, click to edit/add: Last Vital Signs Temp 98.1 F 06/24/25 13:46 Pulse 95 H 06/24/25 19:45 Resp 16 06/24/25 19:45 BP 139/88 06/24/25 19:45 Pulse Ox 98 06/24/25 19:45 O2 Del Method Room Air 06/24/25 19:45 Course Vital Signs Vital signs: Vital Signs Temperature 98.1 F 06/24/25 13:46 Pulse Rate 87 06/24/25 13:46 Respiratory Rate 18 06/24/25 13:46 Blood Pressure 123/87 06/24/25 13:46 Pulse Oximetry 98 06/24/25 13:46 Oxygen Delivery Method Room Air 06/24/25 13:46 Temperature 98.1 F 06/24/25 13:46 Pulse Rate 95 H 06/24/25 19:45 Respiratory Rate 16 06/24/25 19:45 Blood Pressure 139/88 06/24/25 19:45 Pulse Oximetry 98 06/24/25 19:45 Oxygen Delivery Method Room Air 06/24/25 19:45 Medical Decision Making MDM Narrative Medical decision making narrative: I, Dr Martinez, have reviewed the above progress note and course of action in the ER; agree with the above. I have gone over history and physical, and discussed disposition and treatment plan of the patient with the PA/VAN OWNER OPERATOR At discharge we had shared decision making done with patient, , Ayana pharmacist from [facility], Dr Martinez and Chani DAVIS. Patient, , daughter agree with giving patient a dose of IV antibiotics of Rocephin prior to discharge and starting patient on cefuroxime 250 mg daily for the next 10 days secondary to complicated UTI. Patient and both agree that patient can go home. Mikaela daughter believes that patient was treated for a short-term rehab antibiotics and may have been not completely treated for UTI. Patient had 75,000 colonies initially. Urine cultures pending at this time. Lab Data Labs: Lab Results 06/24/25 06/24/25 06/24/25 Range/Units 14:00 15:02 16:50 WBC 10.3 (4.0-11.0) 10^3/uL RBC 4.00 L (4.70-6.10) 10^6/uL Hgb 12.6 L (14.0-18.0) g/dL Hct 38.1 L (42.0-54.0) % MCV 95.3 H (80.0-94.0) fL MCH 31.5 (25.9-34.0) pg MCHC 33.1 (29.9-35.2) g/dL RDW 15.0 (11.0-15.0) % Plt Count 176 (150-450) 10^3/uL MPV 12.1 (9.5-13.5) fL Neut % (Auto) 79.9 H (43.0-75.0) % Lymph % (Auto) 10.9 L (20.5-60.0) % Hinds % (Auto) 5.9 (1.7-12.0) % Eos % (Auto) 2.1 (0.9-7.0) % Baso % (Auto) 0.8 (0.2-2.0) % Neut # (Auto) 8.2 H (1.4-6.5) 10^3/uL Lymph # (Auto) 1.1 L (1.2-3.8) 10^3/uL Hinds # (Auto) 0.6 (0.3-0.8) 10^3/uL Eos # (Auto) 0.2 (0.0-0.7) 10^3/uL Baso # (Auto) 0.1 (0.0-0.1) 10^3/uL Abs Immat Gran (auto) 0.04 H (0.00-0.03) 10^3/uL Imm/Tot Granulo (auto) 0.4 (0.0-0.5) % PT 10.7 (9.0-11.6) sec INR 1.02 VBG pH 7.389 (7.330-7.430) VBG pCO2 53.6 H (40.0-52.0) mmHg Sodium 138 (136-145) mmol/L Potassium 3.5 (3.5-5.1) mmol/L Chloride 96 L (98-107) mmol/L Carbon Dioxide 32.6 H (21.0-32.0) mmol/L Anion Gap 12.9 BUN 19.0 H (7.0-18.0) mg/dL Creatinine 4.51 H (0.70-1.30) mg/dL Est GFR ( Amer) 16 L (>=60 mL/min/1.73m^2) Est GFR (Non-Af Amer) 13 L (>=60 mL/min/1.73m^2) BUN/Creatinine Ratio 4.2 Glucose 107 H (74-106) mg/dL Lactate 1.5 (0.4-2.0) mmol/L Calcium 9.2 (8.5-10.1) mg/dL Total Bilirubin 0.4 (0.2-1.0) mg/dL AST 20 (15-37) U/L ALT 24 (16-63) U/L Alkaline Phosphatase 81 (46-116) U/L Ammonia <10 L (11-32) umol/L Troponin I High Sens 14.2 (4.0-76.1) pg/mL Total Protein 6.8 (6.4-8.2) g/dL Albumin 3.6 (3.4-5.0) g/dL Globulin 3.2 g/dL Albumin/Globulin Ratio 1.1 TSH 38.783 H (0.358-3.740) uIU/mL Free T4 1.68 H (0.76-1.46) ng/dL Free T3 1.84 L (2.18-3.98) pg/mL Urine Color Yellow (YELLOW) Urine Clarity Clear (CLEAR) Urine pH 7.0 (5.0-9.0) Ur Specific Rye 1.015 (1.005-1.025) Urine Protein >=300 A (NEG/TRACE) mg/dL Urine Glucose (UA) Negative (NEGATIVE) mg/dL Urine Ketones Trace A (NEGATIVE) mg/dL Urine Occult Blood Moderate A (NEGATIVE) Urine Nitrite Negative (NEGATIVE) Urine Bilirubin Negative (NEGATIVE) Urine Urobilinogen 0.2 (0.2-1.0) EU/dL Ur Leukocyte Esterase Small A (NEGATIVE) Urine RBC 5-10 A (0-2) #/HPF Urine WBC 20-50 A (NONE SEEN) #/HPF Ur Squamous Epith Cells Rare (NONE/RARE) #/LPF Urine Crystals None seen (None Seen) #/HPF Urine Bacteria Small A (NONE SEEN) #/HPF Urine Casts None seen (NONE SEEN) #/LPF Urine Mucus None seen (NONE SEEN) Ur Culture Indicated? Yes-[facility] [place] Acetaminophen <2.0 L (10.0-30.0) ug/mL Ethanol Quant <3 mg/dL 06/24/25 Range/Units 17:46 WBC (4.0-11.0) 10^3/uL RBC (4.70-6.10) 10^6/uL Hgb (14.0-18.0) g/dL Hct (42.0-54.0) % MCV (80.0-94.0) fL MCH (25.9-34.0) pg MCHC (29.9-35.2) g/dL RDW (11.0-15.0) % Plt Count (150-450) 10^3/uL MPV (9.5-13.5) fL Neut % (Auto) (43.0-75.0) % Lymph % (Auto) (20.5-60.0) % Hinds % (Auto) (1.7-12.0) % Eos % (Auto) (0.9-7.0) % Baso % (Auto) (0.2-2.0) % Neut # (Auto) (1.4-6.5) 10^3/uL Lymph # (Auto) (1.2-3.8) 10^3/uL Hinds # (Auto) (0.3-0.8) 10^3/uL Eos # (Auto) (0.0-0.7) 10^3/uL Baso # (Auto) (0.0-0.1) 10^3/uL Abs Immat Gran (auto) (0.00-0.03) 10^3/uL Imm/Tot Granulo (auto) (0.0-0.5) % PT (9.0-11.6) sec INR VBG pH (7.330-7.430) VBG pCO2 (40.0-52.0) mmHg Sodium (136-145) mmol/L Potassium (3.5-5.1) mmol/L Chloride (98-107) mmol/L Carbon Dioxide (21.0-32.0) mmol/L Anion Gap BUN (7.0-18.0) mg/dL Creatinine (0.70-1.30) mg/dL Est GFR ( Amer) (>=60 mL/min/1.73m^2) Est GFR (Non-Af Amer) (>=60 mL/min/1.73m^2) BUN/Creatinine Ratio Glucose (74-106) mg/dL Lactate (0.4-2.0) mmol/L Calcium (8.5-10.1) mg/dL Total Bilirubin (0.2-1.0) mg/dL AST (15-37) U/L ALT (16-63) U/L Alkaline Phosphatase (46-116) U/L Ammonia (11-32) umol/L Troponin I High Sens 15.4 (4.0-76.1) pg/mL Total Protein (6.4-8.2) g/dL Albumin (3.4-5.0) g/dL Globulin g/dL Albumin/Globulin Ratio TSH (0.358-3.740) uIU/mL Free T4 (0.76-1.46) ng/dL Free T3 (2.18-3.98) pg/mL Urine Color (YELLOW) Urine Clarity (CLEAR) Urine pH (5.0-9.0) Ur Specific Rye (1.005-1.025) Urine Protein (NEG/TRACE) mg/dL Urine Glucose (UA) (NEGATIVE) mg/dL Urine Ketones (NEGATIVE) mg/dL Urine Occult Blood (NEGATIVE) Urine Nitrite (NEGATIVE) Urine Bilirubin (NEGATIVE) Urine Urobilinogen (0.2-1.0) EU/dL Ur Leukocyte Esterase (NEGATIVE) Urine RBC (0-2) #/HPF Urine WBC (NONE SEEN) #/HPF Ur Squamous Epith Cells (NONE/RARE) #/LPF Urine Crystals (None Seen) #/HPF Urine Bacteria (NONE SEEN) #/HPF Urine Casts (NONE SEEN) #/LPF Urine Mucus (NONE SEEN) Ur Culture Indicated? Acetaminophen (10.0-30.0) ug/mL Ethanol Quant mg/dL Imaging Data CT Head wo and Chest x-ray: Radiologist's impression: ITS Impressions Brain CT 06/24/25 14:34 IMPRESSION: NO ACUTE INTRACRANIAL ABNORMALITY. Impression dictated by: Kane Pendleton Jr., D.O. 06/24/2025 3:40 PM Dictation Location: [employer]-27 Electronically authenticated by: [id number] Y Date: 06/24/2025 15:40 Chest X-Ray 06/24/25 14:34 IMPRESSION: NO ACUTE PROCESS. Impression dictated by: Kane Pendleton Jr., D.O. 06/24/2025 3:40 PM Dictation Location: [employer]27 Electronically authenticated by: [id number] Y Date: 06/24/2025 15:40 Discharge Plan Discharge Chief Complaint: Altered Mental Status Clinical Impression: UTI (urinary tract infection), Altered mental status Patient Disposition: Home, Self-Care Time of Disposition Decision: 18:44 Condition: Good Mode of Transportation: Private Vehicle Prescriptions / Home Meds: New cefuroxime axetil 250 mg tablet 250 mg PO ONCE 10 Days Qty: 10 0RF No Action allopurinol 100 mg tablet 100 mg PO DAILY duloxetine [Cymbalta] 60 mg capsule,delayed release(DR/EC) 60 mg PO QPM fluoxetine 10 mg capsule 10 mg PO QPM levothyroxine [Synthroid] 200 mcg tablet 200 mcg PO DAILY calcium acetate 667 mg tablet 667 mg PO TID rosuvastatin 20 mg capsule, sprinkle 20 mg PO DAILY clopidogrel 75 mg tablet Print Language: [place] Island[place] Instructions: Urinary Tract Infection in Men (ED) Referrals: NOEMI MENDOZA DO [Primary Care Provider, Family Practice] - 1 week Discharge Date/Time: 06/24/25 19:47
[2025-06-24 14:53] LABS: INR 1.02; Prothrombin Time 10.7 sec (9.0-11.6)
[2025-06-24 14:59] LABS: Alanine Aminotransferase 24 U/L (16-63); Albumin Globulin Ratio 1.1; Albumin Level 3.6 g/dL (3.4-5.0); Alkaline Phosphatase 81 U/L (46-116); Anion Gap 12.9; Aspartate Amino Transferase 20 U/L (15-37); Blood Urea Nitrogen 19.0 mg/dL (7.0-18.0); Calcium 9.2 mg/dL (8.5-10.1); Carbon Dioxide 32.6 mmol/L (21.0-32.0); Chloride 96 mmol/L (98-107); Estimated GFR (African America 16 (>=60 mL/min/1.73m^2); Estimated GFR (Non-African Ame 13 (>=60 mL/min/1.73m^2); Globulin 3.2 g/dL; Glucose 107 mg/dL (74-106); Potassium 3.5 mmol/L (3.5-5.1); Sodium 138 mmol/L (136-145); Total Protein 6.8 g/dL (6.4-8.2)
[2025-06-24 15:09] LABS: PCO2 VBG 53.6 mmHg (40.0-52.0); pH VBG 7.389 (7.330-7.430)
[2025-06-24 15:09] LABS: Acetaminophen <2.0 ug/mL (10.0-30.0)
[2025-06-24 15:13] LABS: Lactate/Lactic Acid 1.5 mmol/L (0.4-2.0)
[2025-06-24 15:21] LABS: Ammonia <10 umol/L (11-32)
[2025-06-24 16:22] LABS: Free T3 1.84 pg/mL (2.18-3.98)
[2025-06-24] MEDS: LIDOCAINE 2% JELLY 10 ML UR (16:30)
[2025-06-24 17:15] LABS: Glucose Urine UA NEGATIVE (NEGATIVE)
[2025-06-24 17:39] LABS: Cast Seen? NONE SEEN #/LPF (NONE SEEN); Crystals Seen? None Seen #/HPF (None Seen); Urine Culture Indicated YES-FRMC
== END 2025-06-24 19:47 | disposition home or self-care (01) ==
PROVIDERS: Physician Assistant; Emergency Provider Emergency Medicine; PCP Internal Medicine
DX: N39.0 Urinary tract infection, site not specified (principal); R41.82 Altered mental status, unspecified; N18.9 Chronic kidney disease, unspecified
CPT/HCPCS: 36415; 70450; 71045; 80053; 80320; 80329; 81001; 82140; 82800; 83605; 84439; 84443; 84481; 84484; 85025; 85610; 87086; 93005; 96365; 99284; J0696